=== PATIENT | male | born 1960 | race Caucasian/White ===

== ENCOUNTER 2016-09-02 20:26 | Inpatient (IN) | payer MEDICAID ==
[~2016-09-02] VITALS: Ht 177.8 cm; Wt 80.7 kg
--- OUTSIDE RECORDS SUMMARY | 2016-09-02 20:30 | XMS REPORT | CCD ---
Author Author BILL PIERRE Organization Unknown Address [address] [facility] [address] [place], [place] [id number] Care Team Providers Care Boat Canvas Maker Installer Name Role Phone MONTANA, DO Attphys MONTANA, DO Prisurg Vital Signs Unknown or Not Available. Allergies Allergy Code Allergy Type Reaction Status No Known Allergies 0 No known allergies Active Procedures Procedure Code Procedure Type Date CX CHEST [address] 03/06/2015 CULTURE BLOOD 06186500 SNOMED CT 03/06/2015 CULTURE BLOOD 84483157 SNOMED CT 03/06/2015 C REACTIVE PROTEIN 78411914 SNOMED CT 03/06/[address] 6[address] 03/06/2015 COMPREHENSIVE METABOLIC PANEL 012099000 SNOMED CT 2014 CBC W/ AUTO DIFF (RFLX MAN DIFF IF IND) 3863595 SNOMED CT 03/06/2015 BAN AERO ECLIPSE TREATMENT 10706303 SNOMED CT 03/06/2015 ^CBC W/AUTO DIFF 5270010 SNOMED CT 03/06/2015 History of Immunizations Unknown or Not Available. Problems Problem Code Start Date Resolved Date Status Pneumonia 084716822 03/07/2015 Active Elevated liver function 45358451 03/07/2015 Active ALCOHOL WITHDRAWAL 087555188 03/07/2015 Resolved Results COMPREHENSIVE METABOLIC PANEL - Collect Date/Time: 03/06/2015 05:45 Test Name Code Test Result Test Units Test Ref Range GLUCOSE 2345-7 97 MG/DL L=70 H=100 SODIUM 2951-2 140 MEQ/L L=135 H=148 POTASSIUM 2823-3 4.2 MEQ/L L=3.5 H=5.3 CHLORIDE 2075-0 107 MEQ/L L=96 H=110 CO2 2028-9 22 MEQ/L L=22 H=29 BUN 3094-0 13 MG/DL L=8 H=22 CREATININE 2160-0 0.8 MG/DL L=0.6 H=1.6 SGOT/AST 1920-8 78 IU/L L=10 H=40 SGPT/ALT 1742-6 84 IU/L L=8 H=54 ALK PHOS 6768-6 58 IU/L L=35 H=115 TOTAL PROTEIN 2885-2 7.0 G/DL L=5.5 H=8.5 ALBUMIN 1751-7 3.3 G/DL L=3.1 H=5.4 TOTAL BILI 1975-2 0.6 MG/DL L=0.0 H=1.5 CALCIUM 95888-0 9.0 MG/DL L=8.2 H=10.6 AGE 54 yrs GFR NonAA 101 GFR AA 122 eGFR >60 N/A eGFR AA* >60 N/A CBC W/ AUTO DIFF (RFLX MAN DIFF IF IND) - Collect Date/Time: 03/06/2015 05:45 Test Name Code Test Result Test Units Test Ref Range WBC 87515-8 8.9 TH/CMM L=4.5 H=10.8 RBC 789-8 4.00 ML/CMM L=4.70 H=6.10 HGB 718-7 12.5 G/DL L=14.0 H=18.0 HCT 4544-3 38.3 % L=42.0 H=52.0 MCV 96 FL L=81 H=99 MCH 31.3 PG L=27.0 H=33.0 MCHC 32.6 G/DL L=31.0 H=36.0 RDW SD 46 FL L=36 H=50 RDW CV 13.0 % L=0.0 H=14.8 MPV 11.0 FL L=9.3 H=12.5 PLT 777-3 148 TH/CMM L=130 H=440 NRBC# 0.00 TH/CMM L=0.00 H=0.00 NRBC% 0.0 /100WBC L=0.0 H=2.0 %NEUT 73.7 % %LYMP 11.9 % %MONO 9.8 % %EOS 4.1 % %BASO 0.5 % #NEUT 6.53 TH/CMM L=2.10 H=8.20 #LYMP 1.05 TH/CMM L=0.90 H=5.20 #MONO 0.87 TH/CMM L=0.16 H=1.00 #EOS 0.36 TH/CMM L=0.00 H=0.80 #BASO 0.04 TH/CMM L=0.00 H=0.20 MANUAL DIFF NOT IND N/A C REACTIVE PROTEIN - Collect Date/Time: 03/06/2015 05:45 Test Name Code Test Result Test Units Test Ref Range C REACTIVE PROTEIN 1988-5 0.8 MG/DL L=0.0 H= 1.0 LACTIC ACID - Collect Date/Time: 03/06/2015 05:45 Test Name Code Test Result Test Units Test Ref Range LACTIC ACID 2524-7 1.8 mmol/L L=0.5 H=1.6 Active Medications Medication Code Dose Units Frequency Route Modification Start Date/Time Spiriva Respimat 2.5MCG/1Act Inhalation [place] 9707679 2 PUFF DAILY INHALATION 03/10/2015 09:51 Levaquin 500MG Oral Tablet 603166 1 TABLET DAILY BY MOUTH 03/10/2015 09:47 Albuterol Sulfate 0.083% Inhalation Solution 329034 1 EACH FOUR TIMES A DAY INHALATION 03/10/2015 09:46 Ativan 1MG Oral Tablet 993604 1 MILLIGRAMS NEEDED EVERY 6 HR ORAL 03/10/2015 09:46 Ativan 1MG Oral Tablet 597943 1 MILLIGRAMS DAILY ORAL 03/10/2015 09:46 Depakote 250MG Oral Tablet, Delayed Release 8937612 250 MILLIGRAMS THREE TIMES A DAY ORAL 03/10/2015 09: 46 Ibuprofen 800MG Oral Tablet 481889 800 MILLIGRAMS NEEDED EVERY 6 HR ORAL 03/10/2015 09:46 ibuprofen 800MG Oral Tablet 427233 800 MILLIGRAMS AT BEDTIME ORAL 03/10/2015 09:46 Ipratropium [place] and Albuterol Sulfate 0.5MG/3ML-3MG/3ML Inhalation Solution 6852251 1 EACH NEEDED EVERY 6 HR INHALATION 03/10/2015 09:46 Keppra 250MG Oral Tablet 289335 250 MILLIGRAMS THREE TIMES A DAY ORAL 03/10/2015 09:46 Tylenol ES 500MG Oral Tablet 782325 500 MILLIGRAMS NEEDED EVERY 4 HR ORAL 03/10/2015 09:46 Protonix 40MG Oral Tablet, Enteric Coated 438280 1 TABLET DAILY BY MOUTH 02/06/2015 11:02 Magnesium Oxide 400MG Oral Tablet 775939 800 MILLIGRAMS TWO TIMES A DAY BY MOUTH 02/06/2015 11:01 Thera-M Enhanced 90MG-0.03MG-0.15MG-4 Oral Tablet 770022 1 TABLET DAILY BY MOUTH 02/06/2015 11:01 Vitamin B1 100MG Oral Tablet 561787 100 MILLIGRAMS DAILY BY MOUTH 02/06/2015 11:01 Amlodipine 5MG Oral Tablet 756528 5 MILLIGRAMS DAILY ORAL 02/06/2015 11:00 Metoprolol 50MG Oral Tablet 597011 1 TABLET EVERY 12 HOURS BY MOUTH 01/23/2013 13:56 Medications Administered During Visit Unknown or Not Available. Encounters Encounter Diagnosis Diagnosis Code Start Date PNEUMONIA, ORGANISM NOS 486 03/06/2015 Social History Smoking Status Code Start Date End Date Never smoker [id number] Patient Decision Aids Unknown or Not Available. Discharge Instructions You were admitted to [facility] on 03/06/2015 with a principal diagnosis of PNEUMONIA, ORGANISM NOS. You were discharged from [facility] on 03/06/2015. Should you have any questions prior to discharge, please contact a member of your healthcare team. If you have left the hospital and have any questions, please contact your primary care physician. Chief Complaint and Reason For Visit Chief Complaint Date of Onset SHORTNESS OF BREATH Function Status Unknown or Not Available. Referral/Transition of Care Unknown or Not Available.
[2016-09-02 20:44] VITALS: BP 133/62
[2016-09-02] MEDS ORDERED: ACETAMINOPHEN 500 MG TAB (TYLENOL) PO PRN (21:30)
[2016-09-02] MEDS ORDERED: RT-ALBUTEROL SULF 2.5 MG/3 ML PRE-MIX VIAL INH PRN (21:30)
[2016-09-02] MEDS ORDERED: LACTULOSE SYRUP 10GM/15ML (ENULOSE) 30ML UDC PO PRN (22:00)
[2016-09-03] MEDS ORDERED: SPIR100T2 PO (02:18)
[2016-09-03] MEDS ORDERED: NADO20TA PO (02:18)
[2016-09-03] MEDS ORDERED: TAMS0.4C2 PO (02:18)
[2016-09-03] MEDS ORDERED: GUAI120016 PO (02:18)
[2016-09-03] MEDS ORDERED: IRON150C13 PO (02:18)
[2016-09-03] MEDS ORDERED: THIA100T68 PO (02:18)
[2016-09-03] MEDS ORDERED: PANT40TA2 PO (02:18)
[2016-09-03] MEDS ORDERED: LEVE500T6 PO (02:18)
[2016-09-03] MEDS ORDERED: POTA-51 PO (02:18)
[2016-09-03] MEDS ORDERED: IPRA4AER IH (02:18)
[2016-09-03] MEDS ORDERED: MAGN400T6 PO (02:18)
[2016-09-03] MEDS ORDERED: FOLI1TAB24 PO (02:18)
[2016-09-03] MEDS ORDERED: BUME1TAB4 PO (02:18)
[2016-09-03] MEDS ORDERED: MULT-593 PO (02:18)
[2016-09-03 05:11] VITALS: BP 121/80
[2016-09-03 05:55] LABS: BASOPHILS % (AUTO) 1 % (0-10); EOSINOPHILS # (AUTO) 0.4 10^3/uL (0.0-0.3); EOSINOPHILS % (AUTO) 6 % (0-10); LYMPHOCYTES # (AUTO) 1.9 X 10^3 (1.0-4.0); LYMPHOCYTES % (AUTO) 26 % (12-44); MEAN CORPUSCULAR HEMOGLOBIN 33 PG (25-34); MEAN CORPUSCULAR HGB CONC 33 G/DL (32-36); MEAN CORPUSCULAR VOLUME 102 FL (80-99); MEAN PLATELET VOLUME 12.6 FL (7.4-10.4); MONOCYTES # (AUTO) 0.7 X 10^3 (0.0-1.0); MONOCYTES % (AUTO) 10 % (0-12); NEUTROPHILS # (AUTO) 4.1 X 10^3 (1.8-7.8); NEUTROPHILS % (AUTO) 58 % (42-75); PLATELET COUNT 73 10^3/uL (130-400); RED BLOOD COUNT 2.82 10^6/uL (4.35-5.85); RED CELL DISTRIBUTION WIDTH 16.9 % (10.0-14.5); WHITE BLOOD COUNT 7.1 10^3/uL (4.3-11.0)
[2016-09-03] MEDS: inSUlin ASPART (NovoLOG) 1 UNIT/0.01 ML (CHARGE PER UNIT) SC SCH ×4 (06:00→20:25)
[2016-09-03 06:18] LABS: ALBUMIN 3.6 G/DL (3.2-4.5); BILIRUBIN,TOTAL 2.2 MG/DL (0.1-1.0); CALCIUM 8.9 MG/DL (8.5-10.1); CREATININE SERUM 1.27 MG/DL (0.60-1.30); MAGNESIUM 1.2 MG/DL (1.8-2.4); TOTAL PROTEIN 6.3 G/DL (6.4-8.2)
[2016-09-03] MEDS: RT-ALBUTEROL SULF 2.5 MG/3 ML PRE-MIX VIAL INH SCH ×3 (07:40→20:55)
[2016-09-03] MEDS: MAGNESIUM OXIDE (MAG-OX)400 MG TAB PO SCH ×2 (08:32→17:54)
[2016-09-03] MEDS: BUMETANIDE 1 MG (BUMEX) TAB PO SCH (08:32)
[2016-09-03] MEDS: LEVETIRACETAM 500 MG (KEPPRA) TAB PO SCH ×2 (08:32→19:42)
[2016-09-03] MEDS: THIAMINE 100 MG (VITAMIN B-1) TAB PO SCH (08:32)
[2016-09-03] MEDS: MULTIVIT W/MINERALS TAB (THERAGRAN M) PO SCH (08:32)
[2016-09-03] MEDS: guaiFENesin (MUCINEX) 600 MG TAB PO SCH ×2 (08:33→19:42)
[2016-09-03] MEDS: KCL 20 MEQ TAB (K-DUR) PO SCH ×2 (08:33→19:42)
[2016-09-03] MEDS: PANTOPRAZOLE 40 MG (PROTONIX) TAB PO SCH (08:33)
[2016-09-03] MEDS: FOLIC ACID 1 MG TAB PO SCH (08:33)
[2016-09-03] MEDS: SPIRONOLACTONE 100 MG (ALDACTONE) TABLET PO SCH (08:34)
[2016-09-03] MEDS: IRON POLYSAC 150 MG CAP (NIFEREX) PO SCH ×2 (08:34→19:42)
[2016-09-03] MEDS: VANCOMYCIN INJECTION 1,250 MG in NS (IVPB) 250 ML IV SCH (08:50)
[2016-09-03] MEDS ORDERED: BUMETANIDE 1 MG/4 ML (BUMEX) VIAL IV SCH (09:00)
[2016-09-03] MEDS ORDERED: IRON POLYSAC 150 MG CAP (NIFEREX) PO SCH (09:00)
--- NOTE | 2016-09-03 11:56 | Physical Therapy Evaluation ---
PT Evaluation-General Medical Diagnosis Admission Date Sep 02, 2016 at 20:26 Medical Diagnosis: acute respiratory failure Onset Date: Aug 16, 2016 Therapy Diagnosis Therapy Diagnosis: impaired mobility, strength, endurance Height/Weight Height (Feet): 5 Height (Inches): 10.00 Weight (Pounds): 179 Weight (Ounces): 0.0 Precautions Precautions/Isolations: Droplet Isolation, Seizure, Fall Prevention Referral Physician: Devon Reason for Referral: Evaluation/Treatment Medical History Pertinent Medical History: Atrial Fib, GERD, HTN Additional Medical History alcohol abuse, pyleonephritis, cirrhosis, hep B&C, chronic pain syndrome, seizures Current History went to ER on 08/16/16, found by family with resp. distress Reviewed History: Yes Social History Home: Single Level Current Living Status: Other Family Entry Into Home: Level Entry patient has a ramp going to the front door and a level entry in the back which he says he will be using, patient lives with his brother who will be with him all the time Prior/Core FIM Prior Level of Function Functional [place] Measure 0=Not Assessed/NA 4=Minimal Assistance 1=Total Assistance 5=Supervision or Setup 2=Maximal Assistance 6=Modified [place] 3=Moderate Assistance 7=Complete [place] Bed Mobility: 7 Transfers (B,C,W/C) (FIM): 6 Gait: 6 patient states he was using a rolling walker some of the time PT Daily Note-Current Subjective Patient in recliner pre tx, states the chair feels better due to back pain. However, he has no pain at this time. Patient is on precautions and cannot come out of his room at this time. Pain Numeric Pain Scale: 0-No Pain Appearance Patient in recliner post tx, with nurse call, phone, tray, all needs met. Mental Status Patient Orientation: Person, Place, Situation Transfers Functional [place] Measure 0=Not Assessed/NA 4=Minimal Assistance 1=Total Assistance 5=Supervision or Setup 2=Maximal Assistance 6=Modified [place] 3=Moderate Assistance 7=Complete IndependenceIRFPAI Quality Coding Scale 6 Independent with activity with or without an assistive device 5 Patient requires set up or clean up by helper. Patient completes activity by themselves 4 Supervision or touching assist (CGA). [place] provide cues , steadying assist 3 The helper provides less than half the effort to complete the activity 2 The helper provides more than half the effort to complete the activity 1 Dependent. The helper does all the effort to complete an activity 7 Patient refused to complete or attempt activity 9 The patient did not perform the activity before the current illness or injury 88 Not attempted due to Medical conditions or safety concerns Transfers (B, C, W/C) (FIM): 4 Scootin Rollin Roll Left to Right (QC): 6 Supine to/from Sit: 6 Sit to/from Stand: 4 Bed to/from Chair: 4 Sit to Lying (QC): 6 Lying-Sitting/Side of Bed(QC): 6 Sit to Stand (QC): 4 Chair/Nvh-tg-Cwvce Xfer(QC): 4 Car Transfer (QC): 88 Patient requires CGA for sit to stand and stand pivot transfers, has appropriate use of hands for safety Gait Training Does the Patient Walk?: Yes Gait (FIM): 1 Distance: 20'x6 Walk 10 feet (QC): 4 Gait Level of Assist: 4 Gait Persons Needed: 1 Gait Assistive Device: FWW Patient needs CGA when walking, he was able to ambulate 10' without difficulty, and ambulated 20' about 6 times. He was toileted twice, needs to urinate frequently. Stair Training Stair Training: Handrails/: uses walker Stairs (FIM): 1 #of Steps: 1 1 Step (curb) (QC): 4 4 Steps (QC): 88 12 Steps (QC): 88 Stairs: Pattern: Step to Level of Assist: 4 (CGA) Balance Balance Sitting Static: Normal Balance Sitting Dynamic: Normal Balance-Standing Static: Fair Balance Standing Dynamic: Fair Picking up an Object (QC): 88 Exercises Seated Therapy Exercises: Ankle pumps, Hip flexion Seated Reps: 20 LAQ alternating for 5 min, sit to stand 3 sets of 5 Neuromuscular Patient has intact light touch sensation in both legs, MMT LLE 4+/5 gross, RLE 4 /5 gross Treatments evaluation, ambulation, bed mobility and transfers, functional strengthening, stair training Assessment Patient has impaired mobility and weakness in both legs PT Short Term Goals Short Term Goals Time Frame: Sep 10, 2016 Transfers (B,C,W/C) (FIM): 5 Gait (FIM): 2 Gait Distance Comment: 50' Gait Level of Assist: 4 Gait Assistive Device: FWW PT Cutter First Goals Cutter First Goals PT Retirement Goals Time Frame: Sep 24, 2016 Transfers (B,C,W/C) (FIM): 6 Sit to Lying (QC): 6 Lying-Sitting on Side/Bed(QC): 6 Sit to Stand (QC): 6 Rollin Roll Left to Right (QC): 6 Chair/Xdl-gb-Wffmq Xfer(QC): 6 Car Transfer (QC): 4 Does the Patient Walk: Yes Gait (FIM): 5 Distance: 150' Walk 10 feet (QC): 4 Walk 10ft-Uneven Surface(QC): 4 Walk 50ft with 2 Turns (QC): 4 Walk 150 ft (QC): 4 Gait Level of Assist: 5 Gait Assistive Device: FWW Stairs (FIM): 2 # of Steps: 4 1 Step (curb) (QC): 4 4 Steps (QC): 4 Stairs Level Of Assist: 4 PT Plan Problem List Problem List: Activity Tolerance, Functional Strength, Safety, Balance, Gait, Transfer, Bed Mobility Treatment/Plan Treatment Plan: Continue Plan of Care Treatment Plan: Bed Mobility, Education, Functional Activity Felisha, Functional Strength, Group Therapy, Gait, Safety, Therapeutic Exercise, Transfers Treatment Duration: Sep 24, 2016 # of days/week 5-6 Visits Per Week: 10-11 Minutes/Day (M-F): 60-90 Minutes/Day (Sat/Ruiz): 15-30 Pt/Family Agrees w/Plan: Yes Safety Risks/Education Patient Education: Gait Training, Transfer Techniques, Steps, Correct Positioning, Safety Issues Teaching Recipient: Patient Teaching Methods: Demonstration, Discussion Response to Teaching: Reinforcement Needed Discharge Recommendations Plan Patient will perform bed mobility and transfers, balance and endurance training , functional strengthening, stair training, gait training, education, to improve functional mobility and independence at home. Therapy D/C Recommendations: Home w/ Family Support Time/GCodes Time In: 1100 Time Out: 1200 Total Billed Treatment Time: 60 Total Billed Treatment 1 visit EVS 15 min EX 15 min GT 30 min SHADY SALGUERO PT Sep 03, 2016 11:56
--- NOTE | 2016-09-03 14:00 | Occupational Ther Daily Note ---
OT Current Status-Daily Note Subjective Pt seen in room, up in recliner, agreeable to OT. No pain mentioned but he said he was tired from this morning. Appearance Alert, cooperative Mental Status/Objective Functional [place] Measure 0=Not Assessed/NA 4=Minimal Assistance 1=Total Assistance 5=Supervision or Setup 2=Maximal Assistance 6=Modified [place] 3=Moderate Assistance 7=Complete [place] ADL-Treatment Pt reported that he needed to toilet. Sit to stand SBA, FWW. Walked CGA, FWW to bathroom. CGA transfer on/off BSC over toilet, using grab bars as well. Pt managed clothing and hygiene for BM with SBA. Walked back to recliner CGA, FWW. Functional [place] Measure 0=Not Assessed/NA 4=Minimal Assistance 1=Total Assistance 5=Supervision or Setup 2=Maximal Assistance 6=Modified [place] 3=Moderate Assistance 7=Complete IndependenceIRFPAI Quality Coding Scale 6 Independent with activity with or without an assistive device 5 Patient requires set up or clean up by helper. Patient completes activity by themselves 4 Supervision or touching assist (CGA). [place] provide cues , steadying assist 3 The helper provides less than half the effort to complete the activity 2 The helper provides more than half the effort to complete the activity 1 Dependent. The helper does all the effort to complete an activity 7 Patient refused to complete or attempt activity 9 The patient did not perform the activity before the current illness or injury 88 Not attempted due to Medical conditions or safety concerns Other Treatment Pt did 10 reps each x 2 sets of three different bilat UE exercises with yellow theraband (gentle resistance). Pt education on the different exercises that facilitate transfers and sit to stand from surfaces without arms. Pt tended to hold his breath and needed skilled cues to breathe. O2 sats remained 98-99%. Pt took several brief recovery periods due to decreased activity tolerance. OT Short Term Goals Short Term Goals Transfers (B,C,W/C) (FIM): 5 1=Demonstrate adherence to instructed precautions during ADL tasks. 2=Patient will verbalize/demonstrate understanding of assistive devices/ modifications for ADL. 3=Patient will improve strength/tolerance for activity to enable patient to perform ADL's. OT Nursing Home Goals Scrap Drop Engineer Goals Comprehension(FIM): 5 Expression (FIM): 5 Social Interaction(FIM): 6 Problem Solving(FIM): 5 Memory(FIM): 5 1=Demonstrate adherence to instructed precautions during ADL tasks. 2=Patient will verbalize/demonstrate understanding of assistive devices/ modifications for ADL. 3=Patient will improve strength/tolerance for activity to enable patient to perform ADL's. OT Education/Plan Discharge Recommendations Plan/Recommendations: Continue POC Treatment Plan/Plan of Care Patient would benefit from OT for education, treatment and training to promote independence in ADL's, mobility, safety and/or upper extremity function for ADL' s. Rehab Potential: Good Time/GCodes Start Time: 13:00 Stop Time: 13:15 Total Time Billed (hr/min): 15 Billed Treatment Time visit, 15 ex NICO LEES OT Sep 03, 2016 14:00
--- NOTE | 2016-09-03 14:21 | Occupational Therapy Eval ---
OT Evaluation-General/PLF Medical Diagnosis Admission Date Sep 02, 2016 at 20:26 Medical Diagnosis: acute respiratory failure Onset Date: Aug 16, 2016 Therapy Diagnosis Therapy Diagnosis: muscle weakness, decreased activity tolerance, decreased self care Height/Weight Height (Feet): 5 Height (Inches): 10.00 Weight (Pounds): 179 Weight (Ounces): 0.0 Precautions Precautions/Isolations: Droplet Isolation, Seizure, Fall Prevention Safety Interventions: Reorient-PRN Referral Physician: Devon Referral Reason: Evaluation/Treatment Medical History Pertinent Medical History: Atrial Fib, Alcoholism, GERD, HTN Additional Medical History Hx metabolic encephalopathy, Hep B, Hep C, chronic cirrhosis, anemia, anxiety, chronic kidney disease, chronic pain. 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 Pt reported he was in the hospital over with the same thing Reviewed History: Yes Social History Home: Single Level Current Living Status: Other Family (brother) Entry Into Home: Ramp, Level Entry Steps Into Home: 0 (level in back of house) ADL-Prior Level of Function ADL PLOF Comments Pt reported that he was able to manage his basic ADLs prior to recent hospitalizations. He lives with his brother who does the shopping, laundry and cooking. They share housecleaning. He reported his brother is his SK[employer] worker for 36+ hours a week. 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 He has not driven since his started having seizures - reported last seizure about 6 months ago. He also said he hadn't had any alcohol for a year. 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 No pain mentioned. Appearance Alert, cooperative Mental Status/Objective Patient Orientation: Person, Place, Time, Situation Attachments: IV Current Glasses/Contacts: No Hearing Aids: No Dentures/Partials: No Hand Dominance: Right Upper Extremity ROM Grossly WFL except slightly decreased shoulder flex/abd on R. Pt reported that he fell in the kitchen at home and landed on his R shoulder Upper Extremity Coordination Grossly WFL bilat Upper Extremity Strength Grossly 4/5 bilat with slightly decreased R shoulder flex/abd due to old shoulder injury ADL-Treatment Functional [place] Measure 0=Not Assessed/NA 4=Minimal Assistance 1=Total Assistance 5=Supervision or Setup 2=Maximal Assistance 6=Modified [place] 3=Moderate Assistance 7=Complete IndependenceIRFPAI Quality Coding Scale 6 Independent with activity with or without an assistive device 5 Patient requires set up or clean up by helper. Patient completes activity by themselves 4 Supervision or touching assist (CGA). [place] provide cues , steadying assist 3 The helper provides less than half the effort to complete the activity 2 The helper provides more than half the effort to complete the activity 1 Dependent. The helper does all the effort to complete an activity 7 Patient refused to complete or attempt activity 9 The patient did not perform the activity before the current illness or injury 88 Not attempted due to Medical conditions or safety concerns Eating (FIM): 5 (setup) Eating (QC): 5 Grooming (FIM): 5 (SBA, FWW at sink to brusth teeth and hair) Oral Hygiene (QC): 4 (SBA) Bathing (FIM): 5 (Washed and dried all parts setup, SBA when standing to wash bottom. Hand held shower, shower bench, grab bars) Shower/Bathe Self (QC): 4 (SBA) Upper Body Dressing (FIM): 5 (setup) Upper Body Dressing (QC): 5 (SBA, setup, FWW. Struggled a little with socks and out of breath. Slipped shoes on) Lower Body Dressing (FIM): 4 (SBA, FWW) Lower Body Dressing (QC): 4 (SBA, FWW) On/Off Footwear (QC): 5 (setup) Toileting (FIM): 5 (Managed clothing and hygiene, SBA, FWW, BSC over toilet. ) Toileting Hygiene (QC): 4 (SBA) Transfers (B, C, W/C) (FIM): 4 (CGA, FWW) Toilet/Commode Transfer (FIM): 4 (CGA, FWW, BSC over toilet) Toilet Transfer (QC): 4 (CGA) Shower Transfer (FIM): 4 (CGA, shower bench, grab bars, FWW) All ADLs took longer than usual. Pt required frequent recovery periods due to fatigue and decreased activity tolerance. Pt left up in recliner, all needs met. Education OT Patient Education: Modified ADL techniques, Progress toward Goal/Update tx plan, Purpose of tx/functional activities, Rehab process, Safety issues, Transfer techniques, Use of adapted equipment Teaching Recipient: Patient Teaching Methods: Demonstration, Discussion Response to Teaching: Return Demonstration OT Short Term Goals Short Term Goals Time Frame: Sep 10, 2016 Transfers (B,C,W/C) (FIM): 5 Toilet/Commode Transfer(FIM): 5 Shower Transfer(FIM): 5 Additional Short Term Goals: 2-Verbalize Understanding, 3-ImproveStrength/Felisha 1=Demonstrate adherence to instructed precautions during ADL tasks. 2=Patient will verbalize/demonstrate understanding of assistive devices/ modifications for ADL. 3=Patient will improve strength/tolerance for activity to enable patient to perform ADL's. OT Group Home Goals Hand Cloth Cutter Goals Time Frame: Sep 24, 2016 Eating (FIM): 7 Eating (QC): 6 Oral Hygiene (QC): 6 Grooming(FIM): 6 Bathing(FIM): 6 Shower/Bathe Self (QC): 6 Upper Body Dressing(FIM): 6 Upper Body Dressing (QC): 6 Lower Body Dressing(FIM): 6 Lower Body Dressing (QC): 6 On/Off Footwear (QC): 6 Toileting(FIM): 6 Toileting Hygiene (QC): 6 Toilet/Commode Transfer(FIM): 6 Toilet/Commode Transfer (QC): 6 Shower Transfer(FIM): 6 Comprehension(FIM): 5 Expression (FIM): 5 Social Interaction(FIM): 6 Problem Solving(FIM): 5 Memory(FIM): 5 Additional Goals: 2-Verbalize Understanding, 3-ImproveStrength/Felisha 1=Demonstrate adherence to instructed precautions during ADL tasks. 2=Patient will verbalize/demonstrate understanding of assistive devices/ modifications for ADL. 3=Patient will improve strength/tolerance for activity to enable patient to perform ADL's. OT Education/Plan Problem List/Assessment Assessment: Decreased Activ Tolerance, Decreased UE Strength, Dependent Transfers, Impaired Funct Balance, Impaired Self-Care Skills Pt would benefit from skilled OT to increase his independence in basic self care to allow him to return to his home safely to live with brother Discharge Recommendations Plan/Recommendations: Continue POC Treatment Plan/Plan of Care Treatment,Training & Education: Yes Patient would benefit from OT for education, treatment and training to promote independence in ADL's, mobility, safety and/or upper extremity function for ADL' s. Plan of Care: ADL Retraining, Functional Mobility, Group Exercise/Act as Ind ( education, exercise, functional activities, activity tolerance, socialization), UE Funct Exercise/Act, UE Neuromus Re-Ed/Coord Treatment Duration: Sep 24, 2016 # of days/week 5-6 Visits Per Week: 10-11 Minutes/Day (M-F): 75-90 Minutes/Day (Sat/Ruiz): PRN Rehab Potential: Good Time/GCodes Start Time: 09:45 Stop Time: 11:00 Total Time Billed (hr/min): 75 Billed Treatment Time visit, 15 minutes evaluation, 60 minutes NICO ANNE OT Sep 03, 2016 14:21
[2016-09-03] MEDS: ACETAMINOPHEN 325 MG TABLET/CAPLET (TYLENOL) PO PRN ×2 (14:31→19:42)
--- NOTE | 2016-09-03 15:01 | Physical Therapy Daily Note ---
PT Daily Note-Current Subjective Patient sitting EOB pre tx, agrees to PT. Nursing states he can come out of his room if he wears a mask. Pain Numeric Pain Scale: 0-No Pain Appearance Patient on toilet post tx, has nurse call. Mental Status Patient Orientation: Normal For Age Transfers Functional Preston Measure 0=Not Assessed/NA 4=Minimal Assistance 1=Total Assistance 5=Supervision or Setup 2=Maximal Assistance 6=Modified Preston 3=Moderate Assistance 7=Complete IndependenceIRFPAI Quality Coding Scale 6 Independent with activity with or without an assistive device 5 Patient requires set up or clean up by helper. Patient completes activity by themselves 4 Supervision or touching assist (CGA). Sunman provide cues , steadying assist 3 The helper provides less than half the effort to complete the activity 2 The helper provides more than half the effort to complete the activity 1 Dependent. The helper does all the effort to complete an activity 7 Patient refused to complete or attempt activity 9 The patient did not perform the activity before the current illness or injury 88 Not attempted due to Medical conditions or safety concerns Transfers (B, C, W/C) (FIM): 4 Sit to/from Stand: 4 CGA with transfers Gait Training Does the Patient Walk?: Yes Gait (FIM): 2 Distance: 100'x2 Gait Level of Assist: 4 Gait Persons Needed: 1 Gait Assistive Device: FWW Patient ambulates with CGA, gets very SOB and needs rest break after ambulation , O2 stayed in mid 90's Exercises Standing: Hip Abduction, Hamstring curls, Heel/toe raises, Mini squats Standing Reps: 20 Treatments Patient was toileted twice, ambulation, transfers, functional strengthening Assessment Current Status: Fair Progress much better endurance and ambulation, however, he does get very SOB and needs rest breaks between exercises or ambulation PT Short Term Goals Short Term Goals Time Frame: Sep 10, 2016 Transfers (B,C,W/C) (FIM): 5 Gait (FIM): 2 Gait Distance Comment: 50' Gait Level of Assist: 4 Gait Assistive Device: FWW PT Manager Sterile Goals [facility] Goals PT [facility] Goals Time Frame: Sep 24, 2016 Transfers (B,C,W/C) (FIM): 6 Sit to Lying (QC): 6 Lying-Sitting on Side/Bed(QC): 6 Sit to Stand (QC): 6 Rollin Roll Left to Right (QC): 6 Chair/Xoo-fo-Ddjwo Xfer(QC): 6 Car Transfer (QC): 4 Does the Patient Walk: Yes Gait (FIM): 5 Distance: 150' Walk 10 feet (QC): 4 Walk 10ft-Uneven Surface(QC): 4 Walk 50ft with 2 Turns (QC): 4 Walk 150 ft (QC): 4 Gait Level of Assist: 5 Gait Assistive Device: FWW Stairs (FIM): 2 # of Steps: 4 1 Step (curb) (QC): 4 4 Steps (QC): 4 Stairs Level Of Assist: 4 PT Plan Problem List Problem List: Activity Tolerance, Functional Strength, Safety, Balance, Gait, Transfer, Bed Mobility Treatment/Plan Treatment Plan: Continue Plan of Care Treatment Plan: Bed Mobility, Education, Functional Activity Felisha, Functional Strength, Group Therapy, Gait, Safety, Therapeutic Exercise, Transfers Treatment Duration: Sep 24, 2016 Visits Per Week: 10-11 Minutes/Day (M-F): 60-90 Minutes/Day (Sat/Ruiz): 15-30 Safety Risks/Education Patient Education: Gait Training, Transfer Techniques, Safety Issues Teaching Recipient: Patient Teaching Methods: Demonstration, Discussion Response to Teaching: Reinforcement Needed Time/GCodes Time In: 1430 Time Out: 1500 Total Billed Treatment Time: 30 Total Billed Treatment 1 visit GT 15 min EX 15 min SHADY SALGUERO PT Sep 03, 2016 15:01
--- NOTE | 2016-09-03 15:09 | ST Cognitive Linguistic Eval ---
Speech Evaluation-General Medical Diagnosis acute respiratory failure Onset Date: Aug 16, 2016 Therapy Diagnosis Therapy Diagnosis: Questionable Cognitive Impairment Precautions Precautions/Isolations: Droplet Isolation, Seizure, Fall Prevention Referral Referring Physician: Dr. Nikolas Osorio Reason for Referral: Evaluation/Treatment Cognitive Screen Medical History Pertinent Medical History: Atrial Fib, Alcoholism, GERD, HTN Reviewed History: Yes Social History Current Living Status: Other Family (brother) Speech PLF-Current Status Prior Level of Function The patient denied difficulty communicating his wants and needs efficiently and effectively prior to admission. Per patient, he has experienced "some" difficulty with short-term memory since his seizures began (several years prior), however, has not experienced any recent decline in cognitive function. Per patient, his brother (whom he lives with) completes laundry, cooking, and errands. Subjective The patient was recently admitted to [facility] Unit following acute respiratory distress. The patient greeted the clinician appropriately and agreed to participate in the dysphagia evaluation on this date. Language Eval: Auditory Comprehends Simple Yes/No Ques: Functional Indent/Objects Multiple Garcia: Functional Ident/Pics in Multiple Garcia: Functional Follows 1-Step Commands: Functional Follows Complex Directions: Mild (Intermittent repetition required.) Follows General Conversations: Functional Language Eval: Verbal Language Completes Spontaneous Greeting: Functional Produces Auto, Serial Info: Functional Imitates Simple Words/Phrases: Functional Word Finding: Functional Requests Basic Needs: Functional States Basic Personal Info: Functional Cognitive Patient Orientation The patient was alert and oriented x 3. Objective Cognitive Domain Attention: WNL Memory: Mild (The patient was able to recall three of three single words following a ten minute delay with a category cue provided by the clinician.) Problem Solving: Mild Objective Impression The patient demonstrated cognitive linguistic skills grossly within normal limits and appropriate for ADL's. Communication/Social Cognition Comprehension: 5 Expression: 5 Social Interaction: 5 Problem Solvin Memory: 5 Speech Patient Assess Expression of Ideas/Wants: Expression (4) Understanding Vebal Content: Understands (4) Brief Interview-Mental Status: Yes Repetition of Three Words: Three (3) Temporal Orientation: Year: Correct (3) Temporal Orientation: Month: Accurate within 5 days(2) Temporal Orientation: Day: Correct (1) Recall : Wear: No, could not recall (0) Recall : Color: Yes, no cue required (2) Recall : Bed: Yes, no cue required (2) Speech Long-Term Goals Long-Term Goals Comprehension: 5 Expression: 5 Social Interaction: 6 Problem Solvin Memory: 5 Speech-Plan Treatment Plan Speech Therapy Treatment Plan: Discontinue ST (Eval, only.) Rehab Potential: Good Safety Risks/Education Teaching Recipient: Patient Teaching Methods: Discussion Response to Teaching: Verbalize Understanding Education Topics Provided: Plan of Care Time Speech Therapy Time In: 08:30 Speech Therapy Time Out: 08:45 Total Billed Time: 15 Billed Treatment Time 1, AUSTIN PEREZ Sep 03, 2016 15:09
[2016-09-03 17:46] VITALS: BP 106/66
[2016-09-03] MEDS: ALFUZOSIN HCL 10 MG TAB (UROXATRAL) PO SCH (17:54)
[2016-09-04] MEDS: ACETAMINOPHEN 325 MG TABLET/CAPLET (TYLENOL) PO PRN ×2 (04:30→10:39)
[2016-09-04 04:47] LABS: MEAN PLATELET VOLUME 12.7 FL (7.4-10.4); RED BLOOD COUNT 2.88 10^6/uL (4.35-5.85); RED CELL DISTRIBUTION WIDTH 16.5 % (10.0-14.5); WHITE BLOOD COUNT 5.4 10^3/uL (4.3-11.0)
[2016-09-04 05:09] LABS: CALCIUM 9.3 MG/DL (8.5-10.1); CREATININE SERUM 1.56 MG/DL (0.60-1.30); POTASSIUM 4.8 MMOL/L (3.6-5.0); hs C REACTIVE PROTEIN 1.34 MG/DL (0.00-0.50)
[2016-09-04] MEDS: inSUlin ASPART (NovoLOG) 1 UNIT/0.01 ML (CHARGE PER UNIT) SC SCH ×4 (05:22→20:44)
[2016-09-04 06:00] VITALS: BP 97/60
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
[2016-09-04] MEDS: RT-ALBUTEROL SULF 2.5 MG/3 ML PRE-MIX VIAL INH SCH ×4 (07:38→19:42)
--- NOTE | 2016-09-04 09:51 | PM & R (SOAP) Progress Note ---
Subjective Subjective/Events-last exam Patient was seen in his rrom this AM Adjusting well to unit Cuurent labs noted as well as therapy notes Patient Min assist for transfers.Discussed case with RN Request for mrsa screen See orders. Objective Exam Last Set of Vital Signs Vital Signs Date Time Temp Pulse Resp B/P Pulse Ox O2 Delivery O2 Flow Rate FiO2 09/04/16 07:38 94 Room Air 09/04/16 06:00 97.6 72 20 97/60 Capillary Refill : I&O Bad tableGeneral: Alert, Oriented X3, Cooperative, No Acute Distress HEENT: Atraumatic, PERRLA, EOMI, Mucous Memb Moist/Hooven Neck: Supple, No JVD Lungs: Clear to Auscultation Heart: Regular Rate Abdomen: Normal Bowel Sounds, Soft, No Tenderness Extremities: No Edema Neuro: Other (generalized weakness) Results Lab Laboratory Tests 09/02/16 21:22: Glucometer 109 09/03/16 05:43: Glucometer 107 09/03/16 05:46: Alanine Aminotransferase (ALT/SGPT) 49, Albumin 3.6, Alkaline Phosphatase 95, Ammonia 53H, Anion Gap 8, Aspartate Amino Transf (AST/SGOT) 48H, BUN/Creatinine Ratio 21, Basophils # (Auto) 0.0, Basophils (%) (Auto) 1, Blood Urea Nitrogen 27H, Calcium Level 8.9, Carbon Dioxide Level 23, Chloride Level 104, Creatinine 1.27, Eosinophils # (Auto) 0.4H, Eosinophils (%) (Auto) 6, Estimat Glomerular Filtration Rate 59, Glucose Level 107H, Hematocrit 29L, Hemoglobin 9.4L, Lymphocytes # (Auto) 1.9, Lymphocytes (%) (Auto) 26, Magnesium Level 1.2L, Mean Corpuscular Hemoglobin 33, Mean Corpuscular Hemoglobin Concent 33, Mean Corpuscular Volume 102H, Mean Platelet Volume 12.6H, Monocytes # (Auto) 0.7, Monocytes (%) (Auto) 10, Neutrophils # (Auto) 4.1, Neutrophils (%) (Auto) 58, Platelet Count 73L, Potassium Level 4.0, Red Blood Count 2.82L, Red Cell Distribution Width 16.9H, Sodium Level 135, Total Bilirubin 2.2H, Total Protein 6.3L, White Blood Count 7.1 09/03/16 08:10: Vancomycin Level Trough 18.4 09/03/16 11:05: Glucometer 67L 09/03/16 15:59: Glucometer 90 09/03/16 20:09: Glucometer 106 09/04/16 04:25: Anion Gap 12, BUN/Creatinine Ratio 22, Blood Urea Nitrogen 35H, C-Reactive Protein High Sensitivity 1.34H, Calcium Level 9.3, Carbon Dioxide Level 20L, Chloride Level 104, Creatinine 1.56H, Erythrocyte Sedimentation Rate 20, Estimat Glomerular Filtration Rate 46, Glucose Level 89, Hematocrit 29L, Hemoglobin 9.6L, Mean Corpuscular Hemoglobin 33, Mean Corpuscular Hemoglobin Concent 33, Mean Corpuscular Volume 102H, Mean Platelet Volume 12.7H, Platelet Count 58L, Potassium Level 4.8, Red Blood Count 2.88L, Red Cell Distribution Width 16.5H, Sodium Level 136, White Blood Count 5.4 Assessment/Plan Assessment General debil secondary to recurrent MSSA pneumonia on antibiotics. HX of Etoh abuse and alcoholic liver D Macrocytic anemia Afib controlled seizure disorder on keppra HTN controlled Plan Continue PT/OTand current meds Dr Dickens consulted for this OOT Patient Team Conference next week Check MRSA screen-See orders CHAVA POOLE MD Sep 04, 2016 09:51
[2016-09-04] MEDS: guaiFENesin (MUCINEX) 600 MG TAB PO SCH ×2 (09:56→20:02)
[2016-09-04] MEDS: FOLIC ACID 1 MG TAB PO SCH (09:57)
[2016-09-04] MEDS: BUMETANIDE 1 MG (BUMEX) TAB PO SCH (09:57)
[2016-09-04] MEDS: LEVETIRACETAM 500 MG (KEPPRA) TAB PO SCH ×2 (09:57→20:03)
[2016-09-04] MEDS: KCL 20 MEQ TAB (K-DUR) PO SCH ×2 (09:57→20:03)
[2016-09-04] MEDS: MULTIVIT W/MINERALS TAB (THERAGRAN M) PO SCH (09:57)
[2016-09-04] MEDS: SPIRONOLACTONE 100 MG (ALDACTONE) TABLET PO SCH (09:57)
[2016-09-04] MEDS: PROPRANOLOL 20 MG (INDERAL) TABLET PO SCH (09:57)
[2016-09-04] MEDS: THIAMINE 100 MG (VITAMIN B-1) TAB PO SCH (09:57)
[2016-09-04] MEDS: MAGNESIUM OXIDE (MAG-OX)400 MG TAB PO SCH ×2 (09:57→18:19)
[2016-09-04] MEDS: PANTOPRAZOLE 40 MG (PROTONIX) TAB PO SCH (09:57)
[2016-09-04] MEDS: VANCOMYCIN INJECTION 1,250 MG in NS (IVPB) 250 ML IV SCH (09:58)
[2016-09-04] MEDS: IRON POLYSAC 150 MG CAP (NIFEREX) PO SCH ×2 (09:58→20:02)
--- NOTE | 2016-09-04 12:20 | Occupational Ther Daily Note ---
OT Current Status-Daily Note Subjective Pt sitting in recliner. No pain mentioned. Agreeable to OT. Appearance Alert, Cooperative Mental Status/Objective Functional [place] Measure 0=Not Assessed/NA 4=Minimal Assistance 1=Total Assistance 5=Supervision or Setup 2=Maximal Assistance 6=Modified [place] 3=Moderate Assistance 7=Complete [place]iken ADL-Treatment OT asked pt if he would like to change clothes, wash face, hands or brush teeth. Pt declined change of clothes but agreed to brush teeth and wash hands. Pt ambulated to bathroom for toileting, FWW, SBA. Toileted BSC over toilet, using grab bars, SBA. Pt brushed teeth, washed face/hands standing in front of sink, FWW, SBA. Pt ambulated to gym, SBA, FWW. Pt used arm bike for bilat UE strengthening 10 min, 10 alfaro with 2 brief recovery periods. Ex bar for shoulder,elbow strengthening 10 reps each. Pt worked on nuts & bolt, stacking 18 cones to increase strength for functional daily tasks, no additional resistance on arms. Pt ambulated back to room FWW, SBA. Pt sitting in recliner, call light in hand. All needs met. Functional [place] Measure 0=Not Assessed/NA 4=Minimal Assistance 1=Total Assistance 5=Supervision or Setup 2=Maximal Assistance 6=Modified [place] 3=Moderate Assistance 7=Complete IndependenceIRFPAI Quality Coding Scale 6 Independent with activity with or without an assistive device 5 Patient requires set up or clean up by helper. Patient completes activity by themselves 4 Supervision or touching assist (CGA). [place] provide cues , steadying assist 3 The helper provides less than half the effort to complete the activity 2 The helper provides more than half the effort to complete the activity 1 Dependent. The helper does all the effort to complete an activity 7 Patient refused to complete or attempt activity 9 The patient did not perform the activity before the current illness or injury 88 Not attempted due to Medical conditions or safety concerns Grooming (FIM): 5 Toileting (FIM): 5 Toilet/Commode Transfer (FIM): 5 Education OT Patient Education: Exercise program, Progress toward Goal/Update tx plan Teaching Recipient: Patient Teaching Methods: Demonstration Response to Teaching: Verbalize Understanding, Return Demonstration OT Short Term Goals Short Term Goals Time Frame: Sep 10, 2016 Transfers (B,C,W/C) (FIM): 5 Toilet/Commode Transfer(FIM): 5 Shower Transfer(FIM): 5 Additional Short Term Goals: 2-Verbalize Understanding, 3-ImproveStrength/Felisha 1=Demonstrate adherence to instructed precautions during ADL tasks. 2=Patient will verbalize/demonstrate understanding of assistive devices/ modifications for ADL. 3=Patient will improve strength/tolerance for activity to enable patient to perform ADL's. OT Mcc Goals Etiquette Teacher Goals Time Frame: Sep 24, 2016 Eating (FIM): 7 Eating (QC): 6 Oral Hygiene (QC): 6 Grooming(FIM): 6 Bathing(FIM): 6 Shower/Bathe Self (QC): 6 Upper Body Dressing(FIM): 6 Upper Body Dressing (QC): 6 Lower Body Dressing(FIM): 6 Lower Body Dressing (QC): 6 On/Off Footwear (QC): 6 Toileting(FIM): 6 Toileting Hygiene (QC): 6 Toilet/Commode Transfer(FIM): 6 Toilet/Commode Transfer (QC): 6 Shower Transfer(FIM): 6 Comprehension(FIM): 5 Expression (FIM): 5 Social Interaction(FIM): 6 Problem Solving(FIM): 5 Memory(FIM): 5 Additional Goals: 2-Verbalize Understanding, 3-ImproveStrength/Felisha 1=Demonstrate adherence to instructed precautions during ADL tasks. 2=Patient will verbalize/demonstrate understanding of assistive devices/ modifications for ADL. 3=Patient will improve strength/tolerance for activity to enable patient to perform ADL's. OT Education/Plan Problem List/Assessment Pt would benefit from skilled OT to increase his independence in basic self care to allow him to return to his home safely to live with brother Discharge Recommendations Plan/Recommendations: Continue POC Treatment Plan/Plan of Care Patient would benefit from OT for education, treatment and training to promote independence in ADL's, mobility, safety and/or upper extremity function for ADL' s. Plan of Care: ADL Retraining, Functional Mobility, Group Exercise/Act as Ind ( education, exercise, functional activities, activity tolerance, socialization), UE Funct Exercise/Act, UE Neuromus Re-Ed/Coord Treatment Duration: Sep 24, 2016 Visits Per Week: 10-11 Minutes/Day (M-F): 75-90 Minutes/Day (Sat/Ruiz): PRN Rehab Potential: Good Time/GCodes Start Time: 10:35 Stop Time: 11:35 Total Time Billed (hr/min): 60 Billed Treatment Time Visit, ADL 20 min, EX 40 min NICO LEES OT Sep 04, 2016 12:20 NICO LEES OT Sep 04, 2016 12:20
--- NOTE | 2016-09-04 12:29 | Physical Therapy Daily Note ---
PT Daily Note-Current Subjective Pt supine in bed upon arrival. Pt reports feeling a little dizzy when getting up but agrees to PT. Pain Numeric Pain Scale: 0-No Pain Location: No Pain Reported Mental Status Patient Orientation: Person, Place, Time, Situation Transfers Functional [place] Measure 0=Not Assessed/NA 4=Minimal Assistance 1=Total Assistance 5=Supervision or Setup 2=Maximal Assistance 6=Modified [place] 3=Moderate Assistance 7=Complete IndependenceIRFPAI Quality Coding Scale 6 Independent with activity with or without an assistive device 5 Patient requires set up or clean up by helper. Patient completes activity by themselves 4 Supervision or touching assist ([facility]). [place] provide cues , steadying assist 3 The helper provides less than half the effort to complete the activity 2 The helper provides more than half the effort to complete the activity 1 Dependent. The helper does all the effort to complete an activity 7 Patient refused to complete or attempt activity 9 The patient did not perform the activity before the current illness or injury 88 Not attempted due to Medical conditions or safety concerns Scootin Supine to/from Sit: 5 Sit to/from Stand: 4 Weight Bearing Weight Bearing Restriction: Full Weight Bearing Location Restriction: LE Bilateral Gait Training Does the Patient Walk?: Yes Distance (FIM): 3=150 ft Distance: 150' Gait Level of Assist: 4 Gait Persons Needed: 1 Gait Assistive Device: FWW Pt fatigues easy but recovers quickly as well. Pt's mg is slow but steady with no LOB. Exercises Seated Therapy Exercises: Ankle pumps, Long arc quads, Hip flexion, Kicking activity Seated Reps: 20 NuStep Minutes: 15 NuStep Workload: 6 Treatments Pt transfers from supine to EOB at [facility] and EOB to standing at [facility] using FWW. Pt ambulated using FWW at [facility]. Pt needs to use restroom before ambulating to Therapy Gym. Pt transferred to [facility] for 15m at Workload 3. Pt then takes short rest then completes seated EX in chair. Pt then takes short rest before ambulating back to room to rest in recliner at end of tx. Pt is left with all needs met. Assessment Current Status: Good Progress Pt continues to improve on transfers and mobility. Pt still fatigues with activity but recovers quickly. PT Short Term Goals Short Term Goals Time Frame: Sep 10, 2016 Transfers (B,C,W/C) (FIM): 5 Gait (FIM): 2 Gait Distance Comment: 50' Gait Level of Assist: 4 Gait Assistive Device: FWW PT Fdc Goals Floor Polisher Goals PT Floor Polisher Goals Time Frame: Sep 24, 2016 Transfers (B,C,W/C) (FIM): 6 Sit to Lying (QC): 6 Lying-Sitting on Side/Bed(QC): 6 Sit to Stand (QC): 6 Rollin Roll Left to Right (QC): 6 Chair/Ius-tq-Wuylm Xfer(QC): 6 Car Transfer (QC): 4 Does the Patient Walk: Yes Gait (FIM): 5 Distance: 150' Walk 10 feet (QC): 4 Walk 10ft-Uneven Surface(QC): 4 Walk 50ft with 2 Turns (QC): 4 Walk 150 ft (QC): 4 Gait Level of Assist: 5 Gait Assistive Device: FWW Stairs (FIM): 2 # of Steps: 4 1 Step (curb) (QC): 4 4 Steps (QC): 4 Stairs Level Of Assist: 4 PT Plan Problem List Problem List: Activity Tolerance, Functional Strength, Safety, Balance, Gait, Transfer Treatment/Plan Treatment Plan: Continue Plan of Care Treatment Plan: Bed Mobility, Education, Functional Activity Felisha, Functional Strength, Group Therapy, Gait, Safety, Therapeutic Exercise, Transfers Treatment Duration: Sep 24, 2016 Visits Per Week: 10-11 Minutes/Day (M-F): 60-90 Minutes/Day (Sat/Ruiz): 15-30 Safety Risks/Education Patient Education: Gait Training, Transfer Techniques, Correct Positioning, Safety Issues Teaching Recipient: Patient Teaching Methods: Discussion Response to Teaching: Verbalize Understanding Time/GCodes Time In: 900 Time Out: 1000 Total Billed Treatment Time: 60 Total Billed Treatment visit, GT (15m), FA (15m) & EX X2 (30m) MARIANO LEWIS PTA Sep 04, 2016 12:28
--- NOTE | 2016-09-04 13:16 | Individualized Plan of Care ---
Individualized Plan of Care Rehab Nursing IPOC Order Admission Date Sep 02, 2016 at 20:26 Current Orders Orders-CHAVA POOLE MD Isolation Central Supply Req (09/02/16 21:16) Cho 60g/M 0snack (16-2000 Valentín) (09/03/16 Breakfast) Cbc With Automated Diff (09/03/16 06:00) Comprehensive Metabolic Panel (09/03/16 06:00) Magnesium (09/03/16 06:00) Admission (Physician Order) (09/02/16:16) Code/Resuscitation (09/02/16:16) Initiate Admission Nursing Pro .admission (09/02/16:16) Rt Request For Service (09/02/16:) Albuterol Pre-Mix Nebs (Rt) (Proventil P (09/03/16 07:00) Svn Sm Volume Nebulizer Rt-Rfs (09/02/16 21:22) Folic Acid Tablet (Folic Acid Tablet) (09/03/16 09:00) Magnesium Oxide Tablet (Mag Ox Tablet) (09/03/16 08:00) Vancomycin Injection (Vancomycin Injecti (09/03/16 09:00) Potassium Chloride (Tablet) (K Dur Table (09/03/16 09:00) Pantoprazole Tablet (Protonix Tablet) (09/03/16 09:00) Levetiracetam Tablet (Keppra Tablet) (09/03/16 09:00) Guaifenesin Tablet (Mucinex Tablet) (09/03/16 09:00) Spironolactone Tablet (Aldactone Tablet) (09/03/16 09:00) Therapeutic Multivitamin Tab (Vitamins, (09/03/16 08:00) Thiamine Tablet (Vitamin B-1 Tablet) (09/03/16 08:00) Accucheck Achs ACHS (09/02/16 21:22) Vancomycin,Trough (09/03/16 08:00) Albuterol Pre-Mix Nebs (Rt) (Proventil P (09/02/16 21:30) Svn Sm Volume Nebulizer Rt-Rfs (09/02/16 21:22) Insulin Aspart (Novolog) (Novolog (Charg (09/03/16 06:00) Bumetanide Tablet (Bumex Tablet) (09/03/16 09:00) Iron Polysaccaride Capsule (Niferex Caps (09/03/16 09:00) Lactulose Oral Solution (Enulose Oral So (09/02/16 22:00) Iron Polysaccaride Capsule (Niferex Caps (09/03/16 09:00) Ammonia (09/03/16 06:00) Acetaminophen Tablet/Caplet (Tylenol T (09/03/16 02:45) Request Ot Evaluate & Treat (09/03/16 07:59) Speech Therapy Orders (09/03/16 07:59) Physical Therapy Oder (09/03/16 07:59) Alfuzosin Tablet (Uroxatral Tablet) (09/03/16 18:00) Patient Visit (09/03/16 ) Speech Sound Lang Comp (09/03/16 ) Propranolol Tablet (Inderal Tablet) (09/04/16 09:00) Cbc No Diff (09/04/16 06:00) Basic Metabolic Panel (09/04/16 06:00) Hs C Reactive Protein (09/04/16 06:00) Erythrocyte Sedimentation Rate (09/04/16 06:00) Nursing Communication (Pt.Care (09/03/16 14:32) Patient Visit (09/03/16 ) Initial Evaluation, Short (09/03/16 ) Exercise Therap, Ea 15 Min (09/03/16 ) Gait Training, Ea 15 Min (09/03/16 ) Sequential Compression Device 08,20 (09/03/16 16:40) Consult Physician (09/03/16 16:44) Mrsa Screen Physician Request (09/04/16 08:35) PT IPOC Problem List: Activity Tolerance, Functional Strength, Safety, Balance, Gait, Transfer Treatment Plan: Continue Plan of Care Bed Mobility, Education, Functional Activity Felisha, Functional Strength, Group Therapy, Gait, Safety, Therapeutic Exercise, Transfers Treatment Duration: Sep 24, 2016 Visits Per Week: 10-11 Minutes/Day (M-F): 60-90 Minutes/Day (Sat/Ruiz): 15-30 OT IPOC Problems: Decreased Activ Tolerance, Decreased UE Strength, Dependent Transfers , Impaired Funct Balance, Impaired Self-Care Skills OT Problems Pt would benefit from skilled OT to increase his independence in basic self care to allow him to return to his home safely to live with brother Plan of Care: ADL Retraining, Functional Mobility, Group Exercise/Act as Ind ( education, exercise, functional activities, activity tolerance, socialization), UE Funct Exercise/Act, UE Neuromus Re-Ed/Coord Treatment Duration: Sep 24, 2016 Visits Per Week: 10-11 Minutes/Day (M-F): 75-90 Minutes/Day (Sat/Ruiz): PRN ST IPOC Speech Therapy Treatment Plan: Discontinue ST (Eval, only.) Physician IPOC Medical Issues being managed closely and that require the 24 hour availability of a physician: treatment of pneumonia,seizure disorder.HTN A FIB Medical Issues: DVT Prophylaxis, Falls Precautions, Fluid/Electrolyte/ Nutrition Balance, Infection Protection, Other (List) (as per above) Brief Synthesis of Preadmission Screen, Post-Admission Evaluation, and Therapy Evaluations: 56 yo male with recurrent pneumonia requiring hospitalization at OSH for treatment Continues on IV antibiotics Lives in [facility] but has relative nearby to [place] Had been Independent prior to this Medical Prognosis: good Anticipated Length of Stay: 2 weeks Rehab Goals Modified Independent for adls and mobility skills Anticipated discharge destinat: Home with family and [facility] CHAVA POOLE MD Sep 04, 2016 13:16
--- NOTE | 2016-09-04 15:26 | Therapy Group Daily Note ---
Therapy Daily Group Note Patient Education Topic Home Safety Exercises LE Seated Exercise, UE Exercise Other/Notes Pt ambulated with CGA using FWW to OT/PT group in [facility] area. Group consisted of introductions (name, place living, New Year's resolution), socialization, memory activity, ARU description, UE/LE seated exercises and home safety education. Pt participated in group and contributed to discussions appropriately Pt was able to complete UE/LE exercises. Pt demonstrated good memory during activity. After therapy, pt ambulated with CGA using FWW back to room. Pt sat in recliner with call light/phone in reach. All needs met in room. Start Time: 13:00 Stop Time: 14:15 Total Billed Treatment Time: 75 Total Billed Treatment 1-GRP SAMANTHA BERNAL Sep 04, 2016 15:26
[2016-09-04] MEDS: ALFUZOSIN HCL 10 MG TAB (UROXATRAL) PO SCH (18:19)
[2016-09-04 18:58] VITALS: BP 96/53
[2016-09-05 05:07] VITALS: BP 99/62
[2016-09-05] MEDS: inSUlin ASPART (NovoLOG) 1 UNIT/0.01 ML (CHARGE PER UNIT) SC SCH ×4 (05:07→20:14)
[2016-09-05] MEDS: FOLIC ACID 1 MG TAB PO SCH (07:20)
[2016-09-05] MEDS: PROPRANOLOL 20 MG (INDERAL) TABLET PO SCH ×2 (07:20→11:33)
[2016-09-05] MEDS: ACETAMINOPHEN 325 MG TABLET/CAPLET (TYLENOL) PO PRN ×2 (07:20→15:21)
[2016-09-05] MEDS: THIAMINE 100 MG (VITAMIN B-1) TAB PO SCH (07:20)
[2016-09-05] MEDS: IRON POLYSAC 150 MG CAP (NIFEREX) PO SCH ×2 (07:20→20:12)
[2016-09-05] MEDS: BUMETANIDE 1 MG (BUMEX) TAB PO SCH ×2 (07:20→11:33)
[2016-09-05] MEDS: PANTOPRAZOLE 40 MG (PROTONIX) TAB PO SCH (07:20)
[2016-09-05] MEDS: KCL 20 MEQ TAB (K-DUR) PO SCH ×2 (07:20→20:12)
[2016-09-05] MEDS: LEVETIRACETAM 500 MG (KEPPRA) TAB PO SCH ×2 (07:20→20:12)
[2016-09-05] MEDS: MULTIVIT W/MINERALS TAB (THERAGRAN M) PO SCH (07:20)
[2016-09-05] MEDS: SPIRONOLACTONE 100 MG (ALDACTONE) TABLET PO SCH ×2 (07:20→11:33)
[2016-09-05] MEDS: MAGNESIUM OXIDE (MAG-OX)400 MG TAB PO SCH ×2 (07:20→17:35)
[2016-09-05] MEDS: guaiFENesin (MUCINEX) 600 MG TAB PO SCH ×2 (07:21→20:12)
[2016-09-05] MEDS: RT-ALBUTEROL SULF 2.5 MG/3 ML PRE-MIX VIAL INH SCH ×4 (07:43→19:29)
--- NOTE | 2016-09-05 09:04 | Physical Therapy Daily Note ---
PT Daily Note-Current Subjective Patient is in bed and agrees to therapy. No c/o at this time. Pain Numeric Pain Scale: 5-Moderate Pain Location: Lower Location Body Site: Back Pain Description: Ache Mental Status Patient Orientation: Normal For Age Transfers Functional [place] Measure 0=Not Assessed/NA 4=Minimal Assistance 1=Total Assistance 5=Supervision or Setup 2=Maximal Assistance 6=Modified [place] 3=Moderate Assistance 7=Complete IndependenceIRFPAI Quality Coding Scale 6 Independent with activity with or without an assistive device 5 Patient requires set up or clean up by helper. Patient completes activity by themselves 4 Supervision or touching assist (CGA). [place] provide cues , steadying assist 3 The helper provides less than half the effort to complete the activity 2 The helper provides more than half the effort to complete the activity 1 Dependent. The helper does all the effort to complete an activity 7 Patient refused to complete or attempt activity 9 The patient did not perform the activity before the current illness or injury 88 Not attempted due to Medical conditions or safety concerns Transfers (B, C, W/C) (FIM): 5 Scootin Rollin Roll Left to Right (QC): 5 Supine to/from Sit: 5 Sit to/from Stand: 5 Sit to Lying (QC): 5 Sit to Stand (QC): 5 Chair/Mkk-bw-Lwcci Xfer(QC): 5 Bed to/from Chair: 5 Gait Training Does the Patient Walk?: Yes Gait (FIM): 5 Distance (FIM): 3=150 ft Distance: 250' x 4 Gait Level of Assist: 5 Gait Persons Needed: 1 Gait Assistive Device: FWW slow, safe, functional; requires seated recovery periods due to fatigue Assessment Patient is improving with cardiopulmonary function with gait and exercise. PT to increase activity as tolerated by patient. PT Short Term Goals Short Term Goals Time Frame: Sep 10, 2016 Transfers (B,C,W/C) (FIM): 5 Gait (FIM): 2 Gait Distance Comment: 50' Gait Level of Assist: 4 Gait Assistive Device: FWW PT Retirement Goals Retirement Goals PT Retirement Goals Time Frame: Sep 24, 2016 Transfers (B,C,W/C) (FIM): 6 Sit to Lying (QC): 6 Lying-Sitting on Side/Bed(QC): 6 Sit to Stand (QC): 6 Rollin Roll Left to Right (QC): 6 Chair/Xij-pf-Ryceu Xfer(QC): 6 Car Transfer (QC): 4 Does the Patient Walk: Yes Gait (FIM): 5 Distance: 150' Walk 10 feet (QC): 4 Walk 10ft-Uneven Surface(QC): 4 Walk 50ft with 2 Turns (QC): 4 Walk 150 ft (QC): 4 Gait Level of Assist: 5 Gait Assistive Device: FWW Stairs (FIM): 2 # of Steps: 4 1 Step (curb) (QC): 4 4 Steps (QC): 4 Stairs Level Of Assist: 4 PT Plan Treatment/Plan Treatment Plan: Continue Plan of Care Treatment Plan: Bed Mobility, Education, Functional Activity Felisha, Functional Strength, Group Therapy, Gait, Safety, Therapeutic Exercise, Transfers Treatment Duration: Sep 24, 2016 Visits Per Week: 10-11 Minutes/Day (M-F): 60-90 Minutes/Day (Sat/Ruiz): 15-30 Time/GCodes Time In: 700 Time Out: 730 Total Billed Treatment Time: 30 Total Billed Treatment 1 visit GT x 2 30 min JOANN TUTTLE PT Sep 05, 2016 09:04
[2016-09-05 09:40] VITALS: BP 99/67
[2016-09-05 09:42] VITALS: BP 70/42
[2016-09-05] MEDS: VANCOMYCIN INJECTION 1,250 MG in NS (IVPB) 250 ML IV SCH (11:45)
--- NOTE | 2016-09-05 11:55 | Occupational Ther Daily Note ---
OT Current Status-Daily Note Subjective "Ok but I need to use the bathroom first." Pain Numeric Pain Scale: 0-No Pain Appearance Patient seated in chair upon OT arrival. Agreeable to treatment this am. Mental Status/Objective Patient Orientation: Person, Place, Situation Functional [place] Measure 0=Not Assessed/NA 4=Minimal Assistance 1=Total Assistance 5=Supervision or Setup 2=Maximal Assistance 6=Modified [place] 3=Moderate Assistance 7=Complete [place] ADL-Treatment Functional [place] Measure 0=Not Assessed/NA 4=Minimal Assistance 1=Total Assistance 5=Supervision or Setup 2=Maximal Assistance 6=Modified [place] 3=Moderate Assistance 7=Complete IndependenceIRFPAI Quality Coding Scale 6 Independent with activity with or without an assistive device 5 Patient requires set up or clean up by helper. Patient completes activity by themselves 4 Supervision or touching assist (CGA). [place] provide cues , steadying assist 3 The helper provides less than half the effort to complete the activity 2 The helper provides more than half the effort to complete the activity 1 Dependent. The helper does all the effort to complete an activity 7 Patient refused to complete or attempt activity 9 The patient did not perform the activity before the current illness or injury 88 Not attempted due to Medical conditions or safety concerns Other Treatment When ambulating with the patient to the bathroom with his walker, he suddenly stopped and became sluggish. When encouraged to move forward to the toilet, he could not do so and began leaning heavily into OT. At that point, he took hold of the grab bar at the toilet and with assistance, slid to the floor. He followed commands to slowly move feet forward as he was placed on his bottom on the floor. Nursing call light pulled. PT assisted with getting patient back on his feet and back to his recliner, using his walker. Nursing checked blood pressure and found it drops when he stands, thus the possible reason for the episode in the bathroom. He did not loose consciousness during the event and reported he heard everything I told him to do. Once back in his chair he said he felt better and agreed to exercise with theraband and minimal resisitive sponge for gross grasp work. OT Short Term Goals Short Term Goals Time Frame: Sep 10, 2016 Transfers (B,C,W/C) (FIM): 5 Toilet/Commode Transfer(FIM): 5 Shower Transfer(FIM): 5 Additional Short Term Goals: 2-Verbalize Understanding, 3-ImproveStrength/Felisha 1=Demonstrate adherence to instructed precautions during ADL tasks. 2=Patient will verbalize/demonstrate understanding of assistive devices/ modifications for ADL. 3=Patient will improve strength/tolerance for activity to enable patient to perform ADL's. OT Assisted Goals Assisted Goals Time Frame: Sep 24, 2016 Eating (FIM): 7 Eating (QC): 6 Oral Hygiene (QC): 6 Grooming(FIM): 6 Bathing(FIM): 6 Shower/Bathe Self (QC): 6 Upper Body Dressing(FIM): 6 Upper Body Dressing (QC): 6 Lower Body Dressing(FIM): 6 Lower Body Dressing (QC): 6 On/Off Footwear (QC): 6 Toileting(FIM): 6 Toileting Hygiene (QC): 6 Toilet/Commode Transfer(FIM): 6 Toilet/Commode Transfer (QC): 6 Shower Transfer(FIM): 6 Comprehension(FIM): 5 Expression (FIM): 5 Social Interaction(FIM): 6 Problem Solving(FIM): 5 Memory(FIM): 5 Additional Goals: 2-Verbalize Understanding, 3-ImproveStrength/Felisha 1=Demonstrate adherence to instructed precautions during ADL tasks. 2=Patient will verbalize/demonstrate understanding of assistive devices/ modifications for ADL. 3=Patient will improve strength/tolerance for activity to enable patient to perform ADL's. OT Education/Plan Problem List/Assessment Pt would benefit from skilled OT to increase his independence in basic self care to allow him to return to his home safely to live with brother Discharge Recommendations Plan/Recommendations: Continue POC Comment Doctor notified of the event and patient encouraged to stay in bed today or just up in the chair. Up in room with assistance only. Call light in reach. Treatment Plan/Plan of Care Patient would benefit from OT for education, treatment and training to promote independence in ADL's, mobility, safety and/or upper extremity function for ADL' s. Plan of Care: ADL Retraining, Functional Mobility, Group Exercise/Act as Ind ( education, exercise, functional activities, activity tolerance, socialization), UE Funct Exercise/Act, UE Neuromus Re-Ed/Coord Treatment Duration: Sep 24, 2016 Visits Per Week: 10-11 Minutes/Day (M-F): 75-90 Minutes/Day (Sat/Ruiz): PRN Rehab Potential: Good Time/GCodes Start Time: 08:27 Stop Time: 09:00 Total Time Billed (hr/min): 33 Billed Treatment Time Visit, ex x 2. G Codes Necessary: OLINDA Harrison OT Sep 05, 2016 11:55
[2016-09-05] MEDS: ALFUZOSIN HCL 10 MG TAB (UROXATRAL) PO SCH (17:35)
[2016-09-05 18:00] VITALS: BP 113/77
[2016-09-06] MEDS: inSUlin ASPART (NovoLOG) 1 UNIT/0.01 ML (CHARGE PER UNIT) SC SCH (06:00)
[2016-09-06 06:03] VITALS: BP 100/67
[2016-09-06] MEDS: RT-ALBUTEROL SULF 2.5 MG/3 ML PRE-MIX VIAL INH SCH ×4 (07:34→20:47)
[2016-09-06] MEDS: PANTOPRAZOLE 40 MG (PROTONIX) TAB PO SCH (08:45)
[2016-09-06] MEDS: MULTIVIT W/MINERALS TAB (THERAGRAN M) PO SCH (08:45)
[2016-09-06] MEDS: IRON POLYSAC 150 MG CAP (NIFEREX) PO SCH ×2 (08:45→19:53)
[2016-09-06] MEDS: guaiFENesin (MUCINEX) 600 MG TAB PO SCH ×2 (08:45→19:53)
[2016-09-06] MEDS: SPIRONOLACTONE 100 MG (ALDACTONE) TABLET PO SCH (08:46)
[2016-09-06] MEDS: MAGNESIUM OXIDE (MAG-OX)400 MG TAB PO SCH ×2 (08:46→18:07)
[2016-09-06] MEDS: FOLIC ACID 1 MG TAB PO SCH (08:47)
[2016-09-06] MEDS: PROPRANOLOL 20 MG (INDERAL) TABLET PO SCH (08:47)
[2016-09-06] MEDS: THIAMINE 100 MG (VITAMIN B-1) TAB PO SCH (08:47)
[2016-09-06] MEDS: LEVETIRACETAM 500 MG (KEPPRA) TAB PO SCH ×2 (08:47→19:53)
[2016-09-06] MEDS: BUMETANIDE 1 MG (BUMEX) TAB PO SCH (08:47)
[2016-09-06] MEDS: KCL 20 MEQ TAB (K-DUR) PO SCH ×2 (08:47→19:53)
[2016-09-06 16:53] VITALS: BP 109/76
[2016-09-06] MEDS: ALFUZOSIN HCL 10 MG TAB (UROXATRAL) PO SCH (18:07)
[2016-09-07] MEDS: ACETAMINOPHEN 325 MG TABLET/CAPLET (TYLENOL) PO PRN ×2 (04:23→21:42)
[2016-09-07 05:31] VITALS: BP 99/65
[2016-09-07] MEDS: RT-ALBUTEROL SULF 2.5 MG/3 ML PRE-MIX VIAL INH SCH ×4 (06:58→20:08)
[2016-09-07] MEDS: FOLIC ACID 1 MG TAB PO SCH (08:07)
[2016-09-07] MEDS: KCL 20 MEQ TAB (K-DUR) PO SCH ×2 (08:08→21:19)
[2016-09-07] MEDS: BUMETANIDE 1 MG (BUMEX) TAB PO SCH (08:08)
[2016-09-07] MEDS: guaiFENesin (MUCINEX) 600 MG TAB PO SCH ×2 (08:08→21:19)
[2016-09-07] MEDS: LEVETIRACETAM 500 MG (KEPPRA) TAB PO SCH ×2 (08:08→21:19)
[2016-09-07] MEDS: MAGNESIUM OXIDE (MAG-OX)400 MG TAB PO SCH ×2 (08:08→17:09)
[2016-09-07] MEDS: PROPRANOLOL 20 MG (INDERAL) TABLET PO SCH (08:08)
[2016-09-07] MEDS: PANTOPRAZOLE 40 MG (PROTONIX) TAB PO SCH (08:08)
[2016-09-07] MEDS: THIAMINE 100 MG (VITAMIN B-1) TAB PO SCH (08:08)
[2016-09-07] MEDS: MULTIVIT W/MINERALS TAB (THERAGRAN M) PO SCH (08:09)
[2016-09-07] MEDS: SPIRONOLACTONE 100 MG (ALDACTONE) TABLET PO SCH (08:09)
[2016-09-07] MEDS: IRON POLYSAC 150 MG CAP (NIFEREX) PO SCH ×2 (08:11→21:19)
--- NOTE | 2016-09-07 09:58 | Physical Therapy Daily Note ---
PT Daily Note-Current Subjective "Call me Jr" Pt. states he is feeling better and hopes to get the mask off soon. Pain Numeric Pain Scale: 0-No Pain Mental Status Patient Orientation: Normal For Age Attachments: Other-See Comments mask and gown for out of room secondary to isolation Transfers Functional [place] Measure 0=Not Assessed/NA 4=Minimal Assistance 1=Total Assistance 5=Supervision or Setup 2=Maximal Assistance 6=Modified [place] 3=Moderate Assistance 7=Complete IndependenceIRFPAI Quality Coding Scale 6 Independent with activity with or without an assistive device 5 Patient requires set up or clean up by helper. Patient completes activity by themselves 4 Supervision or touching assist (CGA). [place] provide cues , steadying assist 3 The helper provides less than half the effort to complete the activity 2 The helper provides more than half the effort to complete the activity 1 Dependent. The helper does all the effort to complete an activity 7 Patient refused to complete or attempt activity 9 The patient did not perform the activity before the current illness or injury 88 Not attempted due to Medical conditions or safety concerns Transfers (B, C, W/C) (FIM): 5 Scootin Rollin Supine to/from Sit: 6 Sit to/from Stand: 5 Bed to/from Chair: 5 Gait Training Does the Patient Walk?: Yes Gait (FIM): 3 Distance (FIM): 3=150 ft (x2) Gait Level of Assist: 5 Gait Persons Needed: 1 Gait Assistive Device: FWW slow, relies on FWW Exercises Supine Ex: Bridging, Ankle pumps, Quad Set, Rolling, Glut sets, Heel Slides, Short Arc Quads, Scooting, Straight leg raise, Hip abd/add Supine Reps: 15 NuStep Minutes: 8 NuStep Workload: 4 Treatments pt toileted for BM, managed briefs up down as well as cleaning self, washed hands indep at sink etc. Assessment Current Status: Good Progress PT Short Term Goals Short Term Goals Time Frame: Sep 10, 2016 Transfers (B,C,W/C) (FIM): 5 Gait (FIM): 2 Gait Distance Comment: 50' Gait Level of Assist: 4 Gait Assistive Device: FWW PT Laundry Operator Goals Fdc Goals PT Fdc Goals Time Frame: Sep 24, 2016 Transfers (B,C,W/C) (FIM): 6 Sit to Lying (QC): 6 Lying-Sitting on Side/Bed(QC): 6 Sit to Stand (QC): 6 Rollin Roll Left to Right (QC): 6 Chair/Wes-fj-Ocggc Xfer(QC): 6 Car Transfer (QC): 4 Does the Patient Walk: Yes Gait (FIM): 5 Distance: 150' Walk 10 feet (QC): 4 Walk 10ft-Uneven Surface(QC): 4 Walk 50ft with 2 Turns (QC): 4 Walk 150 ft (QC): 4 Gait Level of Assist: 5 Gait Assistive Device: FWW Stairs (FIM): 2 # of Steps: 4 1 Step (curb) (QC): 4 4 Steps (QC): 4 Stairs Level Of Assist: 4 PT Plan Treatment/Plan Treatment Plan: Continue Plan of Care Treatment Plan: Bed Mobility, Education, Functional Activity Felisha, Functional Strength, Group Therapy, Gait, Safety, Therapeutic Exercise, Transfers Treatment Duration: Sep 24, 2016 Visits Per Week: 10-11 Minutes/Day (M-F): 60-90 Minutes/Day (Sat/Ruiz): 15-30 Safety Risks/Education Patient Education: Gait Training, Transfer Techniques, Correct Positioning, Safety Issues Teaching Recipient: Patient Teaching Methods: Demonstration, Discussion Response to Teaching: Verbalize Understanding, Return Demonstration, Reinforcement Needed Time/GCodes Time In: 900 Time Out: 1000 Total Billed Treatment Time: 60 Total Billed Treatment 1,EX30m,FA30m G Codes Necessary: DC Scott HARVESTER OPERATOR Sep 07, 2016 09:58
--- NOTE | 2016-09-07 13:26 | Occupational Ther Daily Note ---
OT Current Status-Daily Note Subjective Pt lying in bed. Pt reported he had a fall over the weekend due to BP being too low. No pain mentioned. Agreeable to OT. Appearance Alert Cooperative Mental Status/Objective Functional [place] Measure 0=Not Assessed/NA 4=Minimal Assistance 1=Total Assistance 5=Supervision or Setup 2=Maximal Assistance 6=Modified [place] 3=Moderate Assistance 7=Complete [place] ADL-Treatment Pt sat up EOB without help. Ambulated to bathroom for shower, CGA, FWW. Transferred to shower bench with SBA, grab bars. Pt doffed gown/brief while seated on shower bench. Pt able to turn on/off shower. Pt washed and dried hair , UB/LB parts seated on shower bench, hand held shower, grab bars, setup. .Pt used grab bars to don brief, gown SBA. Ambulated to sink, brushed teeth and hair, CGA, FWW. .Pt retrieved clothes from closet, CGA, FWW. Pt sat at EOB to don shirt, pants, socks, setup, FWW for standing. Pt transferred from EOB to recliner FWW, CGA. Used yellow (light) resistance theraband for shoulder strength 3 exercises, 12 reps, 2 sets. Pt returned to bed, call light in hand. All needs met. Functional [place] Measure 0=Not Assessed/NA 4=Minimal Assistance 1=Total Assistance 5=Supervision or Setup 2=Maximal Assistance 6=Modified [place] 3=Moderate Assistance 7=Complete IndependenceIRFPAI Quality Coding Scale 6 Independent with activity with or without an assistive device 5 Patient requires set up or clean up by helper. Patient completes activity by themselves 4 Supervision or touching assist (CGA). [place] provide cues , steadying assist 3 The helper provides less than half the effort to complete the activity 2 The helper provides more than half the effort to complete the activity 1 Dependent. The helper does all the effort to complete an activity 7 Patient refused to complete or attempt activity 9 The patient did not perform the activity before the current illness or injury 88 Not attempted due to Medical conditions or safety concerns Grooming (FIM): 4 Bathing (FIM): 5 Upper Body (FIM): 5 (setup) Lower Body Dressing (FIM): 5 (setup) Transfers (B, C, W/C) (FIM): 4 Shower Transfer(FIM): 4 Education OT Patient Education: Modified ADL techniques, Purpose of tx/functional activities, Transfer techniques Teaching Recipient: Patient Teaching Methods: Demonstration, Discussion Response to Teaching: Verbalize Understanding, Return Demonstration OT Short Term Goals Short Term Goals Time Frame: Sep 10, 2016 Transfers (B,C,W/C) (FIM): 5 Toilet/Commode Transfer(FIM): 5 Shower Transfer(FIM): 5 Additional Short Term Goals: 2-Verbalize Understanding, 3-ImproveStrength/Felisha 1=Demonstrate adherence to instructed precautions during ADL tasks. 2=Patient will verbalize/demonstrate understanding of assistive devices/ modifications for ADL. 3=Patient will improve strength/tolerance for activity to enable patient to perform ADL's. OT Intermediate Goals Deli Bakery Clerk Goals Time Frame: Sep 24, 2016 Eating (FIM): 7 Eating (QC): 6 Oral Hygiene (QC): 6 Grooming(FIM): 6 Bathing(FIM): 6 Shower/Bathe Self (QC): 6 Upper Body Dressing(FIM): 6 Upper Body Dressing (QC): 6 Lower Body Dressing(FIM): 6 Lower Body Dressing (QC): 6 On/Off Footwear (QC): 6 Toileting(FIM): 6 Toileting Hygiene (QC): 6 Toilet/Commode Transfer(FIM): 6 Toilet/Commode Transfer (QC): 6 Shower Transfer(FIM): 6 Comprehension(FIM): 5 Expression (FIM): 5 Social Interaction(FIM): 6 Problem Solving(FIM): 5 Memory(FIM): 5 Additional Goals: 2-Verbalize Understanding, 3-ImproveStrength/Felisha 1=Demonstrate adherence to instructed precautions during ADL tasks. 2=Patient will verbalize/demonstrate understanding of assistive devices/ modifications for ADL. 3=Patient will improve strength/tolerance for activity to enable patient to perform ADL's. OT Education/Plan Problem List/Assessment Pt would benefit from skilled OT to increase his independence in basic self care to allow him to return to his home safely to live with brother Discharge Recommendations Plan/Recommendations: Continue POC Treatment Plan/Plan of Care Patient would benefit from OT for education, treatment and training to promote independence in ADL's, mobility, safety and/or upper extremity function for ADL' s. Plan of Care: ADL Retraining, Functional Mobility, Group Exercise/Act as Ind ( education, exercise, functional activities, activity tolerance, socialization), UE Funct Exercise/Act, UE Neuromus Re-Ed/Coord Treatment Duration: Sep 24, 2016 Visits Per Week: 10-11 Minutes/Day (M-F): 75-90 Minutes/Day (Sat/Ruiz): PRN Rehab Potential: Good Time/GCodes Start Time: 10:55 Stop Time: 11:55 Total Time Billed (hr/min): 60 Billed Treatment Time visit, ADL 50 min, EX 10 min NICO LEES OT Sep 07, 2016 13:26
--- NOTE | 2016-09-07 14:32 | Therapy Group Daily Note ---
Therapy Daily Group Note Patient Education Topic Home Safety Exercises LE Seated Exercise, UE Exercise Other/Notes Pt was an active participant in OT/PT group. He socialized by introducing himself and sharing family New Year's traditions. He contributed to group education/discussion on home safety and de-cluttering. He also led the group in one exercise and did seated UE and LE exercises taught by others in the group. He walked SBA-CGA, FWW to and from group and was taken to the toilet before getting into bed, 4 rails up, all needs met. Start Time: 13:00 Stop Time: 14:10 Total Billed Treatment Time: 70 Total Billed Treatment visit, 70 minutes group NICO LEES OT Sep 07, 2016 14:32
[2016-09-07] MEDS: ALFUZOSIN HCL 10 MG TAB (UROXATRAL) PO SCH (17:09)
[2016-09-07 18:19] VITALS: BP 104/70
[2016-09-08 04:41] VITALS: BP 103/70
[2016-09-08] MEDS: RT-ALBUTEROL SULF 2.5 MG/3 ML PRE-MIX VIAL INH SCH ×4 (07:41→19:33)
[2016-09-08] MEDS: MULTIVIT W/MINERALS TAB (THERAGRAN M) PO SCH (08:00)
[2016-09-08] MEDS: PROPRANOLOL 20 MG (INDERAL) TABLET PO SCH (08:00)
[2016-09-08] MEDS: KCL 20 MEQ TAB (K-DUR) PO SCH ×2 (08:00→19:43)
[2016-09-08] MEDS: FOLIC ACID 1 MG TAB PO SCH (08:00)
[2016-09-08] MEDS: BUMETANIDE 1 MG (BUMEX) TAB PO SCH (08:00)
[2016-09-08] MEDS: guaiFENesin (MUCINEX) 600 MG TAB PO SCH ×2 (08:00→20:03)
[2016-09-08] MEDS: IRON POLYSAC 150 MG CAP (NIFEREX) PO SCH ×2 (08:00→20:04)
[2016-09-08] MEDS: PANTOPRAZOLE 40 MG (PROTONIX) TAB PO SCH (08:00)
[2016-09-08] MEDS: LEVETIRACETAM 500 MG (KEPPRA) TAB PO SCH ×2 (08:00→20:04)
[2016-09-08] MEDS: SPIRONOLACTONE 100 MG (ALDACTONE) TABLET PO SCH (08:00)
[2016-09-08] MEDS: MAGNESIUM OXIDE (MAG-OX)400 MG TAB PO SCH ×2 (08:00→18:32)
[2016-09-08] MEDS: THIAMINE 100 MG (VITAMIN B-1) TAB PO SCH (08:00)
[2016-09-08] MEDS: ACETAMINOPHEN 325 MG TABLET/CAPLET (TYLENOL) PO PRN ×2 (08:09→18:32)
--- NOTE | 2016-09-08 08:11 | Consultation ---
History of Present Illness History of Present Illness Patient Consulted On(phil/time) 09/08/16 08:07 Date of Admission History of Present Illness patient has weakness. Patient was at [facility] for pneumonia. Patient also has history of hepatitis B and C, ethanol abuse, chronic hepatitis , liver cirrhosis,'s C KD, hypertension, seizure and GERD. Previous surgery denies. Family history denies asthma TB diabetes heart disease lung disease cancer Allergies and Home Medications Allergies Coded Allergies: No Known Drug Allergies (Unverified , 09/02/16) Home Medications Albuterol/Ipratropium 4 Gm Aero 1 PUFF IH Q6H PRN PRN SHORTNESS OF BREATH ( Reported) Bumetanide 1 Mg Tablet 1 MG PO DAILY (Reported) Folic Acid 1 Mg Tablet 1 MG PO DAILY (Reported) Guaifenesin 1,200 Mg Tab.er.12h 1,200 MG PO BID (Reported) Iron Polysaccharide Complex 150 Mg Capsule 150 MG PO BID (Reported) Levetiracetam 500 Mg Tablet 500 MG PO BID (Reported) Magnesium Oxide 400 Mg Tablet 400 MG PO BID (Reported) Multivitamin with Minerals 1 Each Tablet 1 EACH PO DAILY (Reported) Nadolol 20 Mg Tablet 20 MG PO DAILY (Reported) Pantoprazole Sodium 40 Mg Tablet.dr 40 MG PO DAILY (Reported) Potassium Chloride 20 Meq Tablet.er 20 MEQ PO BID WITH MEALS (Reported) Spironolactone 100 Mg Tablet 100 MG PO DAILY (Reported) Tamsulosin HCl 0.4 Mg Cap.er.24h 0.4 MG PO HS (Reported) Thiamine Mononitrate 100 Mg Tablet 100 MG PO DAILY (Reported) Past Wldwpyr-[place]-Sffret Hx Patient Social History Alcohol Use: Past History Recreational Drug Use: No Smoking Status: Never a Smoker Recent Foreign Travel: No Contact w/Someone Who Travel: No Recent Infectious Disease Expo: No Recent Hopitalizations: Yes Physical Abuse Screen: No Sexual Abuse: No Immunizations Up To Date Tetanus Booster (TDap): Unknown PED Vaccines UTD: Yes Date of Pneumonia Vaccine: May 07, 2016 Date of Influenza Vaccine: May 07, 2016 Seasonal Allergies Seasonal Allergies: No Surgeries HX Surgeries: No Respiratory Hx Respiratory Disorders: Yes (INHALER AT HOME, MRSA PNEUMONIA, PULM EDEMA) Respiratory Disorders: Pneumonia, COPD Cardiovascular Hx Cardiac Disorders: Yes Neurological Hx Neurological Disorders: Yes (METABOLIC ENCEPHALOPATHY, ONDINA) Reproductive System Hx Reproductive Disorders: No HIV/AIDS: No Genitourinary Hx Genitourinary Disorders: Yes Genitourinary Disorders: Kidney Infection, Renal Failure Gastrointestinal Hx Gastrointestinal Disorders: No (HEP B/HEPC, CHRONIC LIVER CIRRHOSIC, ANEMIA) Gastrointestinal Disorders: Liver Disease/Jaundice, Gastrointestinal Bleed, Chronic Constipation, Chronic Diarrhea Musculoskeletal Hx Musculoskeletal Disorders: Yes Musculoskeletal Disorders: Arthritis Endocrine Hx Endocrine Disorders: Yes Endocrine Disorders: Diabetes, Non-Insulin dep HEENT HX ENT Disorders: No Loss of Vision: Denies Hearing Impairment: Denies Cancer Hx Cancer: No Psychosocial Hx Psychiatric Problems: Yes Behavioral Health Disorders: Depression Integumentary HX Skin/Integumentary Disorder: No (DENIES ) Blood Transfusions Hx Blood Disorders: No Adverse Reaction to a Blood Tr: No Family Medical History Family Medial History: Patient reports no known family medical history. Review of Systems-General Constitutional: malaise weakness EENTM: no symptoms reported Respiratory: other (pneumonia) Cardiovascular: no symptoms reported Gastrointestinal: no symptoms reported Genitourinary: no symptoms reported Physical Exam-General Problems Physical Exam Vital Signs Vital Sign - Last 12Hours 09/02/16 20:44 Temp 98.4 Pulse 76 Resp 20 B/P 133/62 Pulse Ox 95 O2 Delivery Room Air Capillary Refill : General Appearance: WD/WN no apparent distress Eyes: Bilateral Eye Normal Inspection HEENT: normal ENT inspection Neck: non-tender Respiratory: chest non-tender lungs clear no respiratory distress no accessory muscle use Cardiovascular: regular rate, rhythm Gastrointestinal: non tender soft Assessment/Plan Assessment/Plan Admission Diagnosis/Plan pneumonia. Weakness. Seizure. Liver cirrhosis. CAD. GERD. Seizure. Chronic hepatitis Clinical Quality Measures DVT/VTE Risk/Contraindication: Risk Factor Score Per Nursin RFS Level Per Nursing on Admit: 4+=Very High CHERI GARCIA DO Sep 08, 2016 08:11
--- NOTE | 2016-09-08 09:58 | Physical Therapy Daily Note ---
PT Daily Note-Current Subjective Patient in bed pre tx, agrees to PT. Patient states he needs to have a BM and he also needs to get dressed. Pain Numeric Pain Scale: 0-No Pain Appearance Patient sitting EOB post tx, has nurse call, phone, tray, all needs met. Mental Status Patient Orientation: Normal For Age Transfers Functional [place] Measure 0=Not Assessed/NA 4=Minimal Assistance 1=Total Assistance 5=Supervision or Setup 2=Maximal Assistance 6=Modified [place] 3=Moderate Assistance 7=Complete IndependenceIRFPAI Quality Coding Scale 6 Independent with activity with or without an assistive device 5 Patient requires set up or clean up by helper. Patient completes activity by themselves 4 Supervision or touching assist (CGA). [place] provide cues , steadying assist 3 The helper provides less than half the effort to complete the activity 2 The helper provides more than half the effort to complete the activity 1 Dependent. The helper does all the effort to complete an activity 7 Patient refused to complete or attempt activity 9 The patient did not perform the activity before the current illness or injury 88 Not attempted due to Medical conditions or safety concerns Transfers (B, C, W/C) (FIM): 6 Scootin Rollin Supine to/from Sit: 6 Sit to/from Stand: 6 Gait Training Does the Patient Walk?: Yes Gait (FIM): 5 Distance: 400'x2 Gait Level of Assist: 5 Gait Persons Needed: 1 Gait Assistive Device: FWW no LOB or unsteadiness, better endurance Exercises Standing: Hip Abduction, Hamstring curls, Heel/toe raises, Marching, Mini squats Standing Reps: 20 NuStep Minutes: 10 NuStep Workload: 5 Treatments functional strengthening, transfers, ambulation, patient was toileted for BM and dressed Assessment Current Status: Fair Progress improving strength and endurance, however he still gets SOB easily and needs rest breaks PT Short Term Goals Short Term Goals Time Frame: Sep 10, 2016 Transfers (B,C,W/C) (FIM): 5 Gait (FIM): 2 Gait Distance Comment: 50' Gait Level of Assist: 4 Gait Assistive Device: FWW PT Mcfp Goals Mcfp Goals PT Fiber Technician Goals Time Frame: Sep 24, 2016 Transfers (B,C,W/C) (FIM): 6 Sit to Lying (QC): 6 Lying-Sitting on Side/Bed(QC): 6 Sit to Stand (QC): 6 Rollin Roll Left to Right (QC): 6 Chair/Fhl-ri-Cvfai Xfer(QC): 6 Car Transfer (QC): 4 Does the Patient Walk: Yes Gait (FIM): 5 Distance: 150' Walk 10 feet (QC): 4 Walk 10ft-Uneven Surface(QC): 4 Walk 50ft with 2 Turns (QC): 4 Walk 150 ft (QC): 4 Gait Level of Assist: 5 Gait Assistive Device: FWW Stairs (FIM): 2 # of Steps: 4 1 Step (curb) (QC): 4 4 Steps (QC): 4 Stairs Level Of Assist: 4 PT Plan Problem List Problem List: Activity Tolerance, Functional Strength, Safety, Balance, Gait, Transfer Treatment/Plan Treatment Plan: Continue Plan of Care Treatment Plan: Bed Mobility, Education, Functional Activity Felisha, Functional Strength, Group Therapy, Gait, Safety, Therapeutic Exercise, Transfers Treatment Duration: Sep 24, 2016 Visits Per Week: 10-11 Minutes/Day (M-F): 60-90 Minutes/Day (Sat/Ruiz): 15-30 Safety Risks/Education Patient Education: Gait Training, Transfer Techniques, Safety Issues Teaching Recipient: Patient Teaching Methods: Demonstration, Discussion Response to Teaching: Reinforcement Needed Time/GCodes Time In: 900 Time Out: 1000 Total Billed Treatment Time: 60 Total Billed Treatment 1 visit FA 15 min EX 30 min GT 15 min SHADY SALGUERO PT Sep 08, 2016 09:58
--- NOTE | 2016-09-08 10:29 | Diagnostic Imaging Report ---
INDICATION: Weakness. Frontal chest obtained at 10:04 a.m. Heart is mildly enlarged. There is a PICC line in place in the right arm with tip overlying the low SVC. There is patchy infiltrate in the right midlung and base suspicious for pneumonia. Left lung shows calcified granulomata in the midlung and upper lobe. There is no pneumothorax or pleural fluid. IMPRESSION: Patchy infiltrate in right midlung and base, compatible with pneumonia. Cardiomegaly. Followup is recommended. There is no previous study for comparison. Dictated by: Dictated on workstation # [id number]
[2016-09-08 11:40] LABS: BASOPHILS % (AUTO) 0 % (0-10); EOSINOPHILS # (AUTO) 0.4 10^3/uL (0.0-0.3); EOSINOPHILS % (AUTO) 7 % (0-10); LYMPHOCYTES # (AUTO) 1.2 X 10^3 (1.0-4.0); LYMPHOCYTES % (AUTO) 21 % (12-44); MEAN CORPUSCULAR HEMOGLOBIN 33 PG (25-34); MEAN CORPUSCULAR HGB CONC 33 G/DL (32-36); MEAN CORPUSCULAR VOLUME 100 FL (80-99); MONOCYTES # (AUTO) 0.5 X 10^3 (0.0-1.0); MONOCYTES % (AUTO) 9 % (0-12); NEUTROPHILS # (AUTO) 3.5 X 10^3 (1.8-7.8); NEUTROPHILS % (AUTO) 62 % (42-75); PLATELET COUNT 45 10^3/uL (130-400); RED BLOOD COUNT 3.14 10^6/uL (4.35-5.85); RED CELL DISTRIBUTION WIDTH 15.3 % (10.0-14.5); WHITE BLOOD COUNT 5.7 10^3/uL (4.3-11.0)
[2016-09-08 11:58] LABS: BILIRUBIN,TOTAL 1.6 MG/DL (0.1-1.0); CALCIUM 9.3 MG/DL (8.5-10.1); CREATININE SERUM 1.9 MG/DL (0.60-1.30); MAGNESIUM 1.6 MG/DL (1.8-2.4); POTASSIUM 5.1 MMOL/L (3.6-5.0); TOTAL PROTEIN 7.3 G/DL (6.4-8.2)
--- NOTE | 2016-09-08 12:51 | Occupational Ther Daily Note ---
OT Current Status-Daily Note Subjective Pt sitting EOB. No pain mentioned. Agreeable to OT. Appearance Alert, Cooperative Mental Status/Objective Functional [place] Measure 0=Not Assessed/NA 4=Minimal Assistance 1=Total Assistance 5=Supervision or Setup 2=Maximal Assistance 6=Modified [place] 3=Moderate Assistance 7=Complete [place] ADL-Treatment Pt declined change of clothes and shower but wanted to brush teeth and to be toileted. Pt ambulated from EOB to bathroom FWW, SBA. Pt toileted self using grab bars, BSC over toilet, SBA. Pt stood in front of sink to brush teeth,hair, FWW,SBA. Toilet transfer SBA, FWW, BSC over toilet. Toileted SBA, managing clothing and hygiene. Pt walked back to room and sat in recliner and doffed/ donned socks, FWW, setup. Pt ambulated to gym FWW, SBA. Pt used yellow (light) resistance theraband for shoulder strength 3 exercises, 15 reps (increased by 3) , 2 sets. arc activity 3 sets on each arm with 1# wrist weights to increase strength. Nuts and bolts activity and pegboard used for strengthening, also with 1# weight. Pt ambulated back to room FWW,SBA. Pt returned back to bed, call light in hand. All needs met. Functional [place] Measure 0=Not Assessed/NA 4=Minimal Assistance 1=Total Assistance 5=Supervision or Setup 2=Maximal Assistance 6=Modified [place] 3=Moderate Assistance 7=Complete IndependenceIRFPAI Quality Coding Scale 6 Independent with activity with or without an assistive device 5 Patient requires set up or clean up by helper. Patient completes activity by themselves 4 Supervision or touching assist (CGA). [place] provide cues , steadying assist 3 The helper provides less than half the effort to complete the activity 2 The helper provides more than half the effort to complete the activity 1 Dependent. The helper does all the effort to complete an activity 7 Patient refused to complete or attempt activity 9 The patient did not perform the activity before the current illness or injury 88 Not attempted due to Medical conditions or safety concerns Grooming (FIM): 5 Toileting (FIM): 5 Toilet/Commode Transfer (FIM): 5 Education OT Patient Education: Exercise program, Progress toward Goal/Update tx plan Teaching Recipient: Patient Teaching Methods: Demonstration, Discussion Response to Teaching: Verbalize Understanding, Return Demonstration OT Short Term Goals Short Term Goals Time Frame: Sep 10, 2016 Transfers (B,C,W/C) (FIM): 5 Toilet/Commode Transfer(FIM): 5 Shower Transfer(FIM): 5 Additional Short Term Goals: 2-Verbalize Understanding, 3-ImproveStrength/Felisha 1=Demonstrate adherence to instructed precautions during ADL tasks. 2=Patient will verbalize/demonstrate understanding of assistive devices/ modifications for ADL. 3=Patient will improve strength/tolerance for activity to enable patient to perform ADL's. OT Prison Goals Burglar Alarm Operator Goals Time Frame: Sep 24, 2016 Eating (FIM): 7 Eating (QC): 6 Oral Hygiene (QC): 6 Grooming(FIM): 6 Bathing(FIM): 6 Shower/Bathe Self (QC): 6 Upper Body Dressing(FIM): 6 Upper Body Dressing (QC): 6 Lower Body Dressing(FIM): 6 Lower Body Dressing (QC): 6 On/Off Footwear (QC): 6 Toileting(FIM): 6 Toileting Hygiene (QC): 6 Toilet/Commode Transfer(FIM): 6 Toilet/Commode Transfer (QC): 6 Shower Transfer(FIM): 6 Comprehension(FIM): 5 Expression (FIM): 5 Social Interaction(FIM): 6 Problem Solving(FIM): 5 Memory(FIM): 5 Additional Goals: 2-Verbalize Understanding, 3-ImproveStrength/Felisha 1=Demonstrate adherence to instructed precautions during ADL tasks. 2=Patient will verbalize/demonstrate understanding of assistive devices/ modifications for ADL. 3=Patient will improve strength/tolerance for activity to enable patient to perform ADL's. OT Education/Plan Problem List/Assessment Pt would benefit from skilled OT to increase his independence in basic self care to allow him to return to his home safely to live with brother Discharge Recommendations Plan/Recommendations: Continue POC Treatment Plan/Plan of Care Patient would benefit from OT for education, treatment and training to promote independence in ADL's, mobility, safety and/or upper extremity function for ADL' s. Plan of Care: ADL Retraining, Functional Mobility, Group Exercise/Act as Ind ( education, exercise, functional activities, activity tolerance, socialization), UE Funct Exercise/Act, UE Neuromus Re-Ed/Coord Treatment Duration: Sep 24, 2016 Visits Per Week: 10-11 Minutes/Day (M-F): 75-90 Minutes/Day (Sat/Ruiz): PRN Rehab Potential: Good Time/GCodes Start Time: 10:00 Stop Time: 11:00 Total Time Billed (hr/min): 60 Billed Treatment Time visit, ADL 20 min, EX 40 min NICO LEES OT Sep 08, 2016 12:51
--- NOTE | 2016-09-08 14:27 | Occupational Ther Daily Note ---
OT Current Status-Daily Note Subjective Pt lying in bed. No pain mentioned. Agreeable to OT. Appearance Alert, Cooperative Mental Status/Objective Functional [place] Measure 0=Not Assessed/NA 4=Minimal Assistance 1=Total Assistance 5=Supervision or Setup 2=Maximal Assistance 6=Modified [place] 3=Moderate Assistance 7=Complete [place] ADL-Treatment Pt reported that he needed to toilet. Sit to stand, FWW, SBA. Walked to bathroom FWW,SBA. Transfer on/off BSC over toilet, using grab bars for assistance, SBA. Pt managed clothing and hygiene with SBA. Walked to gym, FWW, SBA. Arm bike used for strength 12 min (increased by 2 min) 10 alfaro. Pt took two recovery breaks. Pt walked back to room, FWW,SBA. Pt returned back to bed. Call light in reach, all needs met. Functional [place] Measure 0=Not Assessed/NA 4=Minimal Assistance 1=Total Assistance 5=Supervision or Setup 2=Maximal Assistance 6=Modified [place] 3=Moderate Assistance 7=Complete IndependenceIRFPAI Quality Coding Scale 6 Independent with activity with or without an assistive device 5 Patient requires set up or clean up by helper. Patient completes activity by themselves 4 Supervision or touching assist (CGA). [place] provide cues , steadying assist 3 The helper provides less than half the effort to complete the activity 2 The helper provides more than half the effort to complete the activity 1 Dependent. The helper does all the effort to complete an activity 7 Patient refused to complete or attempt activity 9 The patient did not perform the activity before the current illness or injury 88 Not attempted due to Medical conditions or safety concerns Toileting (FIM): 5 Toilet/Commode Transfer (FIM): 5 Education OT Patient Education: Exercise program, Progress toward Goal/Update tx plan Teaching Recipient: Patient Teaching Methods: Demonstration Response to Teaching: Verbalize Understanding, Return Demonstration OT Short Term Goals Short Term Goals Time Frame: Sep 10, 2016 Transfers (B,C,W/C) (FIM): 5 Toilet/Commode Transfer(FIM): 5 Shower Transfer(FIM): 5 Additional Short Term Goals: 2-Verbalize Understanding, 3-ImproveStrength/Felisha 1=Demonstrate adherence to instructed precautions during ADL tasks. 2=Patient will verbalize/demonstrate understanding of assistive devices/ modifications for ADL. 3=Patient will improve strength/tolerance for activity to enable patient to perform ADL's. OT Residential Goals Residential Goals Time Frame: Sep 24, 2016 Eating (FIM): 7 Eating (QC): 6 Oral Hygiene (QC): 6 Grooming(FIM): 6 Bathing(FIM): 6 Shower/Bathe Self (QC): 6 Upper Body Dressing(FIM): 6 Upper Body Dressing (QC): 6 Lower Body Dressing(FIM): 6 Lower Body Dressing (QC): 6 On/Off Footwear (QC): 6 Toileting(FIM): 6 Toileting Hygiene (QC): 6 Toilet/Commode Transfer(FIM): 6 Toilet/Commode Transfer (QC): 6 Shower Transfer(FIM): 6 Comprehension(FIM): 5 Expression (FIM): 5 Social Interaction(FIM): 6 Problem Solving(FIM): 5 Memory(FIM): 5 Additional Goals: 2-Verbalize Understanding, 3-ImproveStrength/Felisha 1=Demonstrate adherence to instructed precautions during ADL tasks. 2=Patient will verbalize/demonstrate understanding of assistive devices/ modifications for ADL. 3=Patient will improve strength/tolerance for activity to enable patient to perform ADL's. OT Education/Plan Problem List/Assessment Pt would benefit from skilled OT to increase his independence in basic self care to allow him to return to his home safely to live with brother Discharge Recommendations Plan/Recommendations: Continue POC Treatment Plan/Plan of Care Patient would benefit from OT for education, treatment and training to promote independence in ADL's, mobility, safety and/or upper extremity function for ADL' s. Plan of Care: ADL Retraining, Functional Mobility, Group Exercise/Act as Ind ( education, exercise, functional activities, activity tolerance, socialization), UE Funct Exercise/Act, UE Neuromus Re-Ed/Coord Treatment Duration: Sep 24, 2016 Visits Per Week: 10-11 Minutes/Day (M-F): 75-90 Minutes/Day (Sat/Ruiz): PRN Rehab Potential: Good Time/GCodes Start Time: 13:00 Stop Time: 13:30 Total Time Billed (hr/min): 30 Billed Treatment Time visit, ADL 10 min, EX 20 min NICO LEES OT Sep 08, 2016 14:27
--- NOTE | 2016-09-08 15:02 | Physical Therapy Daily Note ---
PT Daily Note-Current Subjective Patient in bed pre tx, agrees to PT, pleasant and cooperative. Pain Numeric Pain Scale: 0-No Pain Appearance Patient sitting EOB post tx, patient can be independent in his room now, nursing notified. Mental Status Patient Orientation: Normal For Age Transfers Functional [place] Measure 0=Not Assessed/NA 4=Minimal Assistance 1=Total Assistance 5=Supervision or Setup 2=Maximal Assistance 6=Modified [place] 3=Moderate Assistance 7=Complete IndependenceIRFPAI Quality Coding Scale 6 Independent with activity with or without an assistive device 5 Patient requires set up or clean up by helper. Patient completes activity by themselves 4 Supervision or touching assist (CGA). [place] provide cues , steadying assist 3 The helper provides less than half the effort to complete the activity 2 The helper provides more than half the effort to complete the activity 1 Dependent. The helper does all the effort to complete an activity 7 Patient refused to complete or attempt activity 9 The patient did not perform the activity before the current illness or injury 88 Not attempted due to Medical conditions or safety concerns Transfers (B, C, W/C) (FIM): 6 Sit to/from Stand: 6 Gait Training Gait (FIM): 6 Distance: 200'x2 Gait Assistive Device: FWW Patient states he is tired and does not want to ambulate as far. Exercises Supine Ex: Ankle pumps, Quad Set, Glut sets, Heel Slides, Short Arc Quads, Straight leg raise, Hip abd/add Supine Reps: 20 Treatments ambulation, transfers, functional strengthening Assessment Current Status: Fair Progress improved transfers and balance PT Short Term Goals Short Term Goals Time Frame: Sep 10, 2016 Transfers (B,C,W/C) (FIM): 5 Gait (FIM): 2 Gait Distance Comment: 50' Gait Level of Assist: 4 Gait Assistive Device: FWW PT Chief School Finance Officer Goals Chief School Finance Officer Goals PT Chief School Finance Officer Goals Time Frame: Sep 24, 2016 Transfers (B,C,W/C) (FIM): 6 Sit to Lying (QC): 6 Lying-Sitting on Side/Bed(QC): 6 Sit to Stand (QC): 6 Rollin Roll Left to Right (QC): 6 Chair/Ntx-qe-Gxzur Xfer(QC): 6 Car Transfer (QC): 4 Does the Patient Walk: Yes Gait (FIM): 5 Distance: 150' Walk 10 feet (QC): 4 Walk 10ft-Uneven Surface(QC): 4 Walk 50ft with 2 Turns (QC): 4 Walk 150 ft (QC): 4 Gait Level of Assist: 5 Gait Assistive Device: FWW Stairs (FIM): 2 # of Steps: 4 1 Step (curb) (QC): 4 4 Steps (QC): 4 Stairs Level Of Assist: 4 PT Plan Problem List Problem List: Activity Tolerance, Functional Strength, Safety, Balance, Gait, Transfer Treatment/Plan Treatment Plan: Continue Plan of Care Treatment Plan: Bed Mobility, Education, Functional Activity Felisha, Functional Strength, Group Therapy, Gait, Safety, Therapeutic Exercise, Transfers Treatment Duration: Sep 24, 2016 Visits Per Week: 10-11 Minutes/Day (M-F): 60-90 Minutes/Day (Sat/Ruiz): 15-30 Safety Risks/Education Patient Education: Gait Training, Transfer Techniques, Safety Issues Teaching Recipient: Patient Teaching Methods: Demonstration, Discussion Response to Teaching: Reinforcement Needed Time/GCodes Time In: 1430 Time Out: 1500 Total Billed Treatment Time: 30 Total Billed Treatment 1 visit GT 10 min EX 20 min SHADY SALGUERO PT Sep 08, 2016 15:02
--- NOTE | 2016-09-08 17:38 | PM & R (SOAP) Progress Note ---
Subjective Subjective/Events-last exam Patient was seen in his room this evening Appreciate Dr Villanueva consult and current labs Appreciate CXR report.Patient Modified Independent for transfers and gait with walker Objective Exam Last Set of Vital Signs Vital Signs Date Time Temp Pulse Resp B/P Pulse Ox O2 Delivery O2 Flow Rate FiO2 09/08/16 11:44 Room Air 09/08/16 04:41 98.9 77 18 103/70 95 Capillary Refill : I&O Bad tableGeneral: Alert, Oriented X3, Cooperative, No Acute Distress HEENT: Atraumatic, PERRLA, EOMI, Mucous Memb Moist/[place] Neck: Supple, No JVD Lungs: Clear to Auscultation Heart: Regular Rate Abdomen: Normal Bowel Sounds, Soft, No Tenderness Extremities: No Edema Neuro: Other (generalized weakness) Results Lab Laboratory Tests 09/05/16 20:14: Glucometer 129H 09/08/16 11:30: Alanine Aminotransferase (ALT/SGPT) 47, Albumin 4.0, Alkaline Phosphatase 111, Anion Gap 11, Aspartate Amino Transf (AST/SGOT) 51H, BUN/Creatinine Ratio 23, Basophils # (Auto) 0.0, Basophils (%) (Auto) 0, Blood Urea Nitrogen 43H, Calcium Level 9.3, Carbon Dioxide Level 16L, Chloride Level 105, Creatinine 1.90H, Eosinophils # (Auto) 0.4H, Eosinophils (%) (Auto) 7, Estimat Glomerular Filtration Rate 37, Glucose Level 115H, Hematocrit 31L, Hemoglobin 10.3L, Lymphocytes # (Auto) 1.2, Lymphocytes (%) (Auto) 21, Magnesium Level 1.6L, Mean Corpuscular Hemoglobin 33, Mean Corpuscular Hemoglobin Concent 33, Mean Corpuscular Volume 100H, Mean Platelet Volume , Monocytes # (Auto) 0.5, Monocytes (%) (Auto) 9, Neutrophils # (Auto) 3.5, Neutrophils (%) (Auto) 62, Platelet Count 45L, Potassium Level 5.1H, Red Blood Count 3.14L, Red Cell Distribution Width 15.3H, Sodium Level 132L, Total Bilirubin 1.6H, Total Protein 7.3, White Blood Count 5.7 Microbiology 09/07/16 MRSA Screen - Final, Complete MRSA not isolated Assessment/Plan Assessment General debil secondary to recurrent MSSA pneumonia on antibiotics. HX of Etoh abuse and alcoholic liver D Macrocytic anemia Afib controlled seizure disorder on keppra HTN controlled Plan Continue PT/OTand current meds Dr Dickens consulted for this OOT Patient-Appeciate his consult Team Conference tomorrow Check MRSA screen-See orders CHAVA POOLE MD Sep 08, 2016 17:38
[2016-09-08 18:00] VITALS: BP 110/64
[2016-09-08] MEDS: ALFUZOSIN HCL 10 MG TAB (UROXATRAL) PO SCH (18:32)
[2016-09-09 05:19] VITALS: BP 106/65
[2016-09-09] MEDS: RT-ALBUTEROL SULF 2.5 MG/3 ML PRE-MIX VIAL INH SCH ×4 (08:01→18:50)
--- NOTE | 2016-09-09 08:25 | Progress Note (SOAP) ---
Subjective Subjective/Events-last exam patient feeling better today. For sputum culture negative. Chest x-ray still shows some pneumonia. Patient feeling better and voices no complaints Objective Exam Vital Signs Date Time Temp Pulse Resp B/P Pulse Ox O2 Delivery O2 Flow Rate FiO2 09/09/16 08:01 96 Room Air 09/09/16 05:19 98.5 79 16 106/65 96 Room Air 09/08/16 20:20 Room Air 09/08/16 19:34 96 Room Air 09/08/16 18:00 98.0 76 18 110/64 95 Room Air 09/08/16 11:44 Room Air 09/08/16 09:00 Room Air I & O 09/09/16 07:00 Intake Total 1820 ml Output Total 1300 ml Balance 520 ml Capillary Refill : General Appearance: No Apparent Distress WD/WN HEENT: Normal ENT Inspection Neck: Normal Inspection Respiratory: Chest Non Tender Lungs Clear Normal Breath Sounds No Accessory Muscle Use No Respiratory Distress Cardiovascular: Regular Rate, Rhythm No Murmur Gastrointestinal: non tender soft Results Lab Laboratory Tests 09/08/16 11:30 Laboratory Tests 09/08/16 11:30: Alanine Aminotransferase (ALT/SGPT) 47, Albumin 4.0, Alkaline Phosphatase 111, Anion Gap 11, Aspartate Amino Transf (AST/SGOT) 51H, BUN/Creatinine Ratio 23, Basophils # (Auto) 0.0, Basophils (%) (Auto) 0, Blood Urea Nitrogen 43H, Calcium Level 9.3, Carbon Dioxide Level 16L, Chloride Level 105, Creatinine 1.90H, Eosinophils # (Auto) 0.4H, Eosinophils (%) (Auto) 7, Estimat Glomerular Filtration Rate 37, Glucose Level 115H, Hematocrit 31L, Hemoglobin 10.3L, Lymphocytes # (Auto) 1.2, Lymphocytes (%) (Auto) 21, Magnesium Level 1.6L, Mean Corpuscular Hemoglobin 33, Mean Corpuscular Hemoglobin Concent 33, Mean Corpuscular Volume 100H, Mean Platelet Volume , Monocytes # (Auto) 0.5, Monocytes (%) (Auto) 9, Neutrophils # (Auto) 3.5, Neutrophils (%) (Auto) 62, Platelet Count 45L, Potassium Level 5.1H, Red Blood Count 3.14L, Red Cell Distribution Width 15.3H, Sodium Level 132L, Total Bilirubin 1.6H, Total Protein 7.3, White Blood Count 5.7 Microbiology 09/07/16 MRSA Screen - Final, Complete MRSA not isolated Assessment/Plan Assessment/Plan Assess & Plan/Chief Complaint pneumonia. Weakness. Seizure. Liver cirrhosis. CAD. GERD. Seizure. Chronic hepatitis. . 09/09/16. Pneumonia. Weakness. Seizures. Liver cirrhosis Diagnosis/Problems: Clinical Quality Measures DVT/VTE Risk/Contraindication: Risk Factor Score Per Nursin RFS Level Per Nursing on Admit: 4+=Very High CHERI GARCIA DO Sep 09, 2016 08:25
[2016-09-09] MEDS ORDERED: MAGNESIUM 1 GM/100 ML IVPB 100 ML IV NR (08:26)
[2016-09-09] MEDS: PROPRANOLOL 20 MG (INDERAL) TABLET PO SCH (08:32)
[2016-09-09] MEDS: guaiFENesin (MUCINEX) 600 MG TAB PO SCH ×2 (08:32→20:24)
[2016-09-09] MEDS: IRON POLYSAC 150 MG CAP (NIFEREX) PO SCH ×2 (08:33→20:24)
[2016-09-09] MEDS: LEVETIRACETAM 500 MG (KEPPRA) TAB PO SCH ×2 (08:33→20:24)
[2016-09-09] MEDS: THIAMINE 100 MG (VITAMIN B-1) TAB PO SCH (08:33)
[2016-09-09] MEDS: SPIRONOLACTONE 100 MG (ALDACTONE) TABLET PO SCH (08:33)
[2016-09-09] MEDS: FOLIC ACID 1 MG TAB PO SCH (08:33)
[2016-09-09] MEDS: BUMETANIDE 1 MG (BUMEX) TAB PO SCH (08:33)
[2016-09-09] MEDS: PANTOPRAZOLE 40 MG (PROTONIX) TAB PO SCH (08:33)
[2016-09-09] MEDS: ACETAMINOPHEN 325 MG TABLET/CAPLET (TYLENOL) PO PRN ×2 (08:33→20:29)
[2016-09-09] MEDS: MAGNESIUM OXIDE (MAG-OX)400 MG TAB PO SCH ×2 (08:33→18:14)
[2016-09-09] MEDS: MULTIVIT W/MINERALS TAB (THERAGRAN M) PO SCH (08:33)
--- NOTE | 2016-09-09 10:02 | Pulmonary Consultation ---
History of Present Illness History of Present Illness Date of Consultation 09/09/16 09:57 Date of Admission History of Present Illness 56yo who was transferred here from [place] after being tx for respiratory failure and pneumonia. Pt is doing much better. He is no longer on Abx. I am consulted after CXR shows infiltrate RML. Pt is not having a productive cough and there is no fever. I am consulted for pulmonary management. Allergies and Home Medications Allergies Coded Allergies: No Known Drug Allergies (Unverified , 09/02/16) Home Medications Albuterol/Ipratropium 4 Gm Aero 1 PUFF IH Q6H PRN PRN SHORTNESS OF BREATH ( Reported) Bumetanide 1 Mg Tablet 1 MG PO DAILY (Reported) Folic Acid 1 Mg Tablet 1 MG PO DAILY (Reported) Guaifenesin 1,200 Mg Tab.er.12h 1,200 MG PO BID (Reported) Iron Polysaccharide Complex 150 Mg Capsule 150 MG PO BID (Reported) Levetiracetam 500 Mg Tablet 500 MG PO BID (Reported) Magnesium Oxide 400 Mg Tablet 400 MG PO BID (Reported) Multivitamin with Minerals 1 Each Tablet 1 EACH PO DAILY (Reported) Nadolol 20 Mg Tablet 20 MG PO DAILY (Reported) Pantoprazole Sodium 40 Mg Tablet.dr 40 MG PO DAILY (Reported) Potassium Chloride 20 Meq Tablet.er 20 MEQ PO BID WITH MEALS (Reported) Spironolactone 100 Mg Tablet 100 MG PO DAILY (Reported) Tamsulosin HCl 0.4 Mg Cap.er.24h 0.4 MG PO HS (Reported) Thiamine Mononitrate 100 Mg Tablet 100 MG PO DAILY (Reported) Past Epuirnt-Kcbuuc-Cxlnmh Hx Patient Social History Alcohol Use: Past History Recreational Drug Use: No Smoking Status: Never a Smoker Recent Foreign Travel: No Contact w/Someone Who Travel: No Recent Infectious Disease Expo: No Recent Hopitalizations: Yes Physical Abuse Screen: No Sexual Abuse: No Immunizations Up To Date Tetanus Booster (TDap): Unknown PED Vaccines UTD: Yes Date of Pneumonia Vaccine: May 07, 2016 Date of Influenza Vaccine: May 07, 2016 Seasonal Allergies Seasonal Allergies: No Surgeries HX Surgeries: No Respiratory Hx Respiratory Disorders: Yes (INHALER AT HOME, MRSA PNEUMONIA, PULM EDEMA) Respiratory Disorders: Pneumonia, COPD Cardiovascular Hx Cardiac Disorders: Yes Neurological Hx Neurological Disorders: Yes (METABOLIC ENCEPHALOPATHY, ONDINA) Reproductive System Hx Reproductive Disorders: No HIV/AIDS: No Genitourinary Hx Genitourinary Disorders: Yes Genitourinary Disorders: Kidney Infection, Renal Failure Gastrointestinal Hx Gastrointestinal Disorders: No (HEP B/HEPC, CHRONIC LIVER CIRRHOSIC, ANEMIA) Gastrointestinal Disorders: Liver Disease/Jaundice, Gastrointestinal Bleed, Chronic Constipation, Chronic Diarrhea Musculoskeletal Hx Musculoskeletal Disorders: Yes Musculoskeletal Disorders: Arthritis Endocrine Hx Endocrine Disorders: Yes Endocrine Disorders: Diabetes, Non-Insulin dep HEENT HX ENT Disorders: No Loss of Vision: Denies Hearing Impairment: Denies Cancer Hx Cancer: No Psychosocial Hx Psychiatric Problems: Yes Behavioral Health Disorders: Depression Integumentary HX Skin/Integumentary Disorder: No (DENIES ) Blood Transfusions Hx Blood Disorders: No Adverse Reaction to a Blood Tr: No Family Medical History Family Medial History: Patient reports no known family medical history. Exam Exam Vital Signs Date Time Temp Pulse Resp B/P Pulse Ox O2 Delivery O2 Flow Rate FiO2 09/09/16 09:40 Room Air 09/09/16 08:01 96 Room Air 09/09/16 05:19 98.5 79 16 106/65 96 Room Air 09/08/16 20:20 Room Air 09/08/16 19:34 96 Room Air 09/08/16 18:00 98.0 76 18 110/64 95 Room Air 09/08/16 11:44 Room Air I & O 09/09/16 06:59 Intake Total 1820 ml Output Total 1300 ml Balance 520 ml General Appearance: No Apparent Distress WD/WN HEENT: Normal ENT Inspection Neck: Normal Inspection Respiratory: Chest Non Tender Lungs Clear Normal Breath Sounds No Accessory Muscle Use No Respiratory Distress Cardiovascular: Regular Rate, Rhythm No Murmur Gastrointestinal: non tender soft Extremity: Normal Capillary Refill Normal Inspection Normal Range of Motion Neurologic/Psychiatric: Alert Oriented x3 Skin: Normal Color Warm/Dry Results Lab Laboratory Tests 09/08/16 11:30 Assessment/Plan Assessment/Plan -Resolving PNA with MSSA -MRSA swab of nare is negative -Check BNP -No Abx needed at this time D/C isolation there is no MRSA Clinical Quality Measures DVT/VTE Risk/Contraindication: Risk Factor Score Per Nursin RFS Level Per Nursing on Admit: 4+=Very High TERRY COLON DO Sep 09, 2016 10:02
--- NOTE | 2016-09-09 10:06 | Occupational Ther Daily Note ---
OT Current Status-Daily Note Subjective Pt lying in bed. Agreed to shower. No pain mentioned. Agreeable to OT. Appearance Alert, Cooperative Mental Status/Objective Functional [place] Measure 0=Not Assessed/NA 4=Minimal Assistance 1=Total Assistance 5=Supervision or Setup 2=Maximal Assistance 6=Modified [place] 3=Moderate Assistance 7=Complete [place] ADL-Treatment Pt sat up EOB without help. Ambulated to bathroom for shower, SBA, FWW. Transferred to shower bench with grab bars, SBA, FWW. Pt doffed gown/brief and slipper socks while seated on shower bench, setup. Pt able to turn on/off shower and retrieve towels. Pt washed and dried hair, UB/LB parts seated on shower bench, hand held shower, grab bars, setup to cover IV. Pt used grab bars to don brief, gown setup, SBA. Ambulated front of sink, brushed teeth and hair, SBA, FWW. Pt ambulated back to room,SBA, FWW. Pt sat at EOB to don shirt, pants, socks, setup, SBA, FWW for standing. Pt used yellow (light) resistance theraband for shoulder strength 4 exercises, 15 reps. Right arm had full AROM without resistance but did not move through range with therraband due to muscle weakness. Pt left up in bed, call light in hand. All needs met. Functional [place] Measure 0=Not Assessed/NA 4=Minimal Assistance 1=Total Assistance 5=Supervision or Setup 2=Maximal Assistance 6=Modified [place] 3=Moderate Assistance 7=Complete IndependenceIRFPAI Quality Coding Scale 6 Independent with activity with or without an assistive device 5 Patient requires set up or clean up by helper. Patient completes activity by themselves 4 Supervision or touching assist (CGA). [place] provide cues , steadying assist 3 The helper provides less than half the effort to complete the activity 2 The helper provides more than half the effort to complete the activity 1 Dependent. The helper does all the effort to complete an activity 7 Patient refused to complete or attempt activity 9 The patient did not perform the activity before the current illness or injury 88 Not attempted due to Medical conditions or safety concerns Grooming (FIM): 5 Bathing (FIM): 5 Bathing Location: L Arm, R Arm, L Upper Leg, R Upper Leg, L Lower Leg ( including foot), R Lower Leg (including foot), Chest, Abdomen, Buttocks, Perineal Area Upper Body (FIM): 5 Lower Body Dressing (FIM): 5 Transfers (B, C, W/C) (FIM): 5 Shower Transfer(FIM): 5 Education OT Patient Education: Progress toward Goal/Update tx plan, Transfer techniques Teaching Recipient: Patient Teaching Methods: Discussion Response to Teaching: Verbalize Understanding, Return Demonstration OT Short Term Goals Short Term Goals Time Frame: Sep 10, 2016 Transfers (B,C,W/C) (FIM): 5 Toilet/Commode Transfer(FIM): 5 Shower Transfer(FIM): 5 Additional Short Term Goals: 2-Verbalize Understanding, 3-ImproveStrength/Felisha 1=Demonstrate adherence to instructed precautions during ADL tasks. 2=Patient will verbalize/demonstrate understanding of assistive devices/ modifications for ADL. 3=Patient will improve strength/tolerance for activity to enable patient to perform ADL's. OT Lumber Tying Machine Operator Goals Lumber Tying Machine Operator Goals Time Frame: Sep 24, 2016 Eating (FIM): 7 Eating (QC): 6 Oral Hygiene (QC): 6 Grooming(FIM): 6 Bathing(FIM): 6 Shower/Bathe Self (QC): 6 Upper Body Dressing(FIM): 6 Upper Body Dressing (QC): 6 Lower Body Dressing(FIM): 6 Lower Body Dressing (QC): 6 On/Off Footwear (QC): 6 Toileting(FIM): 6 Toileting Hygiene (QC): 6 Toilet/Commode Transfer(FIM): 6 Toilet/Commode Transfer (QC): 6 Shower Transfer(FIM): 6 Comprehension(FIM): 5 Expression (FIM): 5 Social Interaction(FIM): 6 Problem Solving(FIM): 5 Memory(FIM): 5 Additional Goals: 2-Verbalize Understanding, 3-ImproveStrength/Felisha 1=Demonstrate adherence to instructed precautions during ADL tasks. 2=Patient will verbalize/demonstrate understanding of assistive devices/ modifications for ADL. 3=Patient will improve strength/tolerance for activity to enable patient to perform ADL's. OT Education/Plan Problem List/Assessment Pt would benefit from skilled OT to increase his independence in basic self care to allow him to return to his home safely to live with brother Discharge Recommendations Plan/Recommendations: Continue POC Treatment Plan/Plan of Care Patient would benefit from OT for education, treatment and training to promote independence in ADL's, mobility, safety and/or upper extremity function for ADL' s. Plan of Care: ADL Retraining, Functional Mobility, Group Exercise/Act as Ind ( education, exercise, functional activities, activity tolerance, socialization), UE Funct Exercise/Act, UE Neuromus Re-Ed/Coord Treatment Duration: Sep 24, 2016 Visits Per Week: 10-11 Minutes/Day (M-F): 75-90 Minutes/Day (Sat/Ruiz): PRN Rehab Potential: Good Time/GCodes Start Time: 09:00 Stop Time: 10:00 Total Time Billed (hr/min): 60 Billed Treatment Time visit, ADL 55 min, exercise 5 minutes NICO LEES OT Sep 09, 2016 10:06
--- NOTE | 2016-09-09 12:24 | Physical Therapy Daily Note ---
PT Daily Note-Current Subjective Pt sitting EOB upon arrival. RT is present for tx. Pt agrees to PT. Pain Numeric Pain Scale: 0-No Pain Location: No Pain Reported Mental Status Patient Orientation: Person, Place, Time, Situation Transfers Functional [place] Measure 0=Not Assessed/NA 4=Minimal Assistance 1=Total Assistance 5=Supervision or Setup 2=Maximal Assistance 6=Modified [place] 3=Moderate Assistance 7=Complete IndependenceIRFPAI Quality Coding Scale 6 Independent with activity with or without an assistive device 5 Patient requires set up or clean up by helper. Patient completes activity by themselves 4 Supervision or touching assist (CGA). [place] provide cues , steadying assist 3 The helper provides less than half the effort to complete the activity 2 The helper provides more than half the effort to complete the activity 1 Dependent. The helper does all the effort to complete an activity 7 Patient refused to complete or attempt activity 9 The patient did not perform the activity before the current illness or injury 88 Not attempted due to Medical conditions or safety concerns Scootin Sit to/from Stand: 5 Sit to Stand (QC): 5 Weight Bearing Weight Bearing Restriction: Full Weight Bearing Location Restriction: LE Bilateral Gait Training Does the Patient Walk?: Yes Distance (FIM): 4=488-23 ft Distance: 140' Gait Level of Assist: 4 Gait Persons Needed: 1 Gait Assistive Device: Cane Large Base Quad Progressed pt to Quad cane due to walking well with FWW. Pt fatigues and needs rest breaks. Pt wants to keep FWW for night time until more comfortable with Quad cane. Exercises Supine Ex: Ankle pumps, Heel Slides, Short Arc Quads, Straight leg raise, Hip abd/add Supine Reps: 15 Standing: Hip Abduction, Heel/toe raises, Mini squats Standing Reps: 15 Treatments After pt finished with RT, pt transferred from EOB to standing using FWW at SBA. Pt then ambulated to [facility] using FWW at SBA. Pt transferred to supine on mat for supine EX then rolls to prone for hip extensor stretching. Pt felt uncomfortable on stomach so rolled back to supine then EOB at SBA. Pt transferred to standing using FWW at SBA. Pt then completed standing EX at // bars before short rest in chair. Pt ambulated in hallway using FWW at SBA for approx. 75' before resting in chair in [facility]. PT felt that pt could progress to Quad cane so practiced a little in hallway with Quad cane at CGA before returning to room to rest at EOB with all needs met at end of tx. Assessment Current Status: Good Progress Pt fatigues easy but transfers and mobility are more independent. Pt has progressed to Quad cane during day and FWW at night until feeling comfortable with it. PT Short Term Goals Short Term Goals Time Frame: Sep 10, 2016 Transfers (B,C,W/C) (FIM): 5 Gait (FIM): 2 Gait Distance Comment: 50' Gait Level of Assist: 4 Gait Assistive Device: FWW PT Outreach Coordinator Goals Outreach Coordinator Goals PT Outreach Coordinator Goals Time Frame: Sep 24, 2016 Transfers (B,C,W/C) (FIM): 6 Sit to Lying (QC): 6 Lying-Sitting on Side/Bed(QC): 6 Sit to Stand (QC): 6 Rollin Roll Left to Right (QC): 6 Chair/Utc-oe-Qdqfy Xfer(QC): 6 Car Transfer (QC): 4 Does the Patient Walk: Yes Gait (FIM): 5 Distance: 150' Walk 10 feet (QC): 4 Walk 10ft-Uneven Surface(QC): 4 Walk 50ft with 2 Turns (QC): 4 Walk 150 ft (QC): 4 Gait Level of Assist: 5 Gait Assistive Device: FWW Stairs (FIM): 2 # of Steps: 4 1 Step (curb) (QC): 4 4 Steps (QC): 4 Stairs Level Of Assist: 4 PT Plan Problem List Problem List: Activity Tolerance, Functional Strength, Gait Treatment/Plan Treatment Plan: Continue Plan of Care Treatment Plan: Bed Mobility, Education, Functional Activity Felisha, Functional Strength, Group Therapy, Gait, Safety, Therapeutic Exercise, Transfers Treatment Duration: Sep 24, 2016 Visits Per Week: 10-11 Minutes/Day (M-F): 60-90 Minutes/Day (Sat/Ruiz): 15-30 Safety Risks/Education Patient Education: Gait Training, Transfer Techniques, Correct Positioning, Safety Issues Teaching Recipient: Patient Teaching Methods: Discussion Response to Teaching: Verbalize Understanding Time/GCodes Time In: 1100 Time Out: 1200 Total Billed Treatment Time: 60 Total Billed Treatment visit, FA (15m), EX X2 (30m) & GT (15m) MARIANO LEWIS PTA Sep 09, 2016 12:24
--- NOTE | 2016-09-09 15:33 | Therapy Group Daily Note ---
Therapy Daily Group Note Patient Education Topic Other List Below (Rehab process, benefits of exercise/activity) Exercises LE Seated Exercise, UE Exercise Other/Notes Pt attended OT/PT group this pm. Pt performed gait to/from room with FWW. Pt introduced self to group and participated in discussion. Education was provided regarding the rehab process and the benefits of exercise and movement. Pt demonstrated a group exercise from written/illustrated instructions and participated n UE/LE exercises led by other group members. Pt participated in memory activity involving matching images and recalling information from introductions. Pt returned to room after session with needs met. Start Time: 13:00 Stop Time: 14:15 Total Billed Treatment Time: 75 Total Billed Treatment 1 visit, GRP BENJAMIN MONTE OT Sep 09, 2016 15:33
--- NOTE | 2016-09-09 17:06 | PM & R (SOAP) Progress Note ---
Subjective Subjective/Events-last exam Patient was seen in his room this AM Patient ESTEBANA jose a naylor Discussed case with DR Anderson and Chrissie Appreciate their notes and orders K borderline high last evening K supplement held Patient on Magnesium replacement for hypomagnesemia Objective Exam Last Set of Vital Signs Vital Signs Date Time Temp Pulse Resp B/P Pulse Ox O2 Delivery O2 Flow Rate FiO2 09/09/16 15:22 96 Room Air 09/09/16 05:19 98.5 79 16 106/65 Capillary Refill : I&O Bad tableGeneral: Alert, Oriented X3, Cooperative, No Acute Distress HEENT: Atraumatic, PERRLA, EOMI, Mucous Memb Moist/[place] Neck: Supple, No JVD Lungs: Clear to Auscultation Heart: Regular Rate Abdomen: Normal Bowel Sounds, Soft, No Tenderness Extremities: No Edema Neuro: Other (generalized weakness) Results Lab Laboratory Tests 09/08/16 11:30: Alanine Aminotransferase (ALT/SGPT) 47, Albumin 4.0, Alkaline Phosphatase 111, Anion Gap 11, Aspartate Amino Transf (AST/SGOT) 51H, BUN/Creatinine Ratio 23, Basophils # (Auto) 0.0, Basophils (%) (Auto) 0, Blood Urea Nitrogen 43H, Calcium Level 9.3, Carbon Dioxide Level 16L, Chloride Level 105, Creatinine 1.90H, Eosinophils # (Auto) 0.4H, Eosinophils (%) (Auto) 7, Estimat Glomerular Filtration Rate 37, Glucose Level 115H, Hematocrit 31L, Hemoglobin 10.3L, Lymphocytes # (Auto) 1.2, Lymphocytes (%) (Auto) 21, Magnesium Level 1.6L, Mean Corpuscular Hemoglobin 33, Mean Corpuscular Hemoglobin Concent 33, Mean Corpuscular Volume 100H, Mean Platelet Volume , Monocytes # (Auto) 0.5, Monocytes (%) (Auto) 9, Neutrophils # (Auto) 3.5, Neutrophils (%) (Auto) 62, Platelet Count 45L, Potassium Level 5.1H, Red Blood Count 3.14L, Red Cell Distribution Width 15.3H, Sodium Level 132L, Total Bilirubin 1.6H, Total Protein 7.3, White Blood Count 5.7 09/09/16 13:13: B-Type Natriuretic Peptide 114.1H Microbiology 09/07/16 MRSA Screen - Final, Complete MRSA not isolated Assessment/Plan Assessment General debil secondary to recurrent MSSA pneumonia -completed course of antibiotics. HX of Etoh abuse and alcoholic liver D Macrocytic anemia Afib controlled seizure disorder on keppra HTN controlled Borderline Hyperkalemia meds adjusted Hypomagnesemia on replacement. Plan Continue PT/OTand current meds Dr Dickens consulted for this OOT Patient-Appeciate his consult Team Conference held earlier today-See report for full functional update and POC and ELOS Check MRSA screen-done nasal screen negative Monitor electrolytes Appreciate Dr Ramos consult and CHAVA Saba MD Sep 09, 2016 17:05
[2016-09-09] MEDS: ALFUZOSIN HCL 10 MG TAB (UROXATRAL) PO SCH (18:14)
[2016-09-09 18:55] VITALS: BP 108/74
[2016-09-10] MEDS: ACETAMINOPHEN 325 MG TABLET/CAPLET (TYLENOL) PO PRN ×2 (04:35→17:38)
[2016-09-10 04:41] VITALS: BP 106/69
[2016-09-10 06:56] LABS: BASOPHILS % (AUTO) 1 % (0-10); EOSINOPHILS # (AUTO) 0.3 10^3/uL (0.0-0.3); EOSINOPHILS % (AUTO) 9 % (0-10); LYMPHOCYTES # (AUTO) 1.2 X 10^3 (1.0-4.0); LYMPHOCYTES % (AUTO) 32 % (12-44); MEAN CORPUSCULAR HEMOGLOBIN 33 PG (25-34); MEAN CORPUSCULAR HGB CONC 33 G/DL (32-36); MEAN CORPUSCULAR VOLUME 100 FL (80-99); MEAN PLATELET VOLUME 12.8 FL (7.4-10.4); MONOCYTES # (AUTO) 0.3 X 10^3 (0.0-1.0); MONOCYTES % (AUTO) 8 % (0-12); NEUTROPHILS # (AUTO) 1.9 X 10^3 (1.8-7.8); NEUTROPHILS % (AUTO) 51 % (42-75); PLATELET COUNT 43 10^3/uL (130-400); RED BLOOD COUNT 2.84 10^6/uL (4.35-5.85); RED CELL DISTRIBUTION WIDTH 14.8 % (10.0-14.5); WHITE BLOOD COUNT 3.8 10^3/uL (4.3-11.0)
[2016-09-10] MEDS: RT-ALBUTEROL SULF 2.5 MG/3 ML PRE-MIX VIAL INH SCH ×4 (07:07→22:19)
[2016-09-10 07:21] LABS: ALBUMIN 3.5 G/DL (3.2-4.5); BILIRUBIN,TOTAL 1.2 MG/DL (0.1-1.0); CALCIUM 9.1 MG/DL (8.5-10.1); CREATININE SERUM 1.43 MG/DL (0.60-1.30); MAGNESIUM 1.7 MG/DL (1.8-2.4); POTASSIUM 4.1 MMOL/L (3.6-5.0); TOTAL PROTEIN 6.3 G/DL (6.4-8.2)
--- NOTE | 2016-09-10 08:30 | Progress Note (SOAP) ---
Subjective Subjective/Events-last exam patient feeling better. Chest x-ray shows resolving pneumonia. Pulmonology states doesn't need anymore antibiotics. Waiting for culture and sensitivity report Objective Exam Vital Signs Date Time Temp Pulse Resp B/P Pulse Ox O2 Delivery O2 Flow Rate FiO2 09/10/16 07:11 95 Room Air 09/10/16 04:41 97.6 79 18 106/69 96 Room Air 09/09/16 20:30 Room Air 09/09/16 18:55 98.0 78 20 108/74 96 Room Air 09/09/16 18:50 96 Room Air 09/09/16 15:22 96 Room Air 09/09/16 11:11 95 Room Air 09/09/16 09:40 Room Air I & O 09/10/16 07:00 Intake Total 2220 ml Output Total 300 ml Balance 1920 ml Capillary Refill : General Appearance: No Apparent Distress WD/WN HEENT: Normal ENT Inspection Neck: Full Range of Motion Normal Inspection Non Tender Respiratory: Chest Non Tender Lungs Clear Normal Breath Sounds No Accessory Muscle Use No Respiratory Distress Cardiovascular: Regular Rate, Rhythm No Murmur Gastrointestinal: non tender soft Results Lab Laboratory Tests 09/10/16 06:35 Laboratory Tests 09/09/16 13:13: B-Type Natriuretic Peptide 114.1H 09/10/16 06:35: Alanine Aminotransferase (ALT/SGPT) 37, Albumin 3.5, Alkaline Phosphatase 90, Anion Gap 8, Aspartate Amino Transf (AST/SGOT) 40H, BUN/Creatinine Ratio 27, Basophils # (Auto) 0.0, Basophils (%) (Auto) 1, Blood Urea Nitrogen 39H, Calcium Level 9.1, Carbon Dioxide Level 19L, Chloride Level 108H, Creatinine 1.43H, Eosinophils # (Auto) 0.3, Eosinophils (%) (Auto) 9, Estimat Glomerular Filtration Rate 51, Glucose Level 95, Hematocrit 28L, Hemoglobin 9.3L, Lymphocytes # (Auto) 1.2, Lymphocytes (%) (Auto) 32, Magnesium Level 1.7L, Mean Corpuscular Hemoglobin 33, Mean Corpuscular Hemoglobin Concent 33, Mean Corpuscular Volume 100H, Mean Platelet Volume 12.8H, Monocytes # (Auto) 0.3, Monocytes (%) (Auto) 8, Neutrophils # (Auto) 1.9, Neutrophils (%) (Auto) 51, Platelet Count 43L, Potassium Level 4.1, Red Blood Count 2.84L, Red Cell Distribution Width 14.8H, Sodium Level 135, Total Bilirubin 1.2H, Total Protein 6.3L, White Blood Count 3.8L Microbiology 09/08/16 Gram Stain - Final, Resulted 09/08/16 Sputum Culture - Preliminary, Resulted Usual/normal [place] isolated. Assessment/Plan Assessment/Plan Assess & Plan/Chief Complaint pneumonia. Weakness. Seizure. Liver cirrhosis. CAD. GERD. Seizure. Chronic hepatitis. . 09/09/16. Pneumonia. Weakness. Seizures. Liver cirrhosis. . 09/10/16. Pneumonia. Weakness. Patient feeling better. Chest x-ray shows resolving pneumonia. Pulmonology says no more antibiotic just monitor. Waiting first culture reports Diagnosis/Problems: Clinical Quality Measures DVT/VTE Risk/Contraindication: Risk Factor Score Per Nursin RFS Level Per Nursing on Admit: 4+=Very High CHERI GARCIA DO Sep 10, 2016 08:30
[2016-09-10] MEDS ORDERED: MAGNESIUM 1 GM/100 ML IVPB 100 ML IV NR (08:36)
[2016-09-10] MEDS: guaiFENesin (MUCINEX) 600 MG TAB PO SCH ×2 (09:12→20:51)
[2016-09-10] MEDS: LEVETIRACETAM 500 MG (KEPPRA) TAB PO SCH ×2 (09:12→20:51)
[2016-09-10] MEDS: MULTIVIT W/MINERALS TAB (THERAGRAN M) PO SCH (09:12)
[2016-09-10] MEDS: THIAMINE 100 MG (VITAMIN B-1) TAB PO SCH (09:12)
[2016-09-10] MEDS: IRON POLYSAC 150 MG CAP (NIFEREX) PO SCH ×2 (09:12→20:51)
[2016-09-10] MEDS: BUMETANIDE 1 MG (BUMEX) TAB PO SCH (09:12)
[2016-09-10] MEDS: PANTOPRAZOLE 40 MG (PROTONIX) TAB PO SCH (09:12)
[2016-09-10] MEDS: PROPRANOLOL 20 MG (INDERAL) TABLET PO SCH (09:13)
[2016-09-10] MEDS: SPIRONOLACTONE 100 MG (ALDACTONE) TABLET PO SCH (09:13)
[2016-09-10] MEDS: FOLIC ACID 1 MG TAB PO SCH (09:13)
[2016-09-10] MEDS: MAGNESIUM OXIDE (MAG-OX)400 MG TAB PO SCH ×2 (09:13→17:38)
--- NOTE | 2016-09-10 11:15 | Occupational Ther Daily Note ---
OT Current Status-Daily Note Subjective Pt lying in bed. No pain mentioned. Agreeable to OT. Appearance Alert, Cooperative Mental Status/Objective Functional [place] Measure 0=Not Assessed/NA 4=Minimal Assistance 1=Total Assistance 5=Supervision or Setup 2=Maximal Assistance 6=Modified [place] 3=Moderate Assistance 7=Complete [place] ADL-Treatment Pt declined change of clothes. Pt sat up EOB without help.Pt managed to turn R sock around on foot. Ambulated to gym SBA, FWW. Pt stacked 20 cones (on pt stacked 18) Arm bike for BUE strengthening 12 min 15 alfaro, pt required 2 recovery breaks,(previous time was 10 min 5 alfaro on 08/25/16). 1# wrist weights on both arms to use the cylinder/pegs activity for strengthening. Resistance clothes pins used for hand strengthening. Pt ambulated back to room, SBA, FWW. Pt toiled self, SBA, using grab bars,FWW. Pt walked to bed and sat at EOB, SBA,FWW. Pt left in care of PT. All needs met. Functional [place] Measure 0=Not Assessed/NA 4=Minimal Assistance 1=Total Assistance 5=Supervision or Setup 2=Maximal Assistance 6=Modified [place] 3=Moderate Assistance 7=Complete IndependenceIRFPAI Quality Coding Scale 6 Independent with activity with or without an assistive device 5 Patient requires set up or clean up by helper. Patient completes activity by themselves 4 Supervision or touching assist (CGA). [place] provide cues , steadying assist 3 The helper provides less than half the effort to complete the activity 2 The helper provides more than half the effort to complete the activity 1 Dependent. The helper does all the effort to complete an activity 7 Patient refused to complete or attempt activity 9 The patient did not perform the activity before the current illness or injury 88 Not attempted due to Medical conditions or safety concerns Toileting (FIM): 5 Transfers (B, C, W/C) (FIM): 5 Toilet/Commode Transfer (FIM): 5 Education OT Patient Education: Exercise program, Progress toward Goal/Update tx plan Teaching Recipient: Patient Teaching Methods: Discussion Response to Teaching: Verbalize Understanding, Return Demonstration OT Short Term Goals Short Term Goals Time Frame: Sep 10, 2016 Transfers (B,C,W/C) (FIM): 5 Toilet/Commode Transfer(FIM): 5 Shower Transfer(FIM): 5 Additional Short Term Goals: 2-Verbalize Understanding, 3-ImproveStrength/[place] 1=Demonstrate adherence to instructed precautions during ADL tasks. 2=Patient will verbalize/demonstrate understanding of assistive devices/ modifications for ADL. 3=Patient will improve strength/tolerance for activity to enable patient to perform ADL's. OT [facility] Goals [facility] Goals Time Frame: Sep 24, 2016 Eating (FIM): 7 Eating (QC): 6 Oral Hygiene (QC): 6 Grooming(FIM): 6 Bathing(FIM): 6 Shower/Bathe Self (QC): 6 Upper Body Dressing(FIM): 6 Upper Body Dressing (QC): 6 Lower Body Dressing(FIM): 6 Lower Body Dressing (QC): 6 On/Off Footwear (QC): 6 Toileting(FIM): 6 Toileting Hygiene (QC): 6 Toilet/Commode Transfer(FIM): 6 Toilet/Commode Transfer (QC): 6 Shower Transfer(FIM): 6 Comprehension(FIM): 5 Expression (FIM): 5 Social Interaction(FIM): 6 Problem Solving(FIM): 5 Memory(FIM): 5 Additional Goals: 2-Verbalize Understanding, 3-ImproveStrength/[place] 1=Demonstrate adherence to instructed precautions during ADL tasks. 2=Patient will verbalize/demonstrate understanding of assistive devices/ modifications for ADL. 3=Patient will improve strength/tolerance for activity to enable patient to perform ADL's. OT Education/Plan Problem List/Assessment Pt would benefit from skilled OT to increase his independence in basic self care to allow him to return to his home safely to live with brother Discharge Recommendations Plan/Recommendations: Continue POC Treatment Plan/Plan of Care Patient would benefit from OT for education, treatment and training to promote independence in ADL's, mobility, safety and/or upper extremity function for ADL' s. Plan of Care: ADL Retraining, Functional Mobility, Group Exercise/Act as Ind ( education, exercise, functional activities, activity tolerance, socialization), UE Funct Exercise/Act, UE Neuromus Re-Ed/Coord Treatment Duration: Sep 24, 2016 Visits Per Week: 10-11 Minutes/Day (M-F): 75-90 Minutes/Day (Sat/Ruiz): PRN Rehab Potential: Good Time/GCodes Start Time: 10:00 Stop Time: 11:00 Total Time Billed (hr/min): 60 Billed Treatment Time visit, EX 60 min SAMANTHA BERNAL Sep 10, 2016 11:15
--- NOTE | 2016-09-10 12:01 | Physical Therapy Daily Note ---
PT Daily Note-Current Subjective Patient in bed pre tx, agrees to PT, patient pleasant and cooperative. Pain Numeric Pain Scale: 5-Moderate Pain Comment: low back Appearance Patient sitting EOB post tx, ready to order lunch, has nurse call, phone, tray, all needs met. Patient no longer in isolation. Mental Status Patient Orientation: Normal For Age Transfers Functional [place] Measure 0=Not Assessed/NA 4=Minimal Assistance 1=Total Assistance 5=Supervision or Setup 2=Maximal Assistance 6=Modified [place] 3=Moderate Assistance 7=Complete IndependenceIRFPAI Quality Coding Scale 6 Independent with activity with or without an assistive device 5 Patient requires set up or clean up by helper. Patient completes activity by themselves 4 Supervision or touching assist (CGA). [place] provide cues , steadying assist 3 The helper provides less than half the effort to complete the activity 2 The helper provides more than half the effort to complete the activity 1 Dependent. The helper does all the effort to complete an activity 7 Patient refused to complete or attempt activity 9 The patient did not perform the activity before the current illness or injury 88 Not attempted due to Medical conditions or safety concerns Transfers (B, C, W/C) (FIM): 5 Scootin Rollin Supine to/from Sit: 6 Sit to/from Stand: 5 cues for keeping walker close to him when performing transfers Gait Training Does the Patient Walk?: Yes Gait (FIM): 5 Distance: 500', 150' Gait Level of Assist: 5 Gait Persons Needed: 1 Gait Assistive Device: FWW no LOB or difficulty, much better endurance, patient states he can breathe better since he does not have to have a mask on now Stair Training Stair Training: Handrails/: 2 handrails Stairs (FIM): 5 #of Steps: 12 Stairs: Pattern: Step to Level of Assist: 5 safe appropriate stepping Exercises Standing: Hip Abduction, Hamstring curls, Heel/toe raises, Mini squats Standing Reps: 20 NuStep Minutes: 15 NuStep Workload: 4 Treatments functional strengthening, stair training, bed mobility and transfers, ambulation Assessment Current Status: Good Progress much better endurance PT Short Term Goals Short Term Goals Time Frame: Sep 10, 2016 Transfers (B,C,W/C) (FIM): 5 Gait (FIM): 2 Gait Distance Comment: 50' Gait Level of Assist: 4 Gait Assistive Device: FWW PT Long-Term Goals Long-Term Goals PT [place] Goals Time Frame: Sep 24, 2016 Transfers (B,C,W/C) (FIM): 6 Sit to Lying (QC): 6 Lying-Sitting on Side/Bed(QC): 6 Sit to Stand (QC): 6 Rollin Roll Left to Right (QC): 6 Chair/Hqh-vo-Vloyy Xfer(QC): 6 Car Transfer (QC): 4 Does the Patient Walk: Yes Gait (FIM): 5 Distance: 150' Walk 10 feet (QC): 4 Walk 10ft-Uneven Surface(QC): 4 Walk 50ft with 2 Turns (QC): 4 Walk 150 ft (QC): 4 Gait Level of Assist: 5 Gait Assistive Device: FWW Stairs (FIM): 2 # of Steps: 4 1 Step (curb) (QC): 4 4 Steps (QC): 4 Stairs Level Of Assist: 4 PT Plan Problem List Problem List: Activity Tolerance, Functional Strength, Safety, Balance, Gait, Transfer, Bed Mobility Treatment/Plan Treatment Plan: Continue Plan of Care Treatment Plan: Bed Mobility, Education, Functional Activity Felisha, Functional Strength, Group Therapy, Gait, Safety, Therapeutic Exercise, Transfers Treatment Duration: Sep 24, 2016 Visits Per Week: 10-11 Minutes/Day (M-F): 60-90 Minutes/Day (Sat/Ruiz): 15-30 Safety Risks/Education Patient Education: Gait Training, Transfer Techniques, Steps, Safety Issues Teaching Recipient: Patient Teaching Methods: Demonstration, Discussion Response to Teaching: Reinforcement Needed Time/GCodes Time In: 1100 Time Out: 1200 Total Billed Treatment Time: 60 Total Billed Treatment 1 visit GT 15 min EX 30 min FA 15 min SHADY SALGUERO PT Sep 10, 2016 12:01
--- NOTE | 2016-09-10 13:59 | PM & R (SOAP) Progress Note ---
Subjective Subjective/Events-last exam Patient was seen in his room this AM Progressing well with therapies Patient SBA for transfers and ambulation with a walker Endurance improving with less SOB Objective Exam Last Set of Vital Signs Vital Signs Date Time Temp Pulse Resp B/P Pulse Ox O2 Delivery O2 Flow Rate FiO2 09/10/16 09:00 Room Air 09/10/16 07:11 95 09/10/16 04:41 97.6 79 18 106/69 Capillary Refill : I&O Bad tableGeneral: Alert, Oriented X3, Cooperative, No Acute Distress HEENT: Atraumatic, PERRLA, EOMI, Mucous Memb Moist/[place] Neck: Supple, No JVD Lungs: Clear to Auscultation Heart: Regular Rate Abdomen: Normal Bowel Sounds, Soft, No Tenderness Extremities: No Edema Neuro: Other (generalized weakness) Results Lab Laboratory Tests 09/08/16 11:30: Alanine Aminotransferase (ALT/SGPT) 47, Albumin 4.0, Alkaline Phosphatase 111, Anion Gap 11, Aspartate Amino Transf (AST/SGOT) 51H, BUN/Creatinine Ratio 23, Basophils # (Auto) 0.0, Basophils (%) (Auto) 0, Blood Urea Nitrogen 43H, Calcium Level 9.3, Carbon Dioxide Level 16L, Chloride Level 105, Creatinine 1.90H, Eosinophils # (Auto) 0.4H, Eosinophils (%) (Auto) 7, Estimat Glomerular Filtration Rate 37, Glucose Level 115H, Hematocrit 31L, Hemoglobin 10.3L, Lymphocytes # (Auto) 1.2, Lymphocytes (%) (Auto) 21, Magnesium Level 1.6L, Mean Corpuscular Hemoglobin 33, Mean Corpuscular Hemoglobin Concent 33, Mean Corpuscular Volume 100H, Mean Platelet Volume , Monocytes # (Auto) 0.5, Monocytes (%) (Auto) 9, Neutrophils # (Auto) 3.5, Neutrophils (%) (Auto) 62, Platelet Count 45L, Potassium Level 5.1H, Red Blood Count 3.14L, Red Cell Distribution Width 15.3H, Sodium Level 132L, Total Bilirubin 1.6H, Total Protein 7.3, White Blood Count 5.7 09/09/16 13:13: B-Type Natriuretic Peptide 114.1H 09/10/16 06:35: Alanine Aminotransferase (ALT/SGPT) 37, Albumin 3.5, Alkaline Phosphatase 90, Anion Gap 8, Aspartate Amino Transf (AST/SGOT) 40H, BUN/Creatinine Ratio 27, Basophils # (Auto) 0.0, Basophils (%) (Auto) 1, Blood Urea Nitrogen 39H, Calcium Level 9.1, Carbon Dioxide Level 19L, Chloride Level 108H, Creatinine 1.43H, Eosinophils # (Auto) 0.3, Eosinophils (%) (Auto) 9, Estimat Glomerular Filtration Rate 51, Glucose Level 95, Hematocrit 28L, Hemoglobin 9.3L, Lymphocytes # (Auto) 1.2, Lymphocytes (%) (Auto) 32, Magnesium Level 1.7L, Mean Corpuscular Hemoglobin 33, Mean Corpuscular Hemoglobin Concent 33, Mean Corpuscular Volume 100H, Mean Platelet Volume 12.8H, Monocytes # (Auto) 0.3, Monocytes (%) (Auto) 8, Neutrophils # (Auto) 1.9, Neutrophils (%) (Auto) 51, Platelet Count 43L, Potassium Level 4.1, Red Blood Count 2.84L, Red Cell Distribution Width 14.8H, Sodium Level 135, Total Bilirubin 1.2H, Total Protein 6.3L, White Blood Count 3.8L Microbiology 09/08/16 Gram Stain - Final, Resulted 09/08/16 Sputum Culture - Preliminary, Resulted Usual/normal [place] isolated. Assessment/Plan Assessment General debil secondary to recurrent MSSA pneumonia -completed course of antibiotics. HX of Etoh abuse and alcoholic liver D Macrocytic anemia Afib controlled seizure disorder on keppra HTN controlled Borderline Hyperkalemia meds adjusted Hypomagnesemia on replacement. Plan Continue PT/OTand current meds Dr Dickens consulted for this OOT Patient-Appeciate his consult Team Conference held yesterday-See report for full functional update and POC and ELOS Check MRSA screen-done nasal screen negative Monitor electrolytes Appreciate Dr Ramos consult and recs Hyperkalemia improved Serum Magnesium improving as well as bilirubin CHAVA POOLE MD Sep 10, 2016 13:59
--- NOTE | 2016-09-10 14:03 | Occupational Ther Daily Note ---
OT Current Status-Daily Note Subjective pt lying in bed. No pain mentioned. Agreeable to OT. Appearance Alert, Cooperative Mental Status/Objective Functional [place] Measure 0=Not Assessed/NA 4=Minimal Assistance 1=Total Assistance 5=Supervision or Setup 2=Maximal Assistance 6=Modified [place] 3=Moderate Assistance 7=Complete [place] ADL-Treatment Pt sat up EOB without help. R UE stretching and ROM in supine to increase functional ROM. Pt then participated using R UE ex to increase strength and endurance for daily functional tasks. Pt tolerated well. Pt walked to bathroom SBA using FWW then used grab bars and FWW for toilet transfer and toileting task. Walked back to room and sat on EOB. Call light in hand. All needs met. Functional [place] Measure 0=Not Assessed/NA 4=Minimal Assistance 1=Total Assistance 5=Supervision or Setup 2=Maximal Assistance 6=Modified [place] 3=Moderate Assistance 7=Complete IndependenceIRFPAI Quality Coding Scale 6 Independent with activity with or without an assistive device 5 Patient requires set up or clean up by helper. Patient completes activity by themselves 4 Supervision or touching assist (CGA). [place] provide cues , steadying assist 3 The helper provides less than half the effort to complete the activity 2 The helper provides more than half the effort to complete the activity 1 Dependent. The helper does all the effort to complete an activity 7 Patient refused to complete or attempt activity 9 The patient did not perform the activity before the current illness or injury 88 Not attempted due to Medical conditions or safety concerns Toileting (FIM): 5 Transfers (B, C, W/C) (FIM): 5 Toilet/Commode Transfer (FIM): 5 Education OT Patient Education: Home exercise program, Progress toward Goal/Update tx plan Teaching Recipient: Patient Teaching Methods: Demonstration, Discussion Response to Teaching: Verbalize Understanding, Return Demonstration OT Short Term Goals Short Term Goals Time Frame: Sep 10, 2016 Transfers (B,C,W/C) (FIM): 5 Toilet/Commode Transfer(FIM): 5 Shower Transfer(FIM): 5 Additional Short Term Goals: 2-Verbalize Understanding, 3-ImproveStrength/[place] 1=Demonstrate adherence to instructed precautions during ADL tasks. 2=Patient will verbalize/demonstrate understanding of assistive devices/ modifications for ADL. 3=Patient will improve strength/tolerance for activity to enable patient to perform ADL's. OT [facility] Goals [facility] Goals Time Frame: Sep 24, 2016 Eating (FIM): 7 Eating (QC): 6 Oral Hygiene (QC): 6 Grooming(FIM): 6 Bathing(FIM): 6 Shower/Bathe Self (QC): 6 Upper Body Dressing(FIM): 6 Upper Body Dressing (QC): 6 Lower Body Dressing(FIM): 6 Lower Body Dressing (QC): 6 On/Off Footwear (QC): 6 Toileting(FIM): 6 Toileting Hygiene (QC): 6 Toilet/Commode Transfer(FIM): 6 Toilet/Commode Transfer (QC): 6 Shower Transfer(FIM): 6 Comprehension(FIM): 5 Expression (FIM): 5 Social Interaction(FIM): 6 Problem Solving(FIM): 5 Memory(FIM): 5 Additional Goals: 2-Verbalize Understanding, 3-ImproveStrength/Felisha 1=Demonstrate adherence to instructed precautions during ADL tasks. 2=Patient will verbalize/demonstrate understanding of assistive devices/ modifications for ADL. 3=Patient will improve strength/tolerance for activity to enable patient to perform ADL's. OT Education/Plan Problem List/Assessment Pt would benefit from skilled OT to increase his independence in basic self care to allow him to return to his home safely to live with brother Discharge Recommendations Plan/Recommendations: Continue POC Treatment Plan/Plan of Care Patient would benefit from OT for education, treatment and training to promote independence in ADL's, mobility, safety and/or upper extremity function for ADL' s. Plan of Care: ADL Retraining, Functional Mobility, Group Exercise/Act as Ind ( education, exercise, functional activities, activity tolerance, socialization), UE Funct Exercise/Act, UE Neuromus Re-Ed/Coord Treatment Duration: Sep 24, 2016 Visits Per Week: 10-11 Minutes/Day (M-F): 75-90 Minutes/Day (Sat/Ruiz): PRN Rehab Potential: Good Time/GCodes Start Time: 13:30 Stop Time: 14:00 Total Time Billed (hr/min): 30 Billed Treatment Time visit, EX 30 min SAMANTHA BERNAL Sep 10, 2016 14:03 SAMANTHA BERNAL Sep 10, 2016 14:03
--- NOTE | 2016-09-10 15:57 | Physical Therapy Daily Note ---
PT Daily Note-Current Subjective Agreeable. Reports he is tired this afternoon. Mental Status Patient Orientation: Person, Place, Time, Situation Transfers Functional [place] Measure 0=Not Assessed/NA 4=Minimal Assistance 1=Total Assistance 5=Supervision or Setup 2=Maximal Assistance 6=Modified [place] 3=Moderate Assistance 7=Complete IndependenceIRFPAI Quality Coding Scale 6 Independent with activity with or without an assistive device 5 Patient requires set up or clean up by helper. Patient completes activity by themselves 4 Supervision or touching assist (CGA). [place] provide cues , steadying assist 3 The helper provides less than half the effort to complete the activity 2 The helper provides more than half the effort to complete the activity 1 Dependent. The helper does all the effort to complete an activity 7 Patient refused to complete or attempt activity 9 The patient did not perform the activity before the current illness or injury 88 Not attempted due to Medical conditions or safety concerns Transfers (B, C, W/C) (FIM): 5 SBA with all functional transfers for safety purposes. Gait Training Gait (FIM): 5 Distance (FIM): 3=150 ft Distance: 150 ft x 3 Gait Level of Assist: 5 Gait Assistive Device: FWW safe and steady gait with use of FWW. Exercises Seated Therapy Exercises: Ankle pumps, Long arc quads, Hip flexion, Hip abd/add Seated Reps: 15 Standing: Hamstring curls, Heel/toe raises, Marching, Mini squats Standing Reps: 15 Assessment Current Status: Good Progress Safe with funcitonal mobility. Progressing. PT Short Term Goals Short Term Goals Time Frame: Sep 10, 2016 Transfers (B,C,W/C) (FIM): 5 (met 09/10/16) Gait (FIM): 2 (met 09/10/16) Gait Distance Comment: 50' Gait Level of Assist: 4 Gait Assistive Device: FWW PT Longterm Goals Lap Regulator Goals PT Longterm Goals Time Frame: Sep 24, 2016 Transfers (B,C,W/C) (FIM): 6 Sit to Lying (QC): 6 Lying-Sitting on Side/Bed(QC): 6 Sit to Stand (QC): 6 Rollin Roll Left to Right (QC): 6 Chair/Tgp-vv-Dejex Xfer(QC): 6 Car Transfer (QC): 4 Does the Patient Walk: Yes Gait (FIM): 5 Distance: 150' Walk 10 feet (QC): 4 Walk 10ft-Uneven Surface(QC): 4 Walk 50ft with 2 Turns (QC): 4 Walk 150 ft (QC): 4 Gait Level of Assist: 5 Gait Assistive Device: FWW Stairs (FIM): 2 # of Steps: 4 1 Step (curb) (QC): 4 4 Steps (QC): 4 Stairs Level Of Assist: 4 PT Plan Problem List Problem List: Activity Tolerance, Functional Strength, Safety, Balance, Gait, Transfer Treatment/Plan Treatment Plan: Continue Plan of Care Treatment Plan: Bed Mobility, Education, Functional Activity Felisha, Functional Strength, Group Therapy, Gait, Safety, Therapeutic Exercise, Transfers Treatment Duration: Sep 24, 2016 Visits Per Week: 10-11 Minutes/Day (M-F): 60-90 Minutes/Day (Sat/Ruiz): 15-30 Safety Risks/Education Patient Education: Transfer Techniques, Safety Issues Teaching Recipient: Patient Teaching Methods: Discussion Response to Teaching: Verbalize Understanding Time/GCodes Time In: 1430 Time Out: 1500 Total Billed Treatment Time: 30 Total Billed Treatment visit GT 15 EX 15 SAMANTHA SANCHEZ PT Sep 10, 2016 15:57
[2016-09-10] MEDS: ALFUZOSIN HCL 10 MG TAB (UROXATRAL) PO SCH (17:38)
[2016-09-10 18:33] VITALS: BP 141/82
[2016-09-11 05:58] VITALS: BP 104/69
[2016-09-11] MEDS: RT-ALBUTEROL SULF 2.5 MG/3 ML PRE-MIX VIAL INH SCH ×4 (06:41→18:28)
--- NOTE | 2016-09-11 08:10 | Progress Note (SOAP) ---
Subjective Subjective/Events-last exam magnesium 1.6 Will replace. Weakness. Patient feels she's getting around better. Patient getting around with walker more stable Objective Exam Vital Signs Date Time Temp Pulse Resp B/P Pulse Ox O2 Delivery O2 Flow Rate FiO2 09/11/16 06:41 95 Room Air 09/11/16 05:58 97.9 75 18 104/69 98 Room Air 09/10/16 22:19 94 Room Air 09/10/16 20:30 Room Air 09/10/16 18:33 97.2 107 16 141/82 93 09/10/16 15:32 Room Air 09/10/16 09:00 Room Air I & O 09/11/16 07:00 Intake Total 2100 ml Output Total 800 ml Balance 1300 ml Capillary Refill : General Appearance: No Apparent Distress WD/WN HEENT: Normal ENT Inspection Neck: Normal Inspection Respiratory: Chest Non Tender Lungs Clear Normal Breath Sounds No Accessory Muscle Use No Respiratory Distress Cardiovascular: Regular Rate, Rhythm No Murmur Results Lab Laboratory Tests 09/11/16 06:35: Magnesium Level 1.6L Microbiology 09/08/16 Gram Stain - Final, Complete 09/08/16 Sputum Culture - Final, Complete Usual/normal [place] isolated. Assessment/Plan Assessment/Plan Assess & Plan/Chief Complaint pneumonia. Weakness. Seizure. Liver cirrhosis. CAD. GERD. Seizure. Chronic hepatitis. . 09/09/16. Pneumonia. Weakness. Seizures. Liver cirrhosis. . 09/10/16. Pneumonia. Weakness. Patient feeling better. Chest x-ray shows resolving pneumonia. Pulmonology says no more antibiotic just monitor. Waiting first culture reports. . 09/11/16. 2 sputum cultures negative. Magnesium 1.62 replace. Patient doing better with his weakness. Pneumonia. Patient improving Diagnosis/Problems: Clinical Quality Measures DVT/VTE Risk/Contraindication: Risk Factor Score Per Nursin RFS Level Per Nursing on Admit: 4+=Very High CHERI GARCIA DO Sep 11, 2016 08:10
[2016-09-11] MEDS: ACETAMINOPHEN 325 MG TABLET/CAPLET (TYLENOL) PO PRN ×2 (08:34→19:49)
--- NOTE | 2016-09-11 08:58 | Physical Therapy Daily Note ---
PT Daily Note-Current Subjective Patient in bed pre tx, needs to get dressed, states he has more back pain and would like to get pain med, nurse notified. Pain Numeric Pain Scale: 7 Appearance Patient sitting EOB post tx for breakfast, has nurse call, phone, tray, all needs met. Mental Status Patient Orientation: Normal For Age Transfers Functional [place] Measure 0=Not Assessed/NA 4=Minimal Assistance 1=Total Assistance 5=Supervision or Setup 2=Maximal Assistance 6=Modified [place] 3=Moderate Assistance 7=Complete IndependenceIRFPAI Quality Coding Scale 6 Independent with activity with or without an assistive device 5 Patient requires set up or clean up by helper. Patient completes activity by themselves 4 Supervision or touching assist (CGA). [place] provide cues , steadying assist 3 The helper provides less than half the effort to complete the activity 2 The helper provides more than half the effort to complete the activity 1 Dependent. The helper does all the effort to complete an activity 7 Patient refused to complete or attempt activity 9 The patient did not perform the activity before the current illness or injury 88 Not attempted due to Medical conditions or safety concerns Transfers (B, C, W/C) (FIM): 6 Scootin Rollin Supine to/from Sit: 6 Sit to/from Stand: 6 safe transfers, appropriate use of hands Gait Training Gait (FIM): 6 Distance: 500'x2 Gait Assistive Device: FWW advance to a single point cane Exercises sit to stand 3 sets of 5, LAQ alternating with 2# ankle weights for 5 min NuStep Minutes: 15 NuStep Workload: 5 Treatments bed mobility and transfers, ambulation, functional strengthening, patient was dressed and groomed Assessment Current Status: Fair Progress steadily improving balance, strength, endurance, will tell nursing he can be independent in his room. PT Short Term Goals Short Term Goals Time Frame: Sep 10, 2016 Transfers (B,C,W/C) (FIM): 5 (met 09/10/16) Gait (FIM): 2 (met 09/10/16) Gait Distance Comment: 50' Gait Level of Assist: 4 Gait Assistive Device: FWW PT Bone Drier Operator Goals Bone Drier Operator Goals PT Bone Drier Operator Goals Time Frame: Sep 24, 2016 Transfers (B,C,W/C) (FIM): 6 Sit to Lying (QC): 6 Lying-Sitting on Side/Bed(QC): 6 Sit to Stand (QC): 6 Rollin Roll Left to Right (QC): 6 Chair/Mpb-bl-Vrwpy Xfer(QC): 6 Car Transfer (QC): 4 Does the Patient Walk: Yes Gait (FIM): 5 Distance: 150' Walk 10 feet (QC): 4 Walk 10ft-Uneven Surface(QC): 4 Walk 50ft with 2 Turns (QC): 4 Walk 150 ft (QC): 4 Gait Level of Assist: 5 Gait Assistive Device: FWW Stairs (FIM): 2 # of Steps: 4 1 Step (curb) (QC): 4 4 Steps (QC): 4 Stairs Level Of Assist: 4 PT Plan Problem List Problem List: Activity Tolerance, Functional Strength, Safety, Balance, Gait, Transfer Treatment/Plan Treatment Plan: Continue Plan of Care Treatment Plan: Bed Mobility, Education, Functional Activity Felisha, Functional Strength, Group Therapy, Gait, Safety, Therapeutic Exercise, Transfers Treatment Duration: Sep 24, 2016 Visits Per Week: 10-11 Minutes/Day (M-F): 60-90 Minutes/Day (Sat/Ruiz): 15-30 Safety Risks/Education Patient Education: Gait Training, Transfer Techniques, Safety Issues Teaching Recipient: Patient Teaching Methods: Demonstration, Discussion Response to Teaching: Reinforcement Needed Time/GCodes Time In: 800 Time Out: 900 Total Billed Treatment Time: 60 Total Billed Treatment 1 visit EX 30 min GT 30 min SHADY SALGUERO PT Sep 11, 2016 08:58
[2016-09-11] MEDS: MAGNESIUM 1 GM/100 ML IVPB 100 ML IV SCH ×2 (09:03→11:48)
[2016-09-11] MEDS: PROPRANOLOL 20 MG (INDERAL) TABLET PO SCH (09:07)
[2016-09-11] MEDS: THIAMINE 100 MG (VITAMIN B-1) TAB PO SCH (09:07)
[2016-09-11] MEDS: LEVETIRACETAM 500 MG (KEPPRA) TAB PO SCH ×2 (09:07→19:48)
[2016-09-11] MEDS: guaiFENesin (MUCINEX) 600 MG TAB PO SCH ×2 (09:07→19:48)
[2016-09-11] MEDS: PANTOPRAZOLE 40 MG (PROTONIX) TAB PO SCH (09:08)
[2016-09-11] MEDS: MULTIVIT W/MINERALS TAB (THERAGRAN M) PO SCH (09:08)
[2016-09-11] MEDS: BUMETANIDE 1 MG (BUMEX) TAB PO SCH (09:08)
[2016-09-11] MEDS: FOLIC ACID 1 MG TAB PO SCH (09:08)
[2016-09-11] MEDS: MAGNESIUM OXIDE (MAG-OX)400 MG TAB PO SCH ×2 (09:08→17:40)
[2016-09-11] MEDS: SPIRONOLACTONE 100 MG (ALDACTONE) TABLET PO SCH (09:08)
[2016-09-11] MEDS: IRON POLYSAC 150 MG CAP (NIFEREX) PO SCH ×2 (09:09→19:48)
--- NOTE | 2016-09-11 09:38 | PM & R (SOAP) Progress Note ---
Subjective Subjective/Events-last exam Patient was seen in his room this AM Propgressing well with therapies Patient Modified Independent for mobility Objective Exam Last Set of Vital Signs Vital Signs Date Time Temp Pulse Resp B/P Pulse Ox O2 Delivery O2 Flow Rate FiO2 09/11/16 06:41 95 Room Air 09/11/16 05:58 97.9 75 18 104/69 Capillary Refill : I&O Bad tableGeneral: Alert, Oriented X3, Cooperative, No Acute Distress HEENT: Atraumatic, PERRLA, EOMI, Mucous Memb Moist/[place] Neck: Supple, No JVD Lungs: Clear to Auscultation Heart: Regular Rate Abdomen: Normal Bowel Sounds, Soft, No Tenderness Extremities: No Edema Neuro: Other (generalized weakness) Results Lab Laboratory Tests 09/08/16 11:30: Alanine Aminotransferase (ALT/SGPT) 47, Albumin 4.0, Alkaline Phosphatase 111, Anion Gap 11, Aspartate Amino Transf (AST/SGOT) 51H, BUN/Creatinine Ratio 23, Basophils # (Auto) 0.0, Basophils (%) (Auto) 0, Blood Urea Nitrogen 43H, Calcium Level 9.3, Carbon Dioxide Level 16L, Chloride Level 105, Creatinine 1.90H, Eosinophils # (Auto) 0.4H, Eosinophils (%) (Auto) 7, Estimat Glomerular Filtration Rate 37, Glucose Level 115H, Hematocrit 31L, Hemoglobin 10.3L, Lymphocytes # (Auto) 1.2, Lymphocytes (%) (Auto) 21, Magnesium Level 1.6L, Mean Corpuscular Hemoglobin 33, Mean Corpuscular Hemoglobin Concent 33, Mean Corpuscular Volume 100H, Mean Platelet Volume , Monocytes # (Auto) 0.5, Monocytes (%) (Auto) 9, Neutrophils # (Auto) 3.5, Neutrophils (%) (Auto) 62, Platelet Count 45L, Potassium Level 5.1H, Red Blood Count 3.14L, Red Cell Distribution Width 15.3H, Sodium Level 132L, Total Bilirubin 1.6H, Total Protein 7.3, White Blood Count 5.7 09/09/16 13:13: B-Type Natriuretic Peptide 114.1H 09/10/16 06:35: Alanine Aminotransferase (ALT/SGPT) 37, Albumin 3.5, Alkaline Phosphatase 90, Anion Gap 8, Aspartate Amino Transf (AST/SGOT) 40H, BUN/Creatinine Ratio 27, Basophils # (Auto) 0.0, Basophils (%) (Auto) 1, Blood Urea Nitrogen 39H, Calcium Level 9.1, Carbon Dioxide Level 19L, Chloride Level 108H, Creatinine 1.43H, Eosinophils # (Auto) 0.3, Eosinophils (%) (Auto) 9, Estimat Glomerular Filtration Rate 51, Glucose Level 95, Hematocrit 28L, Hemoglobin 9.3L, Lymphocytes # (Auto) 1.2, Lymphocytes (%) (Auto) 32, Magnesium Level 1.7L, Mean Corpuscular Hemoglobin 33, Mean Corpuscular Hemoglobin Concent 33, Mean Corpuscular Volume 100H, Mean Platelet Volume 12.8H, Monocytes # (Auto) 0.3, Monocytes (%) (Auto) 8, Neutrophils # (Auto) 1.9, Neutrophils (%) (Auto) 51, Platelet Count 43L, Potassium Level 4.1, Red Blood Count 2.84L, Red Cell Distribution Width 14.8H, Sodium Level 135, Total Bilirubin 1.2H, Total Protein 6.3L, White Blood Count 3.8L 09/11/16 06:35: Magnesium Level 1.6L Microbiology 09/08/16 Gram Stain - Final, Complete 09/08/16 Sputum Culture - Final, Complete Usual/normal [place] isolated. Assessment/Plan Assessment General debil secondary to recurrent MSSA pneumonia -completed course of antibiotics. HX of Etoh abuse and alcoholic liver D Macrocytic anemia Afib controlled seizure disorder on keppra HTN controlled Borderline Hyperkalemia meds adjusted Hypomagnesemia on replacement. Plan Continue PT/OTand current meds Dr Dickens consulted for this OOT Patient-Appeciate his consult Team Conference held yesterday-See report for full functional update and POC and ELOS Check MRSA screen-done nasal screen negative Monitor electrolytes Appreciate Dr Ramos consult and recs Hyperkalemia improved Serum Magnesium improving as well as bilirubin Discharge remians set for 09/16/16 CHAVA POOLE MD Sep 11, 2016 09:38
[2016-09-11] MEDS ORDERED: MAGNESIUM 1 GM/100 ML IVPB 100 ML IV ONE (11:40)
--- NOTE | 2016-09-11 12:48 | Occupational Ther Daily Note ---
OT Current Status-Daily Note Subjective Pt lying in bed. No pain mentioned. Agreeable to OT. Appearance Alert, Cooperative Mental Status/Objective Functional [place] Measure 0=Not Assessed/NA 4=Minimal Assistance 1=Total Assistance 5=Supervision or Setup 2=Maximal Assistance 6=Modified [place] 3=Moderate Assistance 7=Complete [place] ADL-Treatment Pt sat up EOB without help. Ambulated to bathroom for shower, SBA, FWW. Transferred to shower bench using grab bars, SBA, FWW. Pt doffed shirt,pants, brief, and slipper socks while seated on shower bench. Pt able to turn on/off shower. Pt independently washed/dried hair, UB/LB parts seated on shower bench, hand held shower, grab bars, SBA. Seated on shower bench pt donned shirt,brief, pants and slipper socks with setup, SBA. Pt ambulated in front of sink to brush teeth and hair, FWW,SBA. Pt be toileted self using FWW, grab bars, BSC over toilet, SBA. Pt managed clothes and hygiene,SBA. Walked to EOB, SBA, FWW. Pt left sitting on EOB in care of nursing. All needs met. Functional [place] Measure 0=Not Assessed/NA 4=Minimal Assistance 1=Total Assistance 5=Supervision or Setup 2=Maximal Assistance 6=Modified [place] 3=Moderate Assistance 7=Complete IndependenceIRFPAI Quality Coding Scale 6 Independent with activity with or without an assistive device 5 Patient requires set up or clean up by helper. Patient completes activity by themselves 4 Supervision or touching assist (CGA). [place] provide cues , steadying assist 3 The helper provides less than half the effort to complete the activity 2 The helper provides more than half the effort to complete the activity 1 Dependent. The helper does all the effort to complete an activity 7 Patient refused to complete or attempt activity 9 The patient did not perform the activity before the current illness or injury 88 Not attempted due to Medical conditions or safety concerns Grooming (FIM): 6 Bathing (FIM): 5 Bathing Location: L Arm, R Arm, L Upper Leg, R Upper Leg, L Lower Leg ( including foot), R Lower Leg (including foot), Chest, Abdomen, Buttocks, Perineal Area Upper Body (FIM): 5 Lower Body Dressing (FIM): 5 Toileting (FIM): 5 Transfers (B, C, W/C) (FIM): 5 Toilet/Commode Transfer (FIM): 5 Shower Transfer(FIM): 5 Education OT Patient Education: Progress toward Goal/Update tx plan Teaching Recipient: Patient Teaching Methods: Discussion Response to Teaching: Verbalize Understanding, Return Demonstration OT Short Term Goals Short Term Goals Time Frame: Sep 10, 2016 Transfers (B,C,W/C) (FIM): 5 (met 09/10/16) Toilet/Commode Transfer(FIM): 5 Shower Transfer(FIM): 5 Additional Short Term Goals: 2-Verbalize Understanding, 3-ImproveStrength/Felisha 1=Demonstrate adherence to instructed precautions during ADL tasks. 2=Patient will verbalize/demonstrate understanding of assistive devices/ modifications for ADL. 3=Patient will improve strength/tolerance for activity to enable patient to perform ADL's. OT Mcc Goals Mcc Goals Time Frame: Sep 24, 2016 Eating (FIM): 7 Eating (QC): 6 Oral Hygiene (QC): 6 Grooming(FIM): 6 Bathing(FIM): 6 Shower/Bathe Self (QC): 6 Upper Body Dressing(FIM): 6 Upper Body Dressing (QC): 6 Lower Body Dressing(FIM): 6 Lower Body Dressing (QC): 6 On/Off Footwear (QC): 6 Toileting(FIM): 6 Toileting Hygiene (QC): 6 Toilet/Commode Transfer(FIM): 6 Toilet/Commode Transfer (QC): 6 Shower Transfer(FIM): 6 Comprehension(FIM): 5 Expression (FIM): 5 Social Interaction(FIM): 6 Problem Solving(FIM): 5 Memory(FIM): 5 Additional Goals: 2-Verbalize Understanding, 3-ImproveStrength/Felisha 1=Demonstrate adherence to instructed precautions during ADL tasks. 2=Patient will verbalize/demonstrate understanding of assistive devices/ modifications for ADL. 3=Patient will improve strength/tolerance for activity to enable patient to perform ADL's. OT Education/Plan Problem List/Assessment Pt would benefit from skilled OT to increase his independence in basic self care to allow him to return to his home safely to live with brother Discharge Recommendations Plan/Recommendations: Continue POC Treatment Plan/Plan of Care Patient would benefit from OT for education, treatment and training to promote independence in ADL's, mobility, safety and/or upper extremity function for ADL' s. Plan of Care: ADL Retraining, Functional Mobility, Group Exercise/Act as Ind ( education, exercise, functional activities, activity tolerance, socialization), UE Funct Exercise/Act, UE Neuromus Re-Ed/Coord Treatment Duration: Sep 24, 2016 Visits Per Week: 10-11 Minutes/Day (M-F): 75-90 Minutes/Day (Sat/Ruiz): PRN Rehab Potential: Good Time/GCodes Start Time: 11:00 Stop Time: 12:00 Total Time Billed (hr/min): 60 Billed Treatment Time visit, ADL 60 min SAMANTHA BERNAL Sep 11, 2016 12:48
--- NOTE | 2016-09-11 14:50 | Therapy Group Daily Note ---
Therapy Daily Group Note Patient Education Topic Other List Below (Using music to facilitate relaxation; importance of relaxation for healing) Exercises Other (Breathing) Other/Notes Pt ambulated to therapy BERNARDINO Eli, FWW. Pt participated in socialization by introducing self, place of living, what tools used for relaxation. Guest speaker from [facility] introduced instrument (shakuhachi-Yi flute) for example of relaxation technique. Pt was asked to give examples of the type of music likes to listen and relax too. Pt contributed to conversations and appropriately answered questions. Pt ambulated back to room, BERNARDINO, GEEW. Pt sitting EOB in room, call light/phone in reach. All needs met. Start Time: 13:00 Stop Time: 14:15 Total Billed Treatment Time: 75 Total Billed Treatment 1-GRP SAMANTHA BERNAL Sep 11, 2016 14:50
[2016-09-11] MEDS: ALFUZOSIN HCL 10 MG TAB (UROXATRAL) PO SCH (17:40)
[2016-09-11 17:52] VITALS: BP 113/75
[2016-09-12 06:00] VITALS: BP 110/70
[2016-09-12] MEDS: RT-ALBUTEROL SULF 2.5 MG/3 ML PRE-MIX VIAL INH SCH ×4 (07:13→19:59)
[2016-09-12] MEDS: ACETAMINOPHEN 325 MG TABLET/CAPLET (TYLENOL) PO PRN ×2 (07:35→21:45)
[2016-09-12] MEDS: guaiFENesin (MUCINEX) 600 MG TAB PO SCH ×2 (08:11→20:20)
[2016-09-12] MEDS: SPIRONOLACTONE 100 MG (ALDACTONE) TABLET PO SCH (08:12)
[2016-09-12] MEDS: PROPRANOLOL 20 MG (INDERAL) TABLET PO SCH (08:12)
[2016-09-12] MEDS: IRON POLYSAC 150 MG CAP (NIFEREX) PO SCH ×2 (08:12→20:20)
[2016-09-12] MEDS: THIAMINE 100 MG (VITAMIN B-1) TAB PO SCH (08:12)
[2016-09-12] MEDS: BUMETANIDE 1 MG (BUMEX) TAB PO SCH (08:12)
[2016-09-12] MEDS: MAGNESIUM OXIDE (MAG-OX)400 MG TAB PO SCH ×2 (08:12→17:11)
[2016-09-12] MEDS: PANTOPRAZOLE 40 MG (PROTONIX) TAB PO SCH (08:12)
[2016-09-12] MEDS: LEVETIRACETAM 500 MG (KEPPRA) TAB PO SCH ×2 (08:12→20:20)
[2016-09-12] MEDS: FOLIC ACID 1 MG TAB PO SCH (08:12)
[2016-09-12] MEDS: MULTIVIT W/MINERALS TAB (THERAGRAN M) PO SCH (08:12)
--- NOTE | 2016-09-12 10:49 | Physical Therapy Daily Note ---
PT Daily Note-Current Subjective Patient in bed pre tx, agrees to PT, pleasant and cooperative. Pain Numeric Pain Scale: 0-No Pain Appearance Patient in room post tx, is independent in his room. Mental Status Patient Orientation: Normal For Age Transfers Functional [place] Measure 0=Not Assessed/NA 4=Minimal Assistance 1=Total Assistance 5=Supervision or Setup 2=Maximal Assistance 6=Modified [place] 3=Moderate Assistance 7=Complete IndependenceIRFPAI Quality Coding Scale 6 Independent with activity with or without an assistive device 5 Patient requires set up or clean up by helper. Patient completes activity by themselves 4 Supervision or touching assist (CGA). [place] provide cues , steadying assist 3 The helper provides less than half the effort to complete the activity 2 The helper provides more than half the effort to complete the activity 1 Dependent. The helper does all the effort to complete an activity 7 Patient refused to complete or attempt activity 9 The patient did not perform the activity before the current illness or injury 88 Not attempted due to Medical conditions or safety concerns Transfers (B, C, W/C) (FIM): 6 Scootin Rollin Supine to/from Sit: 6 Sit to/from Stand: 6 Gait Training Does the Patient Walk?: Yes Gait (FIM): 6 Distance: 500'x2 Gait Assistive Device: FWW no LOB or unsteadiness Exercises NuStep Minutes: 10 NuStep Workload: 5 Treatments bed mobility and transfers, ambulation, functional strengthening Assessment Current Status: Fair Progress steadily improving mobility PT Short Term Goals Short Term Goals Time Frame: Sep 10, 2016 Transfers (B,C,W/C) (FIM): 5 (met 09/10/16) Gait (FIM): 2 (met 09/10/16) Gait Distance Comment: 50' Gait Level of Assist: 4 Gait Assistive Device: FWW PT Half-Way Goals Laser Operator Goals PT Laser Operator Goals Time Frame: Sep 24, 2016 Transfers (B,C,W/C) (FIM): 6 Sit to Lying (QC): 6 Lying-Sitting on Side/Bed(QC): 6 Sit to Stand (QC): 6 Rollin Roll Left to Right (QC): 6 Chair/Hux-ax-[place]u Xfer(QC): 6 Car Transfer (QC): 4 Does the Patient Walk: Yes Gait (FIM): 5 Distance: 150' Walk 10 feet (QC): 4 Walk 10ft-Uneven Surface(QC): 4 Walk 50ft with 2 Turns (QC): 4 Walk 150 ft (QC): 4 Gait Level of Assist: 5 Gait Assistive Device: FWW Stairs (FIM): 2 # of Steps: 4 1 Step (curb) (QC): 4 4 Steps (QC): 4 Stairs Level Of Assist: 4 PT Plan Problem List Problem List: Activity Tolerance, Functional Strength, Safety, Balance, Gait, Transfer Treatment/Plan Treatment Plan: Continue Plan of Care Treatment Plan: Bed Mobility, Education, Functional Activity Felisha, Functional Strength, Group Therapy, Gait, Safety, Therapeutic Exercise, Transfers Treatment Duration: Sep 24, 2016 Visits Per Week: 10-11 Minutes/Day (M-F): 60-90 Minutes/Day (Sat/Ruiz): 15-30 Safety Risks/Education Patient Education: Gait Training, Transfer Techniques, Safety Issues Teaching Recipient: Patient Teaching Methods: Demonstration, Discussion Response to Teaching: Reinforcement Needed Time/GCodes Time In: 1025 Time Out: 1045 Total Billed Treatment Time: 20 Total Billed Treatment 1 visit GT 20 min SHADY SALGUERO PT Sep 12, 2016 10:49
[2016-09-12] MEDS: ALFUZOSIN HCL 10 MG TAB (UROXATRAL) PO SCH (17:11)
[2016-09-12 18:37] VITALS: BP 118/78
[2016-09-13 05:17] VITALS: BP 114/77
[2016-09-13] MEDS: RT-ALBUTEROL SULF 2.5 MG/3 ML PRE-MIX VIAL INH SCH ×4 (07:33→18:59)
[2016-09-13] MEDS: THIAMINE 100 MG (VITAMIN B-1) TAB PO SCH (08:00)
[2016-09-13] MEDS: IRON POLYSAC 150 MG CAP (NIFEREX) PO SCH ×2 (08:00→20:09)
[2016-09-13] MEDS: FOLIC ACID 1 MG TAB PO SCH (08:00)
[2016-09-13] MEDS: LEVETIRACETAM 500 MG (KEPPRA) TAB PO SCH ×2 (08:00→20:09)
[2016-09-13] MEDS: MAGNESIUM OXIDE (MAG-OX)400 MG TAB PO SCH ×2 (08:01→17:10)
[2016-09-13] MEDS: MULTIVIT W/MINERALS TAB (THERAGRAN M) PO SCH (08:01)
[2016-09-13] MEDS: BUMETANIDE 1 MG (BUMEX) TAB PO SCH (08:01)
[2016-09-13] MEDS: PANTOPRAZOLE 40 MG (PROTONIX) TAB PO SCH (08:01)
[2016-09-13] MEDS: SPIRONOLACTONE 100 MG (ALDACTONE) TABLET PO SCH (08:01)
[2016-09-13] MEDS: PROPRANOLOL 20 MG (INDERAL) TABLET PO SCH (08:01)
[2016-09-13] MEDS: guaiFENesin (MUCINEX) 600 MG TAB PO SCH ×2 (08:01→20:09)
[2016-09-13] MEDS: ACETAMINOPHEN 325 MG TABLET/CAPLET (TYLENOL) PO PRN ×2 (08:05→21:36)
[2016-09-13] MEDS: ALFUZOSIN HCL 10 MG TAB (UROXATRAL) PO SCH (17:10)
[2016-09-13 18:12] VITALS: BP 117/80
[2016-09-14 05:06] VITALS: BP 118/81
[2016-09-14] MEDS: RT-ALBUTEROL SULF 2.5 MG/3 ML PRE-MIX VIAL INH SCH ×4 (06:49→21:29)
[2016-09-14] MEDS: guaiFENesin (MUCINEX) 600 MG TAB PO SCH ×2 (07:43→20:30)
[2016-09-14] MEDS: ACETAMINOPHEN 325 MG TABLET/CAPLET (TYLENOL) PO PRN ×2 (07:43→20:31)
[2016-09-14] MEDS: IRON POLYSAC 150 MG CAP (NIFEREX) PO SCH ×2 (07:43→20:30)
[2016-09-14] MEDS: MULTIVIT W/MINERALS TAB (THERAGRAN M) PO SCH (07:43)
[2016-09-14] MEDS: PANTOPRAZOLE 40 MG (PROTONIX) TAB PO SCH (07:43)
[2016-09-14] MEDS: SPIRONOLACTONE 100 MG (ALDACTONE) TABLET PO SCH (07:45)
[2016-09-14] MEDS: LEVETIRACETAM 500 MG (KEPPRA) TAB PO SCH ×2 (07:45→20:30)
[2016-09-14] MEDS: MAGNESIUM OXIDE (MAG-OX)400 MG TAB PO SCH ×2 (07:46→17:35)
[2016-09-14] MEDS: BUMETANIDE 1 MG (BUMEX) TAB PO SCH (07:46)
[2016-09-14] MEDS: FOLIC ACID 1 MG TAB PO SCH (07:46)
[2016-09-14] MEDS: THIAMINE 100 MG (VITAMIN B-1) TAB PO SCH (07:46)
[2016-09-14] MEDS: PROPRANOLOL 20 MG (INDERAL) TABLET PO SCH (07:46)
--- NOTE | 2016-09-14 08:15 | Progress Note (SOAP) ---
Subjective Subjective/Events-last exam patient feels he is doing better. Patient complaining of low back pain. Pneumonia. Weakness. Seizure disorder. Liver cirrhosis. Chronic hepatitis. CAD. Irregular heartbeat Objective Exam Vital Signs Date Time Temp Pulse Resp B/P Pulse Ox O2 Delivery O2 Flow Rate FiO2 09/14/16 06:49 95 Room Air 09/14/16 05:06 98.1 85 20 118/81 97 Room Air 09/13/16 20:36 Room Air 09/13/16 18:59 96 Room Air 09/13/16 18:12 98.3 83 18 117/80 99 Room Air 09/13/16 15:07 96 Room Air 09/13/16 11:10 96 Room Air I & O 09/14/16 07:00 Intake Total 1420 ml Balance 1420 ml Capillary Refill : General Appearance: No Apparent Distress WD/WN HEENT: Normal ENT Inspection Neck: Normal Inspection Respiratory: Chest Non Tender No Accessory Muscle Use No Respiratory Distress Cardiovascular: Irregularly Irregular Gastrointestinal: non tender soft Results Lab Microbiology 09/08/16 Gram Stain - Final, Complete 09/08/16 Sputum Culture - Final, Complete Usual/normal [place] isolated. Assessment/Plan Assessment/Plan Assess & Plan/Chief Complaint pneumonia. Weakness. Seizure. Liver cirrhosis. CAD. GERD. Seizure. Chronic hepatitis. . 09/09/16. Pneumonia. Weakness. Seizures. Liver cirrhosis. . 09/10/16. Pneumonia. Weakness. Patient feeling better. Chest x-ray shows resolving pneumonia. Pulmonology says no more antibiotic just monitor. Waiting first culture reports. . 09/11/16. 2 sputum cultures negative. Magnesium 1.62 replace. Patient doing better with his weakness. Pneumonia. Patient improving. . 09/14/16. Patient feels he is improving. Patient complaining of low back pain. Pneumonia. Weakness. Seizure disorder. CAD. Diagnosis/Problems: Clinical Quality Measures DVT/VTE Risk/Contraindication: Risk Factor Score Per Nursin RFS Level Per Nursing on Admit: 4+=Very High CHERI GARCIA DO Sep 14, 2016 08:15
--- NOTE | 2016-09-14 10:18 | Diagnostic Imaging Report ---
CLINICAL INDICATION: Patient with resolving pneumonia. EXAM: Chest x-ray. PA and lateral views. COMPARISON: Chest x-ray dated 09/08/2016. FINDINGS: The right PICC line is again seen, stable in position, with the tip in the distal superior vena cava region. There is slightly improved aeration of the right lung with continued patchy infiltrate in the periphery of the right lung region which is most pronounced in the right lung base. Again seen is a calcified granuloma in the left upper lobe. The remaining lungs are clear. The pulmonary vasculature and cardiac silhouette are within normal limits. There are degenerative spurs seen throughout the spine. IMPRESSION: Slight improvement of the right lung infiltrate/pneumonia. A followup chest x-ray in 2 - 4 weeks is suggested to evaluate for interval resolution of this finding. Dictated by: Dictated on workstation # [id number]
--- NOTE | 2016-09-14 11:00 | Occupational Ther Daily Note ---
OT Current Status-Daily Note Subjective Pt lying in bed. No pain mentioned. Agreeable to OT. Appearance Alert, cooperative Mental Status/Objective Functional [place] Measure 0=Not Assessed/NA 4=Minimal Assistance 1=Total Assistance 5=Supervision or Setup 2=Maximal Assistance 6=Modified [place] 3=Moderate Assistance 7=Complete [place] ADL-Treatment Pt sat up EOB without help. Ambulated to bathroom for shower, mod I, FWW. Transferred to shower bench using grab bars, mod I, FWW. Pt doffed hospital gown,brief, and slipper socks while seated on shower bench without help. Pt able to turn on/off shower and retrieved towel from bar. Pt independently washed /dried hair, all body parts seated on shower bench, hand held shower, grab bars. Seated on shower bench pt donned shirt, brief, pants and slipper socks, mod I (pt got out clean clothes). Pt ambulated in front of sink to brush teeth and hair, mod I, FWW for balance. Pt ambulated to gym, mod I, FWW. Pt worked on UE strengthening using the arm bike for 10 min, 15 alfaro. (previous time was 12 min, 10 alfaro 09/10/16. Increased resistance so decreased time). Pt toileted self mod I using FWW, grab bars, BSC over toilet. Pt managed clothes and hygiene. Walked to EOB, mod I, FWW. Pt left sitting on EOB. Call light in reach. All needs met. Functional [place] Measure 0=Not Assessed/NA 4=Minimal Assistance 1=Total Assistance 5=Supervision or Setup 2=Maximal Assistance 6=Modified [place] 3=Moderate Assistance 7=Complete IndependenceIRFPAI Quality Coding Scale 6 Independent with activity with or without an assistive device 5 Patient requires set up or clean up by helper. Patient completes activity by themselves 4 Supervision or touching assist (CGA). [place] provide cues , steadying assist 3 The helper provides less than half the effort to complete the activity 2 The helper provides more than half the effort to complete the activity 1 Dependent. The helper does all the effort to complete an activity 7 Patient refused to complete or attempt activity 9 The patient did not perform the activity before the current illness or injury 88 Not attempted due to Medical conditions or safety concerns Grooming (FIM): 6 Bathing (FIM): 6 Bathing Location: L Arm, R Arm, L Upper Leg, R Upper Leg, L Lower Leg ( including foot), R Lower Leg (including foot), Chest, Abdomen, Buttocks, Perineal Area Upper Body (FIM): 6 Lower Body Dressing (FIM): 6 Toileting (FIM): 6 Transfers (B, C, W/C) (FIM): 6 Toilet/Commode Transfer (FIM): 6 Shower Transfer(FIM): 6 Pt considering moving to assisted living Education OT Patient Education: Progress toward Goal/Update tx plan, Other (Definitions of iindependence) Teaching Recipient: Patient Teaching Methods: Discussion Response to Teaching: Verbalize Understanding, Return Demonstration OT Short Term Goals Short Term Goals Time Frame: Sep 10, 2016 Transfers (B,C,W/C) (FIM): 5 (met 09/10/16) Toilet/Commode Transfer(FIM): 5 Shower Transfer(FIM): 5 Additional Short Term Goals: 2-Verbalize Understanding, 3-ImproveStrength/Felisha 1=Demonstrate adherence to instructed precautions during ADL tasks. 2=Patient will verbalize/demonstrate understanding of assistive devices/ modifications for ADL. 3=Patient will improve strength/tolerance for activity to enable patient to perform ADL's. OT Voip Network Engineer Goals Senior Care Goals Time Frame: Sep 24, 2016 Eating (FIM): 7 Eating (QC): 6 Oral Hygiene (QC): 6 Grooming(FIM): 6 Bathing(FIM): 6 Shower/Bathe Self (QC): 6 Upper Body Dressing(FIM): 6 Upper Body Dressing (QC): 6 Lower Body Dressing(FIM): 6 Lower Body Dressing (QC): 6 On/Off Footwear (QC): 6 Toileting(FIM): 6 Toileting Hygiene (QC): 6 Toilet/Commode Transfer(FIM): 6 Toilet/Commode Transfer (QC): 6 Shower Transfer(FIM): 6 Comprehension(FIM): 5 Expression (FIM): 5 Social Interaction(FIM): 6 Problem Solving(FIM): 5 Memory(FIM): 5 Additional Goals: 2-Verbalize Understanding, 3-ImproveStrength/Felisha 1=Demonstrate adherence to instructed precautions during ADL tasks. 2=Patient will verbalize/demonstrate understanding of assistive devices/ modifications for ADL. 3=Patient will improve strength/tolerance for activity to enable patient to perform ADL's. OT Education/Plan Problem List/Assessment Pt would benefit from skilled OT to increase his independence in basic self care to allow him to return to his home safely to live with brother Discharge Recommendations Plan/Recommendations: Continue POC Treatment Plan/Plan of Care Patient would benefit from OT for education, treatment and training to promote independence in ADL's, mobility, safety and/or upper extremity function for ADL' s. Plan of Care: ADL Retraining, Functional Mobility, Group Exercise/Act as Ind ( education, exercise, functional activities, activity tolerance, socialization), UE Funct Exercise/Act, UE Neuromus Re-Ed/Coord Treatment Duration: Sep 24, 2016 Visits Per Week: 10-11 Minutes/Day (M-F): 75-90 Minutes/Day (Sat/Ruiz): PRN Rehab Potential: Good Time/GCodes Start Time: 08:30 Stop Time: 09:30 Total Time Billed (hr/min): 60 Billed Treatment Time visit, ADL 45 min, EX 15 min NICO LEES OT Sep 14, 2016 11:00
--- NOTE | 2016-09-14 11:58 | Physical Therapy Daily Note ---
PT Daily Note-Current Subjective Patient in bed pre tx, agrees to PT, pleasant and cooperative, states he has a little back pain but not too bad 11/13. Appearance Patient sitting EOB post tx with nurse call, phone, tray, all needs met. Mental Status Patient Orientation: Normal For Age Transfers Functional [place] Measure 0=Not Assessed/NA 4=Minimal Assistance 1=Total Assistance 5=Supervision or Setup 2=Maximal Assistance 6=Modified [place] 3=Moderate Assistance 7=Complete IndependenceIRFPAI Quality Coding Scale 6 Independent with activity with or without an assistive device 5 Patient requires set up or clean up by helper. Patient completes activity by themselves 4 Supervision or touching assist (CGA). [place] provide cues , steadying assist 3 The helper provides less than half the effort to complete the activity 2 The helper provides more than half the effort to complete the activity 1 Dependent. The helper does all the effort to complete an activity 7 Patient refused to complete or attempt activity 9 The patient did not perform the activity before the current illness or injury 88 Not attempted due to Medical conditions or safety concerns Transfers (B, C, W/C) (FIM): 6 Scootin Rollin Supine to/from Sit: 6 Sit to/from Stand: 6 Gait Training Gait (FIM): 6 Distance: 500', 100'x3 Gait Assistive Device: FWW No LOB or unsteadiness. Patient had to walk back to his room to use the restroom. Attempted to use a single point cane but patient was not comfortable with it and would rather use the walker for now. Exercises Standing: Hip Abduction, Hamstring curls, Heel/toe raises, Mini squats Standing Reps: 20 sit to stand 3 sets of 5 at progressively lower level, step ups on 6" step x 10 each side, LAQ alternating for 5 min with 2# ankle weights bilaterally NuStep Minutes: 15 NuStep Workload: 5 Treatments functional strengthening, transfers and ambulation Assessment Current Status: Fair Progress improving strength and endurance but still needs frequent rest breaks to catch his breath PT Short Term Goals Short Term Goals Time Frame: Sep 10, 2016 Transfers (B,C,W/C) (FIM): 5 (met 09/10/16) Gait (FIM): 2 (met 09/10/16) Gait Distance Comment: 50' Gait Level of Assist: 4 Gait Assistive Device: FWW PT Half-Way Goals Half-Way Goals PT Rehabilitation Counsellor Goals Time Frame: Sep 24, 2016 Transfers (B,C,W/C) (FIM): 6 Sit to Lying (QC): 6 Lying-Sitting on Side/Bed(QC): 6 Sit to Stand (QC): 6 Rollin Roll Left to Right (QC): 6 Chair/[id number] Xfer(QC): 6 Car Transfer (QC): 4 Does the Patient Walk: Yes Gait (FIM): 5 Distance: 150' Walk 10 feet (QC): 4 Walk 10ft-Uneven Surface(QC): 4 Walk 50ft with 2 Turns (QC): 4 Walk 150 ft (QC): 4 Gait Level of Assist: 5 Gait Assistive Device: FWW Stairs (FIM): 2 # of Steps: 4 1 Step (curb) (QC): 4 4 Steps (QC): 4 Stairs Level Of Assist: 4 PT Plan Problem List Problem List: Activity Tolerance, Functional Strength, Safety, Balance, Gait, Transfer Treatment/Plan Treatment Plan: Continue Plan of Care Treatment Plan: Bed Mobility, Education, Functional Activity Felisha, Functional Strength, Group Therapy, Gait, Safety, Therapeutic Exercise, Transfers Treatment Duration: Sep 24, 2016 Visits Per Week: 10-11 Minutes/Day (M-F): 60-90 Minutes/Day (Sat/Ruiz): 15-30 Safety Risks/Education Patient Education: Gait Training, Transfer Techniques, Safety Issues Teaching Recipient: Patient Teaching Methods: Demonstration, Discussion Response to Teaching: Reinforcement Needed Time/GCodes Time In: 1100 Time Out: 1200 Total Billed Treatment Time: 60 Total Billed Treatment 1 visit GT 15 min EX 45 min SHADY SALGUERO PT Sep 14, 2016 11:57
--- NOTE | 2016-09-14 13:28 | PM & R (SOAP) Progress Note ---
Subjective Subjective/Events-last exam Patient was seen in his room this afternoon.Patient modified Independent for transfer and ambulation.CXR shows resolution of pneumonia Objective Exam Last Set of Vital Signs Vital Signs Date Time Temp Pulse Resp B/P Pulse Ox O2 Delivery O2 Flow Rate FiO2 09/14/16 10:39 95 Room Air 09/14/16 05:06 98.1 85 20 118/81 Capillary Refill : I&O Bad tableGeneral: Alert, Oriented X3, Cooperative, No Acute Distress HEENT: Atraumatic, PERRLA, EOMI, Mucous Memb Moist/[place] Neck: Supple, No JVD Lungs: Clear to Auscultation Heart: Regular Rate Abdomen: Normal Bowel Sounds, Soft, No Tenderness Extremities: No Edema Neuro: Other (generalized weakness) Results Lab Laboratory Tests 09/12/16 05:30: Magnesium Level 1.8 Microbiology 09/08/16 Gram Stain - Final, Complete 09/08/16 Sputum Culture - Final, Complete Usual/normal [place] isolated. Assessment/Plan Assessment General debil secondary to recurrent MSSA pneumonia -completed course of antibiotics. HX of Etoh abuse and alcoholic liver D Macrocytic anemia Afib controlled seizure disorder on keppra HTN controlled Borderline Hyperkalemia meds adjusted Hypomagnesemia on replacement. Plan Continue PT/OTand current meds Dr Dickens consulted for this OOT Patient-Appeciate his consult Check MRSA screen-done nasal screen negative Monitor electrolytes Appreciate Dr Ramos consult and recs Hyperkalemia improved Serum Magnesium improved as well as bilirubin Discharge remians set for 09/16/16 Patient indicated that he will be going to an DETENTION upon discharge will confirm with CHAVA CURRIE MD Sep 14, 2016 13:28
--- NOTE | 2016-09-14 14:07 | Occupational Ther Daily Note ---
OT Current Status-Daily Note Subjective pt sitting on EOB. no pain mentioned. Agreeable to OT. Appearance Cooperative, alert Mental Status/Objective Functional [place] Measure 0=Not Assessed/NA 4=Minimal Assistance 1=Total Assistance 5=Supervision or Setup 2=Maximal Assistance 6=Modified [place] 3=Moderate Assistance 7=Complete [place] ADL-Treatment Pt stood up from EOB with FWW, Mod I. Pt walked to gym, FWW, Mod I. Pt used 2# hand held weight to increase strength and endurance to complete daily functional tasks, 2 sets 10 reps, working on shoulders and elbows. Hand gripper strengthen hand stranding supervisor, 5 reps. 1# wrist weights on each wrist to do nuts and bolts activity for tolerance and strengthening. Pt walked back to room, FWW, Mod I. Pt self toileted, FWW, Mod I, tall toilet, grab bars. Pt then walked back to room and sat on EOB. Call light in hand. All needs met. Functional [place] Measure 0=Not Assessed/NA 4=Minimal Assistance 1=Total Assistance 5=Supervision or Setup 2=Maximal Assistance 6=Modified [place] 3=Moderate Assistance 7=Complete IndependenceIRFPAI Quality Coding Scale 6 Independent with activity with or without an assistive device 5 Patient requires set up or clean up by helper. Patient completes activity by themselves 4 Supervision or touching assist (CGA). [place] provide cues , steadying assist 3 The helper provides less than half the effort to complete the activity 2 The helper provides more than half the effort to complete the activity 1 Dependent. The helper does all the effort to complete an activity 7 Patient refused to complete or attempt activity 9 The patient did not perform the activity before the current illness or injury 88 Not attempted due to Medical conditions or safety concerns Toileting (FIM): 6 Transfers (B, C, W/C) (FIM): 6 Toilet/Commode Transfer (FIM): 6 Education OT Patient Education: Progress toward Goal/Update tx plan Teaching Recipient: Patient Teaching Methods: Demonstration Response to Teaching: Verbalize Understanding, Return Demonstration OT Short Term Goals Short Term Goals Time Frame: Sep 10, 2016 Transfers (B,C,W/C) (FIM): 5 (met 09/10/16) Toilet/Commode Transfer(FIM): 5 Shower Transfer(FIM): 5 Additional Short Term Goals: 2-Verbalize Understanding, 3-ImproveStrength/Felisha 1=Demonstrate adherence to instructed precautions during ADL tasks. 2=Patient will verbalize/demonstrate understanding of assistive devices/ modifications for ADL. 3=Patient will improve strength/tolerance for activity to enable patient to perform ADL's. OT Halfway Goals Air Traffic Control Operator Goals Time Frame: Sep 24, 2016 Eating (FIM): 7 Eating (QC): 6 Oral Hygiene (QC): 6 Grooming(FIM): 6 Bathing(FIM): 6 Shower/Bathe Self (QC): 6 Upper Body Dressing(FIM): 6 Upper Body Dressing (QC): 6 Lower Body Dressing(FIM): 6 Lower Body Dressing (QC): 6 On/Off Footwear (QC): 6 Toileting(FIM): 6 Toileting Hygiene (QC): 6 Toilet/Commode Transfer(FIM): 6 Toilet/Commode Transfer (QC): 6 Shower Transfer(FIM): 6 Comprehension(FIM): 5 Expression (FIM): 5 Social Interaction(FIM): 6 Problem Solving(FIM): 5 Memory(FIM): 5 Additional Goals: 2-Verbalize Understanding, 3-ImproveStrength/Felisha 1=Demonstrate adherence to instructed precautions during ADL tasks. 2=Patient will verbalize/demonstrate understanding of assistive devices/ modifications for ADL. 3=Patient will improve strength/tolerance for activity to enable patient to perform ADL's. OT Education/Plan Problem List/Assessment Pt would benefit from skilled OT to increase his independence in basic self care to allow him to return to his home safely to live with brother Discharge Recommendations Plan/Recommendations: Continue POC Treatment Plan/Plan of Care Patient would benefit from OT for education, treatment and training to promote independence in ADL's, mobility, safety and/or upper extremity function for ADL' s. Plan of Care: ADL Retraining, Functional Mobility, Group Exercise/Act as Ind ( education, exercise, functional activities, activity tolerance, socialization), UE Funct Exercise/Act, UE Neuromus Re-Ed/Coord Treatment Duration: Sep 24, 2016 Visits Per Week: 10-11 Minutes/Day (M-F): 75-90 Minutes/Day (Sat/Ruiz): PRN Rehab Potential: Good Time/GCodes Start Time: 13:30 Stop Time: 14:00 Total Time Billed (hr/min): 30 Billed Treatment Time visit, EX 25 min, 5 min ADL NICO LEES OT Sep 14, 2016 14:07
--- NOTE | 2016-09-14 15:30 | Physical Therapy Daily Note ---
PT Daily Note-Current Subjective Patient sitting EOB pre tx ready for PT. Will need to get his shoes and jacket on because we plan on going outside. Pain Numeric Pain Scale: 0-No Pain Appearance Patient sitting EOB post tx with nurse call, phone, tray, all needs met. Mental Status Patient Orientation: Normal For Age Transfers Functional [place] Measure 0=Not Assessed/NA 4=Minimal Assistance 1=Total Assistance 5=Supervision or Setup 2=Maximal Assistance 6=Modified [place] 3=Moderate Assistance 7=Complete IndependenceIRFPAI Quality Coding Scale 6 Independent with activity with or without an assistive device 5 Patient requires set up or clean up by helper. Patient completes activity by themselves 4 Supervision or touching assist (CGA). [place] provide cues , steadying assist 3 The helper provides less than half the effort to complete the activity 2 The helper provides more than half the effort to complete the activity 1 Dependent. The helper does all the effort to complete an activity 7 Patient refused to complete or attempt activity 9 The patient did not perform the activity before the current illness or injury 88 Not attempted due to Medical conditions or safety concerns Transfers (B, C, W/C) (FIM): 6 Sit to/from Stand: 6 Gait Training Gait (FIM): 6 Distance: 2000'x2 Gait Assistive Device: FWW Patient ambulated from his room to elevator and then to out the front entrance. He ambulated down the driveway over uneven and cracked surfaces and using his walker appropriately and did not have a LOB or unsteadiness. Patient took a short rest after going back inside and then went back to the rehab floor. Treatments gait training, over community surfaces and uneven surfaces Assessment Current Status: Fair Progress patient ambulated safely over community surfaces PT Short Term Goals Short Term Goals Time Frame: Sep 10, 2016 Transfers (B,C,W/C) (FIM): 5 (met 09/10/16) Gait (FIM): 2 (met 09/10/16) Gait Distance Comment: 50' Gait Level of Assist: 4 Gait Assistive Device: FWW PT Rn Dermatology Goals Rn Dermatology Goals PT Senior Living Goals Time Frame: Sep 24, 2016 Transfers (B,C,W/C) (FIM): 6 Sit to Lying (QC): 6 Lying-Sitting on Side/Bed(QC): 6 Sit to Stand (QC): 6 Rollin Roll Left to Right (QC): 6 Chair/[id number]-Paqcf Xfer(QC): 6 Car Transfer (QC): 4 Does the Patient Walk: Yes Gait (FIM): 5 Distance: 150' Walk 10 feet (QC): 4 Walk 10ft-Uneven Surface(QC): 4 Walk 50ft with 2 Turns (QC): 4 Walk 150 ft (QC): 4 Gait Level of Assist: 5 Gait Assistive Device: FWW Stairs (FIM): 2 # of Steps: 4 1 Step (curb) (QC): 4 4 Steps (QC): 4 Stairs Level Of Assist: 4 PT Plan Problem List Problem List: Activity Tolerance, Functional Strength, Safety, Balance, Gait, Transfer Treatment/Plan Treatment Plan: Continue Plan of Care Treatment Plan: Bed Mobility, Education, Functional Activity Felisha, Functional Strength, Group Therapy, Gait, Safety, Therapeutic Exercise, Transfers Treatment Duration: Sep 24, 2016 Visits Per Week: 10-11 Minutes/Day (M-F): 60-90 Minutes/Day (Sat/Ruiz): 15-30 Safety Risks/Education Patient Education: Gait Training, Transfer Techniques, Safety Issues Teaching Recipient: Patient Teaching Methods: Demonstration, Discussion Response to Teaching: Reinforcement Needed Time/GCodes Time In: 1435 Time Out: 1505 Total Billed Treatment Time: 30 Total Billed Treatment 1 visit GT 30 min SHADY SALGUERO PT Sep 14, 2016 15:30
[2016-09-14] MEDS: ALFUZOSIN HCL 10 MG TAB (UROXATRAL) PO SCH (17:35)
[2016-09-14 18:57] VITALS: BP 108/73
[2016-09-15 06:00] VITALS: BP 104/70
[2016-09-15 06:59] LABS: MEAN PLATELET VOLUME 11.5 FL (7.4-10.4); RED BLOOD COUNT 2.81 10^6/uL (4.35-5.85); WHITE BLOOD COUNT 3.3 10^3/uL (4.3-11.0)
[2016-09-15 07:19] LABS: ALBUMIN 3.2 G/DL (3.2-4.5); BILIRUBIN,TOTAL 1.1 MG/DL (0.1-1.0); CALCIUM 8.7 MG/DL (8.5-10.1); CREATININE SERUM 1.3 MG/DL (0.60-1.30); POTASSIUM 3.6 MMOL/L (3.6-5.0); TOTAL PROTEIN 6.1 G/DL (6.4-8.2)
[2016-09-15] MEDS: SPIRONOLACTONE 100 MG (ALDACTONE) TABLET PO SCH (07:54)
[2016-09-15] MEDS: MAGNESIUM 1 GM/100 ML IVPB 100 ML IV SCH ×4 (07:54→10:52)
[2016-09-15] MEDS: PANTOPRAZOLE 40 MG (PROTONIX) TAB PO SCH (07:55)
[2016-09-15] MEDS: BUMETANIDE 1 MG (BUMEX) TAB PO SCH (07:55)
[2016-09-15] MEDS: IRON POLYSAC 150 MG CAP (NIFEREX) PO SCH ×2 (07:55→20:47)
[2016-09-15] MEDS: THIAMINE 100 MG (VITAMIN B-1) TAB PO SCH (07:56)
[2016-09-15] MEDS: MULTIVIT W/MINERALS TAB (THERAGRAN M) PO SCH (07:56)
[2016-09-15] MEDS: MAGNESIUM OXIDE (MAG-OX)400 MG TAB PO SCH ×2 (07:56→17:20)
[2016-09-15] MEDS: guaiFENesin (MUCINEX) 600 MG TAB PO SCH ×2 (07:56→20:47)
[2016-09-15] MEDS: PROPRANOLOL 20 MG (INDERAL) TABLET PO SCH (07:56)
[2016-09-15] MEDS: FOLIC ACID 1 MG TAB PO SCH (07:57)
[2016-09-15] MEDS: LEVETIRACETAM 500 MG (KEPPRA) TAB PO SCH ×2 (07:57→20:47)
--- NOTE | 2016-09-15 08:02 | Progress Note (SOAP) ---
Subjective Subjective/Events-last exam patient feeling good. Patient having no complaints. Magnesium 1 replace with magnesium sulfate 4 g. Pneumonia. Weakness. Seizure disorder. Liver disorder. Chronic hepatitis. CAD. Leukopenia. Thrombocytopenia Objective Exam Vital Signs Date Time Temp Pulse Resp B/P Pulse Ox O2 Delivery O2 Flow Rate FiO2 09/15/16 06:00 97.4 72 16 104/70 97 Room Air 09/14/16 20:30 Room Air 09/14/16 18:57 98.6 82 18 108/73 99 Room Air 09/14/16 14:21 96 Room Air 09/14/16 10:39 95 Room Air 09/14/16 09:00 Room Air I & O 09/15/16 07:00 Intake Total 1820 ml Output Total 500 ml Balance 1320 ml Capillary Refill : General Appearance: No Apparent Distress WD/WN Results Lab Laboratory Tests 09/15/16 06:45 Laboratory Tests 09/15/16 06:45: Alanine Aminotransferase (ALT/SGPT) 23, Albumin 3.2, Alkaline Phosphatase 77, Anion Gap 6, Aspartate Amino Transf (AST/SGOT) 29, BUN/Creatinine Ratio 23, Blood Urea Nitrogen 30H, Calcium Level 8.7, Carbon Dioxide Level 21, Chloride Level 111H, Creatinine 1.30, Estimat Glomerular Filtration Rate 57, Glucose Level 145H, Hematocrit 28L, Hemoglobin 9.0L, Magnesium Level 1.0*L, Mean Corpuscular Hemoglobin 32, Mean Corpuscular Hemoglobin Concent 32, Mean Corpuscular Volume 100H, Mean Platelet Volume 11.5H, Platelet Count 55L, Potassium Level 3.6, Red Blood Count 2.81L, Red Cell Distribution Width 14.0, Sodium Level 138, Total Bilirubin 1.1H, Total Protein 6.1L, White Blood Count 3.3L Microbiology 09/08/16 Gram Stain - Final, Complete 09/08/16 Sputum Culture - Final, Complete Usual/normal [place] isolated. Assessment/Plan Assessment/Plan Assess & Plan/Chief Complaint pneumonia. Weakness. Seizure. Liver cirrhosis. CAD. GERD. Seizure. Chronic hepatitis. . 09/09/16. Pneumonia. Weakness. Seizures. Liver cirrhosis. . 09/10/16. Pneumonia. Weakness. Patient feeling better. Chest x-ray shows resolving pneumonia. Pulmonology says no more antibiotic just monitor. Waiting first culture reports. . 09/11/16. 2 sputum cultures negative. Magnesium 1.62 replace. Patient doing better with his weakness. Pneumonia. Patient improving. . 09/14/16. Patient feels he is improving. Patient complaining of low back pain. Pneumonia. Weakness. Seizure disorder. CAD.. . Patient feels he is getting better. Pneumonia. Weakness. Seizure disorder. Liver disorder. Leukopenia. Thrombocytopenia. Chronic hepatitis. CAD Diagnosis/Problems: Clinical Quality Measures DVT/VTE Risk/Contraindication: Risk Factor Score Per Nursin RFS Level Per Nursing on Admit: 4+=Very High CHERI GARCIA DO Sep 15, 2016 08:02
--- NOTE | 2016-09-15 09:13 | Occupational Ther Daily Note ---
OT Current Status-Daily Note Subjective Pt seen in room, up in bed, agreeable to OT. No pain reported. Appearance Alert, cooperative Mental Status/Objective Patient Orientation: Person, Place, Time, Situation Functional [place] Measure 0=Not Assessed/NA 4=Minimal Assistance 1=Total Assistance 5=Supervision or Setup 2=Maximal Assistance 6=Modified [place] 3=Moderate Assistance 7=Complete [place] ADL-Treatment Pt walked in room mod I with FWW except help needed to bring along IV pole with meds. Functional [place] Measure 0=Not Assessed/NA 4=Minimal Assistance 1=Total Assistance 5=Supervision or Setup 2=Maximal Assistance 6=Modified [place] 3=Moderate Assistance 7=Complete IndependenceIRFPAI Quality Coding Scale 6 Independent with activity with or without an assistive device 5 Patient requires set up or clean up by helper. Patient completes activity by themselves 4 Supervision or touching assist (CGA). [place] provide cues , steadying assist 3 The helper provides less than half the effort to complete the activity 2 The helper provides more than half the effort to complete the activity 1 Dependent. The helper does all the effort to complete an activity 7 Patient refused to complete or attempt activity 9 The patient did not perform the activity before the current illness or injury 88 Not attempted due to Medical conditions or safety concerns Eating (FIM): 7 (No help opening packages, getting food to mouth) Eating (QC): 6 Grooming (FIM): 6 (Mod I standing at sink with FWW for balance. Brushed teeth and combed hair. Has a upton so does not shave) Oral Hygiene (QC): 6 Toileting Hygiene (QC): 6 Bathing (FIM): 5 (Washed and dried all parts mod I but needed setup to cover IV site (getting meds). Turned water on and off and retrieved towels. Shower bench, grab bars, hand held shower) Upper Body (FIM): 6 (Able to retrieve clean clothes and put dirty ones away. Used FWW at closet for balance) Upper Body Dressing (QC): 6 Lower Body Dressing (FIM): 6 (Able to retrieve clean clothes and put dirty ones away. FWW at closet for balance. Slipper socks off and on without help) Lower Body Dressing (QC): 6 On/Off Footwear (QC): 6 Toileting (FIM): 6 (Mod I, BSC over toilet, grab bars, FWW. Manages clothing and hygiene) Toilet/Commode Transfer (FIM): 6 (BSC over tall toilet, grab bars) Toilet Transfer (QC): 6 Shower Transfer(FIM): 6 (Shopwer bench, grab bars, FWW) Other Treatment Pt did 15 reps bilat UE exercise with yellow theraband and was able to recall three different exercises that he can do independently in his apartment when he is discharged. Pt anticipates discharge tomorrow to [facility] OT Short Term Goals Short Term Goals Time Frame: Sep 10, 2016 Transfers (B,C,W/C) (FIM): 5 (met 09/10/16) Toilet/Commode Transfer(FIM): 5 Shower Transfer(FIM): 5 Additional Short Term Goals: 2-Verbalize Understanding, 3-ImproveStrength/Felisha 1=Demonstrate adherence to instructed precautions during ADL tasks. 2=Patient will verbalize/demonstrate understanding of assistive devices/ modifications for ADL. 3=Patient will improve strength/tolerance for activity to enable patient to perform ADL's. OT Manager Supply Chain Planning Goals Fpc Goals Time Frame: Sep 24, 2016 Eating (FIM): 7 Eating (QC): 6 Oral Hygiene (QC): 6 Grooming(FIM): 6 Bathing(FIM): 6 Shower/Bathe Self (QC): 6 Upper Body Dressing(FIM): 6 Upper Body Dressing (QC): 6 Lower Body Dressing(FIM): 6 Lower Body Dressing (QC): 6 On/Off Footwear (QC): 6 Toileting(FIM): 6 Toileting Hygiene (QC): 6 Toilet/Commode Transfer(FIM): 6 Toilet/Commode Transfer (QC): 6 Shower Transfer(FIM): 6 Comprehension(FIM): 5 Expression (FIM): 5 Social Interaction(FIM): 6 Problem Solving(FIM): 5 Memory(FIM): 5 Additional Goals: 2-Verbalize Understanding, 3-ImproveStrength/Felisha 1=Demonstrate adherence to instructed precautions during ADL tasks. 2=Patient will verbalize/demonstrate understanding of assistive devices/ modifications for ADL. 3=Patient will improve strength/tolerance for activity to enable patient to perform ADL's. OT Education/Plan Problem List/Assessment Pt would benefit from skilled OT to increase his independence in basic self care to allow him to return to his home safely to live with brother Discharge Recommendations Plan/Recommendations: Continue POC Treatment Plan/Plan of Care Patient would benefit from OT for education, treatment and training to promote independence in ADL's, mobility, safety and/or upper extremity function for ADL' s. Plan of Care: ADL Retraining, Functional Mobility, Group Exercise/Act as Ind ( education, exercise, functional activities, activity tolerance, socialization), UE Funct Exercise/Act, UE Neuromus Re-Ed/Coord Treatment Duration: Sep 24, 2016 Visits Per Week: 10-11 Minutes/Day (M-F): 75-90 Minutes/Day (Sat/Ruiz): PRN Rehab Potential: Good Time/GCodes Start Time: 08:25 Stop Time: 09:10 Total Time Billed (hr/min): 55 Billed Treatment Time visit, 45 minutes ADL Also 920 to 930 10 minutes exercise NICO LEES OT Sep 15, 2016 09:13
[2016-09-15] MEDS: RT-ALBUTEROL SULF 2.5 MG/3 ML PRE-MIX VIAL INH SCH ×4 (09:28→19:38)
[2016-09-15] MEDS: ACETAMINOPHEN 325 MG TABLET/CAPLET (TYLENOL) PO PRN ×2 (09:53→20:47)
--- NOTE | 2016-09-15 10:11 | PM & R (SOAP) Progress Note ---
Subjective Subjective/Events-last exam Patient was seen in his room this AM Asks about med for treatment of Hep C.Informed him to f/u with PCP as an outpatient for medication treatment for that.Patient Modified Independent for transfers,Discussed case with RN Serum Magneisum very low Deferred to Dr Dickens Magnesium replacement ordered Appreciate his note and orders. Objective Exam Last Set of Vital Signs Vital Signs Date Time Temp Pulse Resp B/P Pulse Ox O2 Delivery O2 Flow Rate FiO2 09/15/16 08:04 Room Air 09/15/16 06:00 97.4 72 16 104/70 97 Capillary Refill : I&O Intake and Output 09/15/16 00:00 Intake Total 1670 ml Output Total 200 ml Balance 1470 ml Intake Oral 1670 ml Output Urine Total 200 ml # Voids 7 # Bowel Movements 2 General: Alert, Oriented X3, Cooperative, No Acute Distress HEENT: Atraumatic, PERRLA, EOMI, Mucous Memb Moist/[place] Neck: Supple, No JVD Lungs: Clear to Auscultation Heart: Regular Rate Abdomen: Normal Bowel Sounds, Soft, No Tenderness Extremities: No Edema Neuro: Other (generalized weakness) Results Lab Laboratory Tests 09/15/16 06:45: Alanine Aminotransferase (ALT/SGPT) 23, Albumin 3.2, Alkaline Phosphatase 77, Anion Gap 6, Aspartate Amino Transf (AST/SGOT) 29, BUN/Creatinine Ratio 23, Blood Urea Nitrogen 30H, Calcium Level 8.7, Carbon Dioxide Level 21, Chloride Level 111H, Creatinine 1.30, Estimat Glomerular Filtration Rate 57, Glucose Level 145H, Hematocrit 28L, Hemoglobin 9.0L, Magnesium Level 1.0*L, Mean Corpuscular Hemoglobin 32, Mean Corpuscular Hemoglobin Concent 32, Mean Corpuscular Volume 100H, Mean Platelet Volume 11.5H, Platelet Count 55L, Potassium Level 3.6, Red Blood Count 2.81L, Red Cell Distribution Width 14.0, Sodium Level 138, Total Bilirubin 1.1H, Total Protein 6.1L, White Blood Count 3.3L Microbiology 09/08/16 Gram Stain - Final, Complete 09/08/16 Sputum Culture - Final, Complete Usual/normal [place] isolated. Assessment/Plan Assessment General debil secondary to recurrent MSSA pneumonia -completed course of antibiotics. HX of Etoh abuse and alcoholic liver D Macrocytic anemia Afib controlled seizure disorder on keppra HTN controlled Borderline Hyperkalemia meds adjusted-improved Hypomagnesemia on replacement. Plan Continue PT/OTand current meds Dr Dickens consulted for this OOT Patient-Appeciate his consult and ongoing f/ u Check MRSA screen-done nasal screen negative Monitor electrolytes Appreciate Dr Ramos consult and recs Hyperkalemia improved Replacement for magnesium ordered. Discharge remians set for 09/16/16 Patient indicated that he will be going to an [facility] upon discharge will confirm with CHAVA CURRIE MD Sep 15, 2016 10:11
--- NOTE | 2016-09-15 10:16 | Physical Therapy Daily Note ---
PT Daily Note-Current Subjective Patient sitting EOB pre tx, agrees to PT, pleasant and cooperative. Patient states he is discharging from this facility tomorrow. Pain Numeric Pain Scale: 6 Comment: low back, nursing notified Appearance Patient sitting EOB post tx with nurse call, phone, tray, all needs met. Mental Status Patient Orientation: Normal For Age Attachments: IV patient needs assist with his IV pole during ambulation and transfers Transfers Functional [place] Measure 0=Not Assessed/NA 4=Minimal Assistance 1=Total Assistance 5=Supervision or Setup 2=Maximal Assistance 6=Modified [place] 3=Moderate Assistance 7=Complete IndependenceIRFPAI Quality Coding Scale 6 Independent with activity with or without an assistive device 5 Patient requires set up or clean up by helper. Patient completes activity by themselves 4 Supervision or touching assist (CGA). [place] provide cues , steadying assist 3 The helper provides less than half the effort to complete the activity 2 The helper provides more than half the effort to complete the activity 1 Dependent. The helper does all the effort to complete an activity 7 Patient refused to complete or attempt activity 9 The patient did not perform the activity before the current illness or injury 88 Not attempted due to Medical conditions or safety concerns Transfers (B, C, W/C) (FIM): 6 Scootin Rollin Roll Left to Right (QC): 6 Supine to/from Sit: 6 Sit to/from Stand: 6 Sit to Lying (QC): 6 Sit to Stand (QC): 6 Car Transfer (QC): 6 (simulated car transfer) appropriate use of hands, safe transfers except he did need cues to keep from getting wound up in his IV line, but he won't have that for long Gait Training Does the Patient Walk?: Yes Gait (FIM): 6 Distance: 800', 150'x2, 100' Walk 10 feet (QC): 6 Walk 50 ft with 2 Turns(QC): 6 Walk 150 ft (QC): 6 Walking 10ft on uneven surface: 6 Gait Level of Assist: 6 Gait Assistive Device: FWW Patient was able to ambulate with mod I using a rolling walker 800', 10' over an uneven surface like carpet and sidewalks/[place], 50' with at least 2 turns of 90 degrees. However, he is not confident ambulating with a cane so he is sticking with a rolling walker for now. Stair Training Stair Training: Handrails/: 2 handrails Stairs (FIM): 6 #of Steps: 12 1 Step (curb) (QC): 6 4 Steps (QC): 6 12 Steps (QC): 6 Stairs: Pattern: Step to Balance Picking up an Object (QC): 5 Special Test Comments Patient picked up and object slowly and with a little difficulty. Advised patient to have somebody else fruit picker machine operator things for him at home for now. Exercises NuStep Minutes: 15 NuStep Workload: 5 Treatments transfers, ambulation, stair training, bed mobility, functional strengthening, car transfer training Assessment Current Status: Fair Progress Patient has made good progress he is mod I with mobility using a rolling walker PT Short Term Goals Short Term Goals Time Frame: Sep 10, 2016 Transfers (B,C,W/C) (FIM): 5 (met 09/10/16) Gait (FIM): 2 (met 09/10/16) Gait Distance Comment: 50' Gait Level of Assist: 4 Gait Assistive Device: FWW PT Prison Goals Pst Specialist Goals PT Pst Specialist Goals Time Frame: Sep 24, 2016 Transfers (B,C,W/C) (FIM): 6 (met) Sit to Lying (QC): 6 (met) Lying-Sitting on Side/Bed(QC): 6 (met) Sit to Stand (QC): 6 (met) Rollin (met) Roll Left to Right (QC): 6 (met) Chair/Yxz-uq-Wovtq Xfer(QC): 6 (met) Car Transfer (QC): 4 (met, simulated car transfer) Does the Patient Walk: Yes Gait (FIM): 5 (met) Distance: 150' Walk 10 feet (QC): 4 (met) Walk 10ft-Uneven Surface(QC): 4 (met) Walk 50ft with 2 Turns (QC): 4 (met) Walk 150 ft (QC): 4 (met) Gait Level of Assist: 5 Gait Assistive Device: FWW Stairs (FIM): 2 (met) # of Steps: 4 1 Step (curb) (QC): 4 (met) 4 Steps (QC): 4 (met) Stairs Level Of Assist: 4 PT Plan Problem List Problem List: Activity Tolerance, Functional Strength, Safety, Balance, Gait, Transfer Treatment/Plan Treatment Plan: Continue Plan of Care Treatment Plan: Bed Mobility, Education, Functional Activity Felisha, Functional Strength, Group Therapy, Gait, Safety, Therapeutic Exercise, Transfers Treatment Duration: Sep 24, 2016 Visits Per Week: 10-11 Minutes/Day (M-F): 60-90 Minutes/Day (Sat/Ruiz): 15-30 Safety Risks/Education Patient Education: Gait Training, Transfer Techniques, Steps, Safety Issues Teaching Recipient: Patient Teaching Methods: Demonstration, Discussion Response to Teaching: Reinforcement Needed Time/GCodes Time In: 930 Time Out: 1015 Total Billed Treatment Time: 45 Total Billed Treatment 1 visit GT 30 min EX 15 min SHADY SALGUERO PT Sep 15, 2016 10:16
--- NOTE | 2016-09-15 14:13 | Occupational Ther Daily Note ---
OT Current Status-Daily Note Subjective Pt seen in room, up in bed, agreeable to OT. No pain mentioned. Looking forward to discharge tomorrow morning. Appearance Alert, cooperative Mental Status/Objective Functional [place] Measure 0=Not Assessed/NA 4=Minimal Assistance 1=Total Assistance 5=Supervision or Setup 2=Maximal Assistance 6=Modified [place] 3=Moderate Assistance 7=Complete [place] ADL-Treatment Functional [place] Measure 0=Not Assessed/NA 4=Minimal Assistance 1=Total Assistance 5=Supervision or Setup 2=Maximal Assistance 6=Modified [place] 3=Moderate Assistance 7=Complete IndependenceIRFPAI Quality Coding Scale 6 Independent with activity with or without an assistive device 5 Patient requires set up or clean up by helper. Patient completes activity by themselves 4 Supervision or touching assist (CGA). [place] provide cues , steadying assist 3 The helper provides less than half the effort to complete the activity 2 The helper provides more than half the effort to complete the activity 1 Dependent. The helper does all the effort to complete an activity 7 Patient refused to complete or attempt activity 9 The patient did not perform the activity before the current illness or injury 88 Not attempted due to Medical conditions or safety concerns Toileting Hygiene (QC): 6 Toileting (FIM): 6 (BSC over toilet, FWW, grab bar. manage clothing and hygiene ) Toilet/Commode Transfer (FIM): 6 (BSC over toilet, grab bar, FWW) Toilet Transfer (QC): 6 Other Treatment After toileting, pt walked to gym, FWW, without assistance. pt did 15 minutes bilat UE exercise on arm bike set at 15W resistance, with 1-2 brief recovery periods. To help strengthen arms for transfers from surfaces without arms. Also did 10 reps bilat UE ex with 1# exercise bar, working on increasing ROM R shoulder (it is now WFL passive flex, about 120 degrees active flexion). Pt shown one exercise that he can do on his own to maintain range, which he return demonstrated. Pt returned to room, to bathroom, all needs met. Education OT Patient Education: Exercise program, Home exercise program, Modified ADL techniques, Progress toward Goal/Update tx plan Teaching Recipient: Patient Teaching Methods: Discussion Response to Teaching: Verbalize Understanding OT Short Term Goals Short Term Goals Time Frame: Sep 10, 2016 Transfers (B,C,W/C) (FIM): 5 (met 09/10/16) Toilet/Commode Transfer(FIM): 5 Shower Transfer(FIM): 5 Additional Short Term Goals: 2-Verbalize Understanding, 3-ImproveStrength/Felisha 1=Demonstrate adherence to instructed precautions during ADL tasks. 2=Patient will verbalize/demonstrate understanding of assistive devices/ modifications for ADL. 3=Patient will improve strength/tolerance for activity to enable patient to perform ADL's. OT Alf Goals Alf Goals Time Frame: Sep 24, 2016 Eating (FIM): 7 (met 09-15-16) Eating (QC): 6 (met 09-15-16) Oral Hygiene (QC): 6 (met 09-15-16) Grooming(FIM): 6 (met 09-15-16) Bathing(FIM): 6 (met 09-15-16) Shower/Bathe Self (QC): 6 (met 09-15-16) Upper Body Dressing(FIM): 6 (met 09-15-16) Upper Body Dressing (QC): 6 (met 09-15-16) Lower Body Dressing(FIM): 6 (met 09-15-16) Lower Body Dressing (QC): 6 (met 09-15-16) On/Off Footwear (QC): 6 (met 09-15-16) Toileting(FIM): 6 (met 09-15-16) Toileting Hygiene (QC): 6 (met 09-15-16) Toilet/Commode Transfer(FIM): 6 (met 09-15-16) Toilet/Commode Transfer (QC): 6 (met 09-15-16) Shower Transfer(FIM): 6 (met 09-15-16) Comprehension(FIM): 5 Expression (FIM): 5 Social Interaction(FIM): 6 Problem Solving(FIM): 5 Memory(FIM): 5 Additional Goals: 2-Verbalize Understanding, 3-ImproveStrength/Felisha 1=Demonstrate adherence to instructed precautions during ADL tasks. 2=Patient will verbalize/demonstrate understanding of assistive devices/ modifications for ADL. 3=Patient will improve strength/tolerance for activity to enable patient to perform ADL's. OT Education/Plan Problem List/Assessment Pt would benefit from skilled OT to increase his independence in basic self care to allow him to return to his home safely to live with brother Discharge Recommendations Plan/Recommendations: Continue POC Treatment Plan/Plan of Care Patient would benefit from OT for education, treatment and training to promote independence in ADL's, mobility, safety and/or upper extremity function for ADL' s. Plan of Care: ADL Retraining, Functional Mobility, Group Exercise/Act as Ind ( education, exercise, functional activities, activity tolerance, socialization), UE Funct Exercise/Act, UE Neuromus Re-Ed/Coord Treatment Duration: Sep 24, 2016 Visits Per Week: 10-11 Minutes/Day (M-F): 75-90 Minutes/Day (Sat/Ruiz): PRN Rehab Potential: Good Time/GCodes Start Time: 13:25 Stop Time: 14:00 Total Time Billed (hr/min): 35 Billed Treatment Time visit, 5 minutes ADL, 30 minutes exercise NICO LEES OT Sep 15, 2016 14:13
--- NOTE | 2016-09-15 15:59 | Physical Therapy Daily Note ---
PT Daily Note-Current Subjective Patient sitting EOB pre tx, agrees to PT, pleasant and cooperative. Pain Numeric Pain Scale: 6 Comment: low back Appearance Patient sitting EOB post tx, has nurse call, phone, tray, all needs met. Mental Status Patient Orientation: Normal For Age Transfers Functional [place] Measure 0=Not Assessed/NA 4=Minimal Assistance 1=Total Assistance 5=Supervision or Setup 2=Maximal Assistance 6=Modified [place] 3=Moderate Assistance 7=Complete IndependenceIRFPAI Quality Coding Scale 6 Independent with activity with or without an assistive device 5 Patient requires set up or clean up by helper. Patient completes activity by themselves 4 Supervision or touching assist (CGA). [place] provide cues , steadying assist 3 The helper provides less than half the effort to complete the activity 2 The helper provides more than half the effort to complete the activity 1 Dependent. The helper does all the effort to complete an activity 7 Patient refused to complete or attempt activity 9 The patient did not perform the activity before the current illness or injury 88 Not attempted due to Medical conditions or safety concerns Transfers (B, C, W/C) (FIM): 6 Sit to/from Stand: 6 Gait Training Gait (FIM): 6 Distance: 1600', 800' Gait Assistive Device: FWW Exercises Standing: Hip Abduction, Hamstring curls, Heel/toe raises, Marching, Mini squats Standing Reps: 20 step-ups 6" x 15 each side Treatments transfers, ambulation, functional strengthening Assessment Current Status: Fair Progress good progress, patient is mod I with all mobility using a rolling walker now PT Short Term Goals Short Term Goals Time Frame: Sep 10, 2016 Transfers (B,C,W/C) (FIM): 5 (met 09/10/16) Gait (FIM): 2 (met 09/10/16) Gait Distance Comment: 50' Gait Level of Assist: 4 Gait Assistive Device: FWW PT Zinc Furnace Charger Goals Retirement Goals PT Retirement Goals Time Frame: Sep 24, 2016 Transfers (B,C,W/C) (FIM): 6 (met) Sit to Lying (QC): 6 (met) Lying-Sitting on Side/Bed(QC): 6 (met) Sit to Stand (QC): 6 (met) Rollin (met) Roll Left to Right (QC): 6 (met) Chair/Axz-bo-Cphdg Xfer(QC): 6 (met) Car Transfer (QC): 4 (met, simulated car transfer) Does the Patient Walk: Yes Gait (FIM): 5 (met) Distance: 150' Walk 10 feet (QC): 4 (met) Walk 10ft-Uneven Surface(QC): 4 (met) Walk 50ft with 2 Turns (QC): 4 (met) Walk 150 ft (QC): 4 (met) Gait Level of Assist: 5 Gait Assistive Device: FWW Stairs (FIM): 2 (met) # of Steps: 4 1 Step (curb) (QC): 4 (met) 4 Steps (QC): 4 (met) Stairs Level Of Assist: 4 PT Plan Problem List Problem List: Activity Tolerance, Functional Strength, Safety, Balance, Gait, Transfer Treatment/Plan Treatment Plan: Continue Plan of Care Treatment Plan: Bed Mobility, Education, Functional Activity Felisha, Functional Strength, Group Therapy, Gait, Safety, Therapeutic Exercise, Transfers Treatment Duration: Sep 24, 2016 Visits Per Week: 10-11 Minutes/Day (M-F): 60-90 Minutes/Day (Sat/Ruiz): 15-30 Safety Risks/Education Patient Education: Gait Training, Transfer Techniques, Safety Issues Teaching Recipient: Patient Teaching Methods: Demonstration, Discussion Response to Teaching: Reinforcement Needed Time/GCodes Time In: 1515 Time Out: 1600 Total Billed Treatment Time: 45 Total Billed Treatment 1 visit GT 30 min EX 15 min SHADY SALGUERO PT Sep 15, 2016 15:59
[2016-09-15] MEDS: ALFUZOSIN HCL 10 MG TAB (UROXATRAL) PO SCH (17:20)
[2016-09-15 18:12] VITALS: BP 114/71
[2016-09-16 04:12] LABS: MEAN PLATELET VOLUME 11.6 FL (7.4-10.4); RED BLOOD COUNT 2.76 10^6/uL (4.35-5.85); RED CELL DISTRIBUTION WIDTH 14.1 % (10.0-14.5); WHITE BLOOD COUNT 4.1 10^3/uL (4.3-11.0)
[2016-09-16 04:33] LABS: ALBUMIN 3.3 G/DL (3.2-4.5); CALCIUM 8.9 MG/DL (8.5-10.1); CREATININE SERUM 1.26 MG/DL (0.60-1.30); MAGNESIUM 1.6 MG/DL (1.8-2.4); POTASSIUM 3.9 MMOL/L (3.6-5.0); TOTAL PROTEIN 6.1 G/DL (6.4-8.2)
[2016-09-16 06:00] VITALS: BP 115/73
[2016-09-16] MEDS ORDERED: MAGNESIUM OXIDE (MAG-OX)400 MG TAB PO NR (06:45)
[2016-09-16] MEDS: MAGNESIUM 1 GM/100 ML IVPB 100 ML IV SCH ×2 (07:05→07:57)
[2016-09-16] MEDS: RT-ALBUTEROL SULF 2.5 MG/3 ML PRE-MIX VIAL INH SCH (07:20)
[2016-09-16] MEDS: SPIRONOLACTONE 100 MG (ALDACTONE) TABLET PO SCH (07:54)
[2016-09-16] MEDS: BUMETANIDE 1 MG (BUMEX) TAB PO SCH (07:54)
[2016-09-16] MEDS: guaiFENesin (MUCINEX) 600 MG TAB PO SCH (07:54)
[2016-09-16] MEDS: MAGNESIUM OXIDE (MAG-OX)400 MG TAB PO SCH (07:55)
[2016-09-16] MEDS: PANTOPRAZOLE 40 MG (PROTONIX) TAB PO SCH (07:55)
[2016-09-16] MEDS: IRON POLYSAC 150 MG CAP (NIFEREX) PO SCH (07:55)
[2016-09-16] MEDS: LEVETIRACETAM 500 MG (KEPPRA) TAB PO SCH (07:55)
[2016-09-16] MEDS: THIAMINE 100 MG (VITAMIN B-1) TAB PO SCH (07:55)
[2016-09-16] MEDS: FOLIC ACID 1 MG TAB PO SCH (07:55)
[2016-09-16] MEDS: MULTIVIT W/MINERALS TAB (THERAGRAN M) PO SCH (07:55)
[2016-09-16] MEDS: PROPRANOLOL 20 MG (INDERAL) TABLET PO SCH (07:55)
--- NOTE | 2016-09-16 08:17 | Progress Note (SOAP) ---
Subjective Subjective/Events-last exam weakness. Weakness is better. Cirrhosis. Thrombocytopenia. Pneumonia better Objective Exam Vital Signs Date Time Temp Pulse Resp B/P Pulse Ox O2 Delivery O2 Flow Rate FiO2 09/16/16 07:20 98 Room Air 09/16/16 06:00 98.1 94 18 115/73 96 Room Air 09/15/16 21:00 Room Air 09/15/16 19:38 94 Room Air 09/15/16 18:12 97.0 75 16 114/71 94 09/15/16 16:17 97 Room Air 09/15/16 11:37 96 Room Air I & O 09/16/16 07:00 Intake Total 3100 ml Output Total 200 ml Balance 2900 ml Capillary Refill : General Appearance: No Apparent Distress WD/WN HEENT: Normal ENT Inspection Neck: Normal Inspection Respiratory: Chest Non Tender Lungs Clear Normal Breath Sounds No Accessory Muscle Use No Respiratory Distress Cardiovascular: Regular Rate, Rhythm Gastrointestinal: non tender Results Lab Laboratory Tests 09/15/16 18:00: Magnesium Level 1.8 09/16/16 04:04: Magnesium Level 1.6L, Alanine Aminotransferase (ALT/SGPT) 25, Albumin 3.3, Alkaline Phosphatase 74, Anion Gap 10, Aspartate Amino Transf (AST/SGOT) 29, BUN /Creatinine Ratio 22, Blood Urea Nitrogen 28H, Calcium Level 8.9, Carbon Dioxide Level 19L, Chloride Level 110H, Creatinine 1.26, Estimat Glomerular Filtration Rate 59, Glucose Level 85, Hematocrit 28L, Hemoglobin 9.0L, Mean Corpuscular Hemoglobin 33, Mean Corpuscular Hemoglobin Concent 33, Mean Corpuscular Volume 100H, Mean Platelet Volume 11.6H, Platelet Count 62L, Potassium Level 3.9, Red Blood Count 2.76L, Red Cell Distribution Width 14.1, Sodium Level 139, Total Bilirubin 1.0, Total Protein 6.1L, White Blood Count 4.1L Microbiology 09/08/16 Gram Stain - Final, Complete 09/08/16 Sputum Culture - Final, Complete Usual/normal [place] isolated. Assessment/Plan Assessment/Plan Assess & Plan/Chief Complaint pneumonia. Weakness. Seizure. Liver cirrhosis. CAD. GERD. Seizure. Chronic hepatitis. . 09/09/16. Pneumonia. Weakness. Seizures. Liver cirrhosis. . 09/10/16. Pneumonia. Weakness. Patient feeling better. Chest x-ray shows resolving pneumonia. Pulmonology says no more antibiotic just monitor. Waiting first culture reports. . 09/11/16. 2 sputum cultures negative. Magnesium 1.62 replace. Patient doing better with his weakness. Pneumonia. Patient improving. . 09/14/16. Patient feels he is improving. Patient complaining of low back pain. Pneumonia. Weakness. Seizure disorder. CAD.. . Patient feels he is getting better. Pneumonia. Weakness. Seizure disorder. Liver disorder. Leukopenia. Thrombocytopenia. Chronic hepatitis. CAD. . 09/16/16 patient to be discharged today. To see in office tomorrow. Hypomagnesemia. Pneumonia. Cirrhosis. Seizure. Patient received magnesium sulfate today Diagnosis/Problems: Clinical Quality Measures DVT/VTE Risk/Contraindication: Risk Factor Score Per Nursin RFS Level Per Nursing on Admit: 4+=Very High CHERI GARCIA DO Sep 16, 2016 08:17
--- NOTE | 2016-09-16 11:05 | PM & R (SOAP) Progress Note ---
Subjective Subjective/Events-last exam Patient was seen in his room this AM Has progressed well.Serum Magnesium improving and HGB stable Appreciate DR Villanueva note and orders. Objective Exam Last Set of Vital Signs Vital Signs Date Time Temp Pulse Resp B/P Pulse Ox O2 Delivery O2 Flow Rate FiO2 09/16/16 08:42 Room Air 09/16/16 07:20 98 09/16/16 06:00 98.1 94 18 115/73 Capillary Refill : I&O Intake and Output 09/16/16 00:00 Intake Total 2240 ml Output Total 300 ml Balance 1940 ml Intake Oral 1840 ml IV Total 400 ml Output Urine Total 300 ml # Voids 6 # Bowel Movements 1 General: Alert, Oriented X3, Cooperative, No Acute Distress HEENT: Atraumatic, PERRLA, EOMI, Mucous Memb Moist/[place] Neck: Supple, No JVD Lungs: Clear to Auscultation Heart: Regular Rate Abdomen: Normal Bowel Sounds, Soft, No Tenderness Extremities: No Edema Neuro: Other (generalized weakness) Results Lab Laboratory Tests 09/15/16 06:45: Alanine Aminotransferase (ALT/SGPT) 23, Albumin 3.2, Alkaline Phosphatase 77, Anion Gap 6, Aspartate Amino Transf (AST/SGOT) 29, BUN/Creatinine Ratio 23, Blood Urea Nitrogen 30H, Calcium Level 8.7, Carbon Dioxide Level 21, Chloride Level 111H, Creatinine 1.30, Estimat Glomerular Filtration Rate 57, Glucose Level 145H, Hematocrit 28L, Hemoglobin 9.0L, Magnesium Level 1.0*L, Mean Corpuscular Hemoglobin 32, Mean Corpuscular Hemoglobin Concent 32, Mean Corpuscular Volume 100H, Mean Platelet Volume 11.5H, Platelet Count 55L, Potassium Level 3.6, Red Blood Count 2.81L, Red Cell Distribution Width 14.0, Sodium Level 138, Total Bilirubin 1.1H, Total Protein 6.1L, White Blood Count 3.3L 09/15/16 18:00: Magnesium Level 1.8 09/16/16 04:04: Alanine Aminotransferase (ALT/SGPT) 25, Albumin 3.3, Alkaline Phosphatase 74, Anion Gap 10, Aspartate Amino Transf (AST/SGOT) 29, BUN/Creatinine Ratio 22, Blood Urea Nitrogen 28H, Calcium Level 8.9, Carbon Dioxide Level 19L, Chloride Level 110H, Creatinine 1.26, Estimat Glomerular Filtration Rate 59, Glucose Level 85, Hematocrit 28L, Hemoglobin 9.0L, Magnesium Level 1.6L, Mean Corpuscular Hemoglobin 33, Mean Corpuscular Hemoglobin Concent 33, Mean Corpuscular Volume 100H, Mean Platelet Volume 11.6H, Platelet Count 62L, Potassium Level 3.9, Red Blood Count 2.76L, Red Cell Distribution Width 14.1, Sodium Level 139, Total Bilirubin 1.0, Total Protein 6.1L, White Blood Count 4.1L Microbiology 09/08/16 Gram Stain - Final, Complete 09/08/16 Sputum Culture - Final, Complete Usual/normal ventura isolated. Assessment/Plan Assessment General debil secondary to recurrent MSSA pneumonia -completed course of antibiotics. HX of Etoh abuse and alcoholic liver D Macrocytic anemia Afib controlled seizure disorder on keppra HTN controlled Borderline Hyperkalemia meds adjusted-improved Hypomagnesemia on replacement. Plan Discharge patient to [facility] today with f/u with DR Dickens for f/u labs and CXR See orders. CHAVA POOLE MD Sep 16, 2016 11:05
--- NOTE | 2016-09-16 11:23 | Therapy Team Discharge Summary ---
Therapy Discharge Summary Discharge Recommendations Date of Discharge Sep 16, 2016 at 09:00 Therapy D/C Recommendations: Home w/ Family Support Physical Therapy Patient came to rehab for acute respiratory failure. Upon admission, patient performed bed mobility with mod I and transfers with CGA, ambulated 20' with a rolling walker with CGA, and could go up and down 1 step using a rolling walker with CGA. Patient has been performing bed mobility and transfer training, balance and endurance training, functional strengthening, stair training, gait training, and education, to improve functional mobility and independence at home. 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 Now, patient performs bed mobility and transfers with mod I, ambulates 800' with a rolling walker with mod I (including going 10' over an uneven surface like carpet and 50' with at least 2 turns of 90 degrees), and can go up and down 12 steps using 2 handrails with mod I. Patient has been discharged from this facility this morning and will be discharged from PT at this time. PT Mcc Goals Mcc Goals PT Mcc Goals Time Frame: Sep 24, 2016 Transfers (B,C,W/C) (FIM): 6 (met) Roll Left to Right (QC): 6 (met) Sit to Lying (QC): 6 (met) Lying-Sitting on Side/Bed(QC): 6 (met) Sit to Stand (QC): 6 (met) Chair/Dmj-nb-Jvyyk Xfer(QC): 6 (met) Car Transfer (QC): 4 (met, simulated car transfer) Does the Patient Walk: Yes Gait (FIM): 5 (met) Distance: 150' Walk 10 feet (QC): 4 (met) Walk 10ft-Uneven Surface(QC): 4 (met) Walk 50ft with 2 Turns (QC): 4 (met) Walk 150 ft (QC): 4 (met) Gait Level of Assist: 5 Gait Assistive Device: FWW Stairs (FIM): 2 (met) # of Steps: 4 1 Step (curb) (QC): 4 (met) 4 Steps (QC): 4 (met) Stairs Level Of Assist: 4 OT Helper/Driver Goals Helper/Driver Goals Time Frame: Sep 24, 2016 Eating (FIM): 7 (met 09-15-17) Eating (QC): 6 (met 09-15-17) Oral Hygiene (QC): 6 (met 09-15-16) Grooming(FIM): 6 (met 09-15-16) Bathing(FIM): 6 (met 09-15-16) Shower/Bathe Self (QC): 6 (met 09-15-16) Upper Body Dressing(FIM): 6 (met 09-15-16) Upper Body Dressing (QC): 6 (met 09-15-16) Lower Body Dressing(FIM): 6 (met 09-15-16) Lower Body Dressing (QC): 6 (met 09-15-16) On/Off Footwear (QC): 6 (met 09-15-16) Toileting(FIM): 6 (met 09-15-16) Toileting Hygiene (QC): 6 (met 09-15-16) Toilet/Commode Transfer(FIM): 6 (met 09-15-16) Toilet/Commode Transfer (QC): 6 (met 09-15-16) Shower Transfer(FIM): 6 (met 09-15-16) Comprehension(FIM): 5 Expression (FIM): 5 Social Interaction(FIM): 6 Problem Solving(FIM): 5 Memory(FIM): 5 Additional Goals: 2-Verbalize Understanding, 3-ImproveStrength/Felisha 1=Demonstrate adherence to instructed precautions during ADL tasks. 2=Patient will verbalize/demonstrate understanding of assistive devices/ modifications for ADL. 3=Patient will improve strength/tolerance for activity to enable patient to perform ADL's. Speech Helper/Driver Goals Mcc Goals Comprehension: 5 Expression: 5 Social Interaction: 6 Problem Solvin Memory: 5 SHADY SALGUERO PT Sep 16, 2016 11:23
--- NOTE | 2016-09-16 12:56 | Therapy Team Discharge Summary ---
Therapy Discharge Summary Discharge Recommendations Date of Discharge Sep 16, 2016 at 09:00 Therapy D/C Recommendations: Home w/ Family Support, Occupational Therapy Home Care Occupational Therapy Pt was seen for skilled OT to increase his independence in basic self care to all ow him to return home safely after hospitalization for acute respiratory failure and resultant weakness and decreased activity tolerance. On admission he needed min assist for lower body dressing, toilet and shower transfers, SBA to setup for all other basic ADLs. By discharge he was independent with eating, modified independent with toileting, grooming, and dressing and setup for bathing (covering an IV site). Equipment used included shower bench, grab bars, BSC over toilet, FWW, hand held shower. See tx plan for goals met. Recommend home health OT. [facility] to [facility]. PT Weigher Operator Goals Weigher Operator Goals PT Weigher Operator Goals Time Frame: Sep 24, 2016 Transfers (B,C,W/C) (FIM): 6 (met) Roll Left to Right (QC): 6 (met) Sit to Lying (QC): 6 (met) Lying-Sitting on Side/Bed(QC): 6 (met) Sit to Stand (QC): 6 (met) Chair/Rdv-kr-Irazd Xfer(QC): 6 (met) Car Transfer (QC): 4 (met, simulated car transfer) Does the Patient Walk: Yes Gait (FIM): 5 (met) Distance: 150' Walk 10 feet (QC): 4 (met) Walk 10ft-Uneven Surface(QC): 4 (met) Walk 50ft with 2 Turns (QC): 4 (met) Walk 150 ft (QC): 4 (met) Gait Level of Assist: 5 Gait Assistive Device: FWW Stairs (FIM): 2 (met) # of Steps: 4 1 Step (curb) (QC): 4 (met) 4 Steps (QC): 4 (met) Stairs Level Of Assist: 4 OT Skilled Nursing Goals Skilled Nursing Goals Time Frame: Sep 24, 2016 Eating (FIM): 7 (met --17) Eating (QC): 6 (met --17) Oral Hygiene (QC): 6 (met --17) Grooming(FIM): 6 (met 09-15-) Bathing(FIM): 6 (met 1-10-17) Shower/Bathe Self (QC): 6 (met 09-15-16) Upper Body Dressing(FIM): 6 (met 09-15-16) Upper Body Dressing (QC): 6 (met 09-15-16) Lower Body Dressing(FIM): 6 (met 09-15-16) Lower Body Dressing (QC): 6 (met 09-15-16) On/Off Footwear (QC): 6 (met 09-15-16) Toileting(FIM): 6 (met 09-15-16) Toileting Hygiene (QC): 6 (met 09-15-16) Toilet/Commode Transfer(FIM): 6 (met 09-15-16) Toilet/Commode Transfer (QC): 6 (met 09-15-16) Shower Transfer(FIM): 6 (met 09-15-16) Comprehension(FIM): 5 Expression (FIM): 5 Social Interaction(FIM): 6 Problem Solving(FIM): 5 Memory(FIM): 5 Additional Goals: 2-Verbalize Understanding, 3-ImproveStrength/Felisha 1=Demonstrate adherence to instructed precautions during ADL tasks. 2=Patient will verbalize/demonstrate understanding of assistive devices/ modifications for ADL. 3=Patient will improve strength/tolerance for activity to enable patient to perform ADL's. Speech Skilled Nursing Goals Weigher Operator Goals Comprehension: 5 Expression: 5 Social Interaction: 6 Problem Solvin Memory: 5 NICO LEES OT Sep 16, 2016 12:55
--- NOTE | 2016-09-30 09:26 | DISCHARGE SUMMARY ---
DATE OF ADMISSION: 09/02/2016 DATE OF DISCHARGE: 09/16/2016 HISTORY OF PRESENT ILLNESS: The patient is a 56-year-old male with past medical history significant for ethanol abuse, chronic hepatitis associated with liver cirrhosis, chronic kidney disease, hypertension, chronic atrial fibrillation, anemia, GERD and seizure disorder, which he attributes to stroke he had years ago. 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 He had been living independently in [place], [place] when he developed acute respiratory distress. He was seen at [facility] and transferred to [facility] in [place] where he had BiPAP, ICU care and was treated with IV antibiotics for aspiration versus health care associated pneumonia. Chest x-ray showed extensive bilateral infiltration. Creatinine was 2.5, lactic acid 3.2, leukopenia with bandemia was noted. The patient was medically stabilized. The patient was intubated briefly. Bronchoscopy showed no evidence of pulmonary edema or pulmonary hemorrhage. CT of the brain on 08/21 showed no acute intracranial hemorrhage but advance brain atrophy. The patient was seen by critical care and hospitalist service and infectious disease and cardiology while in outside hospital. The patient was then referred to Inpatient Rehabilitation Unit at [facility] for ongoing care due to decline in functional independence. He has a son that lives in [place], [place]. He was found to have MSSA pneumonia and was in the hospital over the with the same thing. PAST MEDICAL HISTORY: Essentially as per above. He denies any orthopedic surgery. MEDICAL COURSE: The patient was followed by Dr. Carver while on rehab unit, daily. He was on his vancomycin and completed a course of that. He was seen by Dr. Anderson, pulmonology who felt that pneumonia was resolving. It was okay to discontinue antibiotics. He was afebrile upon discharge. His pulse is 94, respirations 18, blood pressure 115/73, O2 sat 98% on room air. He was found to have significant hypomagnesemia and required intravenous magnesium replacement. His serum magnesium was 1.0 on 09/15 with the last one 1.6 on 09/[address] Dickens has agreed to the PCP in the local community as the patient is going to be staying at an assisted living facility in this area so as to be near his son and have closer supervision from staff. Chemistry on 09/16 also revealed chloride elevated at 10, CO2 19, BUN elevated at 28 but down from 30 on 09/15. Creatinine 1.26. CBC on 09/16 showed hemoglobin and hematocrit 06/03, WBC 4.1, MCV 100, platelet count 62,000 which had improved from 43,000 on 09/10. Chest x-ray 09/14 showed improvement with slight improvement of the right lung infiltrate/pneumonia. Follow up chest x-ray in 2 to 4 weeks is suggested to evaluate for interval resolution of this finding. REHABILITATION COURSE: He progressed well with his therapies. He had increased strength and endurance. He was assessed by speech therapy upon admission that the patient performed bed mobility with modified independent, transfers with contact guard, could ambulate 20 feet with a wheeled walker with contact guard. Upon discharge he is modified independent for bed mobility and transfers, and could ambulate 800 feet with a wheeled walker with modified independence. OT notes on admission, he needed min assist for lower body dressing, toilet and shower transfers. He was standby assist to set-up for all other basic ADLs. By discharge he was independent with eating, modified independent with toileting, grooming and dressing. Set up for bathing. He will be discharged to [facility] assisted living facility in this area. DISCHARGE INSTRUCTIONS: He will have follow-up labs and follow-up with Dr. Dickens. He will have home health care PT and OT. He is discharged to an assisted living facility. Continue current diet. DISCHARGE MEDICATIONS: 1. Combivent puffs q.6 hours p.r.n. shortness of breath. 2. Bumex 1 mg p.o. daily. 3. Folic acid 1 mg p.o. daily. 4. Guaifenesin 1200 mg p.o. b.i.d. 5. Poly iron 150 mg p.o. b.i.d. 6. Keppra 500 mg p.o. b.i.d. 7. Mag-Ox 400 mg p.o. b.i.d. 8. Multivitamins with minerals 1 tablet p.o. daily. 9. Nadolol 20 mg p.o. daily. 10. Protonix 40 mg p.o. daily. 11. KCL 20 mEq p.o. b.i.d. 12. Spironolactone 100 mg p.o. daily. 13. Flomax 0.4 mg p.o. at bedtime. 14. Vitamin B1 100 mg p.o. daily. DISCHARGE DIAGNOSES: 1. Rehabilitation general debilitation secondary to MSSA pneumonia recurrent, complete a course of IV antibiotics, improving. 2. Hypomagnesemia on replacement. 3. History of ethanol abuse of alcohol liver disease with chronically elevated liver function tests, improved at this point with AST, ALT. Alkaline phosphatase within normal limits. Total bilirubin only mildly elevated at 1.1. 4. Seizure disorder, controlled with Keppra. 5. Atrial fibrillation, controlled with medication. 6. Hypertension, controlled with medication. 7. Macrocytic anemia quite possibly related to history of ethanol abuse and alcoholic liver disease, stable. 8. Thrombocytopenia, stable improving. 9. Hypoalbuminemia with serum albumin 3.3 on 09/16, slightly improved from 3.2 on 09/15. CONDITION AT DISCHARGE: Improved and stable. PROGNOSIS: Rehab prognosis appears good for continued improvement now that he will be residing at assisted living facility and can have closer supervision from and nursing and medical staff. Job ID: [id number] Dictated Date: 09/29/2016 10:08:55 Geospatial Program Management Officer Date: 09/29/2016 15:24:05/jud
== END 2016-09-16 09:00 | DRG 178 ==
PROVIDERS: ADMIT Physical Medicine & Rehabilitation; ATTEND Physical Medicine & Rehabilitation
DX: J15.211 Pneumonia due to Methicillin susceptible Staphylococcus aureus (principal); E83.42 Hypomagnesemia; K70.30 Alcoholic cirrhosis of liver without ascites; G40.909 Epilepsy, unspecified, not intractable, without status epilepticus; I48.2 Chronic atrial fibrillation; I12.9 Hypertensive chronic kidney disease with stage 1 through stage 4 chronic kidney disease, or unspecified chronic kidney disease; N18.9 Chronic kidney disease, unspecified; E87.1 Hypo-osmolality and hyponatremia; E87.5 Hyperkalemia; D53.9 Nutritional anemia, unspecified; E11.9 Type 2 diabetes mellitus without complications
CPT/HCPCS: 36415; 71010; 71020; 80048; 80053; 80202; 82140; 82962; 83735; 83880; 85025; 85027; 85652; 86141; 87070; 87081; 87205; 94640; 94664; 94760

== ENCOUNTER 2016-10-19 11:32 | Inpatient (IN) | payer MEDICAID ==
[~2016-10-19] VITALS: Ht 172.7 cm; Wt 83.7 kg
[~2016-10-19 11:32] MED LIST: BUME1TAB4 PO; FOLI1TAB24 PO; GUAI120016 PO; IPRA4AER IH; IRON150C13 PO; LEVE500T6 PO; MAGN400T6 PO; MULT-593 PO; NADO20TA PO; PANT40TA2 PO; POTA-51 PO; SPIR100T2 PO; TAMS0.4C2 PO; THIA100T68 PO
[2016-10-19 12:37] LABS: BILIRUBIN,URINE NEGATIVE (NEGATIVE); KETONES,URINE NEGATIVE (NEGATIVE); LEUKOCYTE ESTERASE ,URINE NEGATIVE (NEGATIVE); NITRITE,URINE NEGATIVE (NEGATIVE); PH,URINE 6.5 (5-9); PROTEIN,URINE NEGATIVE (NEGATIVE); UROBILINOGEN,URINE NORMAL (NORMAL)
[2016-10-19 12:47] LABS: BASOPHILS % (AUTO) 0 % (0-10); EOSINOPHILS # (AUTO) 0.7 10^3/uL (0.0-0.3); EOSINOPHILS % (AUTO) 6 % (0-10); LYMPHOCYTES # (AUTO) 1.3 X 10^3 (1.0-4.0); LYMPHOCYTES % (AUTO) 10 % (12-44); MEAN CORPUSCULAR HEMOGLOBIN 31 PG (25-34); MEAN CORPUSCULAR HGB CONC 34 G/DL (32-36); MEAN CORPUSCULAR VOLUME 91 FL (80-99); MEAN PLATELET VOLUME 11.3 FL (7.4-10.4); MONOCYTES # (AUTO) 0.9 X 10^3 (0.0-1.0); MONOCYTES % (AUTO) 7 % (0-12); NEUTROPHILS % (AUTO) 77 % (42-75); PLATELET COUNT 110 10^3/uL (130-400); RED BLOOD COUNT 3.98 10^6/uL (4.35-5.85); RED CELL DISTRIBUTION WIDTH 12.2 % (10.0-14.5); WHITE BLOOD COUNT 12.9 10^3/uL (4.3-11.0)
[2016-10-19 12:47] LABS: WBC,URINE RARE /HPF
[2016-10-19 12:48] LABS: YEAST,URINE MODERATE /HPF
[2016-10-19 13:07] LABS: ALBUMIN 3.7 G/DL (3.2-4.5); BILIRUBIN,TOTAL 1.3 MG/DL (0.1-1.0); CALCIUM 9.9 MG/DL (8.5-10.1); CREATININE SERUM 2.49 MG/DL (0.60-1.30); POTASSIUM 4.6 MMOL/L (3.6-5.0); TOTAL PROTEIN 7.5 G/DL (6.4-8.2)
--- NOTE | 2016-10-19 13:20 | Diagnostic Imaging Report ---
INDICATION: Shortness of breath and speech difficulty. PA and lateral chest obtained at 1:07 p.m. and compared with 09/14/2016. FINDINGS: Heart and mediastinal silhouette appear unremarkable. The previous PICC line been removed. The previous infiltrate in the right midlung and base appears improved but not entirely resolved. The left lung is grossly clear. There is no pneumothorax or pleural fluid. There is a stable calcified granuloma in the left upper lobe. IMPRESSION: Improvement in right midlung and basilar infiltrate compared to the prior study, without complete resolution. Left lung appears clear. There is no new abnormality. Dictated by: Dictated on workstation # [id number]
--- NOTE | 2016-10-19 13:38 | Diagnostic Imaging Report ---
EXAM: CT HEAD WO-R/O STROKE INDICATION: Stroke. COMPARISON: None. FINDINGS: Advanced generalized cerebral and cerebellar parenchymal volume loss is greater than expected for age. Low-attenuation changes in the supratentorial white matter, presumed leukoaraiosis. Intracranial vascular calcifications. No focal region suspicious for acute infarction. No intracranial hemorrhage, mass effect, hydrocephalus, or extra-axial fluid collections. Osseous structures are intact. The visualized paranasal sinuses are clear. The orbits are unremarkable. IMPRESSION: 1. No acute intracranial CT findings. 2. Advanced parenchymal volume loss is greater than expected for age. Dictated by: Dictated on workstation # [id number]
[2016-10-19] MEDS ORDERED: NS IV 1000 ML 1,000 ML IV ONE ×2 (13:40→13:46)
[2016-10-19] MEDS ORDERED: CEFEPIME INJECTION 2,000 MG in NS (IVPB) 50 ML IV ONE (13:45)
--- NOTE | 2016-10-19 13:59 | ED General ---
General Chief Complaint: General Problems/Pain Stated Complaint: WEAKNESS, SOA Nursing Triage Note: PT SENT TO ED BY AUGUSTUS PEDRAZA WITH C/O HALLUCINATIONS X 1 WEEK AND SLURRED SPEECH AND CONFUSION ONSET TODAY. STAFF REPORTS PT WAS RECENTLY STARTED ON TRAMADOL AND ATENELOL. Nursing Sepsis Screen: No Definite Risk Source of Information: Patient Exam Limitations: No Limitations History of Present Illness Time Seen by Provider: 12:30 Initial Comments This 56-year-old with hepatic failure presents to the emergency room from the assisted living facility with reports of hallucinations and slurred speech 1 week. Symptoms worsened today with apparent confusion. Staff reports that he was recently started on tramadol and atenolol. On assessment patient is aware that he is having these difficulties. Patient also reports having cough over the past 2 days. In August patient had pneumonia resulting in respiratory failure and intubation. He was cared for at [facility] and then transferred to this facility for rehabilitation. Allergies and Home Medications Allergies Coded Allergies: No Known Drug Allergies (Unverified , 09/02/16) Home Medications Albuterol/Ipratropium 4 Gm Aero 1 PUFF IH Q6H PRN PRN SHORTNESS OF BREATH ( Reported) Atenolol 50 Mg Tablet 50 MG PO DAILY (Reported) Bumetanide 1 Mg Tablet 1 MG PO DAILY (Reported) Cyclobenzaprine HCl 10 Mg Tablet 10 MG PO BID (Reported) Folic Acid 1 Mg Tablet 1 MG PO DAILY (Reported) Guaifenesin 1,200 Mg Tab.er.12h 1,200 MG PO Q12H PRN PRN COUGH (Reported) Iron Polysaccharide Complex 150 Mg Capsule 150 MG PO BID (Reported) Levetiracetam 500 Mg Tablet 500 MG PO BID (Reported) Magnesium Oxide 400 Mg Tablet 400 MG PO BID (Reported) Multivitamin with Minerals 1 Each Tablet 1 TAB PO DAILY (Reported) Pantoprazole Sodium 40 Mg Tablet.dr 40 MG PO DAILY (Reported) Potassium Chloride 20 Meq Tablet.er 20 MEQ PO BID (Reported) Spironolactone 100 Mg Tablet 100 MG PO DAILY (Reported) Tamsulosin HCl 0.4 Mg Cap.er.24h 0.4 MG PO HS (Reported) Thiamine Mononitrate 100 Mg Tablet 100 MG PO DAILY (Reported) Tramadol HCl 50 Mg Tablet 50 MG PO BID (Reported) Constitutional: see HPI EENTM: no symptoms reported Respiratory: see HPI Cardiovascular: no symptoms reported Gastrointestinal: see HPI Genitourinary: no symptoms reported Musculoskeletal: no symptoms reported Psychiatric/Neurological: See HPI Hematologic/Lymphatic: No Symptoms Reported Past Ratpoid-Fvardk-Eovxqd Hx Patient Social History Alcohol Use: Past History Recreational Drug Use: No Smoking Status: Unknown if Ever Smoked Recent Foreign Travel: No Contact w/Someone Who Travel: No Recent Infectious Disease Expo: No Recent Hopitalizations: No Immunizations Up To Date Tetanus Booster (TDap): Unknown PED Vaccines UTD: Yes Date of Pneumonia Vaccine: May 07, 2016 Date of Influenza Vaccine: May 07, 2016 Seasonal Allergies Seasonal Allergies: No Surgeries HX Surgeries: No Respiratory Hx Respiratory Disorders: Yes (INHALER AT HOME, MRSA PNEUMONIA, PULM EDEMA) Respiratory Disorders: Pneumonia, COPD Cardiovascular Hx Cardiac Disorders: Yes (CHF) Cardiac Disorders: Hypertension Neurological Hx Neurological Disorders: Yes (METABOLIC ENCEPHALOPATHY, ONDINA) Reproductive System Hx Reproductive Disorders: No HIV/AIDS: No Genitourinary Hx Genitourinary Disorders: Yes Genitourinary Disorders: Kidney Infection, Prostate Problems, Renal Failure Gastrointestinal Hx Gastrointestinal Disorders: No (HEP B/HEPC, CHRONIC LIVER CIRRHOSIS, ANEMIA) Gastrointestinal Disorders: Liver Disease/Jaundice, Gastrointestinal Bleed, Chronic Constipation, Chronic Diarrhea Musculoskeletal Hx Musculoskeletal Disorders: Yes Musculoskeletal Disorders: Arthritis Endocrine Hx Endocrine Disorders: Yes Endocrine Disorders: Diabetes, Non-Insulin dep HEENT HX ENT Disorders: No Loss of Vision: Denies Hearing Impairment: Denies Cancer Hx Cancer: No Psychosocial Hx Psychiatric Problems: Yes Behavioral Health Disorders: Depression Integumentary HX Skin/Integumentary Disorder: No (DENIES ) Blood Transfusions Hx Blood Disorders: No Adverse Reaction to a Blood Tr: No Family Medical History Family Medial History: Patient reports no known family medical history. Physical Exam Vital Signs Vital Sign - Last 12Hours 10/19/16 10/19/16 12:11 20:21 Temp 98.2 Pulse 95 Resp 16 B/P 112/84 Pulse Ox 94 O2 Delivery Room Air FiO2 98 Capillary Refill : Less Than 3 Seconds General Appearance: No Apparent Distress WD/WN HEENT: PERRL/EOMI Normal ENT Inspection Neck: Normal Inspection Respiratory: No Accessory Muscle Use No Respiratory Distress Crackles Cardiovascular: Regular Rate, Rhythm No Edema No Murmur Gastrointestinal: Normal Bowel Sounds Non Tender Soft Extremity: Normal Inspection No Pedal Edema Neurologic/Psychiatric: Alert No Motor/Sensory Deficits Normal Mood/Affect Other (Speech slurred and cognition dulled. No focal motor deficits) Skin: Normal Color Warm/Dry Progress/Results/Core Measures Results/Orders Lab Results Laboratory Tests Test 10/19/16 12:10 10/19/16 12:40 10/19/16 13:49 Range/Units Urine Bacteria NEGATIVE /HPF Urine Bilirubin NEGATIVE NEGATIVE Urine Casts NONE /LPF Urine Clarity CLEAR Urine Color YELLOW Urine Crystals NONE /LPF Urine Culture Indicated NO Urine Glucose (UA) NEGATIVE NEGATIVE Urine Ketones NEGATIVE NEGATIVE Urine Leukocyte Esterase NEGATIVE NEGATIVE Urine Mucus NEGATIVE /LPF Urine Nitrite NEGATIVE NEGATIVE Urine Protein NEGATIVE NEGATIVE Urine RBC NONE /HPF Urine RBC (Auto) NEGATIVE NEGATIVE Urine Specific [place] 1.015 L 1.016-1.022 Urine Squamous Epithelial Cells NONE /HPF Urine Urobilinogen NORMAL NORMAL MG/DL Urine WBC RARE /HPF Urine Yeast MODERATE H /HPF Urine pH 6.5 5-9 Alanine Aminotransferase (ALT/SGPT) 33 0-55 U/L Albumin 3.7 3.2-4.5 G/DL Alkaline Phosphatase 91 40-136 U/L Ammonia 71 H 11-32 UMOL/L Anion Gap 11 5-14 MMOL/L Aspartate Amino Transf (AST/SGOT) 44 H 5-34 U/L BUN/Creatinine Ratio 19 Basophils # (Auto) 0.0 0.0-0.1 10^3/uL Basophils (%) (Auto) 0 0-10 % Blood Urea Nitrogen 48 H 7-18 MG/DL Calcium Level 9.9 8.5-10.1 MG/DL Carbon Dioxide Level 23 21-32 MMOL/L Chloride Level 99 98-107 MMOL/L Creatinine 2.49 H 0.60-1.30 MG/DL Eosinophils # (Auto) 0.7 H 0.0-0.3 10^3/uL Eosinophils (%) (Auto) 6 0-10 % Estimat Glomerular Filtration Rate 27 Glucose Level 117 H 70-105 MG/DL Hematocrit 36 L 40-54 % Hemoglobin 12.4 L 13.3-17.7 G/DL Lymphocytes # (Auto) 1.3 1.0-4.0 X 10^3 Lymphocytes (%) (Auto) 10 L 12-44 % Mean Corpuscular Hemoglobin 31 25-34 PG Mean Corpuscular Hemoglobin Concent 34 32-36 G/DL Mean Corpuscular Volume 91 80-99 FL Mean Platelet Volume 11.3 H 7.4-10.4 FL Monocytes # (Auto) 0.9 0.0-1.0 X 10^3 Monocytes (%) (Auto) 7 0-12 % Neutrophils # (Auto) 10.0 H 1.8-7.8 X 10^3 Neutrophils (%) (Auto) 77 H 42-75 % Platelet Count 110 L 130-400 10^3/uL Potassium Level 4.6 3.6-5.0 MMOL/L Red Blood Count 3.98 L 4.35-5.85 10^6/uL Red Cell Distribution Width 12.2 10.0-14.5 % Sodium Level 133 L 135-145 MMOL/L Total Bilirubin 1.3 H 0.1-1.0 MG/DL Total Protein 7.5 6.4-8.2 G/DL White Blood Count 12.9 H 4.3-11.0 10^3/uL Lactic Acid Level 2.0 0.5-2.0 MMOL/L My Orders Orders-JEROMY JOHNSON MD Ammonia (10/19/16 12:30) Cbc With Automated Diff (10/19/16 12:30) Comprehensive Metabolic Panel (10/19/16 12:30) Ua Culture If Indicated (10/19/16 12:30) Saline Lock/Iv-Start (10/19/16 12:30) Chest Pa/Lat (2 View) (10/19/16 12:39) Ct Head Wo-R/O Stroke (10/19/16 13:01) Monitor-Rhythm Ecg Trace Only (10/19/16 13:01) Ns Iv 1000 Ml (Sodium Chloride 0.9%) (10/19/16 13:40) Lactic Acid Analyzer (10/19/16 13:44) Blood Culture (10/19/16 13:44) Cefepime Injection (Maxipime Injection) (10/19/16 13:45) Saline Lock/Iv-Start (10/19/16 13:46) Ns Iv 1000 Ml (Sodium Chloride 0.9%) (10/19/16 13:46) Medications Given in ED Current Medications Medications Dose Ordered Sig/Geovany Route Start Time Stop Time Status Last Admin Dose Admin Cefepime HCl 2000 mg/Sodium Chloride 50 ml @ 100 mls/hr ONCE ONCE IV 10/19/16 13:45 10/19/16 14:14 DC 10/19/16 14:46 100 MLS/HR Sodium Chloride 1,000 ml @ 0 mls/hr Q0M ONCE IV 10/19/16 13:40 10/19/16 13:41 DC 10/19/16 14:47 0 MLS/HR Sodium Chloride 1,000 ml @ 0 mls/hr Q0M ONCE IV 10/19/16 13:46 10/19/16 13:47 DC 10/19/16 15:39 100 MLS/HR Vital Signs/I&O Vital Sign - Last 12Hours 10/19/16 10/19/16 10/19/16 10/19/16 15:00 15:35 16:00 17:00 Temp 98.2 98.2 97.0 Pulse 89 95 89 Resp 16 18 18 B/P 117/85 138/81 Pulse Ox 95 97 96 96 O2 Delivery Room Air Room Air 10/19/16 10/19/16 10/19/16 17:00 20:00 20:21 Temp 97.1 Pulse 95 Resp 20 B/P 117/75 Pulse Ox 96 99 O2 Delivery Room Air FiO2 98 Blood Pressure Mean: 93 Progress Note : Progress Note Patient has multiple problems including acute renal failure and hepatic encephalopathy as revealed by lab workup. After review of chest x-ray, I'm also concerned that he is having recurrent or unresolved pneumonia especially in context of the leukocytosis and recent development of cough. Case was reviewed with Dr. Garcia who agrees with admission and treatment for pneumonia. Cefepime was started in the emergency room after blood cultures were collected. IV fluids were also initiated with a 1 L normal saline bolus. Diagnostic Imaging Diagonstic Imaging: CT Plain Films/CT/US/NM/MRI: head Comments CT head viewed by me and report reviewed. See report below: NAME: TESS LANDA [facility] REC#: [id number] PT STATUS: ADM IN : 1960 PHYSICIAN: JEROMY JOHNSON MD ADMIT DATE: 10/19/16/ Signed Date of Exam: 10/19/16 CT HEAD WO-R/O STROKE EXAM: CT HEAD WO-R/O STROKE INDICATION: Stroke. COMPARISON: None. FINDINGS: Advanced generalized cerebral and cerebellar parenchymal volume loss is greater than expected for age. Low-attenuation changes in the supratentorial white matter, presumed leukoaraiosis. Intracranial vascular calcifications. No focal region suspicious for acute infarction. No intracranial hemorrhage, mass effect, hydrocephalus, or extra-axial fluid collections. Osseous structures are intact. The visualized paranasal sinuses are clear. The orbits are unremarkable. IMPRESSION: 1. No acute intracranial CT findings. 2. Advanced parenchymal volume loss is greater than expected for age. Dictated by: Dictated on workstation # [id number] Dict: 10/19/16 1331 Trans: 10/19/16 1722 MILIND [id number] Interpreted by: SARAH GUPTA MD Electronically signed by:SARAH GUPTA MD 10/19/16 1721 Diagonstic Imaging: Xray Plain Films/CT/US/NM/MRI: chest Comments Chest x-ray viewed by me and report reviewed. See report below: NAME: TESS LANDA [facility] REC#: [id number] PT STATUS: REG ER : 1960 PHYSICIAN: JEROMY JOHNSON MD ADMIT DATE: 10/19/16/ER Draft Date of Exam:10/19/16 CHEST PA/LAT (2 VIEW) INDICATION: Shortness of breath and speech difficulty. PA and lateral chest obtained at 1:07 p.m. and compared with 09/14/2016. FINDINGS: Heart and mediastinal silhouette appear unremarkable. The previous PICC line been removed. The previous infiltrate in the right midlung and base appears improved but not entirely resolved. The left lung is grossly clear. There is no pneumothorax or pleural fluid. There is a stable calcified granuloma in the left upper lobe. IMPRESSION: Improvement in right midlung and basilar infiltrate compared to the prior study, without complete resolution. Left lung appears clear. There is no new abnormality. Dictated on workstation # [id number] Dict: 10/19/16 1316 Trans: 10/19/16 1319 KB [id number] Interpreted by: TESS ROMERO MD Electronically signed by: Departure Communication Time/Spoke to Admitting Phy: 13:45 Communication Case reviewed with Dr. Garcia who agrees with admission. He would like to treat hepatic encephalopathy with hydration and lactulose. IV fluids were ordered for treatment of acute renal failure. He was started on cefepime for pneumonia and the pneumonia protocol was used. Impression Impression: Primary Impression: Acute renal failure Qualified Code: N17.9 - Acute kidney failure, unspecified Additional Impressions: Hepatic encephalopathy Pneumonia Qualified Code: J18.9 - Pneumonia, unspecified organism Disposition: ADMITTED INPATIENT Condition: Improved Decision to Admit Reason: Admit from ER (General) Decision to Admit/Date: Oct 19, 2016 Time/Decision to Admit Time: 13:30 Departure-Patient Inst. Referrals: CHERI GARCIA DO (PCP/Family) Primary Care Physician JEROMY JOHNSON MD Oct 19, 2016 13:58
[2016-10-19] MEDS ORDERED: VANCOMYCIN 1250 MG/NS 250 ML IVPB IV NR ×2 (15:30)
[2016-10-19 15:35] VITALS: BP 117/85
[2016-10-19] MEDS: LACTULOSE SYRUP 10GM/15ML (ENULOSE) 30ML UDC PO SCH ×3 (15:39→20:20)
[2016-10-19] MEDS ORDERED: ONDANSETRON 4 MG/2 ML (SDV) Z0FRAN IV PRN (15:45)
[2016-10-19] MEDS: NS IV 1000 ML 1,000 ML IV SCH (15:45)
[2016-10-19 16:00] VITALS: BP 138/81
[2016-10-19] MEDS ORDERED: TRAM50TA2 PO (16:06)
[2016-10-19] MEDS ORDERED: ATEN50TA PO (16:06)
[2016-10-19] MEDS ORDERED: CYCL10TA9 PO (16:06)
[2016-10-19] MEDS ORDERED: LEVOFLOXACIN 750 MG/150 ML IV 150 ML IV SCH (17:00)
[2016-10-19] MEDS ORDERED: RT-ALBUTEROL SULF 2.5 MG/3 ML PRE-MIX VIAL INH PRN (17:15)
--- NOTE | 2016-10-19 19:00 | History & Physicial ---
History of Present Illness History of Present Illness Reason for visit/HPI patient lives in an assisted living place. Patient has been hallucinating for one week. Patient had slurred speech. Patient seems to have some confusion with a history. Patient sent out to the emergency room. Patient states he had pneumonia recently. Blood test shows renal insufficiency acute. Chest x-ray showing pneumonia improving. Patient showing hepatic encephalopathy with an elevated ammonia of 71 Date of Admission Oct 19, 2016 at 14:45 I consulted on this patient on 10/19/16 18:55 Attending Physician Sam Garcia DO Admitting Physician Sam Garcia DO Consult Allergies and Home Medications Allergies Coded Allergies: No Known Drug Allergies (Unverified , 09/02/16) Home Medications Albuterol/Ipratropium 4 Gm Aero 1 PUFF IH Q6H PRN PRN SHORTNESS OF BREATH ( Reported) Atenolol 50 Mg Tablet 50 MG PO DAILY (Reported) Bumetanide 1 Mg Tablet 1 MG PO DAILY (Reported) Cyclobenzaprine HCl 10 Mg Tablet 10 MG PO BID (Reported) Folic Acid 1 Mg Tablet 1 MG PO DAILY (Reported) Guaifenesin 1,200 Mg Tab.er.12h 1,200 MG PO Q12H PRN PRN COUGH (Reported) Iron Polysaccharide Complex 150 Mg Capsule 150 MG PO BID (Reported) Levetiracetam 500 Mg Tablet 500 MG PO BID (Reported) Magnesium Oxide 400 Mg Tablet 400 MG PO BID (Reported) Multivitamin with Minerals 1 Each Tablet 1 TAB PO DAILY (Reported) Pantoprazole Sodium 40 Mg Tablet.dr 40 MG PO DAILY (Reported) Potassium Chloride 20 Meq Tablet.er 20 MEQ PO BID (Reported) Spironolactone 100 Mg Tablet 100 MG PO DAILY (Reported) Tamsulosin HCl 0.4 Mg Cap.er.24h 0.4 MG PO HS (Reported) Thiamine Mononitrate 100 Mg Tablet 100 MG PO DAILY (Reported) Tramadol HCl 50 Mg Tablet 50 MG PO BID (Reported) Past Pxisorg-Mecxtg-Onvvca Hx Patient Social History Alcohol Use: Past History Recreational Drug Use: No Smoking Status: Never a Smoker Physical Abuse Screen: No Sexual Abuse: No Recent Foreign Travel: No Contact w/other who traveled: No Recent Hopitalizations: No Recent Infectious Disease Expo: No Immunizations Up To Date Tetanus Booster (TDap): Unknown Date of Pneumonia Vaccine: May 07, 2016 Date of Influenza Vaccine: Apr 06, 2016 Seasonal Allergies Seasonal Allergies: No Surgeries HX Surgeries: No Respiratory Hx Respiratory Disorders: Yes (INHALER AT HOME, MRSA PNEUMONIA, PULM EDEMA) Respiratory Disorders: Pneumonia Cardiovascular Hx Cardiovascular Disorders: Yes (CHF) Cardiac Disorders: Hypertension Neurological Hx Neurological Disorders: Yes (METABOLIC ENCEPHALOPATHY, ONDINA) Reproductive System Hx Reproductive Disorders: No HIV/AIDS: No Genitourinary Hx Genitourinary Disorders: Yes Genitourinary Disorders: Kidney Infection, Prostate Problems, Renal Failure Gastrointestinal Hx Gastrointestinal Disorders: No (HEP B/HEPC, CHRONIC LIVER CIRRHOSIS, ANEMIA) Gastrointestinal Disorders: Liver Disease/Jaundice, Gastrointestinal Bleed, Chronic Constipation, Chronic Diarrhea Musculoskeletal Hx Musculoskeletal Disorders: Yes Musculoskeletal Disorders: Arthritis Endocrine Hx Endocrine Disorders: Yes Endocrine Disorders: Diabetes, Non-Insulin dep HEENT HX ENT Disorders: No Loss of Vision: Denies Hearing Impairment: Denies Cancer Hx Cancer: No Psychosocial Hx Psychiatric Problems: Yes Behavioral Health Disorders: Depression Integumentary HX Skin/Integumentary Disorder: No (DENIES ) Blood Transfusions Hx Blood Disorders: No Adverse Reaction to a Blood Tr: No Family Medical History Family Hx: Patient reports no known family medical history. Constitutional: malaise weakness other (patient has unsteady gait and having trouble walking using walker) EENTM: no symptoms reported Respiratory: no symptoms reported Cardiovascular: no symptoms reported Gastrointestinal: no symptoms reported Genitourinary: no symptoms reported Physical Exam Vital Signs Vital Sign - Last 12Hours 10/19/16 12:11 Temp 98.2 Pulse 95 Resp 16 B/P 112/84 Pulse Ox 94 O2 Delivery Room Air Capillary Refill : Less Than 3 Seconds General Appearance: No Apparent Distress Other (unsteady gait trouble with a walker) HEENT: Normal ENT Inspection Neck: Normal Inspection Respiratory: Chest Non Tender Normal Breath Sounds No Accessory Muscle Use No Respiratory Distress Decreased Breath Sounds Cardiovascular: Regular Rate, Rhythm No Murmur Gastrointestinal: Non Tender Soft Assessment/Plan Assessment and Plan acute renal failure. Resolving pneumonia. Hepatic encephalopathy. Confusion. Clinical Quality Measures DVT/VTE Risk/Contraindication: Risk Factor Score Per Nursin RFS Level Per Nursing on Admit: 4+=Very High SAM GARCIA DO Oct 19, 2016 18:59
[2016-10-19 20:00] VITALS: BP 117/75
[2016-10-19] MEDS: RT-ALBUTEROL SULF 2.5 MG/3 ML PRE-MIX VIAL INH SCH (20:20)
[2016-10-19] MEDS: ENOXAPARIN 40 MG/0.4 ML (LOVENOX) SYR SC SCH (20:21)
[2016-10-20] VITALS: BP 102/67
[2016-10-20] MEDS: NS IV 1000 ML 1,000 ML IV SCH ×3 (01:44→22:52)
[2016-10-20 04:22] VITALS: BP 110/72
[2016-10-20 06:13] LABS: BASOPHILS # (AUTO) 0.1 10^3/uL (0.0-0.1); BASOPHILS % (AUTO) 1 % (0-10); EOSINOPHILS # (AUTO) 0.9 10^3/uL (0.0-0.3); EOSINOPHILS % (AUTO) 11 % (0-10); LYMPHOCYTES # (AUTO) 1.8 X 10^3 (1.0-4.0); LYMPHOCYTES % (AUTO) 21 % (12-44); MEAN CORPUSCULAR HEMOGLOBIN 31 PG (25-34); MEAN CORPUSCULAR HGB CONC 34 G/DL (32-36); MEAN CORPUSCULAR VOLUME 92 FL (80-99); MEAN PLATELET VOLUME 11.9 FL (7.4-10.4); MONOCYTES # (AUTO) 0.8 X 10^3 (0.0-1.0); MONOCYTES % (AUTO) 9 % (0-12); NEUTROPHILS # (AUTO) 5.3 X 10^3 (1.8-7.8); NEUTROPHILS % (AUTO) 60 % (42-75); PLATELET COUNT 93 10^3/uL (130-400); RED BLOOD COUNT 3.64 10^6/uL (4.35-5.85); RED CELL DISTRIBUTION WIDTH 12.3 % (10.0-14.5); WHITE BLOOD COUNT 8.9 10^3/uL (4.3-11.0)
[2016-10-20 06:36] LABS: ALBUMIN 3.2 G/DL (3.2-4.5); BILIRUBIN,TOTAL 1.8 MG/DL (0.1-1.0); CALCIUM 9.7 MG/DL (8.5-10.1); CREATININE SERUM 2.03 MG/DL (0.60-1.30); POTASSIUM 4.2 MMOL/L (3.6-5.0); TOTAL PROTEIN 6.7 G/DL (6.4-8.2)
[2016-10-20] MEDS: RT-ALBUTEROL SULF 2.5 MG/3 ML PRE-MIX VIAL INH SCH ×3 (06:36→20:15)
[2016-10-20 08:00] VITALS: BP 112/67
--- NOTE | 2016-10-20 08:20 | Progress Note (SOAP) ---
Subjective Subjective/Events-last exam patient more alert today. Patient know where he is at. Hepatic encephalopathy. Improving pneumonia. Acute renal failure improving Objective Exam Vital Signs Date Time Temp Pulse Resp B/P Pulse Ox O2 Delivery O2 Flow Rate FiO2 10/20/16 06:38 98 10/20/16 04:22 98.2 93 20 110/72 98 Room Air 10/20/16 00:00 98.8 93 16 102/67 96 Room Air 10/19/16 20:21 98 10/19/16 20:00 97.1 95 20 117/75 99 Room Air 10/19/16 17:00 96 10/19/16 17:00 96 10/19/16 16:00 97.0 89 18 138/81 96 Room Air 10/19/16 15:35 98.2 95 18 117/85 97 Room Air 10/19/16 15:00 98.2 89 16 95 10/19/16 12:11 98.2 95 16 112/84 94 Room Air I & O 10/20/16 06:59 Intake Total 3052.5 ml Output Total 525 ml Balance 2527.5 ml Capillary Refill : Less Than 3 Seconds General Appearance: No Apparent Distress WD/WN HEENT: Normal ENT Inspection Neck: Full Range of Motion Normal Inspection Non Tender Respiratory: Chest Non Tender Lungs Clear Normal Breath Sounds No Accessory Muscle Use No Respiratory Distress Cardiovascular: Regular Rate, Rhythm No Edema No Murmur Gastrointestinal: non tender soft Results Lab Laboratory Tests 10/19/16 12:10: Urine Bacteria NEGATIVE, Urine Bilirubin NEGATIVE, Urine Casts NONE, Urine Clarity CLEAR, Urine Color YELLOW, Urine Crystals NONE, Urine Culture Indicated NO, Urine Glucose (UA) NEGATIVE, Urine Ketones NEGATIVE, Urine Leukocyte Esterase NEGATIVE, Urine Mucus NEGATIVE, Urine Nitrite NEGATIVE, Urine Protein NEGATIVE, Urine RBC NONE, Urine RBC (Auto) NEGATIVE, Urine Specific [place] 1.015L, Urine Squamous Epithelial Cells NONE, Urine Urobilinogen NORMAL, Urine WBC RARE, Urine Yeast MODERATEH, Urine pH 6.5 10/19/16 12:40: Alanine Aminotransferase (ALT/SGPT) 33, Albumin 3.7, Alkaline Phosphatase 91, Ammonia 71H, Anion Gap 11, Aspartate Amino Transf (AST/SGOT) 44H, BUN/ Creatinine Ratio 19, Basophils # (Auto) 0.0, Basophils (%) (Auto) 0, Blood Urea Nitrogen 48H, Calcium Level 9.9, Carbon Dioxide Level 23, Chloride Level 99, Creatinine 2.49H, Eosinophils # (Auto) 0.7H, Eosinophils (%) (Auto) 6, Estimat Glomerular Filtration Rate 27, Glucose Level 117H, Hematocrit 36L, Hemoglobin 12.4L, Lymphocytes # (Auto) 1.3, Lymphocytes (%) (Auto) 10L, Mean Corpuscular Hemoglobin 31, Mean Corpuscular Hemoglobin Concent 34, Mean Corpuscular Volume 91, Mean Platelet Volume 11.3H, Monocytes # (Auto) 0.9, Monocytes (%) (Auto) 7, Neutrophils # (Auto) 10.0H, Neutrophils (%) (Auto) 77H, Platelet Count 110L, Potassium Level 4.6, Red Blood Count 3.98L, Red Cell Distribution Width 12.2, Sodium Level 133L, Total Bilirubin 1.3H, Total Protein 7.5, White Blood Count 12.9H 10/19/16 13:49: Lactic Acid Level 2.0 10/20/16 05:14: Alanine Aminotransferase (ALT/SGPT) 27, Albumin 3.2, Alkaline Phosphatase 77, Anion Gap 11, Aspartate Amino Transf (AST/SGOT) 37H, BUN/Creatinine Ratio 20, Basophils # (Auto) 0.1, Basophils (%) (Auto) 1, Blood Urea Nitrogen 40H, Calcium Level 9.7, Carbon Dioxide Level 21, Chloride Level 103, Creatinine 2.03H , Eosinophils # (Auto) 0.9H, Eosinophils (%) (Auto) 11H, Estimat Glomerular Filtration Rate 34, Glucose Level 83, Hematocrit 33L, Hemoglobin 11.3L, Lymphocytes # (Auto) 1.8, Lymphocytes (%) (Auto) 21, Mean Corpuscular Hemoglobin 31, Mean Corpuscular Hemoglobin Concent 34, Mean Corpuscular Volume 92, Mean Platelet Volume 11.9H, Monocytes # (Auto) 0.8, Monocytes (%) (Auto) 9, Neutrophils # (Auto) 5.3, Neutrophils (%) (Auto) 60, Platelet Count 93L, Potassium Level 4.2, Red Blood Count 3.64L, Red Cell Distribution Width 12.3, Sodium Level 135, Total Bilirubin 1.8H, Total Protein 6.7, White Blood Count 8.9 Assessment/Plan Assessment/Plan Assess & Plan/Chief Complaint acute respiratory failure. Resolving pneumonia. Hepatic encephalopathy. Patient having less confusion. Kidney function improving Diagnosis/Problems: Clinical Quality Measures DVT/VTE Risk/Contraindication: Risk Factor Score Per Nursin RFS Level Per Nursing on Admit: 4+=Very High CHERI GARCIA DO Oct 20, 2016 08:20
[2016-10-20] MEDS: LACTULOSE SYRUP 10GM/15ML (ENULOSE) 30ML UDC PO SCH ×4 (08:52→21:51)
[2016-10-20] MEDS: ATENOLOL 50 MG (TENORMIN) TAB PO SCH (10:06)
[2016-10-20] MEDS: PANTOPRAZOLE 40 MG (PROTONIX) TAB PO SCH (10:06)
[2016-10-20] MEDS: THIAMINE 100 MG (VITAMIN B-1) TAB PO SCH (10:07)
[2016-10-20] MEDS: FOLIC ACID 1 MG TAB PO SCH (10:07)
[2016-10-20] MEDS: LEVETIRACETAM 500 MG (KEPPRA) TAB PO SCH ×2 (10:07→21:51)
[2016-10-20] MEDS: MAGNESIUM OXIDE (MAG-OX)400 MG TAB PO SCH ×2 (10:07→21:51)
[2016-10-20] MEDS: IRON POLYSAC 150 MG CAP (NIFEREX) PO SCH ×2 (10:07→21:51)
[2016-10-20 12:00] VITALS: BP 142/61
[2016-10-20] MEDS: CEFEPIME 2 GM/NS 50 ML IVPB IV SCH ×2 (13:48)
[2016-10-20] MEDS ORDERED: VANCOMYCIN 1 GM/NS 250 ML IVPB IV SCH ×2 (15:00)
[2016-10-20 16:00] VITALS: BP 113/79
[2016-10-20] MEDS: ENOXAPARIN 40 MG/0.4 ML (LOVENOX) SYR SC SCH (17:42)
[2016-10-20] MEDS: ALFUZOSIN HCL 10 MG TAB (UROXATRAL) PO SCH (17:45)
[2016-10-20 20:00] VITALS: BP 110/76
[2016-10-21] VITALS: BP 112/73
[2016-10-21 04:00] VITALS: BP 114/62
[2016-10-21 05:29] LABS: BASOPHILS % (AUTO) 1 % (0-10); EOSINOPHILS # (AUTO) 0.5 10^3/uL (0.0-0.3); EOSINOPHILS % (AUTO) 11 % (0-10); LYMPHOCYTES # (AUTO) 1.3 X 10^3 (1.0-4.0); LYMPHOCYTES % (AUTO) 27 % (12-44); MEAN CORPUSCULAR HEMOGLOBIN 31 PG (25-34); MEAN CORPUSCULAR HGB CONC 34 G/DL (32-36); MEAN CORPUSCULAR VOLUME 92 FL (80-99); MEAN PLATELET VOLUME 11.6 FL (7.4-10.4); MONOCYTES # (AUTO) 0.4 X 10^3 (0.0-1.0); MONOCYTES % (AUTO) 9 % (0-12); NEUTROPHILS # (AUTO) 2.6 X 10^3 (1.8-7.8); NEUTROPHILS % (AUTO) 53 % (42-75); PLATELET COUNT 72 10^3/uL (130-400); RED BLOOD COUNT 3.27 10^6/uL (4.35-5.85); RED CELL DISTRIBUTION WIDTH 12.3 % (10.0-14.5); WHITE BLOOD COUNT 4.9 10^3/uL (4.3-11.0)
[2016-10-21 05:56] LABS: BILIRUBIN,TOTAL 1.2 MG/DL (0.1-1.0); CALCIUM 9.3 MG/DL (8.5-10.1); CREATININE SERUM 1.5 MG/DL (0.60-1.30); POTASSIUM 4.2 MMOL/L (3.6-5.0); TOTAL PROTEIN 5.8 G/DL (6.4-8.2)
[2016-10-21] MEDS: RT-ALBUTEROL SULF 2.5 MG/3 ML PRE-MIX VIAL INH SCH ×3 (06:35→18:57)
[2016-10-21 08:00] VITALS: BP 105/56
--- NOTE | 2016-10-21 08:08 | Progress Note (SOAP) ---
Subjective Subjective/Events-last exam patient improving. Patient still doesn't know the date. Serum ammonia normal. Patient overall more alert Objective Exam Vital Signs Date Time Temp Pulse Resp B/P Pulse Ox O2 Delivery O2 Flow Rate FiO2 10/21/16 06:38 95 10/21/16 04:00 97.7 98 16 114/62 96 Room Air 10/21/16 00:00 98.6 99 20 112/73 100 Room Air 10/20/16 20:15 98 10/20/16 20:00 96.2 91 20 110/76 97 Room Air 10/20/16 16:00 98.4 90 20 113/79 100 Room Air 10/20/16 12:20 96 10/20/16 12:00 97.8 90 20 142/61 100 Room Air I & O 10/21/16 07:00 Intake Total 4540 ml Output Total 1860 ml Balance 2680 ml Capillary Refill : Less Than 3 Seconds General Appearance: No Apparent Distress WD/WN HEENT: Normal ENT Inspection Neck: Normal Inspection Respiratory: Chest Non Tender Lungs Clear Normal Breath Sounds No Accessory Muscle Use No Respiratory Distress Cardiovascular: Regular Rate, Rhythm No Murmur Gastrointestinal: non tender soft Results Lab Laboratory Tests 10/20/16 19:31: Ammonia 34H 10/21/16 05:20: Ammonia 31, Alanine Aminotransferase (ALT/SGPT) 25, Albumin 3.0L, Alkaline Phosphatase 69, Anion Gap 8, Aspartate Amino Transf (AST/SGOT) 29, BUN/ Creatinine Ratio 18, Basophils # (Auto) 0.0, Basophils (%) (Auto) 1, Blood Urea Nitrogen 27H, Calcium Level 9.3, Carbon Dioxide Level 18L, Chloride Level 109H, Creatinine 1.50H, Eosinophils # (Auto) 0.5H, Eosinophils (%) (Auto) 11H, Estimat Glomerular Filtration Rate 49, Glucose Level 99, Hematocrit 30L, Hemoglobin 10.1L, Lymphocytes # (Auto) 1.3, Lymphocytes (%) (Auto) 27, Mean Corpuscular Hemoglobin 31, Mean Corpuscular Hemoglobin Concent 34, Mean Corpuscular Volume 92, Mean Platelet Volume 11.6H, Monocytes # (Auto) 0.4, Monocytes (%) (Auto) 9, Neutrophils # (Auto) 2.6, Neutrophils (%) (Auto) 53, Platelet Count 72L, Potassium Level 4.2, Red Blood Count 3.27L, Red Cell Distribution Width 12.3, Sodium Level 135, Total Bilirubin 1.2H, Total Protein 5.8L, White Blood Count 4.9 Microbiology 10/19/16 Blood Culture - Preliminary, Resulted No growth Assessment/Plan Assessment/Plan Assess & Plan/Chief Complaint acute respiratory failure. Resolving pneumonia. Hepatic encephalopathy. Patient having less confusion. Kidney function improving. . 10/21/16. Acute respiratory failure better. Hepatic encephalopathy improving serum ammonia normal now. Patient having less confusion but still having confusion. Patient does not know the date area Kidney function improving Diagnosis/Problems: Clinical Quality Measures DVT/VTE Risk/Contraindication: Risk Factor Score Per Nursin RFS Level Per Nursing on Admit: 4+=Very High CHERI GARCIA DO Oct 21, 2016 08:08
--- NOTE | 2016-10-21 08:08 | Diagnostic Imaging Report ---
Portable upright radiograph of the chest. INDICATION: Pneumonia. COMPARISON: 10/19/16. FINDINGS: There is improvement in the lateral mid lung infiltrates seen bilaterally. The heart size is mildly enlarged. There is a no effusion or pneumothorax. The mediastinum and aric appear unremarkable. IMPRESSION: Minimal remaining lateral mid lung infiltrates more on the right side. Dictated by: Dictated on workstation # [id number]
[2016-10-21] MEDS ORDERED: CATHETER FLUSH 10 ML SYR IV PRN (09:45)
[2016-10-21] MEDS: IRON POLYSAC 150 MG CAP (NIFEREX) PO SCH ×2 (09:54→20:43)
[2016-10-21] MEDS: LACTULOSE SYRUP 10GM/15ML (ENULOSE) 30ML UDC PO SCH ×4 (09:54→20:43)
[2016-10-21] MEDS: LEVETIRACETAM 500 MG (KEPPRA) TAB PO SCH ×2 (09:54→20:43)
[2016-10-21] MEDS: FOLIC ACID 1 MG TAB PO SCH (09:54)
[2016-10-21] MEDS: THIAMINE 100 MG (VITAMIN B-1) TAB PO SCH (09:54)
[2016-10-21] MEDS: PANTOPRAZOLE 40 MG (PROTONIX) TAB PO SCH (09:54)
[2016-10-21] MEDS: ATENOLOL 50 MG (TENORMIN) TAB PO SCH (09:54)
[2016-10-21] MEDS: MAGNESIUM OXIDE (MAG-OX)400 MG TAB PO SCH ×2 (09:54→20:43)
--- NOTE | 2016-10-21 11:48 | Physical Therapy Evaluation ---
PT Evaluation-General Medical Diagnosis Admission Date Oct 19, 2016 at 14:45 Medical Diagnosis: hepatic encephalopathy Onset Date: Oct 19, 2016 Therapy Diagnosis Therapy Diagnosis: debility Height/Weight Height (Feet): 5 Height (Inches): 8.00 Weight (Pounds): 184 Weight (Ounces): 8.0 Precautions Precautions/Isolations: Fall Prevention, Standard Precautions Referral Physician: Chrissie Reason for Referral: Evaluation/Treatment Medical History Pertinent Medical History: Atrial Fib, Alcoholism, DM, GERD, HTN, Renal Insufficiency Current History hallucinating x 1 wk at [place] slurred speech Reviewed History: Yes Social History Home: Assisted Living Prior/Core FIM Prior Level of Function Functional [place] Measure 0=Not Assessed/NA 4=Minimal Assistance 1=Total Assistance 5=Supervision or Setup 2=Maximal Assistance 6=Modified [place] 3=Moderate Assistance 7=Complete [place] Bed Mobility: 6 Transfers (B,C,W/C) (FIM): 6 Gait: 6 PT Evaluation-Current Subjective Patient agrees to PT. Pain Numeric Pain Scale: 0-No Pain Location: No Pain Reported Objective Patient Orientation: Person, Time, Mumbles Problem Solving: Fair ROM/Strength ROM Lower Extremities bilateral LE WFL Strenght Lower Extremities bilateral LE WFL Integumentary/Posture Integumentary refer to nursing notes Bowel Incontinence: No Bladder Incontinence: No Posture WNL Neuromuscular (Tone, Coordination, Reflexes) grossly intactd Sensory Vision: Functional Hearing: Functional Sensation Right Lower Extremit: Impaired Sensation Left Lower Extremity: Impaired Transfers Functional G[place] Measure 0=Not Assessed/NA 4=Minimal Assistance 1=Total Assistance 5=Supervision or Setup 2=Maximal Assistance 6=Modified [place] 3=Moderate Assistance 7=Complete G[place] Transfers (B, C, W/C) (FIM): 6 Scootin Rollin Supine to/from Sit: 6 Sit to/from Stand: 6 Gait Mode of Locomotion: Walk Anticipated Mode of Locomotion: Walk Gait (FIM): 6 Distance (FIM): 3=150 ft Distance: 300' Gait Level of Assist: 6 Gait Assistive Device: FWW Comments/Gait Description safe and functional Balance Sitting Static: Normal Sitting Dynamic: Normal Standing Static: Normal Standing Dynamic: Normal Assessment/Needs 56 y.o. male, will be seen x 2 sessions to ensure safe functional mobility to return to [place] at maximum LOF. Rehab Potential: Good PT Short Term Goals Short Term Goals Time Frame: Oct 23, 2016 Transfers (B,C,W/C) (FIM): 6 Gait (FIM): 6 Distance (FIM): 3=150 ft Gait Level of Assist: 6 Gait Assistive Device: FWW PT Plan Treatment/Plan Treatment Plan: Continue Plan of Care Treatment Plan: Education, Functional Activity Felisha, Functional Strength, Gait , Safety, Therapeutic Exercise Treatment Duration: Oct 23, 2016 # of days/week 2 Visits Per Week: 2 Pt/Family Agrees w/Plan: Yes Time/GCodes Time In: 1115 Time Out: 1130 Total Billed Treatment Time: 15 Total Billed Treatment 1 visit EVLowC 15 min G Codes Necessary: No JOANN TUTTLE PT Oct 21, 2016 11:48
[2016-10-21 12:47] VITALS: BP 134/87
[2016-10-21] MEDS: CEFEPIME 2 GM/NS 50 ML IVPB IV SCH ×2 (13:25)
[2016-10-21] MEDS: CATHETER FLUSH 10 ML SYR IV SCH ×2 (13:25→20:43)
[2016-10-21] MEDS ORDERED: TROUGH ORDER-PHARMACY XX NR (14:00)
[2016-10-21 16:36] VITALS: BP 137/86
[2016-10-21] MEDS: ALFUZOSIN HCL 10 MG TAB (UROXATRAL) PO SCH (16:38)
[2016-10-21] MEDS: ENOXAPARIN 40 MG/0.4 ML (LOVENOX) SYR SC SCH (16:38)
[2016-10-21 20:50] VITALS: BP 138/87
[2016-10-22] VITALS: BP 110/76
[2016-10-22 04:00] VITALS: BP 125/72
[2016-10-22] MEDS: CATHETER FLUSH 10 ML SYR IV SCH ×3 (05:47→20:18)
[2016-10-22 05:57] LABS: BASOPHILS % (AUTO) 1 % (0-10); EOSINOPHILS # (AUTO) 0.5 10^3/uL (0.0-0.3); EOSINOPHILS % (AUTO) 11 % (0-10); LYMPHOCYTES # (AUTO) 1.1 X 10^3 (1.0-4.0); LYMPHOCYTES % (AUTO) 26 % (12-44); MEAN CORPUSCULAR HEMOGLOBIN 31 PG (25-34); MEAN CORPUSCULAR HGB CONC 34 G/DL (32-36); MEAN CORPUSCULAR VOLUME 93 FL (80-99); MEAN PLATELET VOLUME 11.7 FL (7.4-10.4); MONOCYTES # (AUTO) 0.3 X 10^3 (0.0-1.0); MONOCYTES % (AUTO) 8 % (0-12); NEUTROPHILS # (AUTO) 2.4 X 10^3 (1.8-7.8); NEUTROPHILS % (AUTO) 55 % (42-75); PLATELET COUNT 72 10^3/uL (130-400); RED BLOOD COUNT 3.24 10^6/uL (4.35-5.85); RED CELL DISTRIBUTION WIDTH 11.9 % (10.0-14.5); WHITE BLOOD COUNT 4.4 10^3/uL (4.3-11.0)
[2016-10-22 06:23] LABS: ALBUMIN 3.1 G/DL (3.2-4.5); BILIRUBIN,TOTAL 1.1 MG/DL (0.1-1.0); CALCIUM 9.5 MG/DL (8.5-10.1); CREATININE SERUM 1.52 MG/DL (0.60-1.30); POTASSIUM 4.5 MMOL/L (3.6-5.0); TOTAL PROTEIN 6.4 G/DL (6.4-8.2)
[2016-10-22 08:00] VITALS: BP 124/72
--- NOTE | 2016-10-22 08:35 | Progress Note (SOAP) ---
Subjective Subjective/Events-last exam patient states she's feeling better today. Patient states is less confused. Patient knows where he is at. Patient does not know the date or the year. Chest x-ray shows improvement. Blood tests look better. Plan to discharge tomorrow. Blood cultures coagulase negative staph sensitive to doxycycline Objective Exam Vital Signs Date Time Temp Pulse Resp B/P Pulse Ox O2 Delivery O2 Flow Rate FiO2 10/22/16 04:00 98.7 115 21 125/72 96 Room Air 10/22/16 00:00 98.2 99 17 110/76 96 Room Air 10/21/16 20:50 98.8 90 18 138/87 95 Room Air 10/21/16 18:57 97 10/21/16 16:36 97.5 104 18 137/86 94 Room Air 10/21/16 12:47 97.2 87 20 134/87 93 Room Air 10/21/16 12:31 97 I & O 10/22/16 07:00 Intake Total 4070 ml Output Total 250 ml Balance 3820 ml Capillary Refill : Less Than 3 Seconds General Appearance: No Apparent Distress WD/WN HEENT: Normal ENT Inspection Neck: Full Range of Motion Normal Inspection Non Tender Respiratory: Chest Non Tender Lungs Clear Normal Breath Sounds No Accessory Muscle Use No Respiratory Distress Cardiovascular: Regular Rate, Rhythm No Murmur Gastrointestinal: non tender soft Results Lab Laboratory Tests 10/22/16 05:30: Alanine Aminotransferase (ALT/SGPT) 28, Albumin 3.1L, Alkaline Phosphatase 81, Anion Gap 10, Aspartate Amino Transf (AST/SGOT) 38H, BUN/Creatinine Ratio 16, Basophils # (Auto) 0.0, Basophils (%) (Auto) 1, Blood Urea Nitrogen 25H, Calcium Level 9.5, Carbon Dioxide Level 17L, Chloride Level 107, Creatinine 1.52H, Eosinophils # (Auto) 0.5H, Eosinophils (%) (Auto) 11H, Estimat Glomerular Filtration Rate 48, Glucose Level 114H, Hematocrit 30L, Hemoglobin 10.1L, Lymphocytes # (Auto) 1.1, Lymphocytes (%) (Auto) 26, Mean Corpuscular Hemoglobin 31, Mean Corpuscular Hemoglobin Concent 34, Mean Corpuscular Volume 93, Mean Platelet Volume 11.7H, Monocytes # (Auto) 0.3, Monocytes (%) (Auto) 8, Neutrophils # (Auto) 2.4, Neutrophils (%) (Auto) 55, Platelet Count 72L, Potassium Level 4.5, Red Blood Count 3.24L, Red Cell Distribution Width 11.9, Sodium Level 134L, Total Bilirubin 1.1H, Total Protein 6.4, White Blood Count 4.4 Microbiology 10/19/16 Blood Culture - Preliminary, Resulted No growth Assessment/Plan Assessment/Plan Assess & Plan/Chief Complaint acute respiratory failure. Resolving pneumonia. Hepatic encephalopathy. Patient having less confusion. Kidney function improving. . 10/21/16. Acute respiratory failure better. Hepatic encephalopathy improving serum ammonia normal now. Patient having less confusion but still having confusion. Patient does not know the date area Kidney function improving. . Acute respiratory failure better. Resolving pneumonia. Hepatic encephalopathy. Patient states she's having less confusion knows where he sat today. Patient does not know the date or the year. Chest x-ray shows pneumonia resolving Diagnosis/Problems: Clinical Quality Measures DVT/VTE Risk/Contraindication: Risk Factor Score Per Nursin RFS Level Per Nursing on Admit: 4+=Very High CHERI GARCIA DO Oct 22, 2016 08:35
[2016-10-22] MEDS: RT-ALBUTEROL SULF 2.5 MG/3 ML PRE-MIX VIAL INH SCH (09:03)
[2016-10-22] MEDS: FOLIC ACID 1 MG TAB PO SCH (09:18)
[2016-10-22] MEDS: MAGNESIUM OXIDE (MAG-OX)400 MG TAB PO SCH ×2 (09:18→20:17)
[2016-10-22] MEDS: DOXYCYCLINE 100 MG (VIBRAMYCIN) TABLET PO SCH ×2 (09:18→17:08)
[2016-10-22] MEDS: PANTOPRAZOLE 40 MG (PROTONIX) TAB PO SCH (09:18)
[2016-10-22] MEDS: THIAMINE 100 MG (VITAMIN B-1) TAB PO SCH (09:18)
[2016-10-22] MEDS: LACTULOSE SYRUP 10GM/15ML (ENULOSE) 30ML UDC PO SCH ×4 (09:18→20:17)
[2016-10-22] MEDS: ATENOLOL 50 MG (TENORMIN) TAB PO SCH (09:18)
[2016-10-22] MEDS: LEVETIRACETAM 500 MG (KEPPRA) TAB PO SCH ×2 (09:18→20:17)
[2016-10-22] MEDS: IRON POLYSAC 150 MG CAP (NIFEREX) PO SCH ×2 (09:24→20:17)
--- NOTE | 2016-10-22 11:51 | Physical Therapy Daily Note ---
PT Daily Note-Current Subjective Patient is very agreeable to participate with PT. Pain Numeric Pain Scale: 0-No Pain Location: No Pain Reported Mental Status Patient Orientation: Normal For Age Transfers Functional [place] Measure 0=Not Assessed/NA 4=Minimal Assistance 1=Total Assistance 5=Supervision or Setup 2=Maximal Assistance 6=Modified [place] 3=Moderate Assistance 7=Complete IndependenceIRFPAI Quality Coding Scale 6 Independent with activity with or without an assistive device 5 Patient requires set up or clean up by helper. Patient completes activity by themselves 4 Supervision or touching assist (CGA). [place] provide cues , steadying assist 3 The helper provides less than half the effort to complete the activity 2 The helper provides more than half the effort to complete the activity 1 Dependent. The helper does all the effort to complete an activity 7 Patient refused to complete or attempt activity 9 The patient did not perform the activity before the current illness or injury 88 Not attempted due to Medical conditions or safety concerns Transfers (B, C, W/C) (FIM): 7 Scootin Rollin Supine to/from Sit: 7 Sit to/from Stand: 7 Gait Training Gait (FIM): 7 Distance (FIM): 3=150 ft Distance: 450' Gait Level of Assist: 7 Gait Assistive Device: FWW safe and functional Assessment Patient is currently at [facility] with all gross motor skills and is able to continue independently PRN. PT to dismiss from services at this time. PT Short Term Goals Short Term Goals Time Frame: Oct 23, 2016 Transfers (B,C,W/C) (FIM): 6 Gait (FIM): 6 Distance (FIM): 3=150 ft Gait Level of Assist: 6 Gait Assistive Device: FWW PT Plan Treatment/Plan Treatment Plan: Discontinue PT, goals met Treatment Plan: Education, Functional Activity Felisha, Functional Strength, Gait , Safety, Therapeutic Exercise Treatment Duration: Oct 23, 2016 Visits Per Week: 2 Time/GCodes Time In: 1100 Time Out: 1110 Total Billed Treatment Time: 10 Total Billed Treatment 1 visit FA 10 min G Codes Necessary: JOANN Knapp PT Oct 22, 2016 11:51
[2016-10-22] MEDS: CEFEPIME 2 GM/NS 50 ML IVPB IV SCH ×2 (14:20)
[2016-10-22 16:41] VITALS: BP 133/86
[2016-10-22] MEDS: ENOXAPARIN 40 MG/0.4 ML (LOVENOX) SYR SC SCH (17:08)
[2016-10-22] MEDS: ALFUZOSIN HCL 10 MG TAB (UROXATRAL) PO SCH (17:08)
[2016-10-23 00:42] VITALS: BP 104/64
[2016-10-23 05:12] LABS: MEAN PLATELET VOLUME 11.6 FL (7.4-10.4); RED BLOOD COUNT 3.12 10^6/uL (4.35-5.85)
[2016-10-23 05:36] LABS: BILIRUBIN,TOTAL 0.7 MG/DL (0.1-1.0); CALCIUM 9.3 MG/DL (8.5-10.1); CREATININE SERUM 1.46 MG/DL (0.60-1.30); POTASSIUM 4.2 MMOL/L (3.6-5.0); TOTAL PROTEIN 6.2 G/DL (6.4-8.2)
[2016-10-23] MEDS: CATHETER FLUSH 10 ML SYR IV SCH (06:40)
[2016-10-23] MEDS: DOXYCYCLINE 100 MG (VIBRAMYCIN) TABLET PO SCH (06:40)
--- NOTE | 2016-10-23 07:41 | Progress Note (SOAP) ---
Subjective Subjective/Events-last exam patient doing better today. Plan to discharge today. Kidney function is good. White blood cell count 4000. Waiting on chest x-ray to be done. Patient more alert Objective Exam Vital Signs Date Time Temp Pulse Resp B/P Pulse Ox O2 Delivery O2 Flow Rate FiO2 10/23/16 00:42 98.5 92 20 104/64 99 Room Air 10/22/16 18:47 98 10/22/16 16:41 96.3 93 18 133/86 99 Room Air 10/22/16 09:03 98 10/22/16 09:03 98 10/22/16 08:00 97.1 93 20 124/72 97 Room Air I & O 10/23/16 07:00 Intake Total 4100 ml Balance 4100 ml Capillary Refill : Less Than 3 Seconds General Appearance: No Apparent Distress WD/WN HEENT: Normal ENT Inspection Neck: Full Range of Motion Normal Inspection Respiratory: Chest Non Tender Lungs Clear Normal Breath Sounds No Accessory Muscle Use No Respiratory Distress Cardiovascular: Regular Rate, Rhythm No Murmur Gastrointestinal: non tender soft Results Lab Laboratory Tests 10/23/16 03:25: Alanine Aminotransferase (ALT/SGPT) 30, Albumin 3.0L, Alkaline Phosphatase 81, Ammonia 39H, Anion Gap 10, Aspartate Amino Transf (AST/SGOT) 38H, BUN/ Creatinine Ratio 14, Blood Urea Nitrogen 21H, Calcium Level 9.3, Carbon Dioxide Level 16L, Chloride Level 110H, Creatinine 1.46H, Estimat Glomerular Filtration Rate 50, Glucose Level 99, Hematocrit 29L, Hemoglobin 9.6L, Mean Corpuscular Hemoglobin 31, Mean Corpuscular Hemoglobin Concent 34, Mean Corpuscular Volume 92, Mean Platelet Volume 11.6H, Platelet Count 71L, Potassium Level 4.2, Red Blood Count 3.12L, Red Cell Distribution Width 12.0, Sodium Level 136, Total Bilirubin 0.7, Total Protein 6.2L, White Blood Count 4.0L Microbiology 10/19/16 Blood Culture - Preliminary, Resulted No growth Assessment/Plan Assessment/Plan Assess & Plan/Chief Complaint acute respiratory failure. Resolving pneumonia. Hepatic encephalopathy. Patient having less confusion. Kidney function improving. . 10/21/16. Acute respiratory failure better. Hepatic encephalopathy improving serum ammonia normal now. Patient having less confusion but still having confusion. Patient does not know the date area Kidney function improving. . Acute respiratory failure better. Resolving pneumonia. Hepatic encephalopathy. Patient states she's having less confusion knows where he sat today. Patient does not know the date or the year. Chest x-ray shows pneumonia resolving. . 10/23/16. Acute respiratory failure resolved. Hepatic encephalopathy better. Serum ammonia normal. Renal insufficiency better GFR 50 area Patient more alert. Waiting on chest x-ray report and to be done. Plan to discharge today Diagnosis/Problems: Clinical Quality Measures DVT/VTE Risk/Contraindication: Risk Factor Score Per Nursin RFS Level Per Nursing on Admit: 4+=Very High CHERI GARCIA DO Oct 23, 2016 07:41
[2016-10-23] MEDS ORDERED: DOXY100T2 PO (07:43)
[2016-10-23] MEDS ORDERED: CEFD300C3 PO ×2 (07:43→10:35)
[2016-10-23 08:00] VITALS: BP 113/64
[2016-10-23] MEDS: IRON POLYSAC 150 MG CAP (NIFEREX) PO SCH (08:10)
[2016-10-23] MEDS: MAGNESIUM OXIDE (MAG-OX)400 MG TAB PO SCH (08:10)
[2016-10-23] MEDS: LACTULOSE SYRUP 10GM/15ML (ENULOSE) 30ML UDC PO SCH (08:10)
[2016-10-23] MEDS: PANTOPRAZOLE 40 MG (PROTONIX) TAB PO SCH (08:10)
[2016-10-23] MEDS: LEVETIRACETAM 500 MG (KEPPRA) TAB PO SCH (08:10)
[2016-10-23] MEDS: THIAMINE 100 MG (VITAMIN B-1) TAB PO SCH (08:10)
[2016-10-23] MEDS: FOLIC ACID 1 MG TAB PO SCH (08:10)
[2016-10-23] MEDS: ATENOLOL 50 MG (TENORMIN) TAB PO SCH (08:10)
--- NOTE | 2016-10-23 09:46 | Diagnostic Imaging Report ---
INDICATION: Pneumonia. PA and lateral chest obtained at 8:51 AM and compared to 10/19/2016. Heart is borderline in size. Mediastinal silhouette is unremarkable. There is improving infiltrate in the right base compared to previous studies of 10/19/2016, and 10/21/2016. Left lung is clear. There is no pneumothorax or pleural fluid. IMPRESSION: Improved infiltrate in right lung base compared to previous studies. No new abnormality. Dictated by: Dictated on workstation # [id number]
--- NOTE | 2016-10-28 07:21 | Discharge Summary ---
Diagnosis/Chief Complaint Date of Admission Oct 19, 2016 at 14:45 Date of Discharge Oct 23, 2016 at 11:45 Discharge Date: Oct 23, 2016 Admission Diagnosis Admission Diagnosis acute renal failure. Resolving pneumonia. Hepatic encephalopathy. Confusion. Discharge Diagnosis acute renal failure. Hepatic encephalopathy. Hallucinations. Confusion. Anemia. Chronic obstructive pulmonary disease. Resolving pneumonia. Cirrhosis of the liver. Hepatitis B history. Hepatitis C history. Hypertensive heart disease. Type II diabetes. Heart failure unspecified. Coagulase negative staph Reason Hospital Visit patient lives in an assisted living place. Patient has been hallucinating for one week. Patient had slurred speech. Patient seems to have some confusion with a history. Patient sent out to the emergency room. Patient states he had pneumonia recently. Blood test shows renal insufficiency acute. Chest x-ray showing pneumonia improving. Patient showing hepatic encephalopathy with an elevated ammonia of 71 Discharge Summary Discharge Physical Examination Allergies: Coded Allergies: No Known Drug Allergies (Unverified , 09/02/16) Vitals & I&Os Vital Signs Date Time Temp Pulse Resp B/P Pulse Ox O2 Delivery O2 Flow Rate FiO2 10/23/16 11:30 10/23/16 08:00 98.6 104 18 97 Room Air Hospital Course patient in hospital did improve. Patient much more alert. Patient discharged no hallucinations or confusion Labs (last 24 hrs) Laboratory Tests 10/19/16 12:10: Urine Bacteria NEGATIVE, Urine Bilirubin NEGATIVE, Urine Casts NONE, Urine Clarity CLEAR, Urine Color YELLOW, Urine Crystals NONE, Urine Culture Indicated NO, Urine Glucose (UA) NEGATIVE, Urine Ketones NEGATIVE, Urine Leukocyte Esterase NEGATIVE, Urine Mucus NEGATIVE, Urine Nitrite NEGATIVE, Urine Protein NEGATIVE, Urine RBC NONE, Urine RBC (Auto) NEGATIVE, Urine Specific [place] 1.015L, Urine Squamous Epithelial Cells NONE, Urine Urobilinogen NORMAL, Urine WBC RARE, Urine Yeast MODERATEH, Urine pH 6.5 10/19/16 12:40: Alanine Aminotransferase (ALT/SGPT) 33, Albumin 3.7, Alkaline Phosphatase 91, Ammonia 71H, Anion Gap 11, Aspartate Amino Transf (AST/SGOT) 44H, BUN/ Creatinine Ratio 19, Basophils # (Auto) 0.0, Basophils (%) (Auto) 0, Blood Urea Nitrogen 48H, Calcium Level 9.9, Carbon Dioxide Level 23, Chloride Level 99, Creatinine 2.49H, Eosinophils # (Auto) 0.7H, Eosinophils (%) (Auto) 6, Estimat Glomerular Filtration Rate 27, Glucose Level 117H, Hematocrit 36L, Hemoglobin 12.4L, Lymphocytes # (Auto) 1.3, Lymphocytes (%) (Auto) 10L, Mean Corpuscular Hemoglobin 31, Mean Corpuscular Hemoglobin Concent 34, Mean Corpuscular Volume 91, Mean Platelet Volume 11.3H, Monocytes # (Auto) 0.9, Monocytes (%) (Auto) 7, Neutrophils # (Auto) 10.0H, Neutrophils (%) (Auto) 77H, Platelet Count 110L, Potassium Level 4.6, Red Blood Count 3.98L, Red Cell Distribution Width 12.2, Sodium Level 133L, Total Bilirubin 1.3H, Total Protein 7.5, White Blood Count 12.9H 10/19/16 13:49: Lactic Acid Level 2.0 10/20/16 05:14: Alanine Aminotransferase (ALT/SGPT) 27, Albumin 3.2, Alkaline Phosphatase 77, Anion Gap 11, Aspartate Amino Transf (AST/SGOT) 37H, BUN/Creatinine Ratio 20, Basophils # (Auto) 0.1, Basophils (%) (Auto) 1, Blood Urea Nitrogen 40H, Calcium Level 9.7, Carbon Dioxide Level 21, Chloride Level 103, Creatinine 2.03H , Eosinophils # (Auto) 0.9H, Eosinophils (%) (Auto) 11H, Estimat Glomerular Filtration Rate 34, Glucose Level 83, Hematocrit 33L, Hemoglobin 11.3L, Lymphocytes # (Auto) 1.8, Lymphocytes (%) (Auto) 21, Mean Corpuscular Hemoglobin 31, Mean Corpuscular Hemoglobin Concent 34, Mean Corpuscular Volume 92, Mean Platelet Volume 11.9H, Monocytes # (Auto) 0.8, Monocytes (%) (Auto) 9, Neutrophils # (Auto) 5.3, Neutrophils (%) (Auto) 60, Platelet Count 93L, Potassium Level 4.2, Red Blood Count 3.64L, Red Cell Distribution Width 12.3, Sodium Level 135, Total Bilirubin 1.8H, Total Protein 6.7, White Blood Count 8.9 10/20/16 19:31: Ammonia 34H 10/21/16 05:20: Ammonia 31, Alanine Aminotransferase (ALT/SGPT) 25, Albumin 3.0L, Alkaline Phosphatase 69, Anion Gap 8, Aspartate Amino Transf (AST/SGOT) 29, BUN/ Creatinine Ratio 18, Basophils # (Auto) 0.0, Basophils (%) (Auto) 1, Blood Urea Nitrogen 27H, Calcium Level 9.3, Carbon Dioxide Level 18L, Chloride Level 109H, Creatinine 1.50H, Eosinophils # (Auto) 0.5H, Eosinophils (%) (Auto) 11H, Estimat Glomerular Filtration Rate 49, Glucose Level 99, Hematocrit 30L, Hemoglobin 10.1L, Lymphocytes # (Auto) 1.3, Lymphocytes (%) (Auto) 27, Mean Corpuscular Hemoglobin 31, Mean Corpuscular Hemoglobin Concent 34, Mean Corpuscular Volume 92, Mean Platelet Volume 11.6H, Monocytes # (Auto) 0.4, Monocytes (%) (Auto) 9, Neutrophils # (Auto) 2.6, Neutrophils (%) (Auto) 53, Platelet Count 72L, Potassium Level 4.2, Red Blood Count 3.27L, Red Cell Distribution Width 12.3, Sodium Level 135, Total Bilirubin 1.2H, Total Protein 5.8L, White Blood Count 4.9 10/22/16 05:30: Alanine Aminotransferase (ALT/SGPT) 28, Albumin 3.1L, Alkaline Phosphatase 81, Anion Gap 10, Aspartate Amino Transf (AST/SGOT) 38H, BUN/Creatinine Ratio 16, Basophils # (Auto) 0.0, Basophils (%) (Auto) 1, Blood Urea Nitrogen 25H, Calcium Level 9.5, Carbon Dioxide Level 17L, Chloride Level 107, Creatinine 1.52H, Eosinophils # (Auto) 0.5H, Eosinophils (%) (Auto) 11H, Estimat Glomerular Filtration Rate 48, Glucose Level 114H, Hematocrit 30L, Hemoglobin 10.1L, Lymphocytes # (Auto) 1.1, Lymphocytes (%) (Auto) 26, Mean Corpuscular Hemoglobin 31, Mean Corpuscular Hemoglobin Concent 34, Mean Corpuscular Volume 93, Mean Platelet Volume 11.7H, Monocytes # (Auto) 0.3, Monocytes (%) (Auto) 8, Neutrophils # (Auto) 2.4, Neutrophils (%) (Auto) 55, Platelet Count 72L, Potassium Level 4.5, Red Blood Count 3.24L, Red Cell Distribution Width 11.9, Sodium Level 134L, Total Bilirubin 1.1H, Total Protein 6.4, White Blood Count 4.4 10/23/16 03:25: Ammonia 39H, Alanine Aminotransferase (ALT/SGPT) 30, Albumin 3.0L, Alkaline Phosphatase 81, Anion Gap 10, Aspartate Amino Transf (AST/SGOT) 38H, BUN/ Creatinine Ratio 14, Blood Urea Nitrogen 21H, Calcium Level 9.3, Carbon Dioxide Level 16L, Chloride Level 110H, Creatinine 1.46H, Estimat Glomerular Filtration Rate 50, Glucose Level 99, Hematocrit 29L, Hemoglobin 9.6L, Mean Corpuscular Hemoglobin 31, Mean Corpuscular Hemoglobin Concent 34, Mean Corpuscular Volume 92, Mean Platelet Volume 11.6H, Platelet Count 71L, Potassium Level 4.2, Red Blood Count 3.12L, Red Cell Distribution Width 12.0, Sodium Level 136, Total Bilirubin 0.7, Total Protein 6.2L, White Blood Count 4.0L Microbiology 10/19/16 Blood Culture - Final, Complete No growth Laboratory Tests 10/19/16 12:40 10/20/16 05:14 10/21/16 05:20 10/22/16 05:30 10/23/16 03:25 Pending Labs Microbiology Date/Time Source Procedure Growth Status 10/19/16 14:46 Peripheral Rt Ac Blood Culture - Final No growth Complete 10/19/16 13:49 Peripheral Lt Hand Blood Culture - Preliminary Staph, Coag Neg ([employer]) Resulted Laboratory Tests 10/19/16 12:10: Urine Bacteria NEGATIVE, Urine Bilirubin NEGATIVE, Urine Casts NONE, Urine Clarity CLEAR, Urine Color YELLOW, Urine Crystals NONE, Urine Culture Indicated NO, Urine Glucose (UA) NEGATIVE, Urine Ketones NEGATIVE, Urine Leukocyte Esterase NEGATIVE, Urine Mucus NEGATIVE, Urine Nitrite NEGATIVE, Urine Protein NEGATIVE, Urine RBC NONE, Urine RBC (Auto) NEGATIVE, Urine Specific [place] 1.015, Urine Squamous Epithelial Cells NONE, Urine Urobilinogen NORMAL, Urine WBC RARE, Urine Yeast MODERATE, Urine pH 6.5 10/19/16 12:40: Alanine Aminotransferase (ALT/SGPT) 33, Albumin 3.7, Alkaline Phosphatase 91, Ammonia 71, Anion Gap 11, Aspartate Amino Transf (AST/SGOT) 44, BUN/Creatinine Ratio 19, Basophils # (Auto) 0.0, Basophils (%) (Auto) 0, Blood Urea Nitrogen 48 , Calcium Level 9.9, Carbon Dioxide Level 23, Chloride Level 99, Creatinine 2.49 , Eosinophils # (Auto) 0.7, Eosinophils (%) (Auto) 6, Estimat Glomerular Filtration Rate 27, Glucose Level 117, Hematocrit 36, Hemoglobin 12.4, Lymphocytes # (Auto) 1.3, Lymphocytes (%) (Auto) 10, Mean Corpuscular Hemoglobin 31, Mean Corpuscular Hemoglobin Concent 34, Mean Corpuscular Volume 91, Mean Platelet Volume 11.3, Monocytes # (Auto) 0.9, Monocytes (%) (Auto) 7, Neutrophils # (Auto) 10.0, Neutrophils (%) (Auto) 77, Platelet Count 110, Potassium Level 4.6, Red Blood Count 3.98, Red Cell Distribution Width 12.2, Sodium Level 133, Total Bilirubin 1.3, Total Protein 7.5, White Blood Count 12.9 10/19/16 13:49: Lactic Acid Level 2.0 10/20/16 05:14: Alanine Aminotransferase (ALT/SGPT) 27, Albumin 3.2, Alkaline Phosphatase 77, Anion Gap 11, Aspartate Amino Transf (AST/SGOT) 37, BUN/Creatinine Ratio 20, Basophils # (Auto) 0.1, Basophils (%) (Auto) 1, Blood Urea Nitrogen 40, Calcium Level 9.7, Carbon Dioxide Level 21, Chloride Level 103, Creatinine 2.03, Eosinophils # (Auto) 0.9, Eosinophils (%) (Auto) 11, Estimat Glomerular Filtration Rate 34, Glucose Level 83, Hematocrit 33, Hemoglobin 11.3, Lymphocytes # (Auto) 1.8, Lymphocytes (%) (Auto) 21, Mean Corpuscular Hemoglobin 31, Mean Corpuscular Hemoglobin Concent 34, Mean Corpuscular Volume 92, Mean Platelet Volume 11.9, Monocytes # (Auto) 0.8, Monocytes (%) (Auto) 9, Neutrophils # (Auto) 5.3, Neutrophils (%) (Auto) 60, Platelet Count 93, Potassium Level 4.2, Red Blood Count 3.64, Red Cell Distribution Width 12.3, Sodium Level 135, Total Bilirubin 1.8, Total Protein 6.7, White Blood Count 8.9 10/20/16 19:31: Ammonia 34 10/21/16 05:20: Ammonia 31, Alanine Aminotransferase (ALT/SGPT) 25, Albumin 3.0, Alkaline Phosphatase 69, Anion Gap 8, Aspartate Amino Transf (AST/SGOT) 29, BUN/ Creatinine Ratio 18, Basophils # (Auto) 0.0, Basophils (%) (Auto) 1, Blood Urea Nitrogen 27, Calcium Level 9.3, Carbon Dioxide Level 18, Chloride Level 109, Creatinine 1.50, Eosinophils # (Auto) 0.5, Eosinophils (%) (Auto) 11, Estimat Glomerular Filtration Rate 49, Glucose Level 99, Hematocrit 30, Hemoglobin 10.1 , Lymphocytes # (Auto) 1.3, Lymphocytes (%) (Auto) 27, Mean Corpuscular Hemoglobin 31, Mean Corpuscular Hemoglobin Concent 34, Mean Corpuscular Volume 92, Mean Platelet Volume 11.6, Monocytes # (Auto) 0.4, Monocytes (%) (Auto) 9, Neutrophils # (Auto) 2.6, Neutrophils (%) (Auto) 53, Platelet Count 72, Potassium Level 4.2, Red Blood Count 3.27, Red Cell Distribution Width 12.3, Sodium Level 135, Total Bilirubin 1.2, Total Protein 5.8, White Blood Count 4.9 10/22/16 05:30: Alanine Aminotransferase (ALT/SGPT) 28, Albumin 3.1, Alkaline Phosphatase 81, Anion Gap 10, Aspartate Amino Transf (AST/SGOT) 38, BUN/Creatinine Ratio 16, Basophils # (Auto) 0.0, Basophils (%) (Auto) 1, Blood Urea Nitrogen 25, Calcium Level 9.5, Carbon Dioxide Level 17, Chloride Level 107, Creatinine 1.52, Eosinophils # (Auto) 0.5, Eosinophils (%) (Auto) 11, Estimat Glomerular Filtration Rate 48, Glucose Level 114, Hematocrit 30, Hemoglobin 10.1, Lymphocytes # (Auto) 1.1, Lymphocytes (%) (Auto) 26, Mean Corpuscular Hemoglobin 31, Mean Corpuscular Hemoglobin Concent 34, Mean Corpuscular Volume 93, Mean Platelet Volume 11.7, Monocytes # (Auto) 0.3, Monocytes (%) (Auto) 8, Neutrophils # (Auto) 2.4, Neutrophils (%) (Auto) 55, Platelet Count 72, Potassium Level 4.5, Red Blood Count 3.24, Red Cell Distribution Width 11.9, Sodium Level 134, Total Bilirubin 1.1, Total Protein 6.4, White Blood Count 4.4 10/23/16 03:25: Ammonia 39, Alanine Aminotransferase (ALT/SGPT) 30, Albumin 3.0, Alkaline Phosphatase 81, Anion Gap 10, Aspartate Amino Transf (AST/SGOT) 38, BUN/ Creatinine Ratio 14, Blood Urea Nitrogen 21, Calcium Level 9.3, Carbon Dioxide Level 16, Chloride Level 110, Creatinine 1.46, Estimat Glomerular Filtration Rate 50, Glucose Level 99, Hematocrit 29, Hemoglobin 9.6, Mean Corpuscular Hemoglobin 31, Mean Corpuscular Hemoglobin Concent 34, Mean Corpuscular Volume 92, Mean Platelet Volume 11.6, Platelet Count 71, Potassium Level 4.2, Red Blood Count 3.12, Red Cell Distribution Width 12.0, Sodium Level 136, Total Bilirubin 0.7, Total Protein 6.2, White Blood Count 4.0 Radiology Reviewed chest x-ray from the emergency room shows pneumonia better from previous. Chest x-ray on 217 shows pneumonia improving. CAT scan of the head nothing acute Discharge Home Medications: Active Scripts Active Cefdinir 300 Mg Capsule 300 Mg PO BID . Doxycycline Hyclate 100 Mg Tablet 100 Mg PO BID Reported Cyclobenzaprine HCl 10 Mg Tablet 10 Mg PO BID Atenolol 50 Mg Tablet 50 Mg PO DAILY Tramadol HCl 50 Mg Tablet 50 Mg PO BID Poly-Iron (Iron Polysaccharide Complex) 150 Mg Capsule 150 Mg PO BID Protonix (Pantoprazole Sodium) 40 Mg Tablet.dr 40 Mg PO DAILY Bumetanide 1 Mg Tablet 1 Mg PO DAILY Tamsulosin HCl 0.4 Mg Cap.er.24h 0.4 Mg PO HS Magnesium Oxide 400 Mg Tablet 400 Mg PO BID Levetiracetam 500 Mg Tablet 500 Mg PO BID Combivent Respimat Inhal [place] (Albuterol/Ipratropium) 4 Gm Aero 1 Puff IH Q6H PRN Vitamin B-1 (Thiamine Mononitrate) 100 Mg Tablet 100 Mg PO DAILY Spironolactone 100 Mg Tablet 100 Mg PO DAILY Potassium Chloride 20 Meq Tablet.er 20 Meq PO BID Multiple Vitamin (Multivitamin with Minerals) 1 Each Tablet 1 Tab PO DAILY Guaifenesin 1,200 Mg Tab.er.12h 1,200 Mg PO Q12H PRN Folic Acid 1 Mg Tablet 1 Mg PO DAILY Instructions to patient/family Please see electonic discharge instructions given to patient. Clinical Quality Measures DVT/VTE Risk/Contraindication: Risk Factor Score Per Nursin RFS Level Per Nursing on Admit: 4+=Very High CHERI GARCIA DO Oct 28, 2016 07:21
== END 2016-10-23 11:45 | DRG 682 ==
LOC: EDUNIT# 11:32 → ER 11:33 → 4TH 14:45
PROVIDERS: ADMIT Family Medicine; ATTEND Family Medicine
DX: N17.9 Acute kidney failure, unspecified (principal); J44.0 Chronic obstructive pulmonary disease with (acute) lower respiratory infection; J18.9 Pneumonia, unspecified organism; K72.90 Hepatic failure, unspecified without coma; R44.3 Hallucinations, unspecified; K74.60 Unspecified cirrhosis of liver; B19.10 Unspecified viral hepatitis B without hepatic coma; B19.20 Unspecified viral hepatitis C without hepatic coma; I11.0 Hypertensive heart disease with heart failure; I50.9 Heart failure, unspecified; D64.9 Anemia, unspecified; E11.9 Type 2 diabetes mellitus without complications; F32.9 Major depressive disorder, single episode, unspecified
CPT/HCPCS: 36415; 70450; 71010; 71020; 80053; 81000; 82140; 83605; 85025; 85027; 87040; 87186; 93041; 94640; 94760; 96365

== ENCOUNTER 2016-11-03 12:37 | Outpatient (RCR) | payer MEDICAID ==
[~2016-11-03 12:37] MED LIST changes: +ATEN50TA PO; +CEFD300C3 PO; +CYCL10TA9 PO; +DOXY100T2 PO; +TRAM50TA2 PO
[2016-11-10] MEDS ORDERED: LACT10SO PO (13:43)
[2016-11-13] MEDS ORDERED: LACT10SO PO (11:53)
[2016-11-20] MEDS ORDERED: RIFA550T PO (10:53)
[2016-11-22] MEDS ORDERED: POTA20PA28 PO (16:33)
[2016-11-22] MEDS ORDERED: CYCL10TA9 PO (16:33)
[2016-11-25] MEDS ORDERED: RISP0.2517 PO (12:15)
== END 2016-12-01 10:47 | disposition home or self-care (01) ==
PROVIDERS: ATTEND Family Medicine
DX: R53.1 Weakness (principal)

== ENCOUNTER 2016-11-03 12:38 | Outpatient (RCR) | payer MEDICAID ==
[2016-11-10] MEDS ORDERED: LACT10SO PO (13:43)
[2016-11-13] MEDS ORDERED: LACT10SO PO (11:53)
[2016-11-20] MEDS ORDERED: RIFA550T PO (10:53)
[2016-11-22] MEDS ORDERED: POTA20PA28 PO (16:33)
[2016-11-22] MEDS ORDERED: CYCL10TA9 PO (16:33)
[2016-11-25] MEDS ORDERED: RISP0.2517 PO (12:15)
== END 2016-11-27 13:18 | disposition home or self-care (01) ==
PROVIDERS: ATTEND Family Medicine
DX: R53.1 Weakness (principal); G40.909 Epilepsy, unspecified, not intractable, without status epilepticus

== ENCOUNTER 2016-11-10 09:54 | Inpatient (IN) | payer MEDICAID ==
[~2016-11-10] VITALS: Ht 172.7 cm; Wt 90.5 kg
--- NOTE | 2016-11-10 10:31 | ED General ---
General Chief Complaint: General Problems/Pain Stated Complaint: CONFUSION Nursing Triage Note: PT AND STAFF STATE THE PT HAS HAD RECENT ALTERED MENTAL STATUS, CONFUSION. Nursing Sepsis Screen: No Definite Risk Source of Information: Patient Exam Limitations: No Limitations History of Present Illness Time Seen by Provider: 10:15 Initial Comments Here from long-term with report of increased confusion over the last 24-36 hours. Patient has history of cirrhosis of the liver as well as history of hepatic encephalopathy. Sent here for further evaluation. Patient does have slurred speech. He denies pain or breathing problems. Apparently recently had pneumonia but is not currently worried about that and has no reports of fever or diarrhea. Timing/Duration: 1-2 Days, Getting Worse Severity: Moderate Associated Systoms: No Chest Pain, No Cough, No Fever/Chills, No Nausea/ Vomiting, Shortness of AirNo Weakness Allergies and Home Medications Allergies Coded Allergies: No Known Drug Allergies (Unverified , 09/02/16) Home Medications Albuterol/Ipratropium 4 Gm Aero 1 PUFF IH Q6H PRN PRN SHORTNESS OF BREATH ( Reported) Atenolol 50 Mg Tablet 50 MG PO DAILY (Reported) Bumetanide 1 Mg Tablet 1 MG PO DAILY (Reported) Cyclobenzaprine HCl 10 Mg Tablet 10 MG PO BID (Reported) Folic Acid 1 Mg Tablet 1 MG PO DAILY (Reported) Guaifenesin 1,200 Mg Tab.er.12h 1,200 MG PO Q12H PRN PRN COUGH (Reported) Iron Polysaccharide Complex 150 Mg Capsule 150 MG PO BID (Reported) Lactulose 10 Gm/15 Ml Solution 1 OZ PO BID (Reported) Levetiracetam 500 Mg Tablet 500 MG PO BID (Reported) Magnesium Oxide 400 Mg Tablet 400 MG PO BID (Reported) Multivitamin with Minerals 1 Each Tablet 1 TAB PO DAILY (Reported) Pantoprazole Sodium 40 Mg Tablet.dr 40 MG PO DAILY (Reported) Potassium Chloride 20 Meq Tablet.er 20 MEQ PO BID (Reported) Spironolactone 100 Mg Tablet 100 MG PO DAILY (Reported) Tamsulosin HCl 0.4 Mg Cap.er.24h 0.4 MG PO HS (Reported) Thiamine Mononitrate 100 Mg Tablet 100 MG PO DAILY (Reported) Tramadol HCl 50 Mg Tablet 50 MG PO BID (Reported) Constitutional: see HPINo chills, No fever, malaise EENTM: no symptoms reported Respiratory: no symptoms reportedNo cough, No short of breath Cardiovascular: No chest pain, No edema Gastrointestinal: no symptoms reportedNo diarrhea, No nausea, No vomiting Genitourinary: no symptoms reported Musculoskeletal: no symptoms reported Skin: no symptoms reported Psychiatric/Neurological: No Symptoms Reported All Other Systems Reviewed Negative Unless Noted: Yes Past Expfcuw-Ygicyo-Rnvldm Hx Patient Social History Alcohol Use: Past History Recreational Drug Use: No Smoking Status: Never a Smoker Recent Foreign Travel: No Contact w/Someone Who Travel: No Recent Infectious Disease Expo: No Recent Hopitalizations: Yes (FLUID ON LUNGS) Immunizations Up To Date Tetanus Booster (TDap): Unknown PED Vaccines UTD: Yes Date of Pneumonia Vaccine: May 07, 2016 Date of Influenza Vaccine: Apr 06, 2016 Seasonal Allergies Seasonal Allergies: No Surgeries HX Surgeries: No Respiratory Hx Respiratory Disorders: Yes (INHALER AT HOME, MRSA PNEUMONIA, PULM EDEMA) Respiratory Disorders: Pneumonia, COPD Cardiovascular Hx Cardiac Disorders: Yes (CHF) Cardiac Disorders: Hypertension Neurological Hx Neurological Disorders: Yes (METABOLIC ENCEPHALOPATHY, ONDINA) Reproductive System Hx Reproductive Disorders: No HIV/AIDS: No Genitourinary Hx Genitourinary Disorders: Yes Genitourinary Disorders: Kidney Infection, Prostate Problems, Renal Failure Gastrointestinal Hx Gastrointestinal Disorders: No (HEP B/HEPC, CHRONIC LIVER CIRRHOSIS, ANEMIA) Gastrointestinal Disorders: Liver Disease/Jaundice, Gastrointestinal Bleed, Chronic Constipation, Chronic Diarrhea Musculoskeletal Hx Musculoskeletal Disorders: Yes Musculoskeletal Disorders: Arthritis Endocrine Hx Endocrine Disorders: Yes Endocrine Disorders: Diabetes, Non-Insulin dep HEENT HX ENT Disorders: No Loss of Vision: Denies Hearing Impairment: Denies Cancer Hx Cancer: No Psychosocial Hx Psychiatric Problems: Yes Behavioral Health Disorders: Depression Integumentary HX Skin/Integumentary Disorder: No (DENIES ) Blood Transfusions Hx Blood Disorders: No Adverse Reaction to a Blood Tr: No Reviewed Nursing Assessment Reviewed/Agree w Nursing PMH: Yes Family Medical History Significant Family History: No Pertinent Family Hx Family Medial History: Patient reports no known family medical history. Physical Exam Vital Signs Vital Sign - Last 12Hours 11/10/16 11/10/16 10:02 12:40 Temp 97.9 Pulse 91 Resp 18 B/P 113/86 Pulse Ox 100 O2 Delivery Room Air Capillary Refill : Less Than 3 Seconds General Appearance: No Apparent Distress WD/WN HEENT: PERRL/EOMI Pharynx NormalNo Scleral Icterus (L), No Scleral Icterus (R) Neck: Non Tender Supple Respiratory: Lungs Clear Normal Breath Sounds Cardiovascular: Regular Rate, Rhythm No Murmur Back: Normal Inspection No CVA Tenderness No Vertebral Tenderness Extremity: Normal Range of Motion Non Tender Neurologic/Psychiatric: Alert Other (slurred speech and somewhat confused at times but follows commands.) Skin: Normal Color Warm/Dry Progress/Results/Core Measures Results/Orders Lab Results Laboratory Tests Test 11/12/16 05:20 Range/Units Alanine Aminotransferase (ALT/SGPT) 24 0-55 U/L Albumin 3.1 L 3.2-4.5 G/DL Alkaline Phosphatase 75 40-136 U/L Ammonia 52 H 11-32 UMOL/L Anion Gap 8 5-14 MMOL/L Aspartate Amino Transf (AST/SGOT) 32 5-34 U/L BUN/Creatinine Ratio 20 Basophils # (Auto) 0.0 0.0-0.1 10^3/uL Basophils (%) (Auto) 1 0-10 % Blood Urea Nitrogen 30 H 7-18 MG/DL Calcium Level 9.3 8.5-10.1 MG/DL Carbon Dioxide Level 18 L 21-32 MMOL/L Chloride Level 110 H 98-107 MMOL/L Creatinine 1.52 H 0.60-1.30 MG/DL Eosinophils # (Auto) 0.6 H 0.0-0.3 10^3/uL Eosinophils (%) (Auto) 12 H 0-10 % Estimat Glomerular Filtration Rate 48 Glucose Level 94 70-105 MG/DL Hematocrit 33 L 40-54 % Hemoglobin 11.0 L 13.3-17.7 G/DL Lymphocytes # (Auto) 1.7 1.0-4.0 X 10^3 Lymphocytes (%) (Auto) 34 12-44 % Mean Corpuscular Hemoglobin 31 25-34 PG Mean Corpuscular Hemoglobin Concent 34 32-36 G/DL Mean Corpuscular Volume 91 80-99 FL Mean Platelet Volume 11.5 H 7.4-10.4 FL Monocytes # (Auto) 0.5 0.0-1.0 X 10^3 Monocytes (%) (Auto) 9 0-12 % Neutrophils # (Auto) 2.2 1.8-7.8 X 10^3 Neutrophils (%) (Auto) 45 42-75 % Platelet Count 97 L 130-400 10^3/uL Potassium Level 5.1 H 3.6-5.0 MMOL/L Red Blood Count 3.60 L 4.35-5.85 10^6/uL Red Cell Distribution Width 12.8 10.0-14.5 % Sodium Level 136 135-145 MMOL/L Total Bilirubin 0.6 0.1-1.0 MG/DL Total Protein 6.3 L 6.4-8.2 G/DL White Blood Count 5.0 4.3-11.0 10^3/uL My Orders Vital Signs/I&O Vital Sign - Last 12Hours 11/12/16 11/13/16 11/13/16 19:35 00:00 04:00 Temp 98.0 97.2 98.1 Pulse 90 95 98 Resp 18 20 20 B/P 129/96 116/68 110/75 Pulse Ox 99 96 97 O2 Delivery Room Air Room Air Room Air Blood Pressure Mean: 95 Progress Note : Progress Note Seen and evaluated. IV, labs, chest x-ray, UA, ammonia, lactic acid and blood culture ordered. Patient has history of hepatic encephalitis and has recently been restarted on his lactulose but was off of it for some time. Also had recent history of pneumonia. Monitor patient. 1155: Noted to be in acute renal failure. Normal saline 500 mL bolus ordered. Lactulose will be continued inpatient. I did discuss the case with Dr. Garcia and he accepts patient for admission, inpatient status. Patient agrees with plan. Diagnostic Imaging Diagonstic Imaging: Xray Plain Films/CT/US/NM/MRI: chest Comments VIA [facility]. [place], [place] NAME: TESS LANDA [facility] REC#: [id number] PT STATUS: REG ER : 1960 PHYSICIAN: SAE PRADO MD ADMIT DATE: 11/10/16/ER Draft Date of Exam:11/10/16 CHEST 1 VIEW, AP/PA ONLY INDICATION: Acute myocardial symptoms. COMPARISON STUDY: Chest from October 23. FINDINGS: Portable upright view of the chest demonstrates minimal residual infiltrate in the right lung base. This is improved from the previous exam. Heart size and vascularity are normal. There are no pleural effusions. IMPRESSION: There is a minimal residual infiltrate in the right lung base. Dictated on workstation # [id number] Dict: 11/10/16 1111 Trans: 11/10/16 1118 [facility] [id number] Interpreted by: DONALDO GOLDEN MD Electronically signed by: Reviewed: Reviewed by Me Departure Communication Time/Spoke to Admitting Phy: 11:55 Impression Impression: Primary Impression: Acute renal failure Qualified Code: N17.9 - Acute kidney failure, unspecified Additional Impression: Hepatic encephalopathy Disposition: ADMITTED INPATIENT Condition: Stable Decision to Admit Reason: Admit from ER (General) Decision to Admit/Date: Nov 10, 2016 Time/Decision to Admit Time: 11:55 Departure-Patient Inst. Referrals: CHERI GARCIA DO (PCP/Family) Primary Care Physician SAE PRADO MD Nov 10, 2016 10:30 Blood Pressure Mean: 95 Progress Note : Progress Note Seen and evaluated. IV, labs, chest x-ray, UA, ammonia, lactic acid and blood culture ordered. Patient has history of hepatic encephalitis and has recently been restarted on his lactulose but was off of it for some time. Also had recent history of pneumonia. Monitor patient. 1155: Noted to be in acute renal failure. Normal saline 500 mL bolus ordered. Lactulose will be continued inpatient. I did discuss the case with Dr. Garcia and he accepts patient for admission, inpatient status. Patient agrees with plan. Diagnostic Imaging Diagonstic Imaging: Xray Plain Films/CT/US/NM/MRI: chest Comments VIA [facility]. [place], [place] NAME: TESS LANDA [facility] REC#: [id number] PT STATUS: REG ER : 1960 PHYSICIAN: SAE PRADO MD ADMIT DATE: 11/10/16/ER Draft Date of Exam:11/10/16 CHEST 1 VIEW, AP/PA ONLY INDICATION: Acute myocardial symptoms. COMPARISON STUDY: Chest from October 23. FINDINGS: Portable upright view of the chest demonstrates minimal residual infiltrate in the right lung base. This is improved from the previous exam. Heart size and vascularity are normal. There are no pleural effusions. IMPRESSION: There is a minimal residual infiltrate in the right lung base. Dictated on workstation # [id number] Dict: 11/10/16 1111 Trans: 11/10/16 1118 [facility] [id number] Interpreted by: DONALDO GOLDEN MD Electronically signed by: Reviewed: Reviewed by Me Departure Communication Time/Spoke to Admitting Phy: 11:55 Impression Impression: Primary Impression: Acute renal failure Qualified Code: N17.9 - Acute kidney failure, unspecified Additional Impression: Hepatic encephalopathy Decision to Admit Reason: Admit from ER (General) Decision to Admit/Date: Nov 10, 2016 Time/Decision to Admit Time: 11:55 Departure-Patient Inst. Referrals: CHERI GARCIA DO (PCP/Family) Primary Care Physician SAE PRADO MD Nov 10, 2016 10:30
[2016-11-10 10:55] LABS: BILIRUBIN,URINE NEGATIVE (NEGATIVE); KETONES,URINE NEGATIVE (NEGATIVE); LEUKOCYTE ESTERASE ,URINE NEGATIVE (NEGATIVE); NITRITE,URINE NEGATIVE (NEGATIVE); PH,URINE 7 (5-9); PROTEIN,URINE NEGATIVE (NEGATIVE); UROBILINOGEN,URINE NORMAL (NORMAL)
[2016-11-10 11:07] LABS: YEAST,URINE LARGE /HPF
--- NOTE | 2016-11-10 11:18 | Diagnostic Imaging Report ---
INDICATION: Acute myocardial symptoms. COMPARISON STUDY: Chest from October 23. FINDINGS: Portable upright view of the chest demonstrates minimal residual infiltrate in the right lung base. This is improved from the previous exam. Heart size and vascularity are normal. There are no pleural effusions. IMPRESSION: There is a minimal residual infiltrate in the right lung base. Dictated by: Dictated on workstation # [id number]
[2016-11-10 11:20] LABS: BASOPHILS # (AUTO) 0.1 10^3/uL (0.0-0.1); BASOPHILS % (AUTO) 1 % (0-10); EOSINOPHILS # (AUTO) 0.9 10^3/uL (0.0-0.3); EOSINOPHILS % (AUTO) 11 % (0-10); LYMPHOCYTES # (AUTO) 1.6 X 10^3 (1.0-4.0); LYMPHOCYTES % (AUTO) 20 % (12-44); MEAN CORPUSCULAR HEMOGLOBIN 31 PG (25-34); MEAN CORPUSCULAR HGB CONC 34 G/DL (32-36); MEAN CORPUSCULAR VOLUME 90 FL (80-99); MEAN PLATELET VOLUME 10.9 FL (7.4-10.4); MONOCYTES # (AUTO) 0.5 X 10^3 (0.0-1.0); MONOCYTES % (AUTO) 7 % (0-12); NEUTROPHILS # (AUTO) 4.7 X 10^3 (1.8-7.8); NEUTROPHILS % (AUTO) 61 % (42-75); PLATELET COUNT 153 10^3/uL (130-400); RED BLOOD COUNT 4.25 10^6/uL (4.35-5.85); RED CELL DISTRIBUTION WIDTH 12.8 % (10.0-14.5); WHITE BLOOD COUNT 7.8 10^3/uL (4.3-11.0)
[2016-11-10 11:35] LABS: ALBUMIN 3.8 G/DL (3.2-4.5); BILIRUBIN,TOTAL 0.7 MG/DL (0.1-1.0); CALCIUM 10.1 MG/DL (8.5-10.1); CREATININE SERUM 2.65 MG/DL (0.60-1.30); MAGNESIUM 1.9 MG/DL (1.8-2.4); POTASSIUM 5.4 MMOL/L (3.6-5.0); TOTAL PROTEIN 7.9 G/DL (6.4-8.2); hs C REACTIVE PROTEIN 1.08 MG/DL (0.00-0.50)
[2016-11-10] MEDS ORDERED: NS IV 500 ML 500 ML IV ONE (11:52)
[2016-11-10 12:51] LABS: INR 1.2 (0.8-1.4); PROTHROMBIN TIME PATIENT 14.4 SEC (12.2-14.7)
[2016-11-10] MEDS ORDERED: LACTULOSE SYRUP 10GM/15ML (ENULOSE) 30ML UDC PO SCH (13:15)
[2016-11-10] MEDS: NS IV 1000 ML 1,000 ML IV SCH ×2 (13:28→23:41)
[2016-11-10] MEDS ORDERED: CATHETER FLUSH 10 ML SYR IV PRN (13:30)
[2016-11-10] MEDS ORDERED: ONDANSETRON 4 MG/2 ML (SDV) Z0FRAN IV PRN (13:30)
[2016-11-10 13:38] VITALS: BP 118/83
[2016-11-10] MEDS ORDERED: LACT10SO PO (13:43)
[2016-11-10 16:37] VITALS: BP 118/80
--- NOTE | 2016-11-10 18:47 | History & Physicial ---
History of Present Illness History of Present Illness Reason for visit/HPI Patient is a resident of intermediate via [facility]. According to the nurse patient has altered mental status and confusion. Patient stent out to the emergency room Patient in acute renal failure. Patient serum ammonia elevated. Chest x-ray showed previous pneumonia nearly completely resolved. Patient had slurred speech. Patient has history of cirrhosis with hepatic encephalopathy. Patient states he has dizziness Date of Admission Nov 10, 2016 at 12:20 I consulted on this patient on 11/10/16 18:43 Attending Physician Sam Dickens DO Admitting Physician Sam Dickens DO Consult Allergies and Home Medications Allergies Coded Allergies: No Known Drug Allergies (Unverified , 09/02/16) Home Medications Albuterol/Ipratropium 4 Gm Aero 1 PUFF IH Q6H PRN PRN SHORTNESS OF BREATH ( Reported) Atenolol 50 Mg Tablet 50 MG PO DAILY (Reported) Bumetanide 1 Mg Tablet 1 MG PO DAILY (Reported) Cyclobenzaprine HCl 10 Mg Tablet 10 MG PO BID (Reported) Folic Acid 1 Mg Tablet 1 MG PO DAILY (Reported) Guaifenesin 1,200 Mg Tab.er.12h 1,200 MG PO Q12H PRN PRN COUGH (Reported) Iron Polysaccharide Complex 150 Mg Capsule 150 MG PO BID (Reported) Lactulose 10 Gm/15 Ml Solution 1 OZ PO BID (Reported) Levetiracetam 500 Mg Tablet 500 MG PO BID (Reported) Magnesium Oxide 400 Mg Tablet 400 MG PO BID (Reported) Multivitamin with Minerals 1 Each Tablet 1 TAB PO DAILY (Reported) Pantoprazole Sodium 40 Mg Tablet.dr 40 MG PO DAILY (Reported) Potassium Chloride 20 Meq Tablet.er 20 MEQ PO BID (Reported) Spironolactone 100 Mg Tablet 100 MG PO DAILY (Reported) Tamsulosin HCl 0.4 Mg Cap.er.24h 0.4 MG PO HS (Reported) Thiamine Mononitrate 100 Mg Tablet 100 MG PO DAILY (Reported) Tramadol HCl 50 Mg Tablet 50 MG PO BID (Reported) Past Jfinqou-Olhccn-Ctkjzg Hx Patient Social History Alcohol Use: Past History Recreational Drug Use: No Smoking Status: Never a Smoker Physical Abuse Screen: No Sexual Abuse: No Recent Foreign Travel: No Contact w/other who traveled: No Recent Hopitalizations: Yes (FLUID ON LUNGS) Recent Infectious Disease Expo: No Immunizations Up To Date Tetanus Booster (TDap): Unknown Date of Pneumonia Vaccine: May 07, 2016 Date of Influenza Vaccine: Apr 06, 2016 Seasonal Allergies Seasonal Allergies: No Surgeries HX Surgeries: No Respiratory Hx Respiratory Disorders: Yes (INHALER AT HOME, MRSA PNEUMONIA, PULM EDEMA) Respiratory Disorders: Pneumonia Cardiovascular Hx Cardiovascular Disorders: Yes (CHF) Cardiac Disorders: Hypertension Neurological Hx Neurological Disorders: Yes (METABOLIC ENCEPHALOPATHY, ONDINA) Reproductive System Hx Reproductive Disorders: No HIV/AIDS: No Genitourinary Hx Genitourinary Disorders: Yes Genitourinary Disorders: Kidney Infection, Prostate Problems, Renal Failure Gastrointestinal Hx Gastrointestinal Disorders: No (HEP B/HEPC, CHRONIC LIVER CIRRHOSIS, ANEMIA) Gastrointestinal Disorders: Liver Disease/Jaundice, Gastrointestinal Bleed, Chronic Constipation, Chronic Diarrhea Musculoskeletal Hx Musculoskeletal Disorders: Yes Musculoskeletal Disorders: Arthritis Endocrine Hx Endocrine Disorders: Yes Endocrine Disorders: Diabetes, Non-Insulin dep HEENT HX ENT Disorders: No Loss of Vision: Denies Hearing Impairment: Denies Cancer Hx Cancer: No Psychosocial Hx Psychiatric Problems: Yes Behavioral Health Disorders: Depression Integumentary HX Skin/Integumentary Disorder: No (DENIES ) Blood Transfusions Hx Blood Disorders: No Adverse Reaction to a Blood Tr: No Reviewed Nursing Assessment Reviewed/Agree w Nursing PMH: Yes Family Medical History Significant Family History: No Pertinent Family Hx Family Hx: Patient reports no known family medical history. Constitutional: malaise weakness EENTM: no symptoms reported Respiratory: no symptoms reported Cardiovascular: no symptoms reported Gastrointestinal: other (Patient dry is dehydrated) Genitourinary: no symptoms reported Physical Exam Vital Signs Vital Sign - Last 12Hours 11/10/16 11/10/16 10:02 12:40 Temp 97.9 Pulse 91 Resp 18 B/P 113/86 Pulse Ox 100 O2 Delivery Room Air Capillary Refill : Less Than 3 SecondsLess Than 3 Seconds General Appearance: No Apparent Distress WD/WN Eyes: Bilateral Eye Normal Inspection HEENT: Normal ENT Inspection Neck: Full Range of Motion Normal Inspection Non Tender Respiratory: Chest Non Tender Lungs Clear Normal Breath Sounds No Accessory Muscle Use No Respiratory Distress Cardiovascular: Regular Rate, Rhythm No Murmur Gastrointestinal: Non Tender Assessment/Plan Assessment and Plan Acute renal failure. Elevated serum ammonia. History of hepatic encephalopathy. History of pneumonia better. Dehydration Clinical Quality Measures DVT/VTE Risk/Contraindication: Risk Factor Score Per Nursin RFS Level Per Nursing on Admit: 4+=Very High GELLENDER,SAM A DO Nov 10, 2016 18:47
[2016-11-10] MEDS: LACTULOSE SYRUP 10GM/15ML (ENULOSE) 30ML UDC PO SCH (20:41)
[2016-11-10] MEDS: ENOXAPARIN 40 MG/0.4 ML (LOVENOX) SYR SC SCH (20:41)
[2016-11-10] MEDS: CYCLOBENZAPRINE 10 MG (FLEXERIL) TAB PO SCH (20:42)
[2016-11-10] MEDS: LEVETIRACETAM 500 MG (KEPPRA) TAB PO SCH (20:42)
[2016-11-10] MEDS: KCL 20 MEQ TAB (K-DUR) PO SCH (20:42)
[2016-11-10 20:49] VITALS: BP 131/79
[2016-11-10] MEDS ORDERED: LACTULOSE 10 GM/15 ML 30 ML POUR BOTTLE FOR ENEMA PO SCH (21:00)
[2016-11-11] VITALS: BP 110/68
[2016-11-11] MEDS ORDERED: IRON POLYSAC 150 MG CAP (NIFEREX) PO ONE (03:23)
[2016-11-11 04:42] VITALS: BP 120/89
[2016-11-11 05:21] LABS: BASOPHILS # (AUTO) 0.1 10^3/uL (0.0-0.1); BASOPHILS % (AUTO) 1 % (0-10); LYMPHOCYTES % (AUTO) 27 % (12-44); MEAN CORPUSCULAR HEMOGLOBIN 31 PG (25-34); MEAN CORPUSCULAR HGB CONC 34 G/DL (32-36); MEAN CORPUSCULAR VOLUME 91 FL (80-99); MONOCYTES # (AUTO) 0.6 X 10^3 (0.0-1.0); NEUTROPHILS # (AUTO) 3.8 X 10^3 (1.8-7.8); NEUTROPHILS % (AUTO) 51 % (42-75); PLATELET COUNT 137 10^3/uL (130-400); RED BLOOD COUNT 3.87 10^6/uL (4.35-5.85); RED CELL DISTRIBUTION WIDTH 12.8 % (10.0-14.5); WHITE BLOOD COUNT 7.5 10^3/uL (4.3-11.0)
[2016-11-11 05:25] LABS: EOSINOPHILS % (AUTO) 12 % (0-10); MONOCYTES % (AUTO) 9 % (0-12)
[2016-11-11 05:34] LABS: ALBUMIN 3.4 G/DL (3.2-4.5); BILIRUBIN,TOTAL 0.7 MG/DL (0.1-1.0); CALCIUM 9.5 MG/DL (8.5-10.1); CREATININE SERUM 2.04 MG/DL (0.60-1.30); POTASSIUM 4.7 MMOL/L (3.6-5.0); TOTAL PROTEIN 6.9 G/DL (6.4-8.2)
[2016-11-11] MEDS: KCL 20 MEQ TAB (K-DUR) PO SCH ×2 (06:41→17:36)
[2016-11-11] MEDS: MULTIVIT W/MINERALS TAB (THERAGRAN M) PO SCH (06:41)
[2016-11-11] MEDS: MAGNESIUM OXIDE (MAG-OX)400 MG TAB PO SCH ×2 (06:41→17:36)
[2016-11-11] MEDS: FOLIC ACID 1 MG TAB PO SCH (06:41)
[2016-11-11] MEDS: PANTOPRAZOLE 40 MG (PROTONIX) TAB PO SCH (06:42)
[2016-11-11] MEDS: THIAMINE 100 MG (VITAMIN B-1) TAB PO SCH (06:42)
[2016-11-11] MEDS: IRON POLYSAC 150 MG CAP (NIFEREX) PO SCH ×2 (06:42→17:36)
--- NOTE | 2016-11-11 07:34 | Progress Note (SOAP) ---
Subjective Subjective/Events-last exam acute renal failure. Elevated serum ammonia. Slurred speech. Patient talking better but is hard to understand. GFR 34 better than yesterday which was 25. UA shows Asmita put on Diflucan. Serum potassium 4.7 now normal. Serum ammonia 56 coming down. Patient knows where he is at Objective Exam Vital Signs Date Time Temp Pulse Resp B/P Pulse Ox O2 Delivery O2 Flow Rate FiO2 11/11/16 04:42 97.7 87 20 120/89 98 Room Air 11/11/16 00:00 97.4 84 18 110/68 96 Room Air 11/10/16 20:49 97.5 85 22 131/79 98 Room Air 11/10/16 20:10 98 Room Air 11/10/16 16:37 97.9 87 20 118/80 98 Room Air 11/10/16 13:38 97.6 95 24 118/83 97 Room Air 11/10/16 13:15 97 Room Air 11/10/16 13:15 98 Room Air 11/10/16 12:40 98.0 88 18 100 11/10/16 10:02 97.9 91 18 113/86 Room Air I & O 11/11/16 07:00 Intake Total 2430 ml Output Total 1275 ml Balance 1155 ml Capillary Refill : Less Than 3 SecondsLess Than 3 Seconds General Appearance: No Apparent Distress WD/WN HEENT: Normal ENT Inspection Neck: Full Range of Motion Normal Inspection Respiratory: Chest Non Tender Lungs Clear Normal Breath Sounds No Accessory Muscle Use No Respiratory Distress Cardiovascular: Regular Rate, Rhythm Gastrointestinal: non tender soft Results Lab Laboratory Tests 11/10/16 10:30: Urine Bacteria NEGATIVE, Urine Bilirubin NEGATIVE, Urine Casts NONE, Urine Clarity CLEAR, Urine Color YELLOW, Urine Crystals NONE, Urine Culture Indicated NO, Urine Glucose (UA) NEGATIVE, Urine Ketones NEGATIVE, Urine Leukocyte Esterase NEGATIVE, Urine Mucus NEGATIVE, Urine Nitrite NEGATIVE, Urine Protein NEGATIVE, Urine RBC NONE, Urine RBC (Auto) NEGATIVE, Urine Specific Stebbins 1.005L, Urine Squamous Epithelial Cells NONE, Urine Urobilinogen NORMAL, Urine WBC NONE, Urine Yeast LARGEH, Urine pH 7 11/10/16 10:45: INR Comment 1.2, Prothrombin Time 14.4 11/10/16 11:05: Alanine Aminotransferase (ALT/SGPT) 30, Albumin 3.8, Alkaline Phosphatase 90, Ammonia 61H, Anion Gap 9, Aspartate Amino Transf (AST/SGOT) 37H, BUN/Creatinine Ratio 16, Basophils # (Auto) 0.1, Basophils (%) (Auto) 1, Blood Urea Nitrogen 42H, C-Reactive Protein High Sensitivity 1.08H, Calcium Level 10.1, Carbon Dioxide Level 25, Chloride Level 100, Creatinine 2.65H, Eosinophils # (Auto) 0.9H, Eosinophils (%) (Auto) 11H, Estimat Glomerular Filtration Rate 25, Glucose Level 92, Hematocrit 38L, Hemoglobin 13.0L, Lipase 16, Lymphocytes # ( Auto) 1.6, Lymphocytes (%) (Auto) 20, Magnesium Level 1.9, Mean Corpuscular Hemoglobin 31, Mean Corpuscular Hemoglobin Concent 34, Mean Corpuscular Volume 90, Mean Platelet Volume 10.9H, Monocytes # (Auto) 0.5, Monocytes (%) (Auto) 7, Neutrophils # (Auto) 4.7, Neutrophils (%) (Auto) 61, Platelet Count 153, Potassium Level 5.4H, Red Blood Count 4.25L, Red Cell Distribution Width 12.8, Sodium Level 134L, Total Bilirubin 0.7, Total Protein 7.9, White Blood Count 7.8 11/10/16 12:36: Lactic Acid Level 1.28 11/11/16 05:05: Alanine Aminotransferase (ALT/SGPT) 26, Albumin 3.4, Alkaline Phosphatase 84, Ammonia 56H, Anion Gap 10, Aspartate Amino Transf (AST/SGOT) 31, BUN/Creatinine Ratio 19, Basophils # (Auto) 0.1, Basophils (%) (Auto) 1, Blood Urea Nitrogen 38H, Calcium Level 9.5, Carbon Dioxide Level 21, Chloride Level 105, Creatinine 2.04H, Eosinophils # (Auto) 1.0H, Eosinophils (%) (Auto) 12H, Estimat Glomerular Filtration Rate 34, Glucose Level 91, Hematocrit 35L, Hemoglobin 11.9L, Lymphocytes # (Auto) 2.0, Lymphocytes (%) (Auto) 27, Mean Corpuscular Hemoglobin 31, Mean Corpuscular Hemoglobin Concent 34, Mean Corpuscular Volume 91, Mean Platelet Volume 11.0H, Monocytes # (Auto) 0.6, Monocytes (%) (Auto) 9, Neutrophils # (Auto) 3.8, Neutrophils (%) (Auto) 51, Platelet Count 137, Potassium Level 4.7, Red Blood Count 3.87L, Red Cell Distribution Width 12.8, Sodium Level 136, Total Bilirubin 0.7, Total Protein 6.9, White Blood Count 7.5 Assessment/Plan Assessment/Plan Assess & Plan/Chief Complaint acute renal failure. Slurred speech is improving but hard to understand. Elevated serum ammonia. Cirrhosis . Asmita of urine. Patient improving Clinical Quality Measures DVT/VTE Risk/Contraindication: Risk Factor Score Per Nursin RFS Level Per Nursing on Admit: 4+=Very High CHERI GARCIA DO Nov 11, 2016 07:34
[2016-11-11 08:00] VITALS: BP 118/72
[2016-11-11] MEDS: LEVETIRACETAM 500 MG (KEPPRA) TAB PO SCH ×2 (09:49→21:04)
[2016-11-11] MEDS: ATENOLOL 50 MG (TENORMIN) TAB PO SCH (09:50)
[2016-11-11] MEDS: CYCLOBENZAPRINE 10 MG (FLEXERIL) TAB PO SCH ×2 (09:50→21:04)
[2016-11-11] MEDS: fluCOnazole (DIFLUCAN) 100 MG TAB PO SCH (09:50)
[2016-11-11] MEDS: SPIRONOLACTONE 100 MG (ALDACTONE) TABLET PO SCH (09:50)
[2016-11-11] MEDS: LACTULOSE SYRUP 10GM/15ML (ENULOSE) 30ML UDC PO SCH ×3 (09:50→21:03)
[2016-11-11] MEDS: NS IV 1000 ML 1,000 ML IV SCH ×2 (09:51→21:07)
[2016-11-11 12:00] VITALS: BP 117/72
[2016-11-11 16:28] VITALS: BP 134/89
[2016-11-11 20:28] VITALS: BP 124/85
[2016-11-11] MEDS: ENOXAPARIN 40 MG/0.4 ML (LOVENOX) SYR SC SCH (21:03)
[2016-11-11] MEDS: ALFUZOSIN HCL 10 MG TAB (UROXATRAL) PO SCH (21:03)
[2016-11-12] VITALS: BP 134/84
[2016-11-12 04:00] VITALS: BP 115/70
[2016-11-12] MEDS: NS IV 1000 ML 1,000 ML IV SCH ×3 (05:30→15:37)
[2016-11-12 06:11] LABS: BASOPHILS % (AUTO) 1 % (0-10); EOSINOPHILS # (AUTO) 0.6 10^3/uL (0.0-0.3); EOSINOPHILS % (AUTO) 12 % (0-10); LYMPHOCYTES # (AUTO) 1.7 X 10^3 (1.0-4.0); LYMPHOCYTES % (AUTO) 34 % (12-44); MEAN CORPUSCULAR HEMOGLOBIN 31 PG (25-34); MEAN CORPUSCULAR HGB CONC 34 G/DL (32-36); MEAN CORPUSCULAR VOLUME 91 FL (80-99); MEAN PLATELET VOLUME 11.5 FL (7.4-10.4); MONOCYTES # (AUTO) 0.5 X 10^3 (0.0-1.0); MONOCYTES % (AUTO) 9 % (0-12); NEUTROPHILS # (AUTO) 2.2 X 10^3 (1.8-7.8); NEUTROPHILS % (AUTO) 45 % (42-75); PLATELET COUNT 97 10^3/uL (130-400); RED CELL DISTRIBUTION WIDTH 12.8 % (10.0-14.5)
[2016-11-12] MEDS: PANTOPRAZOLE 40 MG (PROTONIX) TAB PO SCH (06:15)
[2016-11-12] MEDS: IRON POLYSAC 150 MG CAP (NIFEREX) PO SCH ×2 (06:15→18:54)
[2016-11-12] MEDS: MAGNESIUM OXIDE (MAG-OX)400 MG TAB PO SCH ×2 (06:15→18:39)
[2016-11-12] MEDS: MULTIVIT W/MINERALS TAB (THERAGRAN M) PO SCH (06:15)
[2016-11-12] MEDS: KCL 20 MEQ TAB (K-DUR) PO SCH (06:15)
[2016-11-12] MEDS: THIAMINE 100 MG (VITAMIN B-1) TAB PO SCH (06:15)
[2016-11-12] MEDS: FOLIC ACID 1 MG TAB PO SCH (06:15)
[2016-11-12 06:35] LABS: ALBUMIN 3.1 G/DL (3.2-4.5); BILIRUBIN,TOTAL 0.6 MG/DL (0.1-1.0); CALCIUM 9.3 MG/DL (8.5-10.1); CREATININE SERUM 1.52 MG/DL (0.60-1.30); POTASSIUM 5.1 MMOL/L (3.6-5.0); TOTAL PROTEIN 6.3 G/DL (6.4-8.2)
--- NOTE | 2016-11-12 07:46 | Progress Note (SOAP) ---
Subjective Subjective/Events-last exam patient feeling better and wants to go home. Patient alert this morning. Patient knows who the president is and what year it is . GFR 48 from 25. Serum ammonia better. Objective Exam Vital Signs Date Time Temp Pulse Resp B/P Pulse Ox O2 Delivery O2 Flow Rate FiO2 11/12/16 04:00 96.7 97 16 115/70 99 Room Air 11/12/16 00:00 97.7 89 16 134/84 99 Room Air 11/11/16 20:50 98 Room Air 11/11/16 20:28 97.1 78 20 124/85 98 Room Air 11/11/16 16:28 97.1 82 18 134/89 99 Room Air 11/11/16 12:00 96.6 82 20 117/72 98 Room Air 11/11/16 08:00 96.9 96 20 118/72 98 Room Air I & O 11/12/16 07:00 Intake Total 5025 ml Output Total 3175 ml Balance 1850 ml Capillary Refill : Less Than 3 SecondsLess Than 3 Seconds General Appearance: No Apparent Distress WD/WN HEENT: Normal ENT Inspection Neck: Full Range of Motion Non Tender Respiratory: Chest Non Tender Lungs Clear Normal Breath Sounds No Accessory Muscle Use No Respiratory Distress Cardiovascular: Regular Rate, Rhythm Gastrointestinal: non tender soft Results Lab Laboratory Tests 11/12/16 05:20 Laboratory Tests 11/12/16 05:20: Alanine Aminotransferase (ALT/SGPT) 24, Albumin 3.1L, Alkaline Phosphatase 75, Ammonia 52H, Anion Gap 8, Aspartate Amino Transf (AST/SGOT) 32, BUN/Creatinine Ratio 20, Basophils # (Auto) 0.0, Basophils (%) (Auto) 1, Blood Urea Nitrogen 30H, Calcium Level 9.3, Carbon Dioxide Level 18L, Chloride Level 110H, Creatinine 1.52H, Eosinophils # (Auto) 0.6H, Eosinophils (%) (Auto) 12H, Estimat Glomerular Filtration Rate 48, Glucose Level 94, Hematocrit 33L, Hemoglobin 11.0L, Lymphocytes # (Auto) 1.7, Lymphocytes (%) (Auto) 34, Mean Corpuscular Hemoglobin 31, Mean Corpuscular Hemoglobin Concent 34, Mean Corpuscular Volume 91, Mean Platelet Volume 11.5H, Monocytes # (Auto) 0.5, Monocytes (%) (Auto) 9, Neutrophils # (Auto) 2.2, Neutrophils (%) (Auto) 45, Platelet Count 97L, Potassium Level 5.1H, Red Blood Count 3.60L, Red Cell Distribution Width 12.8, Sodium Level 136, Total Bilirubin 0.6, Total Protein 6.3L, White Blood Count 5.0 Microbiology 11/10/16 Blood Culture - Preliminary, Resulted No growth Assessment/Plan Assessment/Plan Assess & Plan/Chief Complaint acute renal failure. Slurred speech is improving but hard to understand. Elevated serum ammonia. Cirrhosis . Asmita of urine. Patient improving. . Acute renal failure better. Serum ammonia level better. Patient wants to go home Patient alert Clinical Quality Measures DVT/VTE Risk/Contraindication: Risk Factor Score Per Nursin RFS Level Per Nursing on Admit: 4+=Very High CHERI GARCIA DO Nov 12, 2016 07:45
[2016-11-12 08:00] VITALS: BP 102/63
[2016-11-12] MEDS: ATENOLOL 50 MG (TENORMIN) TAB PO SCH (09:06)
[2016-11-12] MEDS: LACTULOSE SYRUP 10GM/15ML (ENULOSE) 30ML UDC PO SCH ×3 (09:06→20:56)
[2016-11-12] MEDS: SPIRONOLACTONE 100 MG (ALDACTONE) TABLET PO SCH (09:06)
[2016-11-12] MEDS: LEVETIRACETAM 500 MG (KEPPRA) TAB PO SCH ×2 (09:06→20:56)
[2016-11-12] MEDS: fluCOnazole (DIFLUCAN) 100 MG TAB PO SCH (09:06)
[2016-11-12] MEDS: CYCLOBENZAPRINE 10 MG (FLEXERIL) TAB PO SCH ×2 (09:06→20:56)
[2016-11-12 12:00] VITALS: BP 125/70
[2016-11-12 16:55] VITALS: BP 94/63
[2016-11-12] MEDS: ENOXAPARIN 40 MG/0.4 ML (LOVENOX) SYR SC SCH (18:40)
[2016-11-12 19:35] VITALS: BP 129/96
[2016-11-12] MEDS: ALFUZOSIN HCL 10 MG TAB (UROXATRAL) PO SCH (20:56)
[2016-11-13] VITALS: BP 116/68
[2016-11-13 04:00] VITALS: BP 110/75
[2016-11-13] MEDS: FOLIC ACID 1 MG TAB PO SCH (06:09)
[2016-11-13] MEDS: MULTIVIT W/MINERALS TAB (THERAGRAN M) PO SCH (06:09)
[2016-11-13] MEDS: THIAMINE 100 MG (VITAMIN B-1) TAB PO SCH (06:09)
[2016-11-13] MEDS: PANTOPRAZOLE 40 MG (PROTONIX) TAB PO SCH (06:09)
[2016-11-13] MEDS: IRON POLYSAC 150 MG CAP (NIFEREX) PO SCH (06:15)
[2016-11-13] MEDS: MAGNESIUM OXIDE (MAG-OX)400 MG TAB PO SCH (06:15)
[2016-11-13] MEDS ORDERED: KCL 20 MEQ TAB (K-DUR) PO SCH (07:00)
--- NOTE | 2016-11-13 07:38 | Progress Note (SOAP) ---
Subjective Subjective/Events-last exam patient doing better today. Patient knows the date and what 2+2 is. Patient alert. Plan to discharge today. Acute renal insufficiency. Cirrhosis. Altered mental status resolved Objective Exam Vital Signs Date Time Temp Pulse Resp B/P Pulse Ox O2 Delivery O2 Flow Rate FiO2 11/13/16 04:00 98.1 98 20 110/75 97 Room Air 11/13/16 00:00 97.2 95 20 116/68 96 Room Air 11/12/16 19:35 98.0 90 18 129/96 99 Room Air 11/12/16 16:55 96.5 89 21 94/63 93 Room Air 11/12/16 12:00 96.9 97 20 125/70 96 Room Air 11/12/16 08:55 98 Room Air 11/12/16 08:00 96.9 91 20 102/63 97 Room Air I & O 11/13/16 07:00 Intake Total 1325 ml Output Total 1650 ml Balance -325 ml Capillary Refill : Less Than 3 SecondsLess Than 3 Seconds General Appearance: No Apparent Distress WD/WN HEENT: Normal ENT Inspection Neck: Full Range of Motion Respiratory: Chest Non Tender Lungs Clear Normal Breath Sounds No Accessory Muscle Use No Respiratory Distress Cardiovascular: Regular Rate, Rhythm No Murmur Gastrointestinal: non tender soft Results Lab Microbiology 11/10/16 Blood Culture - Preliminary, Resulted No growth Assessment/Plan Assessment/Plan Assess & Plan/Chief Complaint acute renal failure. Slurred speech is improving but hard to understand. Elevated serum ammonia. Cirrhosis . Asmita of urine. Patient improving. . Acute renal failure better. Serum ammonia level better. Patient wants to go home Patient alert. . 11/13/16 area Acute renal failure. Patient doing better area Patient alert. To discharge today. Cirrhosis. No slurred speech. Elevated serum ammonia coming down Clinical Quality Measures DVT/VTE Risk/Contraindication: Risk Factor Score Per Nursin RFS Level Per Nursing on Admit: 4+=Very High CHERI GARCIA DO Nov 13, 2016 07:37
[2016-11-13 08:04] LABS: BASOPHILS % (AUTO) 1 % (0-10); EOSINOPHILS # (AUTO) 0.4 10^3/uL (0.0-0.3); EOSINOPHILS % (AUTO) 10 % (0-10); LYMPHOCYTES # (AUTO) 1.3 X 10^3 (1.0-4.0); LYMPHOCYTES % (AUTO) 29 % (12-44); MEAN CORPUSCULAR HEMOGLOBIN 31 PG (25-34); MEAN CORPUSCULAR HGB CONC 33 G/DL (32-36); MEAN CORPUSCULAR VOLUME 92 FL (80-99); MEAN PLATELET VOLUME 11.2 FL (7.4-10.4); MONOCYTES # (AUTO) 0.3 X 10^3 (0.0-1.0); MONOCYTES % (AUTO) 8 % (0-12); NEUTROPHILS # (AUTO) 2.3 X 10^3 (1.8-7.8); NEUTROPHILS % (AUTO) 53 % (42-75); PLATELET COUNT 81 10^3/uL (130-400); RED BLOOD COUNT 3.53 10^6/uL (4.35-5.85); RED CELL DISTRIBUTION WIDTH 12.7 % (10.0-14.5); WHITE BLOOD COUNT 4.3 10^3/uL (4.3-11.0)
[2016-11-13 08:26] LABS: ALBUMIN 3.4 G/DL (3.2-4.5); BILIRUBIN,TOTAL 0.8 MG/DL (0.1-1.0); CALCIUM 9.7 MG/DL (8.5-10.1); CREATININE SERUM 1.48 MG/DL (0.60-1.30); POTASSIUM 5.1 MMOL/L (3.6-5.0); TOTAL PROTEIN 6.7 G/DL (6.4-8.2)
[2016-11-13] MEDS: LACTULOSE SYRUP 10GM/15ML (ENULOSE) 30ML UDC PO SCH (09:35)
[2016-11-13] MEDS: LEVETIRACETAM 500 MG (KEPPRA) TAB PO SCH (09:36)
[2016-11-13] MEDS: CYCLOBENZAPRINE 10 MG (FLEXERIL) TAB PO SCH (09:36)
[2016-11-13] MEDS: ATENOLOL 50 MG (TENORMIN) TAB PO SCH (09:36)
[2016-11-13] MEDS: fluCOnazole (DIFLUCAN) 100 MG TAB PO SCH (09:36)
[2016-11-13] MEDS: SPIRONOLACTONE 100 MG (ALDACTONE) TABLET PO SCH (09:36)
[2016-11-13] MEDS ORDERED: LACT10SO PO (11:53)
[2016-11-13 12:15] VITALS: BP 110/75
--- NOTE | 2016-11-17 06:21 | Discharge Summary ---
Diagnosis/Chief Complaint Date of Admission Nov 10, 2016 at 12:20 Date of Discharge Nov 13, 2016 at 12:20 Discharge Date: Nov 13, 2016 Admission Diagnosis Admission Diagnosis Acute renal failure. Elevated serum ammonia. History of hepatic encephalopathy. History of pneumonia better. Dehydration Discharge Diagnosis altered mental status. Acute kidney failure unspecified. 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 Dehydration. Anemia. Unspecified viral hepatitis C without hepatic coma. Cirrhosis of the liver. COPD. Sludge speech. COPD. Hypertensive heart disease. Type II diabetes. Major depressive disorder Reason Hospital Visit Patient is a resident of [facility]. According to the nurse patient has altered mental status and confusion. Patient stent out to the emergency room Patient in acute renal failure. Patient serum ammonia elevated. Chest x-ray showed previous pneumonia nearly completely resolved. Patient had slurred speech. Patient has history of cirrhosis with hepatic encephalopathy. Patient states he has dizziness Discharge Summary Discharge Physical Examination Allergies: Coded Allergies: No Known Drug Allergies (Unverified , 09/02/16) Vitals & I&Os Vital Signs Date Time Temp Pulse Resp B/P Pulse Ox O2 Delivery O2 Flow Rate FiO2 11/13/16 12:15 98 20 110/75 97 11/13/16 04:00 98.1 Room Air Hospital Course patient in hospital did better. Patient coherent. Altered mental status resolved. Kidney function improved Labs (last 24 hrs) Laboratory Tests 11/10/16 10:30: Urine Bacteria NEGATIVE, Urine Bilirubin NEGATIVE, Urine Casts NONE, Urine Clarity CLEAR, Urine Color YELLOW, Urine Crystals NONE, Urine Culture Indicated NO, Urine Glucose (UA) NEGATIVE, Urine Ketones NEGATIVE, Urine Leukocyte Esterase NEGATIVE, Urine Mucus NEGATIVE, Urine Nitrite NEGATIVE, Urine Protein NEGATIVE, Urine RBC NONE, Urine RBC (Auto) NEGATIVE, Urine Specific [place] 1.005L, Urine Squamous Epithelial Cells NONE, Urine Urobilinogen NORMAL, Urine WBC NONE, Urine Yeast LARGEH, Urine pH 7 11/10/16 10:45: INR Comment 1.2, Prothrombin Time 14.4 11/10/16 11:05: Alanine Aminotransferase (ALT/SGPT) 30, Albumin 3.8, Alkaline Phosphatase 90, Ammonia 61H, Anion Gap 9, Aspartate Amino Transf (AST/SGOT) 37H, BUN/Creatinine Ratio 16, Basophils # (Auto) 0.1, Basophils (%) (Auto) 1, Blood Urea Nitrogen 42H, C-Reactive Protein High Sensitivity 1.08H, Calcium Level 10.1, Carbon Dioxide Level 25, Chloride Level 100, Creatinine 2.65H, Eosinophils # (Auto) 0.9H, Eosinophils (%) (Auto) 11H, Estimat Glomerular Filtration Rate 25, Glucose Level 92, Hematocrit 38L, Hemoglobin 13.0L, Lipase 16, Lymphocytes # ( Auto) 1.6, Lymphocytes (%) (Auto) 20, Magnesium Level 1.9, Mean Corpuscular Hemoglobin 31, Mean Corpuscular Hemoglobin Concent 34, Mean Corpuscular Volume 90, Mean Platelet Volume 10.9H, Monocytes # (Auto) 0.5, Monocytes (%) (Auto) 7, Neutrophils # (Auto) 4.7, Neutrophils (%) (Auto) 61, Platelet Count 153, Potassium Level 5.4H, Red Blood Count 4.25L, Red Cell Distribution Width 12.8, Sodium Level 134L, Total Bilirubin 0.7, Total Protein 7.9, White Blood Count 7.8 11/10/16 12:36: Lactic Acid Level 1.28 11/11/16 05:05: Alanine Aminotransferase (ALT/SGPT) 26, Albumin 3.4, Alkaline Phosphatase 84, Ammonia 56H, Anion Gap 10, Aspartate Amino Transf (AST/SGOT) 31, BUN/Creatinine Ratio 19, Basophils # (Auto) 0.1, Basophils (%) (Auto) 1, Blood Urea Nitrogen 38H, Calcium Level 9.5, Carbon Dioxide Level 21, Chloride Level 105, Creatinine 2.04H, Eosinophils # (Auto) 1.0H, Eosinophils (%) (Auto) 12H, Estimat Glomerular Filtration Rate 34, Glucose Level 91, Hematocrit 35L, Hemoglobin 11.9L, Lymphocytes # (Auto) 2.0, Lymphocytes (%) (Auto) 27, Mean Corpuscular Hemoglobin 31, Mean Corpuscular Hemoglobin Concent 34, Mean Corpuscular Volume 91, Mean Platelet Volume 11.0H, Monocytes # (Auto) 0.6, Monocytes (%) (Auto) 9, Neutrophils # (Auto) 3.8, Neutrophils (%) (Auto) 51, Platelet Count 137, Potassium Level 4.7, Red Blood Count 3.87L, Red Cell Distribution Width 12.8, Sodium Level 136, Total Bilirubin 0.7, Total Protein 6.9, White Blood Count 7.5 3/9/17 05:20: Alanine Aminotransferase (ALT/SGPT) 24, Albumin 3.1L, Alkaline Phosphatase 75, Ammonia 52H, Anion Gap 8, Aspartate Amino Transf (AST/SGOT) 32, BUN/Creatinine Ratio 20, Basophils # (Auto) 0.0, Basophils (%) (Auto) 1, Blood Urea Nitrogen 30H, Calcium Level 9.3, Carbon Dioxide Level 18L, Chloride Level 110H, Creatinine 1.52H, Eosinophils # (Auto) 0.6H, Eosinophils (%) (Auto) 12H, Estimat Glomerular Filtration Rate 48, Glucose Level 94, Hematocrit 33L, Hemoglobin 11.0L, Lymphocytes # (Auto) 1.7, Lymphocytes (%) (Auto) 34, Mean Corpuscular Hemoglobin 31, Mean Corpuscular Hemoglobin Concent 34, Mean Corpuscular Volume 91, Mean Platelet Volume 11.5H, Monocytes # (Auto) 0.5, Monocytes (%) (Auto) 9, Neutrophils # (Auto) 2.2, Neutrophils (%) (Auto) 45, Platelet Count 97L, Potassium Level 5.1H, Red Blood Count 3.60L, Red Cell Distribution Width 12.8, Sodium Level 136, Total Bilirubin 0.6, Total Protein 6.3L, White Blood Count 5.0 11/13/16 07:53: Alanine Aminotransferase (ALT/SGPT) 23, Albumin 3.4, Alkaline Phosphatase 77, Ammonia 37H, Anion Gap 8, Aspartate Amino Transf (AST/SGOT) 31, BUN/Creatinine Ratio 16, Basophils # (Auto) 0.0, Basophils (%) (Auto) 1, Blood Urea Nitrogen 24H, Calcium Level 9.7, Carbon Dioxide Level 19L, Chloride Level 111H, Creatinine 1.48H, Eosinophils # (Auto) 0.4H, Eosinophils (%) (Auto) 10, Estimat Glomerular Filtration Rate 49, Glucose Level 88, Hematocrit 32L, Hemoglobin 10.8L, Lymphocytes # (Auto) 1.3, Lymphocytes (%) (Auto) 29, Mean Corpuscular Hemoglobin 31, Mean Corpuscular Hemoglobin Concent 33, Mean Corpuscular Volume 92, Mean Platelet Volume 11.2H, Monocytes # (Auto) 0.3, Monocytes (%) (Auto) 8, Neutrophils # (Auto) 2.3, Neutrophils (%) (Auto) 53, Platelet Count 81L, Potassium Level 5.1H, Red Blood Count 3.53L, Red Cell Distribution Width 12.7, Sodium Level 138, Total Bilirubin 0.8, Total Protein 6.7, White Blood Count 4.3 Microbiology 11/10/16 Blood Culture - Final, Complete No growth Laboratory Tests 11/10/16 11:05 11/11/16 05:05 11/12/16 05:20 11/13/16 07:53 Pending Labs Microbiology Date/Time Source Procedure Growth Status 11/10/16 11:14 Peripheral Rt Hand Blood Culture - Final No growth Complete 11/10/16 11:05 Peripheral Lt Hand Blood Culture - Final No growth Complete Laboratory Tests 11/10/16 10:30: Urine Bacteria NEGATIVE, Urine Bilirubin NEGATIVE, Urine Casts NONE, Urine Clarity CLEAR, Urine Color YELLOW, Urine Crystals NONE, Urine Culture Indicated NO, Urine Glucose (UA) NEGATIVE, Urine Ketones NEGATIVE, Urine Leukocyte Esterase NEGATIVE, Urine Mucus NEGATIVE, Urine Nitrite NEGATIVE, Urine Protein NEGATIVE, Urine RBC NONE, Urine RBC (Auto) NEGATIVE, Urine Specific [place] 1.005, Urine Squamous Epithelial Cells NONE, Urine Urobilinogen NORMAL, Urine WBC NONE, Urine Yeast LARGE, Urine pH 7 11/10/16 10:45: INR Comment 1.2, Prothrombin Time 14.4 11/10/16 11:05: Alanine Aminotransferase (ALT/SGPT) 30, Albumin 3.8, Alkaline Phosphatase 90, Ammonia 61, Anion Gap 9, Aspartate Amino Transf (AST/SGOT) 37, BUN/Creatinine Ratio 16, Basophils # (Auto) 0.1, Basophils (%) (Auto) 1, Blood Urea Nitrogen 42 , C-Reactive Protein High Sensitivity 1.08, Calcium Level 10.1, Carbon Dioxide Level 25, Chloride Level 100, Creatinine 2.65, Eosinophils # (Auto) 0.9, Eosinophils (%) (Auto) 11, Estimat Glomerular Filtration Rate 25, Glucose Level 92, Hematocrit 38, Hemoglobin 13.0, Lipase 16, Lymphocytes # (Auto) 1.6, Lymphocytes (%) (Auto) 20, Magnesium Level 1.9, Mean Corpuscular Hemoglobin 31, Mean Corpuscular Hemoglobin Concent 34, Mean Corpuscular Volume 90, Mean Platelet Volume 10.9, Monocytes # (Auto) 0.5, Monocytes (%) (Auto) 7, Neutrophils # (Auto) 4.7, Neutrophils (%) (Auto) 61, Platelet Count 153, Potassium Level 5.4, Red Blood Count 4.25, Red Cell Distribution Width 12.8, Sodium Level 134, Total Bilirubin 0.7, Total Protein 7.9, White Blood Count 7.8 11/10/16 12:36: Lactic Acid Level 1.28 11/11/16 05:05: Alanine Aminotransferase (ALT/SGPT) 26, Albumin 3.4, Alkaline Phosphatase 84, Ammonia 56, Anion Gap 10, Aspartate Amino Transf (AST/SGOT) 31, BUN/Creatinine Ratio 19, Basophils # (Auto) 0.1, Basophils (%) (Auto) 1, Blood Urea Nitrogen 38 , Calcium Level 9.5, Carbon Dioxide Level 21, Chloride Level 105, Creatinine 2.04, Eosinophils # (Auto) 1.0, Eosinophils (%) (Auto) 12, Estimat Glomerular Filtration Rate 34, Glucose Level 91, Hematocrit 35, Hemoglobin 11.9, Lymphocytes # (Auto) 2.0, Lymphocytes (%) (Auto) 27, Mean Corpuscular Hemoglobin 31, Mean Corpuscular Hemoglobin Concent 34, Mean Corpuscular Volume 91, Mean Platelet Volume 11.0, Monocytes # (Auto) 0.6, Monocytes (%) (Auto) 9, Neutrophils # (Auto) 3.8, Neutrophils (%) (Auto) 51, Platelet Count 137, Potassium Level 4.7, Red Blood Count 3.87, Red Cell Distribution Width 12.8, Sodium Level 136, Total Bilirubin 0.7, Total Protein 6.9, White Blood Count 7.5 11/12/16 05:20: Alanine Aminotransferase (ALT/SGPT) 24, Albumin 3.1, Alkaline Phosphatase 75, Ammonia 52, Anion Gap 8, Aspartate Amino Transf (AST/SGOT) 32, BUN/Creatinine Ratio 20, Basophils # (Auto) 0.0, Basophils (%) (Auto) 1, Blood Urea Nitrogen 30 , Calcium Level 9.3, Carbon Dioxide Level 18, Chloride Level 110, Creatinine 1.52, Eosinophils # (Auto) 0.6, Eosinophils (%) (Auto) 12, Estimat Glomerular Filtration Rate 48, Glucose Level 94, Hematocrit 33, Hemoglobin 11.0, Lymphocytes # (Auto) 1.7, Lymphocytes (%) (Auto) 34, Mean Corpuscular Hemoglobin 31, Mean Corpuscular Hemoglobin Concent 34, Mean Corpuscular Volume 91, Mean Platelet Volume 11.5, Monocytes # (Auto) 0.5, Monocytes (%) (Auto) 9, Neutrophils # (Auto) 2.2, Neutrophils (%) (Auto) 45, Platelet Count 97, Potassium Level 5.1, Red Blood Count 3.60, Red Cell Distribution Width 12.8, Sodium Level 136, Total Bilirubin 0.6, Total Protein 6.3, White Blood Count 5.0 11/13/16 07:53: Alanine Aminotransferase (ALT/SGPT) 23, Albumin 3.4, Alkaline Phosphatase 77, Ammonia 37, Anion Gap 8, Aspartate Amino Transf (AST/SGOT) 31, BUN/Creatinine Ratio 16, Basophils # (Auto) 0.0, Basophils (%) (Auto) 1, Blood Urea Nitrogen 24 , Calcium Level 9.7, Carbon Dioxide Level 19, Chloride Level 111, Creatinine 1.48, Eosinophils # (Auto) 0.4, Eosinophils (%) (Auto) 10, Estimat Glomerular Filtration Rate 49, Glucose Level 88, Hematocrit 32, Hemoglobin 10.8, Lymphocytes # (Auto) 1.3, Lymphocytes (%) (Auto) 29, Mean Corpuscular Hemoglobin 31, Mean Corpuscular Hemoglobin Concent 33, Mean Corpuscular Volume 92, Mean Platelet Volume 11.2, Monocytes # (Auto) 0.3, Monocytes (%) (Auto) 8, Neutrophils # (Auto) 2.3, Neutrophils (%) (Auto) 53, Platelet Count 81, Potassium Level 5.1, Red Blood Count 3.53, Red Cell Distribution Width 12.7, Sodium Level 138, Total Bilirubin 0.8, Total Protein 6.7, White Blood Count 4.3 Radiology Reviewed chest x-ray minimal residual infiltrate in right lung base Discharge Home Medications: Active Scripts Active Lactulose 10 Gm/15 Ml Solution 1 Oz PO TID 30 Days Reported Cyclobenzaprine HCl 10 Mg Tablet 10 Mg PO BID Atenolol 50 Mg Tablet 50 Mg PO DAILY Tramadol HCl 50 Mg Tablet 50 Mg PO BID Poly-Iron (Iron Polysaccharide Complex) 150 Mg Capsule 150 Mg PO BID Protonix (Pantoprazole Sodium) 40 Mg Tablet.dr 40 Mg PO DAILY Bumetanide 1 Mg Tablet 1 Mg PO DAILY Tamsulosin HCl 0.4 Mg Cap.er.24h 0.4 Mg PO HS Magnesium Oxide 400 Mg Tablet 400 Mg PO BID Levetiracetam 500 Mg Tablet 500 Mg PO BID Combivent Respimat Inhal Roxana (Albuterol/Ipratropium) 4 Gm Aero 1 Puff IH Q6H PRN Vitamin B-1 (Thiamine Mononitrate) 100 Mg Tablet 100 Mg PO DAILY Spironolactone 100 Mg Tablet 100 Mg PO DAILY Potassium Chloride 20 Meq Tablet.er 20 Meq PO BID Multiple Vitamin (Multivitamin with Minerals) 1 Each Tablet 1 Tab PO DAILY Guaifenesin 1,200 Mg Tab.er.12h 1,200 Mg PO Q12H PRN Folic Acid 1 Mg Tablet 1 Mg PO DAILY Instructions to patient/family Please see electonic discharge instructions given to patient. Clinical Quality Measures DVT/VTE Risk/Contraindication: Risk Factor Score Per Nursin RFS Level Per Nursing on Admit: 4+=Very High CHERI GARCIA DO Nov 17, 2016 06:21
== END 2016-11-13 12:20 | DRG 683 ==
LOC: EDUNIT# 09:54 → ER 09:57 → 4TH 12:20
PROVIDERS: ADMIT Family Medicine; ATTEND Family Medicine
DX: N17.9 Acute kidney failure, unspecified (principal); B19.10 Unspecified viral hepatitis B without hepatic coma; B37.49 Other urogenital candidiasis; E86.0 Dehydration; B19.20 Unspecified viral hepatitis C without hepatic coma; K74.60 Unspecified cirrhosis of liver; J44.9 Chronic obstructive pulmonary disease, unspecified; I11.0 Hypertensive heart disease with heart failure; I50.9 Heart failure, unspecified; E11.9 Type 2 diabetes mellitus without complications; F32.9 Major depressive disorder, single episode, unspecified
CPT/HCPCS: 36415; 71010; 80053; 81000; 82140; 83605; 83690; 83735; 85025; 85610; 86141; 87040; 96360

== ENCOUNTER 2016-11-17 10:20 | Inpatient (IN) | payer MEDICAID ==
[~2016-11-17] VITALS: Ht 172.7 cm; Wt 85.2 kg
[~2016-11-17 10:20] MED LIST changes: +LACT10SO PO
--- NOTE | 2016-11-17 11:00 | Diagnostic Imaging Report ---
CLINICAL INDICATION: Patient confused, speaking with word salad. TECHNIQUE: An axial CT scan of the brain was performed without IV contrast. High-resolution axial CT brain images with coronal reformations were also created. COMPARISON: Head CT without IV contrast dated 10/19/2016. FINDINGS: There is no CT evidence of acute cerebral infarct, intracranial hemorrhage, or gross mass effect. There is no significant change to the patchy and focal areas of low-attenuation white matter changes throughout both cerebral hemispheres. There is stable advanced diffuse brain parenchymal volume loss. There is normal leonard/white matter distinction. There is no significant midline shift or herniation. There is no evidence of hydrocephalus. The basal cisterns are unremarkable. Stable chronic bony defect involving the medial right orbital wall with medial concave deformity. Otherwise, the skull, extracranial soft tissue, and orbits are unremarkable. The paranasal sinuses are unremarkable. IMPRESSION: Stable CT scan of the brain with no definite CT evidence of interval acute cerebral infarction, intracranial hemorrhage, or mass seen. Given the low attenuation changes throughout the brain parenchyma which can obscure more subtle findings, if there is clinical concern for acute cerebral infarction, MRI of the brain would better evaluate. 2: Stable advanced brain parenchymal findings with chronic small vessel ischemic disease and diffuse brain parenchymal volume loss. Dictated by: Dictated on workstation # [id number]
[2016-11-17 11:18] LABS: BASOPHILS # (AUTO) 0.1 10^3/uL (0.0-0.1); BASOPHILS % (AUTO) 1 % (0-10); EOSINOPHILS % (AUTO) 11 % (0-10); LYMPHOCYTES # (AUTO) 1.5 X 10^3 (1.0-4.0); LYMPHOCYTES % (AUTO) 17 % (12-44); MEAN CORPUSCULAR HEMOGLOBIN 30 PG (25-34); MEAN CORPUSCULAR HGB CONC 34 G/DL (32-36); MEAN CORPUSCULAR VOLUME 90 FL (80-99); MONOCYTES # (AUTO) 0.5 X 10^3 (0.0-1.0); MONOCYTES % (AUTO) 6 % (0-12); NEUTROPHILS # (AUTO) 5.7 X 10^3 (1.8-7.8); NEUTROPHILS % (AUTO) 65 % (42-75); PLATELET COUNT 120 10^3/uL (130-400); RED BLOOD COUNT 3.75 10^6/uL (4.35-5.85); RED CELL DISTRIBUTION WIDTH 12.9 % (10.0-14.5); WHITE BLOOD COUNT 8.7 10^3/uL (4.3-11.0)
[2016-11-17 11:35] LABS: ALANINE AMINOTRANSFERASE 24 U/L (0-55); ALBUMIN 3.6 G/DL (3.2-4.5); AMMONIA 38 UMOL/L (11-32); ANION GAP 9 MMOL/L (5-14); ASPARTATE AMINO TRANSFERASE 30 U/L (5-34); BILIRUBIN,TOTAL 0.7 MG/DL (0.1-1.0); BLOOD UREA NITROGEN 25 MG/DL (7-18); BUN/CREATININE RATIO 12; CALCIUM 9.5 MG/DL (8.5-10.1); CARBON DIOXIDE 21 MMOL/L (21-32); CHLORIDE 104 MMOL/L (98-107); CREATININE SERUM 2.06 MG/DL (0.60-1.30); GFR ESTIMATED 34; GLUCOSE 104 MG/DL (70-105); POTASSIUM 6.1 MMOL/L (3.6-5.0); SODIUM 134 MMOL/L (135-145); TOTAL PROTEIN 7.1 G/DL (6.4-8.2)
[2016-11-17 11:38] LABS: BILIRUBIN,URINE NEGATIVE (NEGATIVE); KETONES,URINE NEGATIVE (NEGATIVE); LEUKOCYTE ESTERASE ,URINE NEGATIVE (NEGATIVE); NITRITE,URINE NEGATIVE (NEGATIVE); PH,URINE 7 (5-9); PROTEIN,URINE NEGATIVE (NEGATIVE); UROBILINOGEN,URINE NORMAL (NORMAL)
[2016-11-17 11:41] LABS: TROPONIN I < 0.30 NG/ML (<0.30)
[2016-11-17 11:46] LABS: INR 1.3 (0.8-1.4); PROTHROMBIN TIME PATIENT 16.3 SEC (12.2-14.7)
[2016-11-17 11:51] LABS: SQUAMOUS EPITHELIAL CELL,UR RARE /HPF; WBC,URINE RARE /HPF; YEAST,URINE FEW /HPF
--- NOTE | 2016-11-17 11:54 | Diagnostic Imaging Report ---
INDICATION: Chest pain. Comparison with 11/10/2016. FINDINGS: The lungs are well-aerated and clear. Heart is not enlarged. No hilar adenopathy. No pulmonary edema. No pneumothorax or pleural effusion. IMPRESSION: Normal portable chest. Dictated by: Dictated on workstation # [id number]
[2016-11-17] MEDS ORDERED: NS IV 1000 ML 1,000 ML IV ONE (11:57)
[2016-11-17] MEDS ORDERED: SOD POLYSTERENE 15 GM/60 ML (KAYEXALATE) UNIT DOSE PO ONE (12:00)
--- NOTE | 2016-11-17 12:30 | ED Neurological Problem ---
General Chief Complaint: Neuro-Stroke Like Symptoms Stated Complaint: CONFUSION Nursing Triage Note: ACCORDING TO NURSING NOTES FROM [facility] - "NOTED RESIDENT SITTING IN CLOSET LOOKING THROUGH CLOTHING AND OPENING CLOTHING AND STATING "IS THERE ANYONE IN THERE". SPEECH SLURRED AND DIFFICULTY TO UNDERSTAND. nOTED MELTED ICE CREAM SANDWICHES ON COUNTER AND SMASHED POTATOE CHIPS. PT WALKED INTO ROOM WITH WALKER AND ABLE TO GET INTO BED WITHOUT DIFFICULTY. A/O X2. SPEECH IS SLURRED AND DIFFICULT TO UNDERSTAND. Nursing Sepsis Screen: No Definite Risk Source: patient, correction records, old records Exam Limitations: clinical condition History of Present Illness Time seen by provider: 10:37 Initial Comments See history from nursing triage above. Patient comes in with altered mental status. Stroke activation was paged out. Nursing staff did not present with the patient. There were contacted by phone and stated he sometimes has altered mental status when ammonia levels are high secondary to cirrhosis. Patient's NIH stroke score was 2. He has dysarthria but actually does not have significant aphasia. He is ambulatory with his walker. Review of chart reveals that he was recently admitted for acute renal failure and hepatic failure. Atrial fibrillation with controlled rate was noted on the EKG. Patient was taken to CT after initial assessment. Allergies and Home Medications Allergies Coded Allergies: No Known Drug Allergies (Unverified , 09/02/16) Home Medications Albuterol/Ipratropium 4 Gm Aero 1 PUFF IH Q6H PRN PRN SHORTNESS OF BREATH ( Reported) Atenolol 50 Mg Tablet 50 MG PO DAILY (Reported) Bumetanide 1 Mg Tablet 1 MG PO DAILY (Reported) Cyclobenzaprine HCl 10 Mg Tablet 10 MG PO BID (Reported) Folic Acid 1 Mg Tablet 1 MG PO DAILY (Reported) Guaifenesin 1,200 Mg Tab.er.12h 1,200 MG PO Q12H PRN PRN COUGH (Reported) Iron Polysaccharide Complex 150 Mg Capsule 150 MG PO BID (Reported) Lactulose 10 Gm/15 Ml Solution 30Days 1 OZ PO TID Prescribed by: HUI HAYNES on 11/13/16 1153 Levetiracetam 500 Mg Tablet 500 MG PO BID (Reported) Magnesium Oxide 400 Mg Tablet 400 MG PO BID (Reported) Multivitamin with Minerals 1 Each Tablet 1 TAB PO DAILY (Reported) Pantoprazole Sodium 40 Mg Tablet.dr 40 MG PO DAILY (Reported) Potassium Chloride 20 Meq Tablet.er 20 MEQ PO BID (Reported) Spironolactone 100 Mg Tablet 100 MG PO DAILY (Reported) Tamsulosin HCl 0.4 Mg Cap.er.24h 0.4 MG PO HS (Reported) Thiamine Mononitrate 100 Mg Tablet 100 MG PO DAILY (Reported) Tramadol HCl 50 Mg Tablet 50 MG PO BID (Reported) Constitutional: no symptoms reported Eyes: No Symptoms Reported Ears, Nose, Mouth, Throat: no symptoms reported Respiratory: no symptoms reported Cardiovascular: see HPI Gastrointestinal: see HPI Genitourinary: no symptoms reported Musculoskeletal: no symptoms reported Skin: no symptoms reported Psychiatric/Neurological: See HPI Endocrine: No Symptoms Reported Hematologic/Lymphatic: No Symptoms Reported Past [id number] Hx Patient Social History Recent Foreign Travel: No Contact w/Someone Who Travel: No Recent Infectious Disease Expo: No Recent Hopitalizations: Yes (FLUID ON LUNGS) Immunizations Up To Date Tetanus Booster (TDap): Unknown PED Vaccines UTD: Yes Date of Pneumonia Vaccine: May 07, 2016 Date of Influenza Vaccine: Apr 06, 2016 Seasonal Allergies Seasonal Allergies: No Surgeries HX Surgeries: No Respiratory Hx Respiratory Disorders: Yes (INHALER AT HOME, MRSA PNEUMONIA, PULM EDEMA) Respiratory Disorders: Pneumonia, COPD Cardiovascular Hx Cardiac Disorders: Yes (CHF) Cardiac Disorders: Atrial Fibrillation, Hypertension Neurological Hx Neurological Disorders: Yes (METABOLIC ENCEPHALOPATHY, ONDINA) Reproductive System Hx Reproductive Disorders: No HIV/AIDS: No Genitourinary Hx Genitourinary Disorders: Yes Genitourinary Disorders: Kidney Infection, Prostate Problems, Renal Failure Gastrointestinal Hx Gastrointestinal Disorders: Yes (HEP B/HEPC, CHRONIC LIVER CIRRHOSIS, ANEMIA ) Gastrointestinal Disorders: Liver Disease/Jaundice, Gastrointestinal Bleed, Chronic Constipation, Chronic Diarrhea, Cirrhosis Musculoskeletal Hx Musculoskeletal Disorders: Yes Musculoskeletal Disorders: Arthritis Endocrine Hx Endocrine Disorders: Yes Endocrine Disorders: Diabetes, Non-Insulin dep HEENT HX ENT Disorders: No Loss of Vision: Denies Hearing Impairment: Denies Cancer Hx Cancer: No Psychosocial Hx Psychiatric Problems: Yes Behavioral Health Disorders: Depression Integumentary HX Skin/Integumentary Disorder: No (DENIES ) Blood Transfusions Hx Blood Disorders: No Adverse Reaction to a Blood Tr: No Family Medical History Significant Family History: No Pertinent Family Hx Family Medial History: Patient reports no known family medical history. Physical Exam Vital Signs Vital Sign - Last 12Hours 11/17/16 10:36 Temp 98.4 Pulse 86 Resp 16 B/P 117/89 Pulse Ox 98 Capillary Refill : Less Than 3 Seconds General Appearance: WD/WN no apparent distress HEENT: PERRL/EOMI normal ENT inspection pharynx normal Neck: normal inspection Respiratory: lungs clear normal breath sounds no respiratory distress no accessory muscle use Cardiovascular: no edema no murmur irregularly irregular Gastrointestinal: normal bowel sounds non tender soft Extremities: normal inspection swelling (mild lower extremity edema) Neurologic/Psychiatric: no motor/sensory deficits alert normal mood/affect other (disoriented to month. Dysarthria without dysphasia) Crainal Nerves: normal hearing PERRL Coordination/Gait: other (walks with a walker) Motor/Sensory: no motor deficit no sensory deficit Skin: normal color warm/dry Stroke Onset of Symptoms Date of Onset of Symptoms: Nov 16, 2016 NIH Stroke Scale Assessment Level of Consciousness: 0=Alert Level of Consciousness-Questio: 1=Answers one question LOC Commands: 0=Performs both tasks Gaze: 0=Normal Visual Garcia: 0=No visual loss Facial Movement (Facial Paresi: 0=Normal symmetrical mnt Motor Function-Arms Right: 0=No drift Motor Function-Arms Left: 0=No drift Motor Function-Legs Right: 0=No drift Motor Function-Legs Left: 0=No drift Limb Ataxia: 0=Absent Sensory: 0=Normal:no loss Best Language: 0=No aphasia Dysarthria: 1=Mild to moderate loss Extinction & Inattention: 0=No abnormality NIH Stroke Scale Score: 2 Stroke Thrombolytic Exclusion Age 18 or Over: Yes Focused Exam Lactic Acid Level Laboratory Tests Test 11/17/16 11:06 Alanine Aminotransferase (ALT/SGPT) 24U/L (0-55) Albumin 3.6G/DL (3.2-4.5) Alkaline Phosphatase 91U/L (40-136) Ammonia 38UMOL/L (11-32) H Anion Gap 9MMOL/L (5-14) Aspartate Amino Transf (AST/SGOT) 30U/L (5-34) BUN/Creatinine Ratio 12 Blood Urea Nitrogen 25MG/DL (7-18) H Calcium Level 9.5MG/DL (8.5-10.1) Carbon Dioxide Level 21MMOL/L (21-32) Chloride Level 104MMOL/L (98-107) Creatinine 2.06MG/DL (0.60-1.30) H Estimat Glomerular Filtration Rate 34 Glucometer 104MG/DL (70-110) Glucose Level 104MG/DL (70-105) Magnesium Level 1.5MG/DL (1.8-2.4) L Potassium Level 6.1MMOL/L (3.6-5.0) H Sodium Level 134MMOL/L (135-145) L Total Bilirubin 0.7MG/DL (0.1-1.0) Total Protein 7.1G/DL (6.4-8.2) Troponin I < 0.30NG/ML (<0.30) Progress/Results/Core Measures Results/Orders Lab Results Laboratory Tests Test 11/17/16 11:06 11/17/16 11:19 Range/Units Alanine Aminotransferase (ALT/SGPT) 24 0-55 U/L Albumin 3.6 3.2-4.5 G/DL Alkaline Phosphatase 91 40-136 U/L Ammonia 38 H 11-32 UMOL/L Anion Gap 9 5-14 MMOL/L Aspartate Amino Transf (AST/SGOT) 30 5-34 U/L BUN/Creatinine Ratio 12 Basophils # (Auto) 0.1 0.0-0.1 10^3/uL Basophils (%) (Auto) 1 0-10 % Blood Urea Nitrogen 25 H 7-18 MG/DL Calcium Level 9.5 8.5-10.1 MG/DL Carbon Dioxide Level 21 21-32 MMOL/L Chloride Level 104 98-107 MMOL/L Creatinine 2.06 H 0.60-1.30 MG/DL Eosinophils # (Auto) 1.0 H 0.0-0.3 10^3/uL Eosinophils (%) (Auto) 11 H 0-10 % Estimat Glomerular Filtration Rate 34 Glucometer 104 70-110 MG/DL Glucose Level 104 70-105 MG/DL Hematocrit 34 L 40-54 % Hemoglobin 11.4 L 13.3-17.7 G/DL Lymphocytes # (Auto) 1.5 1.0-4.0 X 10^3 Lymphocytes (%) (Auto) 17 12-44 % Magnesium Level 1.5 L 1.8-2.4 MG/DL Mean Corpuscular Hemoglobin 30 25-34 PG Mean Corpuscular Hemoglobin Concent 34 32-36 G/DL Mean Corpuscular Volume 90 80-99 FL Mean Platelet Volume 11.0 H 7.4-10.4 FL Monocytes # (Auto) 0.5 0.0-1.0 X 10^3 Monocytes (%) (Auto) 6 0-12 % Neutrophils # (Auto) 5.7 1.8-7.8 X 10^3 Neutrophils (%) (Auto) 65 42-75 % Platelet Count 120 L 130-400 10^3/uL Potassium Level 6.1 H 3.6-5.0 MMOL/L Red Blood Count 3.75 L 4.35-5.85 10^6/uL Red Cell Distribution Width 12.9 10.0-14.5 % Sodium Level 134 L 135-145 MMOL/L Total Bilirubin 0.7 0.1-1.0 MG/DL Total Protein 7.1 6.4-8.2 G/DL Troponin I < 0.30 <0.30 NG/ML Urine Bacteria NEGATIVE /HPF Urine Bilirubin NEGATIVE NEGATIVE Urine Casts NONE /LPF Urine Clarity CLEAR Urine Color YELLOW Urine Crystals NONE /LPF Urine Culture Indicated NO Urine Glucose (UA) NEGATIVE NEGATIVE Urine Ketones NEGATIVE NEGATIVE Urine Leukocyte Esterase NEGATIVE NEGATIVE Urine Mucus NEGATIVE /LPF Urine Nitrite NEGATIVE NEGATIVE Urine Protein NEGATIVE NEGATIVE Urine RBC NONE /HPF Urine RBC (Auto) NEGATIVE NEGATIVE Urine Specific [place] 1.005 L 1.016-1.022 Urine Squamous Epithelial Cells RARE /HPF Urine Urobilinogen NORMAL NORMAL MG/DL Urine WBC RARE /HPF Urine Yeast FEW H /HPF Urine pH 7 5-9 White Blood Count 8.7 4.3-11.0 10^3/uL Activated Partial Thromboplast Time 29 24-35 SEC D-Dimer 0.34 0.00-0.49 UG/ML INR Comment 1.3 0.8-1.4 Prothrombin Time 16.3 H 12.2-14.7 SEC My Orders Orders-JEROMY JOHNSON MD Cbc With Automated Diff (11/17/16 10:37) Comprehensive Metabolic Panel (11/17/16 10:37) Ua Culture If Indicated (11/17/16 10:37) Saline Lock/Iv-Start (11/17/16 10:37) Protime With Inr (11/17/16 10:42) Partial Thromboplastin Time (11/17/16 10:42) Fibrin Degradation Products (11/17/16 10:42) Troponin I (11/17/16 10:42) Chest 1 View, Ap/Pa Only (11/17/16 10:42) Ekg Tracing (11/17/16 10:42) Nothing By Mouth (11/17/16 Dinner) Accucheck Stat ONCE (11/17/16 10:42) Saline Lock/Iv-Start (11/17/16 10:42) Vital Signs-Stroke Q1H (11/17/16 10:42) Ct Head Wo-R/O Stroke (11/17/16 10:42) O2 (11/17/16 10:42) Intake & Output 06,14,22 (11/17/16 10:42) Monitor-Rhythm Ecg Trace Only (11/17/16 10:42) Dysphagia Screening Tool (11/17/16 10:42) Ammonia (11/17/16 10:46) Ns Iv 1000 Ml (Sodium Chloride 0.9%) (11/17/16 11:57) Sodium Polystyrene Sulfonate (Kayexalate (11/17/16 12:00) Magnesium (11/17/16 12:12) Medications Given in ED Current Medications Medications Dose Ordered Sig/Geovany Route Start Time Stop Time Status Last Admin Dose Admin Sodium Polystyrene Sulfonate 15 gm ONCE ONCE PO 11/17/16 12:00 11/17/16 12:01 DC 11/17/16 12:16 15 GM Sodium Chloride 1,000 ml @ 0 mls/hr Q0M ONCE IV 11/17/16 11:57 11/17/16 11:59 DC 11/17/16 12:16 1,000 MLS/HR Vital Signs/I&O Vital Sign - Last 12Hours 11/17/16 10:36 Temp 98.4 Pulse 86 Resp 16 B/P 117/89 Pulse Ox 98 Blood Pressure Mean: 98 Point of Care Testing Finger Stick Blood Glucose: 104 Blood Glucose Action Taken: NOTIFIED Progress Note : Progress Note Stroke activation was paged out before entire history was available from the correction staff. Apparently patient has a history of hepatic encephalopathy with similar behaviors. He was recently admitted to the hospital for hepatic encephalopathy and acute renal failure. He preferred to be in acute on chronic renal failure again. Ammonia levels were mildly elevated. CT showed chronic changes with no acute abnormalities. Patient was found to have hyperkalemia and a liter of normal saline was ordered along with a dose of Kayexalate. Atrial fibrillation was noted on EKG which was not previously known to Dr. Garcia. No documentation of this could be found except for mention in the past medical history on patient's rehabilitation visit. Dr. Garcia requested a cardiology consultation. Patient remains off of anticoagulation at this time because he is high risk with altered mental status and low platelets. ECG Initial ECG Impression Date: Nov 17, 2016 Initial ECG Impression Time: 11:01 Initial ECG Rate: 101 Initial ECG Rhythm: A Fib/Flutter Initial ECG Impression: Atrial Fibrillation Comment Atrial fibrillation with rate of 101. No significant abnormal intervals. Left axis deviation by automated read. No acute ST elevation or depression. Diagnostic Imaging Diagonstic Imaging: CT Plain Films/CT/US/NM/MRI: head Comments NAME: TESS LANDA [facility] REC#: [id number] PT STATUS: REG ER : 1960 PHYSICIAN: JEROMY JOHNSON MD ADMIT DATE: 11/17/16/ER Draft Date of Exam:11/17/16 CT HEAD WO-R/O STROKE CLINICAL INDICATION: Patient confused, speaking with word salad. TECHNIQUE: An axial CT scan of the brain was performed without IV contrast. High-resolution axial CT brain images with coronal reformations were also created. COMPARISON: Head CT without IV contrast dated 10/19/2016. FINDINGS: There is no CT evidence of acute cerebral infarct, intracranial hemorrhage, or gross mass effect. There is no significant change to the patchy and focal areas of low-attenuation white matter changes throughout both cerebral hemispheres. There is stable advanced diffuse brain parenchymal volume loss. There is normal leonard/white matter distinction. There is no significant midline shift or herniation. There is no evidence of hydrocephalus. The basal cisterns are unremarkable. Stable chronic bony defect involving the medial right orbital wall with medial concave deformity. Otherwise, the skull, extracranial soft tissue, and orbits are unremarkable. The paranasal sinuses are unremarkable. IMPRESSION: Stable CT scan of the brain with no definite CT evidence of interval acute cerebral infarction, intracranial hemorrhage, or mass seen. Given the low attenuation changes throughout the brain parenchyma which can obscure more subtle findings, if there is clinical concern for acute cerebral infarction, MRI of the brain would better evaluate. 2: Stable advanced brain parenchymal findings with chronic small vessel ischemic disease and diffuse brain parenchymal volume loss. Dictated on workstation # [id number] Dict: 11/17/16 1051 Trans: 11/17/16 1100 [id number] Interpreted by: MICHELLE GAMEZ MD Electronically signed by: Bhakti Imaging: Xray Plain Films/CT/US/NM/MRI: chest Comments NAME: TESS LANDA REC#: [id number] PT STATUS: REG ER : 1960 PHYSICIAN: JEROMY JOHNSON MD ADMIT DATE: 11/17/16/ER Draft Date of Exam:11/17/16 CHEST 1 VIEW, AP/PA ONLY INDICATION: Chest pain. Comparison with 11/10/2016. FINDINGS: The lungs are well-aerated and clear. Heart is not enlarged. No hilar adenopathy. No pulmonary edema. No pneumothorax or pleural effusion. IMPRESSION: Normal portable chest. Dictated on workstation # [id number] Dict: 11/17/16 1148 Trans: 11/17/16 1153 [facility] [id number] Interpreted by: CHAVA TRAN MD Departure Communication Communication Dr. Garcia was contacted and case was reviewed. He requested patient be started on rifaximin. He also requested a repeat chemistry be drawn 6 hours after the initial. He also request cardiac consultation to render an opinion on management of the atrial fibrillation. Patient is likely a high risk candidate for anticoagulation given fall risk and low platelets with liver failure. Communication/Consulting Dr. Romero was consulted and agrees to evaluate the patient. Impression Impression: Primary Impression: Altered mental status Qualified Code: R41.82 - Altered mental status, unspecified Additional Impressions: Dysarthria Acute on chronic renal failure Hyperkalemia Atrial fibrillation Qualified Code: I48.2 - Chronic atrial fibrillation Disposition: ADMITTED INPATIENT Condition: Improved Decision to Admit Reason: Admit from ER (General) Decision to Admit/Date: Nov 17, 2016 Time/Decision to Admit Time: 12:00 Departure-Patient Inst. Referrals: CHERI GARCIA DO (PCP/Family) Primary Care Physician JEROMY JOHNSON MD Nov 17, 2016 12:30
[2016-11-17] MEDS: NS IV 1000 ML 1,000 ML IV SCH ×2 (14:04→22:53)
[2016-11-17 16:00] VITALS: BP 143/89
[2016-11-17 17:29] LABS: CALCIUM 9.5 MG/DL (8.5-10.1); CREATININE SERUM 1.91 MG/DL (0.60-1.30); POTASSIUM 6.2 MMOL/L (3.6-5.0)
[2016-11-17] MEDS: LEVETIRACETAM 500 MG (KEPPRA) TAB PO SCH (17:36)
--- NOTE | 2016-11-17 19:40 | History & Physicial ---
History of Present Illness History of Present Illness Reason for visit/HPI Patient is a resident of [facility] [place]. Patient was found closet sitting on the floor and confused and having slurry speech. Patient has a history of cirrhosis. Patient's potassium elevated. Patient has renal insufficiency acute in nature. Patient admitted. Patient does not know the date. 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 Patient unsteady on gait not to give blood thinner and also has cirrhosis Date of Admission Nov 17, 2016 at 12:47 I consulted on this patient on 11/17/16 19:37 Attending Physician Sam Dickens DO Admitting Physician Sam Dickens DO Consult Allergies and Home Medications Allergies Coded Allergies: No Known Drug Allergies (Unverified , 09/02/16) Home Medications Albuterol/Ipratropium 4 Gm Aero 1 PUFF IH Q6H PRN PRN SHORTNESS OF BREATH ( Reported) Atenolol 50 Mg Tablet 50 MG PO DAILY (Reported) Bumetanide 1 Mg Tablet 1 MG PO DAILY (Reported) Cyclobenzaprine HCl 10 Mg Tablet 10 MG PO BID (Reported) Folic Acid 1 Mg Tablet 1 MG PO DAILY (Reported) Guaifenesin 1,200 Mg Tab.er.12h 1,200 MG PO Q12H PRN PRN COUGH (Reported) Iron Polysaccharide Complex 150 Mg Capsule 150 MG PO BID (Reported) Lactulose 10 Gm/15 Ml Solution 30Days 1 OZ PO TID Prescribed by: HUI HAYNES on 11/13/16 1153 Levetiracetam 500 Mg Tablet 500 MG PO 0800,1700 (Reported) Magnesium Oxide 400 Mg Tablet 400 MG PO BID (Reported) Multivitamin with Minerals 1 Each Tablet 1 TAB PO DAILY (Reported) Pantoprazole Sodium 40 Mg Tablet.dr 40 MG PO DAILY (Reported) Potassium Chloride 20 Meq Tablet.er 20 MEQ PO BID (Reported) Spironolactone 100 Mg Tablet 100 MG PO DAILY (Reported) Tamsulosin HCl 0.4 Mg Cap.er.24h 0.4 MG PO HS (Reported) Thiamine Mononitrate 100 Mg Tablet 100 MG PO DAILY (Reported) Tramadol HCl 50 Mg Tablet 50 MG PO BID (Reported) Past Tjytvty-Kbzmll-Trruhf Hx Patient Social History Alcohol Use: Denies Use Recreational Drug Use: No Smoking Status: Never a Smoker Physical Abuse Screen: No Sexual Abuse: No Recent Foreign Travel: No Contact w/other who traveled: No Recent Hopitalizations: Yes (FLUID ON LUNGS) Recent Infectious Disease Expo: No Immunizations Up To Date Tetanus Booster (TDap): Unknown Date of Pneumonia Vaccine: May 07, 2016 Date of Influenza Vaccine: Apr 06, 2016 Seasonal Allergies Seasonal Allergies: No Surgeries HX Surgeries: No Respiratory Hx Respiratory Disorders: Yes (INHALER AT HOME, MRSA PNEUMONIA, PULM EDEMA) Respiratory Disorders: Pneumonia Cardiovascular Hx Cardiovascular Disorders: Yes (CHF) Cardiac Disorders: Atrial Fibrillation, Hypertension Neurological Hx Neurological Disorders: Yes (METABOLIC ENCEPHALOPATHY, ONDINA) Reproductive System Hx Reproductive Disorders: No HIV/AIDS: No Genitourinary Hx Genitourinary Disorders: Yes Genitourinary Disorders: Kidney Infection, Prostate Problems, Renal Failure Gastrointestinal Hx Gastrointestinal Disorders: Yes (HEP B/HEPC, CHRONIC LIVER CIRRHOSIS, ANEMIA ) Gastrointestinal Disorders: Liver Disease/Jaundice, Gastrointestinal Bleed, Chronic Constipation, Chronic Diarrhea, Cirrhosis Musculoskeletal Hx Musculoskeletal Disorders: Yes Musculoskeletal Disorders: Arthritis Endocrine Hx Endocrine Disorders: Yes Endocrine Disorders: Diabetes, Non-Insulin dep HEENT HX ENT Disorders: No Loss of Vision: Denies Hearing Impairment: Denies Cancer Hx Cancer: No Psychosocial Hx Psychiatric Problems: Yes Behavioral Health Disorders: Depression Integumentary HX Skin/Integumentary Disorder: No (DENIES ) Blood Transfusions Hx Blood Disorders: No Adverse Reaction to a Blood Tr: No Family Medical History Significant Family History: No Pertinent Family Hx Family Hx: Patient reports no known family medical history. Constitutional: weakness other (Unsteady gait) EENTM: no symptoms reported Respiratory: no symptoms reported Cardiovascular: other (Atrial fibrillation) Gastrointestinal: no symptoms reported Genitourinary: no symptoms reported Physical Exam Vital Signs Vital Sign - Last 12Hours 11/17/16 11/17/16 10:36 13:15 Temp 98.4 Pulse 86 Resp 16 B/P 117/89 Pulse Ox 98 O2 Delivery Room Air Capillary Refill : Less Than 3 Seconds General Appearance: No Apparent Distress WD/WN Eyes: Bilateral Eye Normal Inspection HEENT: Normal ENT Inspection Neck: Normal Inspection Non Tender Respiratory: Chest Non Tender Lungs Clear Normal Breath Sounds No Accessory Muscle Use No Respiratory Distress Cardiovascular: Irregularly Irregular Gastrointestinal: Non Tender Soft Assessment/Plan Assessment and Plan Acute mental status change. Slurred speech. Acute on chronic renal failure. Cirrhosis. History of hepatic encephalopathy Problems: Clinical Quality Measures DVT/VTE Risk/Contraindication: Risk Factor Score Per Nursin RFS Level Per Nursing on Admit: 4+=Very High Stroke: Date of last known well: Nov 16, 2016 SAM DICKENS DO Nov 17, 2016 19:40
[2016-11-17 20:00] VITALS: BP 129/79
[2016-11-17] MEDS: MAGNESIUM OXIDE (MAG-OX)400 MG TAB PO SCH (22:07)
[2016-11-17] MEDS: RIFAXIMIN 550 MG TABLET (XIFAXAN) PO SCH (22:07)
[2016-11-17] MEDS: ALFUZOSIN HCL 10 MG TAB (UROXATRAL) PO SCH (22:07)
[2016-11-17] MEDS: LACTULOSE SYRUP 10GM/15ML (ENULOSE) 30ML UDC PO SCH (22:07)
[2016-11-17] MEDS: IRON POLYSAC 150 MG CAP (NIFEREX) PO SCH (22:07)
[2016-11-18] VITALS: BP 121/66
[2016-11-18 04:00] VITALS: BP 121/79
[2016-11-18 06:02] LABS: BASOPHILS % (AUTO) 1 % (0-10); EOSINOPHILS # (AUTO) 0.7 10^3/uL (0.0-0.3); EOSINOPHILS % (AUTO) 10 % (0-10); LYMPHOCYTES # (AUTO) 1.4 X 10^3 (1.0-4.0); LYMPHOCYTES % (AUTO) 22 % (12-44); MEAN CORPUSCULAR HEMOGLOBIN 30 PG (25-34); MEAN CORPUSCULAR HGB CONC 33 G/DL (32-36); MEAN CORPUSCULAR VOLUME 91 FL (80-99); MEAN PLATELET VOLUME 11.5 FL (7.4-10.4); MONOCYTES # (AUTO) 0.4 X 10^3 (0.0-1.0); MONOCYTES % (AUTO) 6 % (0-12); NEUTROPHILS # (AUTO) 4.1 X 10^3 (1.8-7.8); NEUTROPHILS % (AUTO) 62 % (42-75); PLATELET COUNT 105 10^3/uL (130-400); RED BLOOD COUNT 3.72 10^6/uL (4.35-5.85); WHITE BLOOD COUNT 6.6 10^3/uL (4.3-11.0)
[2016-11-18 06:28] LABS: INR 1.4 (0.8-1.4); PROTHROMBIN TIME PATIENT 16.9 SEC (12.2-14.7)
[2016-11-18] MEDS: NS IV 1000 ML 1,000 ML IV SCH ×2 (06:31→14:57)
[2016-11-18] MEDS: THIAMINE 100 MG (VITAMIN B-1) TAB PO SCH (06:33)
[2016-11-18] MEDS: MULTIVIT W/MINERALS TAB (THERAGRAN M) PO SCH (06:33)
[2016-11-18 06:56] LABS: ALBUMIN 3.4 G/DL (3.2-4.5); BILIRUBIN,TOTAL 0.7 MG/DL (0.1-1.0); CALCIUM 9.2 MG/DL (8.5-10.1); CREATININE SERUM 1.64 MG/DL (0.60-1.30); POTASSIUM 5.2 MMOL/L (3.6-5.0); TOTAL PROTEIN 6.7 G/DL (6.4-8.2)
[2016-11-18 08:00] VITALS: BP 109/76
--- NOTE | 2016-11-18 08:03 | Progress Note (SOAP) ---
Subjective Subjective/Events-last exam patient's feeling better today. Patient does not have slurred speech. Patient's kidney function has improved. Patient knows where he is at. Patient not confused today. Patient again heading in the right direction Objective Exam Vital Signs Date Time Temp Pulse Resp B/P Pulse Ox O2 Delivery O2 Flow Rate FiO2 11/18/16 04:00 97.4 90 16 121/79 97 Room Air 11/18/16 00:00 97.9 91 20 121/66 94 Room Air 11/17/16 20:00 98.4 96 22 129/79 98 Room Air 11/17/16 16:00 97.8 90 18 143/89 98 Room Air 11/17/16 13:16 77 16 98 11/17/16 13:15 98 Room Air 11/17/16 10:36 98.4 86 16 117/89 98 I & O 11/18/16 07:00 Intake Total 4045 ml Output Total 400 ml Balance 3645 ml Capillary Refill : Less Than 3 Seconds General Appearance: No Apparent Distress WD/WN HEENT: Normal ENT Inspection Neck: Full Range of Motion Normal Inspection Respiratory: Chest Non Tender Lungs Clear Normal Breath Sounds No Accessory Muscle Use No Respiratory Distress Cardiovascular: Regular Rate, Rhythm No Murmur Gastrointestinal: soft Results Lab Laboratory Tests 11/17/16 11:06 11/17/16 17:05 11/18/16 05:18 Laboratory Tests 11/17/16 11:06: Alanine Aminotransferase (ALT/SGPT) 24, Albumin 3.6, Alkaline Phosphatase 91, Ammonia 38H, Anion Gap 9, Aspartate Amino Transf (AST/SGOT) 30, BUN/Creatinine Ratio 12, Basophils # (Auto) 0.1, Basophils (%) (Auto) 1, Blood Urea Nitrogen 25H, Calcium Level 9.5, Carbon Dioxide Level 21, Chloride Level 104, Creatinine 2.06H, Eosinophils # (Auto) 1.0H, Eosinophils (%) (Auto) 11H, Estimat Glomerular Filtration Rate 34, Glucometer 104, Glucose Level 104, Hematocrit 34L , Hemoglobin 11.4L, Lymphocytes # (Auto) 1.5, Lymphocytes (%) (Auto) 17, Magnesium Level 1.5L, Mean Corpuscular Hemoglobin 30, Mean Corpuscular Hemoglobin Concent 34, Mean Corpuscular Volume 90, Mean Platelet Volume 11.0H, Monocytes # (Auto) 0.5, Monocytes (%) (Auto) 6, Neutrophils # (Auto) 5.7, Neutrophils (%) (Auto) 65, Platelet Count 120L, Potassium Level 6.1H, Red Blood Count 3.75L, Red Cell Distribution Width 12.9, Sodium Level 134L, Total Bilirubin 0.7, Total Protein 7.1, Troponin I < 0.30, Urine Bacteria NEGATIVE, Urine Bilirubin NEGATIVE, Urine Casts NONE, Urine Clarity CLEAR, Urine Color YELLOW, Urine Crystals NONE, Urine Culture Indicated NO, Urine Glucose (UA) NEGATIVE, Urine Ketones NEGATIVE, Urine Leukocyte Esterase NEGATIVE, Urine Mucus NEGATIVE, Urine Nitrite NEGATIVE, Urine Protein NEGATIVE, Urine RBC NONE, Urine RBC (Auto) NEGATIVE, Urine Specific [place] 1.005L, Urine Squamous Epithelial Cells RARE, Urine Urobilinogen NORMAL, Urine WBC RARE, Urine Yeast FEWH, Urine pH 7, White Blood Count 8.7 11/17/16 11:19: Activated Partial Thromboplast Time 29, D-Dimer 0.34, INR Comment 1.3, Prothrombin Time 16.3H 11/17/16 17:05: Anion Gap 9, BUN/Creatinine Ratio 13, Blood Urea Nitrogen 24H, Calcium Level 9.5 , Carbon Dioxide Level 19L, Chloride Level 108H, Creatinine 1.91H, Estimat Glomerular Filtration Rate 37, Glucose Level 77, Potassium Level 6.2H, Sodium Level 136 11/18/16 05:18: Alanine Aminotransferase (ALT/SGPT) 23, Albumin 3.4, Alkaline Phosphatase 83, Anion Gap 9, Aspartate Amino Transf (AST/SGOT) 28, BUN/Creatinine Ratio 12, Basophils # (Auto) 0.0, Basophils (%) (Auto) 1, Blood Urea Nitrogen 20H, Calcium Level 9.2, Carbon Dioxide Level 17L, Chloride Level 113H, Creatinine 1.64H, Eosinophils # (Auto) 0.7H, Eosinophils (%) (Auto) 10, Estimat Glomerular Filtration Rate 44, Glucose Level 96, Hematocrit 34L, Hemoglobin 11.2L, Lymphocytes # (Auto) 1.4, Lymphocytes (%) (Auto) 22, Mean Corpuscular Hemoglobin 30, Mean Corpuscular Hemoglobin Concent 33, Mean Corpuscular Volume 91, Mean Platelet Volume 11.5H, Monocytes # (Auto) 0.4, Monocytes (%) (Auto) 6, Neutrophils # (Auto) 4.1, Neutrophils (%) (Auto) 62, Platelet Count 105L, Potassium Level 5.2H, Red Blood Count 3.72L, Red Cell Distribution Width 13.0, Sodium Level 139, Total Bilirubin 0.7, Total Protein 6.7, White Blood Count 6.6 , INR Comment 1.4, Prothrombin Time 16.9H Assessment/Plan Assessment/Plan Assess & Plan/Chief Complaint slurred speech better. Kidney function improving. Patient talking better. Patient not confused. Cirrhosis. Renal insufficiency better. Hyperkalemia better. Clinical Quality Measures DVT/VTE Risk/Contraindication: Risk Factor Score Per Nursin RFS Level Per Nursing on Admit: 4+=Very High Contraindications-Pharm: Other *list below* Stroke: Date of last known well: Nov 16, 2016 CHERI GARCIA DO Nov 18, 2016 08:03
[2016-11-18] MEDS ORDERED: CATHETER FLUSH 10 ML SYR IV PRN (08:15)
[2016-11-18] MEDS: RIFAXIMIN 550 MG TABLET (XIFAXAN) PO SCH ×2 (08:43→22:21)
[2016-11-18] MEDS: LEVETIRACETAM 500 MG (KEPPRA) TAB PO SCH ×2 (08:43→17:22)
[2016-11-18] MEDS: SPIRONOLACTONE 100 MG (ALDACTONE) TABLET PO SCH (08:43)
[2016-11-18] MEDS: ATENOLOL 50 MG (TENORMIN) TAB PO SCH (08:43)
[2016-11-18] MEDS: FOLIC ACID 1 MG TAB PO SCH (08:43)
[2016-11-18] MEDS: PANTOPRAZOLE 40 MG (PROTONIX) TAB PO SCH (08:43)
[2016-11-18] MEDS: LACTULOSE SYRUP 10GM/15ML (ENULOSE) 30ML UDC PO SCH ×3 (08:44→22:21)
[2016-11-18] MEDS: MAGNESIUM OXIDE (MAG-OX)400 MG TAB PO SCH ×2 (08:44→22:21)
[2016-11-18] MEDS: IRON POLYSAC 150 MG CAP (NIFEREX) PO SCH ×2 (08:44→22:21)
[2016-11-18] MEDS: BUMETANIDE 1 MG (BUMEX) TAB PO SCH (08:44)
[2016-11-18 12:00] VITALS: BP 127/88
[2016-11-18 16:43] VITALS: BP 118/84
[2016-11-18] MEDS: ALFUZOSIN HCL 10 MG TAB (UROXATRAL) PO SCH (17:22)
[2016-11-18 20:23] VITALS: BP 109/76
[2016-11-19] VITALS: BP 111/77
[2016-11-19 04:00] VITALS: BP 115/84
[2016-11-19] MEDS: THIAMINE 100 MG (VITAMIN B-1) TAB PO SCH (06:18)
[2016-11-19] MEDS: MULTIVIT W/MINERALS TAB (THERAGRAN M) PO SCH (06:18)
[2016-11-19 06:49] LABS: MEAN PLATELET VOLUME 10.9 FL (7.4-10.4); RED BLOOD COUNT 3.42 10^6/uL (4.35-5.85); RED CELL DISTRIBUTION WIDTH 12.7 % (10.0-14.5); WHITE BLOOD COUNT 5.3 10^3/uL (4.3-11.0)
[2016-11-19 07:16] LABS: ALBUMIN 3.3 G/DL (3.2-4.5); BILIRUBIN,TOTAL 0.6 MG/DL (0.1-1.0); CALCIUM 9.1 MG/DL (8.5-10.1); CREATININE SERUM 1.58 MG/DL (0.60-1.30); POTASSIUM 4.6 MMOL/L (3.6-5.0); TOTAL PROTEIN 6.3 G/DL (6.4-8.2)
--- NOTE | 2016-11-19 07:38 | Progress Note (SOAP) ---
Subjective Subjective/Events-last exam patient was confused last night. Patient confused this morning . Patient thinks he is at his sister's house this morning. Patient does not know where he lives. Patient's blood tests look good. GFR 46 from 34. Patient have a CAT scan of the head this morning Objective Exam Vital Signs Date Time Temp Pulse Resp B/P Pulse Ox O2 Delivery O2 Flow Rate FiO2 11/19/16 00:00 98.4 100 19 111/77 96 Room Air 11/18/16 20:23 97.7 96 20 109/76 97 Room Air 11/18/16 16:43 97.0 88 18 118/84 95 Room Air 11/18/16 12:00 98.3 89 20 127/88 98 Room Air 11/18/16 08:00 98.3 87 16 109/76 98 Room Air I & O 11/19/16 07:00 Intake Total 3050 ml Output Total 1430 ml Balance 1620 ml Capillary Refill : Less Than 3 Seconds General Appearance: No Apparent Distress WD/WN HEENT: Normal ENT Inspection Neck: Full Range of Motion Normal Inspection Respiratory: Chest Non Tender Lungs Clear No Accessory Muscle Use Cardiovascular: Irregularly Irregular Gastrointestinal: soft Results Lab Laboratory Tests 11/19/16 06:36 Laboratory Tests 11/19/16 06:36: Alanine Aminotransferase (ALT/SGPT) 23, Albumin 3.3, Alkaline Phosphatase 76, Ammonia 35H, Anion Gap 8, Aspartate Amino Transf (AST/SGOT) 27, BUN/Creatinine Ratio 11, Blood Urea Nitrogen 18, Calcium Level 9.1, Carbon Dioxide Level 19L, Chloride Level 110H, Creatinine 1.58H, Estimat Glomerular Filtration Rate 46, Glucose Level 88, Hematocrit 31L, Hemoglobin 10.4L, Mean Corpuscular Hemoglobin 30, Mean Corpuscular Hemoglobin Concent 33, Mean Corpuscular Volume 91, Mean Platelet Volume 10.9H, Platelet Count 86L, Potassium Level 4.6, Red Blood Count 3.42L, Red Cell Distribution Width 12.7, Sodium Level 137, Total Bilirubin 0.6, Total Protein 6.3L, White Blood Count 5.3 Assessment/Plan Assessment/Plan Assess & Plan/Chief Complaint slurred speech better. Kidney function improving. Patient talking better. Patient not confused. Cirrhosis. Renal insufficiency better. Hyperkalemia better.. . 3/16/17 patient confused. Slurred speech better. Kidney function better now 46 from admission 34 . To do CAT scan of the head today Clinical Quality Measures DVT/VTE Risk/Contraindication: Risk Factor Score Per Nursin RFS Level Per Nursing on Admit: 4+=Very High Contraindications-Pharm: Other *list below* Stroke: Date of last known well: Nov 16, 2016 CHERI GARCIA DO Nov 19, 2016 07:38
[2016-11-19 08:00] VITALS: BP 122/86
[2016-11-19] MEDS: LACTULOSE SYRUP 10GM/15ML (ENULOSE) 30ML UDC PO SCH ×3 (08:15→21:03)
[2016-11-19] MEDS: MAGNESIUM OXIDE (MAG-OX)400 MG TAB PO SCH ×2 (08:15→21:03)
[2016-11-19] MEDS: LEVETIRACETAM 500 MG (KEPPRA) TAB PO SCH ×2 (08:15→16:57)
[2016-11-19] MEDS: ATENOLOL 50 MG (TENORMIN) TAB PO SCH (08:16)
[2016-11-19] MEDS: PANTOPRAZOLE 40 MG (PROTONIX) TAB PO SCH (08:16)
[2016-11-19] MEDS: IRON POLYSAC 150 MG CAP (NIFEREX) PO SCH ×2 (08:16→21:03)
[2016-11-19] MEDS: BUMETANIDE 1 MG (BUMEX) TAB PO SCH (08:16)
[2016-11-19] MEDS: FOLIC ACID 1 MG TAB PO SCH (08:16)
[2016-11-19] MEDS: SPIRONOLACTONE 100 MG (ALDACTONE) TABLET PO SCH (08:16)
[2016-11-19] MEDS: RIFAXIMIN 550 MG TABLET (XIFAXAN) PO SCH ×2 (08:24→21:16)
[2016-11-19] MEDS: NS IV 1000 ML 1,000 ML IV SCH (09:18)
--- NOTE | 2016-11-19 11:59 | Diagnostic Imaging Report ---
PROCEDURE: CT head without contrast. TECHNIQUE: Multiple contiguous axial images were obtained through the brain without the use of intravenous contrast. INDICATION: Altered mental status. FINDINGS: There is no intracranial hemorrhage, edema, or mass effect. The brain parenchyma and leonard-white matter differentiation is preserved. There is no hydrocephalus. No extra-axial fluid collection is seen. There is mild brain atrophy more than expected for the patient's age. This also involves the cerebellum to slightly more prominent degree compared to the cerebrum. There is periventricular and deep white hypodensities compatible with chronic microvascular ischemic changes. The calvarium appears grossly unremarkable. 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 There is also an old right orbital medial compression fracture. IMPRESSION: Mild brain atrophy. Dictated by: Dictated on workstation # [id number]
[2016-11-19 12:00] VITALS: BP 162/95
[2016-11-19] MEDS ORDERED: CATHETER FLUSH 10 ML SYR IV PRN (16:00)
[2016-11-19 16:26] VITALS: BP 133/81
[2016-11-19] MEDS: ALFUZOSIN HCL 10 MG TAB (UROXATRAL) PO SCH (16:57)
[2016-11-19 19:52] VITALS: BP 113/80
[2016-11-19] MEDS ORDERED: risperiDONE 1 MG (RisperDAL) TAB PO SCH (21:00)
[2016-11-19] MEDS: CATHETER FLUSH 10 ML SYR IV SCH (22:00)
[2016-11-20] VITALS: BP 117/84
[2016-11-20 04:00] VITALS: BP 128/87
[2016-11-20 05:13] LABS: BASOPHILS % (AUTO) 1 % (0-10); EOSINOPHILS # (AUTO) 0.5 10^3/uL (0.0-0.3); EOSINOPHILS % (AUTO) 8 % (0-10); LYMPHOCYTES # (AUTO) 1.6 X 10^3 (1.0-4.0); LYMPHOCYTES % (AUTO) 28 % (12-44); MEAN CORPUSCULAR HEMOGLOBIN 31 PG (25-34); MEAN CORPUSCULAR HGB CONC 34 G/DL (32-36); MEAN CORPUSCULAR VOLUME 91 FL (80-99); MEAN PLATELET VOLUME 11.3 FL (7.4-10.4); MONOCYTES # (AUTO) 0.4 X 10^3 (0.0-1.0); MONOCYTES % (AUTO) 6 % (0-12); NEUTROPHILS # (AUTO) 3.2 X 10^3 (1.8-7.8); NEUTROPHILS % (AUTO) 57 % (42-75); PLATELET COUNT 85 10^3/uL (130-400); RED BLOOD COUNT 3.38 10^6/uL (4.35-5.85); RED CELL DISTRIBUTION WIDTH 12.7 % (10.0-14.5); WHITE BLOOD COUNT 5.6 10^3/uL (4.3-11.0)
[2016-11-20 05:35] LABS: ALBUMIN 3.2 G/DL (3.2-4.5); BILIRUBIN,TOTAL 0.7 MG/DL (0.1-1.0); CREATININE SERUM 1.55 MG/DL (0.60-1.30); POTASSIUM 4.3 MMOL/L (3.6-5.0); TOTAL PROTEIN 6.2 G/DL (6.4-8.2)
[2016-11-20] MEDS: CATHETER FLUSH 10 ML SYR IV SCH ×2 (06:32→14:00)
[2016-11-20] MEDS: THIAMINE 100 MG (VITAMIN B-1) TAB PO SCH (06:32)
[2016-11-20] MEDS: MULTIVIT W/MINERALS TAB (THERAGRAN M) PO SCH (06:32)
--- NOTE | 2016-11-20 07:27 | Progress Note (SOAP) ---
Subjective Subjective/Events-last exam patient is doing good today. Patient knows with 2+ to is and what 10-2 equals. Patient is good as can be expected. Plan to discharge patient today. Confusion better. Cirrhosis. UTI. Objective Exam Vital Signs Date Time Temp Pulse Resp B/P Pulse Ox O2 Delivery O2 Flow Rate FiO2 11/20/16 04:00 98.1 98 22 128/87 96 Room Air 11/20/16 00:00 98.4 55 26 117/84 100 Room Air 11/19/16 19:52 98.5 90 18 113/80 98 Room Air 11/19/16 16:26 98.9 89 20 133/81 97 Room Air 11/19/16 12:00 98.6 90 20 162/95 97 Room Air 11/19/16 09:00 97.6 11/19/16 08:00 97.6 104 20 122/86 99 Room Air I & O 11/20/16 07:00 Intake Total 2710 ml Balance 2710 ml Capillary Refill : Less Than 3 Seconds General Appearance: No Apparent Distress WD/WN HEENT: Normal ENT Inspection Neck: Normal Inspection Respiratory: Chest Non Tender Lungs Clear Normal Breath Sounds No Accessory Muscle Use No Respiratory Distress Cardiovascular: Regular Rate, Rhythm No Edema Results Lab Laboratory Tests 11/20/16 04:45 11/20/16 04:55 Laboratory Tests 11/20/16 04:45: Alanine Aminotransferase (ALT/SGPT) 22, Albumin 3.2, Alkaline Phosphatase 78, Anion Gap 10, Aspartate Amino Transf (AST/SGOT) 28, BUN/Creatinine Ratio 12, Blood Urea Nitrogen 19H, Calcium Level 9.0, Carbon Dioxide Level 18L, Chloride Level 110H, Creatinine 1.55H, Estimat Glomerular Filtration Rate 47, Glucose Level 87, Potassium Level 4.3, Sodium Level 138, Total Bilirubin 0.7, Total Protein 6.2L 11/20/16 04:55: Basophils # (Auto) 0.0, Basophils (%) (Auto) 1, Eosinophils # (Auto) 0.5H, Eosinophils (%) (Auto) 8, Hematocrit 31L, Hemoglobin 10.3L, Lymphocytes # (Auto ) 1.6, Lymphocytes (%) (Auto) 28, Mean Corpuscular Hemoglobin 31, Mean Corpuscular Hemoglobin Concent 34, Mean Corpuscular Volume 91, Mean Platelet Volume 11.3H, Monocytes # (Auto) 0.4, Monocytes (%) (Auto) 6, Neutrophils # ( Auto) 3.2, Neutrophils (%) (Auto) 57, Platelet Count 85L, Red Blood Count 3.38L , Red Cell Distribution Width 12.7, White Blood Count 5.6 Assessment/Plan Assessment/Plan Assess & Plan/Chief Complaint slurred speech better. Kidney function improving. Patient talking better. Patient not confused. Cirrhosis. Renal insufficiency better. Hyperkalemia better.. . 11/19/16 patient confused. Slurred speech better. Kidney function better now 46 from admission 34 . To do CAT scan of the head today . 11/20/16. Patient speaking better. Patient has no sludge speech. GFR 47 better. CAT scan of the head negative. Patient is doing as good as can be expected. Plan to discharge today Clinical Quality Measures DVT/VTE Risk/Contraindication: Risk Factor Score Per Nursin RFS Level Per Nursing on Admit: 4+=Very High Contraindications-Pharm: Other *list below* Stroke: Date of last known well: Nov 16, 2016 CHERI GARCIA DO Nov 20, 2016 07:27
[2016-11-20 08:00] VITALS: BP 126/87
[2016-11-20] MEDS: SPIRONOLACTONE 100 MG (ALDACTONE) TABLET PO SCH (08:32)
[2016-11-20] MEDS: RIFAXIMIN 550 MG TABLET (XIFAXAN) PO SCH (08:32)
[2016-11-20] MEDS: FOLIC ACID 1 MG TAB PO SCH (08:32)
[2016-11-20] MEDS: ATENOLOL 50 MG (TENORMIN) TAB PO SCH (08:32)
[2016-11-20] MEDS: BUMETANIDE 1 MG (BUMEX) TAB PO SCH (08:33)
[2016-11-20] MEDS: PANTOPRAZOLE 40 MG (PROTONIX) TAB PO SCH (08:33)
[2016-11-20] MEDS: LACTULOSE SYRUP 10GM/15ML (ENULOSE) 30ML UDC PO SCH ×2 (08:33→12:18)
[2016-11-20] MEDS: MAGNESIUM OXIDE (MAG-OX)400 MG TAB PO SCH (08:33)
[2016-11-20] MEDS: IRON POLYSAC 150 MG CAP (NIFEREX) PO SCH (08:33)
[2016-11-20] MEDS: LEVETIRACETAM 500 MG (KEPPRA) TAB PO SCH (08:33)
[2016-11-20] MEDS ORDERED: RIFA550T PO (10:53)
[2016-11-20 12:00] VITALS: BP 135/94
--- NOTE | 2016-11-28 08:26 | Discharge Summary ---
Diagnosis/Chief Complaint Date of Admission Nov 17, 2016 at 12:47 Date of Discharge Nov 20, 2016 at 14:10 Discharge Date: Nov 20, 2016 Discharge Time: 1200 Admission Diagnosis Admission Diagnosis Acute mental status change. Slurred speech. Acute on chronic renal failure. Cirrhosis. History of hepatic encephalopathy Discharge Diagnosis acute kidney failure. Altered mental status. Chronic atrial fibrillation. Chronic kidney disease. Hypertension. Hyperkalemia. Slurred speech. Type II diabetes. Cirrhosis of the liver. UTI Reason Hospital Visit Patient is a resident of [facility] living [place]. Patient was found closet sitting on the floor and confused and having slurry speech. Patient has a history of cirrhosis. Patient's potassium elevated. Patient has renal insufficiency acute in nature. Patient admitted. Patient does not know the date. 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 Patient unsteady on gait not to give blood thinner and also has cirrhosis Discharge Summary Discharge Physical Examination Allergies: Coded Allergies: No Known Drug Allergies (Unverified , 09/02/16) Hospital Course patient hospital did improve. Potassium came down. Patient discharged on is confused . Patient speech better Labs (last 24 hrs) Laboratory Tests 11/17/16 11:06: White Blood Count 8.7, Red Blood Count 3.75L, Hemoglobin 11.4L, Hematocrit 34L, Mean Corpuscular Volume 90, Mean Corpuscular Hemoglobin 30, Mean Corpuscular Hemoglobin Concent 34, Red Cell Distribution Width 12.9, Platelet Count 120L, Mean Platelet Volume 11.0H, Neutrophils (%) (Auto) 65, Lymphocytes (%) (Auto) 17 , Monocytes (%) (Auto) 6, Eosinophils (%) (Auto) 11H, Basophils (%) (Auto) 1, Neutrophils # (Auto) 5.7, Lymphocytes # (Auto) 1.5, Monocytes # (Auto) 0.5, Eosinophils # (Auto) 1.0H, Basophils # (Auto) 0.1, Urine Color YELLOW, Urine Clarity CLEAR, Urine pH 7, Urine Specific [place] 1.005L, Urine Protein NEGATIVE , Urine Glucose (UA) NEGATIVE, Urine Ketones NEGATIVE, Urine Nitrite NEGATIVE, Urine Bilirubin NEGATIVE, Urine Urobilinogen NORMAL, Urine Leukocyte Esterase NEGATIVE, Urine RBC (Auto) NEGATIVE, Urine RBC NONE, Urine WBC RARE, Urine Squamous Epithelial Cells RARE, Urine Crystals NONE, Urine Bacteria NEGATIVE, Urine Casts NONE, Urine Mucus NEGATIVE, Urine Yeast FEWH, Urine Culture Indicated NO, Sodium Level 134L, Potassium Level 6.1H, Chloride Level 104, Carbon Dioxide Level 21, Anion Gap 9, Blood Urea Nitrogen 25H, Creatinine 2.06H , Estimat Glomerular Filtration Rate 34, BUN/Creatinine Ratio 12, Glucose Level 104, Glucometer 104, Calcium Level 9.5, Magnesium Level 1.5L, Total Bilirubin 0.7, Aspartate Amino Transf (AST/SGOT) 30, Alanine Aminotransferase (ALT/SGPT) 24, Alkaline Phosphatase 91, Ammonia 38H, Troponin I < 0.30, Total Protein 7.1, Albumin 3.6 11/17/16 11:19: Prothrombin Time 16.3H, INR Comment 1.3, Activated Partial Thromboplast Time 29 , D-Dimer 0.34 11/17/16 17:05: Sodium Level 136, Potassium Level 6.2H, Chloride Level 108H, Carbon Dioxide Level 19L, Anion Gap 9, Blood Urea Nitrogen 24H, Creatinine 1.91H, Estimat Glomerular Filtration Rate 37, BUN/Creatinine Ratio 13, Glucose Level 77, Calcium Level 9.5 11/18/16 05:18: White Blood Count 6.6, Red Blood Count 3.72L, Hemoglobin 11.2L, Hematocrit 34L, Mean Corpuscular Volume 91, Mean Corpuscular Hemoglobin 30, Mean Corpuscular Hemoglobin Concent 33, Red Cell Distribution Width 13.0, Platelet Count 105L, Mean Platelet Volume 11.5H, Neutrophils (%) (Auto) 62, Lymphocytes (%) (Auto) 22 , Monocytes (%) (Auto) 6, Eosinophils (%) (Auto) 10, Basophils (%) (Auto) 1, Neutrophils # (Auto) 4.1, Lymphocytes # (Auto) 1.4, Monocytes # (Auto) 0.4, Eosinophils # (Auto) 0.7H, Basophils # (Auto) 0.0, Sodium Level 139, Potassium Level 5.2H, Chloride Level 113H, Carbon Dioxide Level 17L, Anion Gap 9, Blood Urea Nitrogen 20H, Creatinine 1.64H, Estimat Glomerular Filtration Rate 44, BUN/ Creatinine Ratio 12, Glucose Level 96, Calcium Level 9.2, Total Bilirubin 0.7, Aspartate Amino Transf (AST/SGOT) 28, Alanine Aminotransferase (ALT/SGPT) 23, Alkaline Phosphatase 83, Total Protein 6.7, Albumin 3.4, Prothrombin Time 16.9H , INR Comment 1.4 11/19/16 06:36: White Blood Count 5.3, Red Blood Count 3.42L, Hemoglobin 10.4L, Hematocrit 31L, Mean Corpuscular Volume 91, Mean Corpuscular Hemoglobin 30, Mean Corpuscular Hemoglobin Concent 33, Red Cell Distribution Width 12.7, Platelet Count 86L, Mean Platelet Volume 10.9H, Sodium Level 137, Potassium Level 4.6, Chloride Level 110H, Carbon Dioxide Level 19L, Anion Gap 8, Blood Urea Nitrogen 18, Creatinine 1.58H, Estimat Glomerular Filtration Rate 46, BUN/Creatinine Ratio 11 , Glucose Level 88, Calcium Level 9.1, Total Bilirubin 0.6, Aspartate Amino Transf (AST/SGOT) 27, Alanine Aminotransferase (ALT/SGPT) 23, Alkaline Phosphatase 76, Ammonia 35H, Total Protein 6.3L, Albumin 3.3 11/20/16 04:45: Sodium Level 138, Potassium Level 4.3, Chloride Level 110H, Carbon Dioxide Level 18L, Anion Gap 10, Blood Urea Nitrogen 19H, Creatinine 1.55H, Estimat Glomerular Filtration Rate 47, BUN/Creatinine Ratio 12, Glucose Level 87, Calcium Level 9.0, Total Bilirubin 0.7, Aspartate Amino Transf (AST/SGOT) 28, Alanine Aminotransferase (ALT/SGPT) 22, Alkaline Phosphatase 78, Total Protein 6.2L, Albumin 3.2 11/20/16 04:55: White Blood Count 5.6, Red Blood Count 3.38L, Hemoglobin 10.3L, Hematocrit 31L, Mean Corpuscular Volume 91, Mean Corpuscular Hemoglobin 31, Mean Corpuscular Hemoglobin Concent 34, Red Cell Distribution Width 12.7, Platelet Count 85L, Mean Platelet Volume 11.3H, Neutrophils (%) (Auto) 57, Lymphocytes (%) (Auto) 28 , Monocytes (%) (Auto) 6, Eosinophils (%) (Auto) 8, Basophils (%) (Auto) 1, Neutrophils # (Auto) 3.2, Lymphocytes # (Auto) 1.6, Monocytes # (Auto) 0.4, Eosinophils # (Auto) 0.5H, Basophils # (Auto) 0.0 Pending Labs Laboratory Tests 11/17/16 11:06: White Blood Count 8.7, Red Blood Count 3.75, Hemoglobin 11.4, Hematocrit 34, Mean Corpuscular Volume 90, Mean Corpuscular Hemoglobin 30, Mean Corpuscular Hemoglobin Concent 34, Red Cell Distribution Width 12.9, Platelet Count 120, Mean Platelet Volume 11.0, Neutrophils (%) (Auto) 65, Lymphocytes (%) (Auto) 17 , Monocytes (%) (Auto) 6, Eosinophils (%) (Auto) 11, Basophils (%) (Auto) 1, Neutrophils # (Auto) 5.7, Lymphocytes # (Auto) 1.5, Monocytes # (Auto) 0.5, Eosinophils # (Auto) 1.0, Basophils # (Auto) 0.1, Urine Color YELLOW, Urine Clarity CLEAR, Urine pH 7, Urine Specific [place] 1.005, Urine Protein NEGATIVE , Urine Glucose (UA) NEGATIVE, Urine Ketones NEGATIVE, Urine Nitrite NEGATIVE, Urine Bilirubin NEGATIVE, Urine Urobilinogen NORMAL, Urine Leukocyte Esterase NEGATIVE, Urine RBC (Auto) NEGATIVE, Urine RBC NONE, Urine WBC RARE, Urine Squamous Epithelial Cells RARE, Urine Crystals NONE, Urine Bacteria NEGATIVE, Urine Casts NONE, Urine Mucus NEGATIVE, Urine Yeast FEW, Urine Culture Indicated NO, Sodium Level 134, Potassium Level 6.1, Chloride Level 104, Carbon Dioxide Level 21, Anion Gap 9, Blood Urea Nitrogen 25, Creatinine 2.06, Estimat Glomerular Filtration Rate 34, BUN/Creatinine Ratio 12, Glucose Level 104, Glucometer 104, Calcium Level 9.5, Magnesium Level 1.5, Total Bilirubin 0.7, Aspartate Amino Transf (AST/SGOT) 30, Alanine Aminotransferase (ALT/SGPT) 24, Alkaline Phosphatase 91, Ammonia 38, Troponin I < 0.30, Total Protein 7.1, Albumin 3.6 11/17/16 11:19: Prothrombin Time 16.3, INR Comment 1.3, Activated Partial Thromboplast Time 29, D-Dimer 0.34 11/17/16 17:05: Sodium Level 136, Potassium Level 6.2, Chloride Level 108, Carbon Dioxide Level 19, Anion Gap 9, Blood Urea Nitrogen 24, Creatinine 1.91, Estimat Glomerular Filtration Rate 37, BUN/Creatinine Ratio 13, Glucose Level 77, Calcium Level 9.5 11/18/16 05:18: White Blood Count 6.6, Red Blood Count 3.72, Hemoglobin 11.2, Hematocrit 34, Mean Corpuscular Volume 91, Mean Corpuscular Hemoglobin 30, Mean Corpuscular Hemoglobin Concent 33, Red Cell Distribution Width 13.0, Platelet Count 105, Mean Platelet Volume 11.5, Neutrophils (%) (Auto) 62, Lymphocytes (%) (Auto) 22 , Monocytes (%) (Auto) 6, Eosinophils (%) (Auto) 10, Basophils (%) (Auto) 1, Neutrophils # (Auto) 4.1, Lymphocytes # (Auto) 1.4, Monocytes # (Auto) 0.4, Eosinophils # (Auto) 0.7, Basophils # (Auto) 0.0, Sodium Level 139, Potassium Level 5.2, Chloride Level 113, Carbon Dioxide Level 17, Anion Gap 9, Blood Urea Nitrogen 20, Creatinine 1.64, Estimat Glomerular Filtration Rate 44, BUN/ Creatinine Ratio 12, Glucose Level 96, Calcium Level 9.2, Total Bilirubin 0.7, Aspartate Amino Transf (AST/SGOT) 28, Alanine Aminotransferase (ALT/SGPT) 23, Alkaline Phosphatase 83, Total Protein 6.7, Albumin 3.4, Prothrombin Time 16.9, INR Comment 1.4 11/19/16 06:36: White Blood Count 5.3, Red Blood Count 3.42, Hemoglobin 10.4, Hematocrit 31, Mean Corpuscular Volume 91, Mean Corpuscular Hemoglobin 30, Mean Corpuscular Hemoglobin Concent 33, Red Cell Distribution Width 12.7, Platelet Count 86, Mean Platelet Volume 10.9, Sodium Level 137, Potassium Level 4.6, Chloride Level 110, Carbon Dioxide Level 19, Anion Gap 8, Blood Urea Nitrogen 18, Creatinine 1.58, Estimat Glomerular Filtration Rate 46, BUN/Creatinine Ratio 11 , Glucose Level 88, Calcium Level 9.1, Total Bilirubin 0.6, Aspartate Amino Transf (AST/SGOT) 27, Alanine Aminotransferase (ALT/SGPT) 23, Alkaline Phosphatase 76, Ammonia 35, Total Protein 6.3, Albumin 3.3 11/20/16 04:45: Sodium Level 138, Potassium Level 4.3, Chloride Level 110, Carbon Dioxide Level 18, Anion Gap 10, Blood Urea Nitrogen 19, Creatinine 1.55, Estimat Glomerular Filtration Rate 47, BUN/Creatinine Ratio 12, Glucose Level 87, Calcium Level 9.0 , Total Bilirubin 0.7, Aspartate Amino Transf (AST/SGOT) 28, Alanine Aminotransferase (ALT/SGPT) 22, Alkaline Phosphatase 78, Total Protein 6.2, Albumin 3.2 11/20/16 04:55: White Blood Count 5.6, Red Blood Count 3.38, Hemoglobin 10.3, Hematocrit 31, Mean Corpuscular Volume 91, Mean Corpuscular Hemoglobin 31, Mean Corpuscular Hemoglobin Concent 34, Red Cell Distribution Width 12.7, Platelet Count 85, Mean Platelet Volume 11.3, Neutrophils (%) (Auto) 57, Lymphocytes (%) (Auto) 28 , Monocytes (%) (Auto) 6, Eosinophils (%) (Auto) 8, Basophils (%) (Auto) 1, Neutrophils # (Auto) 3.2, Lymphocytes # (Auto) 1.6, Monocytes # (Auto) 0.4, Eosinophils # (Auto) 0.5, Basophils # (Auto) 0.0 Radiology Reviewed CAT scan of the head no acute process. Chest x-ray negative Discharge Home Medications: Active Scripts Active Risperdal (Risperidone) 0.25 Mg Tablet 0.25 Mg PO HS 30 Days Xifaxan (Rifaximin) 550 Mg Tablet 550 Mg PO BID 30 Days Lactulose 10 Gm/15 Ml Solution 1 Oz PO TID 30 Days Reported Atenolol 50 Mg Tablet 50 Mg PO DAILY Tramadol HCl 50 Mg Tablet 50 Mg PO BID Poly-Iron (Iron Polysaccharide Complex) 150 Mg Capsule 150 Mg PO BID Protonix (Pantoprazole Sodium) 40 Mg Tablet.dr 40 Mg PO DAILY Bumetanide 1 Mg Tablet 1 Mg PO DAILY Tamsulosin HCl 0.4 Mg Cap.er.24h 0.4 Mg PO HS Magnesium Oxide 400 Mg Tablet 400 Mg PO BID Levetiracetam 500 Mg Tablet 500 Mg PO 0800,1700 Combivent Respimat Inhal [place] (Albuterol/Ipratropium) 4 Gm Aero 1 Puff IH Q6H PRN Vitamin B-1 (Thiamine Mononitrate) 100 Mg Tablet 100 Mg PO DAILY Spironolactone 100 Mg Tablet 100 Mg PO DAILY Multiple Vitamin (Multivitamin with Minerals) 1 Each Tablet 1 Tab PO DAILY Guaifenesin 1,200 Mg Tab.er.12h 1,200 Mg PO Q12H PRN Folic Acid 1 Mg Tablet 1 Mg PO DAILY Instructions to patient/family Please see electonic discharge instructions given to patient. Clinical Quality Measures DVT/VTE Risk/Contraindication: Risk Factor Score Per Nursin RFS Level Per Nursing on Admit: 4+=Very High Contraindications-Pharm: Other *list below* Stroke: Date of last known well: Nov 16, 2016 CHERI GARCIA DO Nov 28, 2016 08:26
== END 2016-11-20 14:10 | DRG 683 ==
LOC: EDUNIT# 10:20 → ER 10:21 → OBSVTOIN 12:47 → 4TH 12:47
PROVIDERS: ADMIT Family Medicine; ATTEND Family Medicine
DX: N17.9 Acute kidney failure, unspecified (principal); N39.0 Urinary tract infection, site not specified; N18.9 Chronic kidney disease, unspecified; K74.60 Unspecified cirrhosis of liver; R47.81 Slurred speech; E87.5 Hyperkalemia; I48.2 Chronic atrial fibrillation; I10 Essential (primary) hypertension; K59.09 Other constipation; E11.9 Type 2 diabetes mellitus without complications; R41.82 Altered mental status, unspecified
CPT/HCPCS: 36415; 70450; 71010; 80048; 80053; 81000; 82140; 82962; 83735; 84484; 85025; 85027; 85379; 85610; 85730; 93005; 93041; 96360

== ENCOUNTER 2016-11-22 09:44 | Observation (INO) | payer MEDICAID ==
[~2016-11-22] VITALS: Ht 177.8 cm; Wt 84.5 kg
[~2016-11-22 09:44] MED LIST changes: +NALOXONE 0.4 MG/ML 1 ML (NARCAN) VIAL ONE; +NALOXONE 2 MG/2 ML (NARCAN) SYR ONE; +RIFA550T PO
[2016-11-22 10:05] LABS: BILIRUBIN,URINE NEGATIVE (NEGATIVE); KETONES,URINE NEGATIVE (NEGATIVE); LEUKOCYTE ESTERASE ,URINE 3+ (NEGATIVE); NITRITE,URINE NEGATIVE (NEGATIVE); PH,URINE 7 (5-9); PROTEIN,URINE NEGATIVE (NEGATIVE); UROBILINOGEN,URINE NORMAL (NORMAL)
[2016-11-22 10:07] LABS: BASOPHILS # (AUTO) 0.1 10^3/uL (0.0-0.1); BASOPHILS % (AUTO) 1 % (0-10); EOSINOPHILS # (AUTO) 0.6 10^3/uL (0.0-0.3); EOSINOPHILS % (AUTO) 9 % (0-10); LYMPHOCYTES # (AUTO) 1.4 X 10^3 (1.0-4.0); LYMPHOCYTES % (AUTO) 20 % (12-44); MEAN CORPUSCULAR HEMOGLOBIN 31 PG (25-34); MEAN CORPUSCULAR HGB CONC 34 G/DL (32-36); MEAN CORPUSCULAR VOLUME 89 FL (80-99); MONOCYTES # (AUTO) 0.5 X 10^3 (0.0-1.0); MONOCYTES % (AUTO) 8 % (0-12); NEUTROPHILS # (AUTO) 4.3 X 10^3 (1.8-7.8); NEUTROPHILS % (AUTO) 63 % (42-75); PLATELET COUNT 111 10^3/uL (130-400); RED BLOOD COUNT 3.38 10^6/uL (4.35-5.85); RED CELL DISTRIBUTION WIDTH 12.6 % (10.0-14.5); WHITE BLOOD COUNT 6.9 10^3/uL (4.3-11.0)
[2016-11-22 10:11] LABS: INR 1.5 (0.8-1.4); PROTHROMBIN TIME PATIENT 17.5 SEC (12.2-14.7)
[2016-11-22 10:15] LABS: WBC,URINE 25-50 /HPF
[2016-11-22 10:16] LABS: YEAST,URINE LARGE /HPF
[2016-11-22 10:17] LABS: ALBUMIN 3.6 G/DL (3.2-4.5); BILIRUBIN,TOTAL 0.9 MG/DL (0.1-1.0); CALCIUM 9.4 MG/DL (8.5-10.1); CREATININE SERUM 2.17 MG/DL (0.60-1.30); POTASSIUM 4.3 MMOL/L (3.6-5.0); TOTAL PROTEIN 6.9 G/DL (6.4-8.2)
--- NOTE | 2016-11-22 10:48 | ED Neurological Problem ---
General Chief Complaint: Unresponsive Stated Complaint: AFIB Nursing Triage Note: PT ARRIVED PER EMS, PT IS UNRESPONSIVE, [place] PT RESPONDS TO PAINFUL STIMULI, PT IS TWITCHING AT TIMES. PT HAS SL IN R FA #18 BY EMS. PT HAS HX LIVER FAILURE. Nursing Sepsis Screen: No Definite Risk Source: patient Exam Limitations: no limitations History of Present Illness Time seen by provider: 10:45 Initial Comments To ER from [facility] with reports of unresponsiveness. Staff found him responsive to painful stimuli and "twitching at times". This will be the patient's fourth presentation to the emergency room as August with history of hepatorenal syndrome, hepatitis B and C, cirrhosis, hepatic encephalopathy. Timing/Duration: unknown Associated Symptoms: confusion fatigueNo fever/chills, No insomnia, No nausea/ vomiting, No seizures Allergies and Home Medications Allergies Coded Allergies: No Known Drug Allergies (Unverified , 09/02/16) Home Medications Albuterol/Ipratropium 4 Gm Aero 1 PUFF IH Q6H PRN PRN SHORTNESS OF BREATH ( Reported) Atenolol 50 Mg Tablet 50 MG PO DAILY (Reported) Bumetanide 1 Mg Tablet 1 MG PO DAILY (Reported) Folic Acid 1 Mg Tablet 1 MG PO DAILY (Reported) Guaifenesin 1,200 Mg Tab.er.12h 1,200 MG PO Q12H PRN PRN COUGH (Reported) Iron Polysaccharide Complex 150 Mg Capsule 150 MG PO BID (Reported) Lactulose 10 Gm/15 Ml Solution 30Days 1 OZ PO TID Prescribed by: HUI HAYNES on 11/13/16 1153 Levetiracetam 500 Mg Tablet 500 MG PO 0800,1700 (Reported) Magnesium Oxide 400 Mg Tablet 400 MG PO BID (Reported) Multivitamin with Minerals 1 Each Tablet 1 TAB PO DAILY (Reported) Pantoprazole Sodium 40 Mg Tablet.dr 40 MG PO DAILY (Reported) Rifaximin 550 Mg Tablet 30Days 550 MG PO BID Prescribed by: JERROD GALVEZ on 11/20/16 1053 Spironolactone 100 Mg Tablet 100 MG PO DAILY (Reported) Tamsulosin HCl 0.4 Mg Cap.er.24h 0.4 MG PO HS (Reported) Thiamine Mononitrate 100 Mg Tablet 100 MG PO DAILY (Reported) Tramadol HCl 50 Mg Tablet 50 MG PO BID (Reported) Constitutional: see HPI Eyes: No Symptoms Reported Ears, Nose, Mouth, Throat: no symptoms reported Respiratory: no symptoms reportedNo cough Cardiovascular: no symptoms reported Gastrointestinal: No nausea, No vomiting Genitourinary: no symptoms reported Musculoskeletal: no symptoms reported Skin: no symptoms reported Psychiatric/Neurological: No Symptoms Reported Endocrine: No Symptoms Reported Hematologic/Lymphatic: No Symptoms Reported Past Kmddzgo-Fvahim-Efqcjx Hx Patient Social History Alcohol Use: Past History Recreational Drug Use: No Smoking Status: Unknown if Ever Smoked Recent Foreign Travel: No Contact w/Someone Who Travel: No Recent Infectious Disease Expo: No Recent Hopitalizations: Yes (FLUID ON LUNGS) Immunizations Up To Date Tetanus Booster (TDap): Unknown PED Vaccines UTD: Yes Date of Pneumonia Vaccine: May 07, 2016 Date of Influenza Vaccine: Apr 06, 2016 Seasonal Allergies Seasonal Allergies: No Surgeries HX Surgeries: No Respiratory Hx Respiratory Disorders: Yes (INHALER AT HOME, MRSA PNEUMONIA, PULM EDEMA) Respiratory Disorders: Pneumonia, COPD Cardiovascular Hx Cardiac Disorders: Yes (CHF) Cardiac Disorders: Atrial Fibrillation, Hypertension Neurological Hx Neurological Disorders: Yes (METABOLIC ENCEPHALOPATHY, ONDINA) Reproductive System Hx Reproductive Disorders: No HIV/AIDS: No Genitourinary Hx Genitourinary Disorders: Yes Genitourinary Disorders: Kidney Infection, Prostate Problems, Renal Failure Gastrointestinal Hx Gastrointestinal Disorders: Yes (HEP B/HEPC, CHRONIC LIVER CIRRHOSIS, ANEMIA ) Gastrointestinal Disorders: Liver Disease/Jaundice, Gastrointestinal Bleed, Chronic Constipation, Chronic Diarrhea, Cirrhosis Musculoskeletal Hx Musculoskeletal Disorders: Yes Musculoskeletal Disorders: Arthritis Endocrine Hx Endocrine Disorders: Yes Endocrine Disorders: Diabetes, Non-Insulin dep HEENT HX ENT Disorders: No Loss of Vision: Denies Hearing Impairment: Denies Cancer Hx Cancer: No Psychosocial Hx Psychiatric Problems: Yes Behavioral Health Disorders: Depression Integumentary HX Skin/Integumentary Disorder: No (DENIES ) Blood Transfusions Hx Blood Disorders: No Adverse Reaction to a Blood Tr: No Family Medical History Significant Family History: No Pertinent Family Hx Family Medial History: Patient reports no known family medical history. Physical Exam Vital Signs Vital Sign - Last 12Hours 11/22/16 09:45 Temp 97.6 Pulse 91 Resp 18 B/P 133/89 Pulse Ox 95 O2 Delivery Room Air Capillary Refill : Less Than 3 Seconds General Appearance: WD/WN no apparent distress HEENT: PERRL/EOMI normal ENT inspection Neck: non-tender full range of motion Respiratory: no respiratory distress no accessory muscle use Cardiovascular: regular rate, rhythm no murmur Gastrointestinal: normal bowel sounds non tender soft Extremities: normal range of motion non-tender Neurologic/Psychiatric: other (lethargic, keeps eyes closed and resists forced eye opening, unresponsive to verbal stimuli. However when I twist his left nipple he draws up his hand in a fist and attempts to punch me) Crainal Nerves: PERRL Skin: normal color warm/dry Stroke Stroke Thrombolytic Exclusion Age 18 or Over: Yes Focused Exam Lactic Acid Level Laboratory Tests Test 11/22/16 09:57 Alanine Aminotransferase (ALT/SGPT) 23U/L (0-55) Albumin 3.6G/DL (3.2-4.5) Alkaline Phosphatase 82U/L (40-136) Ammonia 34UMOL/L (11-32) H Anion Gap 11MMOL/L (5-14) Aspartate Amino Transf (AST/SGOT) 30U/L (5-34) BUN/Creatinine Ratio 15 Blood Urea Nitrogen 32MG/DL (7-18) H Calcium Level 9.4MG/DL (8.5-10.1) Carbon Dioxide Level 21MMOL/L (21-32) Chloride Level 104MMOL/L (98-107) Creatinine 2.17MG/DL (0.60-1.30) H Estimat Glomerular Filtration Rate 32 Glucose Level 91MG/DL (70-105) Potassium Level 4.3MMOL/L (3.6-5.0) Sodium Level 136MMOL/L (135-145) Total Bilirubin 0.9MG/DL (0.1-1.0) Total Protein 6.9G/DL (6.4-8.2) Progress/Results/Core Measures Results/Orders Lab Results Laboratory Tests Test 11/22/16 09:57 Range/Units Alanine Aminotransferase (ALT/SGPT) 23 0-55 U/L Albumin 3.6 3.2-4.5 G/DL Alkaline Phosphatase 82 40-136 U/L Ammonia 34 H 11-32 UMOL/L Anion Gap 11 5-14 MMOL/L Aspartate Amino Transf (AST/SGOT) 30 5-34 U/L BUN/Creatinine Ratio 15 Basophils # (Auto) 0.1 0.0-0.1 10^3/uL Basophils (%) (Auto) 1 0-10 % Blood Urea Nitrogen 32 H 7-18 MG/DL Calcium Level 9.4 8.5-10.1 MG/DL Carbon Dioxide Level 21 21-32 MMOL/L Chloride Level 104 98-107 MMOL/L Creatinine 2.17 H 0.60-1.30 MG/DL Eosinophils # (Auto) 0.6 H 0.0-0.3 10^3/uL Eosinophils (%) (Auto) 9 0-10 % Estimat Glomerular Filtration Rate 32 Glucose Level 91 70-105 MG/DL Hematocrit 30 L 40-54 % Hemoglobin 10.3 L 13.3-17.7 G/DL INR Comment 1.5 H 0.8-1.4 Lymphocytes # (Auto) 1.4 1.0-4.0 X 10^3 Lymphocytes (%) (Auto) 20 12-44 % Mean Corpuscular Hemoglobin 31 25-34 PG Mean Corpuscular Hemoglobin Concent 34 32-36 G/DL Mean Corpuscular Volume 89 80-99 FL Mean Platelet Volume 11.0 H 7.4-10.4 FL Monocytes # (Auto) 0.5 0.0-1.0 X 10^3 Monocytes (%) (Auto) 8 0-12 % Neutrophils # (Auto) 4.3 1.8-7.8 X 10^3 Neutrophils (%) (Auto) 63 42-75 % Platelet Count 111 L 130-400 10^3/uL Potassium Level 4.3 3.6-5.0 MMOL/L Prothrombin Time 17.5 H 12.2-14.7 SEC Red Blood Count 3.38 L 4.35-5.85 10^6/uL Red Cell Distribution Width 12.6 10.0-14.5 % Sodium Level 136 135-145 MMOL/L Total Bilirubin 0.9 0.1-1.0 MG/DL Total Protein 6.9 6.4-8.2 G/DL Urine Bacteria MODERATE H /HPF Urine Bilirubin NEGATIVE NEGATIVE Urine Casts NONE /LPF Urine Clarity CLEAR Urine Color YELLOW Urine Crystals NONE /LPF Urine Culture Indicated YES Urine Glucose (UA) NEGATIVE NEGATIVE Urine Ketones NEGATIVE NEGATIVE Urine Leukocyte Esterase 3+ H NEGATIVE Urine Mucus NEGATIVE /LPF Urine Nitrite NEGATIVE NEGATIVE Urine Protein NEGATIVE NEGATIVE Urine RBC NONE /HPF Urine RBC (Auto) NEGATIVE NEGATIVE Urine Specific [place] 1.010 L 1.016-1.022 Urine Squamous Epithelial Cells NONE /HPF Urine Urobilinogen NORMAL NORMAL MG/DL Urine WBC 25-50 H /HPF Urine Yeast LARGE H /HPF Urine pH 7 5-9 White Blood Count 6.9 4.3-11.0 10^3/uL My Orders Orders-CHANTEL PATE APRN Chest 1 View, Ap/Pa Only (11/22/16 10:48) Vital Signs/I&O Vital Sign - Last 12Hours 11/22/16 09:45 Temp 97.6 Pulse 91 Resp 18 B/P 133/89 Pulse Ox 95 O2 Delivery Room Air Blood Pressure Mean: 104 Departure Communication Time/Spoke to Admitting Phy: 11:12 Communication I discussed the case with Dr. Watts who agrees to admit Progress Notes We will admit the patient with a social work therapist consult in an attempt to get the patient placed into a shelter as assisted living at [facility] and will continue to be unable to provide level of care required by this patient. During his hospital stay and will increase his lactulose from 10 g 3 times a day to 30 g 3 times a day until mental status clears. Impression Impression: Primary Impression: Hepatic encephalopathy Additional Impression: chronic renal failure Disposition: ADMITTED INPATIENT Condition: Stable Decision to Admit Reason: Admit from ER (General) Decision to Admit/Date: Nov 22, 2016 Time/Decision to Admit Time: 10:48 Departure-Patient Inst. Referrals: CHERI GARCIA DO (PCP/Family) Primary Care Physician CHANTEL PATE APRN Nov 22, 2016 10:48
--- NOTE | 2016-11-22 11:13 | Diagnostic Imaging Report ---
INDICATION: Unresponsive. EXAMINATION: Chest 11/22/2016. COMPARISON: Comparison made to 11/17/2016. FINDINGS: The heart is enlarged. Pulmonary vasculature is mildly congested. There is mild atelectasis or infiltrate at the left lung base with remaining lungs clear. No significant effusions are seen. IMPRESSION: 1. Cardiomegaly and pulmonary vascular congestion. 2. Minimal left base atelectasis or infiltrate. Correlate with symptoms. Dictated by: Dictated on workstation # [id number]
[2016-11-22 12:00] VITALS: BP 122/85
[2016-11-22] MEDS: NS IV 1000 ML 1,000 ML IV SCH ×2 (13:50→23:38)
[2016-11-22] MEDS: cefTRIAXone 1 GM/NS 50 ML IVPB IV SCH ×2 (14:05)
[2016-11-22] MEDS: LACTULOSE SYRUP 10GM/15ML (ENULOSE) 30ML UDC PO SCH ×2 (14:47→22:10)
[2016-11-22 16:02] VITALS: BP 103/63
[2016-11-22] MEDS ORDERED: CYCL10TA9 PO (16:33)
[2016-11-22] MEDS ORDERED: POTA20PA28 PO (16:33)
[2016-11-22 19:35] VITALS: BP 110/85
[2016-11-23] VITALS (7 sets, daily range): BP systolic 98–145; BP diastolic 72–92
[2016-11-23] MEDS: LACTULOSE SYRUP 10GM/15ML (ENULOSE) 30ML UDC PO SCH ×4 (05:38→20:29)
--- NOTE | 2016-11-23 07:48 | History & Physicial ---
History of Present Illness History of Present Illness Reason for visit/HPI patient sent back to assisted living. Patient brought to the emergency room by ambulance. Patient nonresponsive. Patient has history of hepatic encephalopathy. Patient states she's 46 years old. Patient states she lives in [place]. Patient is awake this morning . Plan to send patient to a senior living. Date of Admission Nov 22, 2016 at 11:13 I consulted on this patient on 11/23/16 07:42 Attending Physician Cheri Dickens DO Admitting Physician Cheri Dickens DO Consult Allergies and Home Medications Allergies Coded Allergies: No Known Drug Allergies (Unverified , 09/02/16) Home Medications Albuterol/Ipratropium 4 Gm Aero 1 PUFF IH Q6H PRN PRN SHORTNESS OF BREATH ( Reported) Atenolol 50 Mg Tablet 50 MG PO DAILY (Reported) Bumetanide 1 Mg Tablet 1 MG PO DAILY (Reported) Cyclobenzaprine HCl 10 Mg Tablet 10 MG PO BID (Reported) Folic Acid 1 Mg Tablet 1 MG PO DAILY (Reported) Guaifenesin 1,200 Mg Tab.er.12h 1,200 MG PO Q12H PRN PRN COUGH (Reported) Iron Polysaccharide Complex 150 Mg Capsule 150 MG PO BID (Reported) Lactulose 10 Gm/15 Ml Solution 30Days 1 OZ PO TID Prescribed by: HUI HAYNES on 11/13/16 1153 Levetiracetam 500 Mg Tablet 500 MG PO 0800,1700 (Reported) Magnesium Oxide 400 Mg Tablet 400 MG PO BID (Reported) Multivitamin with Minerals 1 Each Tablet 1 TAB PO DAILY (Reported) Pantoprazole Sodium 40 Mg Tablet.dr 40 MG PO DAILY (Reported) Potassium Chloride 20 Meq Packet 20 MEQ PO BID (Reported) Rifaximin 550 Mg Tablet 30Days 550 MG PO BID Prescribed by: JERROD GALVEZ on 11/20/16 1053 Spironolactone 100 Mg Tablet 100 MG PO DAILY (Reported) Tamsulosin HCl 0.4 Mg Cap.er.24h 0.4 MG PO HS (Reported) Thiamine Mononitrate 100 Mg Tablet 100 MG PO DAILY (Reported) Tramadol HCl 50 Mg Tablet 50 MG PO BID (Reported) Past Ysgyksa-Jadswt-Hewbav Hx Patient Social History Alcohol Use: Past History Recreational Drug Use: No Smoking Status: Never a Smoker Physical Abuse Screen: No Sexual Abuse: No Recent Foreign Travel: No Contact w/other who traveled: No Recent Hopitalizations: Yes (FLUID ON LUNGS) Recent Infectious Disease Expo: No Immunizations Up To Date Tetanus Booster (TDap): Unknown Date of Pneumonia Vaccine: May 07, 2016 Date of Influenza Vaccine: Apr 06, 2016 Seasonal Allergies Seasonal Allergies: No Surgeries HX Surgeries: No Respiratory Hx Respiratory Disorders: Yes (INHALER AT HOME, MRSA PNEUMONIA, PULM EDEMA) Respiratory Disorders: Pneumonia Cardiovascular Hx Cardiovascular Disorders: Yes (CHF) Cardiac Disorders: Atrial Fibrillation, Hypertension Neurological Hx Neurological Disorders: Yes (METABOLIC ENCEPHALOPATHY, ONDINA) Reproductive System Hx Reproductive Disorders: No HIV/AIDS: No Genitourinary Hx Genitourinary Disorders: Yes Genitourinary Disorders: Kidney Infection, Prostate Problems, Renal Failure Gastrointestinal Hx Gastrointestinal Disorders: Yes (HEP B/HEPC, CHRONIC LIVER CIRRHOSIS, ANEMIA ) Gastrointestinal Disorders: Liver Disease/Jaundice, Gastrointestinal Bleed, Chronic Constipation, Chronic Diarrhea, Cirrhosis Musculoskeletal Hx Musculoskeletal Disorders: Yes Musculoskeletal Disorders: Arthritis Endocrine Hx Endocrine Disorders: Yes Endocrine Disorders: Diabetes, Non-Insulin dep HEENT HX ENT Disorders: No Loss of Vision: Denies Hearing Impairment: Denies Cancer Hx Cancer: No Psychosocial Hx Psychiatric Problems: Yes Behavioral Health Disorders: Depression Integumentary HX Skin/Integumentary Disorder: No (DENIES ) Blood Transfusions Hx Blood Disorders: No Adverse Reaction to a Blood Tr: No Family Medical History Significant Family History: No Pertinent Family Hx Family Hx: Patient reports no known family medical history. Constitutional: weakness other (responsive) EENTM: no symptoms reported Respiratory: no symptoms reported Cardiovascular: other (atrial fibrillation) Gastrointestinal: no symptoms reported Genitourinary: no symptoms reported Physical Exam Vital Signs Vital Sign - Last 12Hours 11/22/16 09:45 Temp 97.6 Pulse 91 Resp 18 B/P 133/89 Pulse Ox 95 O2 Delivery Room Air Capillary Refill : Less Than 3 Seconds General Appearance: No Apparent Distress Other (confusion) Eyes: Bilateral Eye Normal Inspection HEENT: Normal ENT Inspection Neck: Normal Inspection Respiratory: Chest Non Tender No Accessory Muscle Use No Respiratory Distress Cardiovascular: Irregularly Irregular Gastrointestinal: Non Tender Soft Assessment/Plan Assessment and Plan decreased level of consciousness. Hepatic encephalopathy. Confusion. Nonresponsive. Acute mental status change Problems: Clinical Quality Measures DVT/VTE Risk/Contraindication: Risk Factor Score Per Nursin RFS Level Per Nursing on Admit: 1=Low/No VTE PPX CHERI DICKENS DO Nov 23, 2016 07:48
[2016-11-23] MEDS ORDERED: KCL 20 MEQ POWDER FOR ORAL SOLUTION PO SCH (09:00)
[2016-11-23] MEDS ORDERED: CYCLOBENZAPRINE 10 MG (FLEXERIL) TAB PO SCH (09:00)
[2016-11-23] MEDS: NS IV 1000 ML 1,000 ML IV SCH (09:36)
[2016-11-23] MEDS: cefTRIAXone 1 GM/NS 50 ML IVPB IV SCH ×2 (09:48)
[2016-11-23] MEDS: IRON POLYSAC 150 MG CAP (NIFEREX) PO SCH ×2 (09:52→18:45)
[2016-11-23] MEDS: ATENOLOL 50 MG (TENORMIN) TAB PO SCH (09:52)
[2016-11-23] MEDS: BUMETANIDE 1 MG (BUMEX) TAB PO SCH (09:52)
[2016-11-23] MEDS: LEVETIRACETAM 500 MG (KEPPRA) TAB PO SCH ×2 (09:52→16:43)
[2016-11-23] MEDS: THIAMINE 100 MG (VITAMIN B-1) TAB PO SCH (09:53)
[2016-11-23] MEDS: PANTOPRAZOLE 40 MG (PROTONIX) TAB PO SCH (09:53)
[2016-11-23] MEDS: MAGNESIUM OXIDE (MAG-OX)400 MG TAB PO SCH ×2 (09:53→16:45)
[2016-11-23] MEDS: FOLIC ACID 1 MG TAB PO SCH (09:53)
[2016-11-23] MEDS: SPIRONOLACTONE 100 MG (ALDACTONE) TABLET PO SCH (09:53)
[2016-11-23] MEDS: RIFAXIMIN 550 MG TABLET (XIFAXAN) PO SCH ×2 (09:53→20:29)
[2016-11-23] MEDS ORDERED: CATHETER FLUSH 10 ML SYR IV PRN (13:30)
[2016-11-23] MEDS: CATHETER FLUSH 10 ML SYR IV SCH ×2 (13:47→22:00)
[2016-11-23] MEDS: ALFUZOSIN HCL 10 MG TAB (UROXATRAL) PO SCH (20:29)
[2016-11-24 04:00] VITALS: BP 129/85
[2016-11-24 05:15] LABS: MEAN PLATELET VOLUME 11.5 FL (7.4-10.4); RED BLOOD COUNT 3.46 10^6/uL (4.35-5.85); RED CELL DISTRIBUTION WIDTH 12.9 % (10.0-14.5); WHITE BLOOD COUNT 6.6 10^3/uL (4.3-11.0)
[2016-11-24 05:40] LABS: INR 1.4 (0.8-1.4); PROTHROMBIN TIME PATIENT 16.7 SEC (12.2-14.7)
[2016-11-24 05:44] LABS: ALBUMIN 3.3 G/DL (3.2-4.5); BILIRUBIN,TOTAL 0.6 MG/DL (0.1-1.0); CALCIUM 9.2 MG/DL (8.5-10.1); CREATININE SERUM 1.51 MG/DL (0.60-1.30); TOTAL PROTEIN 6.6 G/DL (6.4-8.2)
[2016-11-24] MEDS: FOLIC ACID 1 MG TAB PO SCH (06:00)
[2016-11-24] MEDS: THIAMINE 100 MG (VITAMIN B-1) TAB PO SCH (06:00)
[2016-11-24] MEDS: PANTOPRAZOLE 40 MG (PROTONIX) TAB PO SCH (06:00)
[2016-11-24] MEDS: MAGNESIUM OXIDE (MAG-OX)400 MG TAB PO SCH ×2 (06:00→17:32)
[2016-11-24] MEDS: IRON POLYSAC 150 MG CAP (NIFEREX) PO SCH ×2 (06:00→17:32)
[2016-11-24] MEDS: CATHETER FLUSH 10 ML SYR IV SCH ×3 (06:01→22:28)
[2016-11-24] MEDS ORDERED: LORazepam INJ 2 MG/ML (ATIVAN) VIAL ONE (08:10)
--- NOTE | 2016-11-24 08:12 | Progress Note (SOAP) ---
Subjective Subjective/Events-last exam patient yesterday was agitated. Patient is morning is not talking to make patient has history of seizure patient is shaking this morning. Patient appears to be having a seizure. Lorazepam ordered Objective Exam Vital Signs Date Time Temp Pulse Resp B/P Pulse Ox O2 Delivery O2 Flow Rate FiO2 11/24/16 04:00 96.2 88 22 129/85 97 Room Air 11/23/16 23:40 97.4 86 20 145/92 96 Room Air 11/23/16 19:38 97.0 82 22 125/83 96 Room Air 11/23/16 16:04 98.2 88 18 125/88 99 Room Air 11/23/16 12:00 97.9 93 24 98/72 98 Room Air 11/23/16 10:30 97.8 I & O 11/24/16 07:00 Intake Total 1882 ml Output Total 1600 ml Balance 282 ml Capillary Refill : Less Than 3 Seconds General Appearance: No Apparent Distress Other (not communicating this morning and shaking) Results Lab Laboratory Tests 11/24/16 04:30 11/24/16 04:35 Laboratory Tests 11/23/16 08:13: Ammonia 39H 11/24/16 04:30: Alanine Aminotransferase (ALT/SGPT) 22, Albumin 3.3, Alkaline Phosphatase 76, Anion Gap 12, Aspartate Amino Transf (AST/SGOT) 28, BUN/Creatinine Ratio 13, Blood Urea Nitrogen 19H, Calcium Level 9.2, Carbon Dioxide Level 20L, Chloride Level 108H, Creatinine 1.51H, Estimat Glomerular Filtration Rate 48, Glucose Level 95, INR Comment 1.4, Potassium Level 4.0, Prothrombin Time 16.7H, Sodium Level 140, Total Bilirubin 0.6, Total Protein 6.6 11/24/16 04:35: Hematocrit 31L, Hemoglobin 10.4L, Mean Corpuscular Hemoglobin 30, Mean Corpuscular Hemoglobin Concent 33, Mean Corpuscular Volume 91, Mean Platelet Volume 11.5H, Platelet Count 103L, Red Blood Count 3.46L, Red Cell Distribution Width 12.9, White Blood Count 6.6 Microbiology 11/22/16 Urine Culture - Final, Complete Assessment/Plan Assessment/Plan Assess & Plan/Chief Complaint hepatic encephalopathy. Seizure. Renal insufficiency improving. To give lorazepam Clinical Quality Measures DVT/VTE Risk/Contraindication: Risk Factor Score Per Nursin RFS Level Per Nursing on Admit: 1=Low/No VTE PPX CHERI GARCIA DO Nov 24, 2016 08:12
[2016-11-24 08:15] VITALS: BP 97/73
[2016-11-24] MEDS: cefTRIAXone 1 GM/NS 50 ML IVPB IV SCH ×2 (09:57)
[2016-11-24] MEDS: ATENOLOL 50 MG (TENORMIN) TAB PO SCH (09:59)
[2016-11-24] MEDS: BUMETANIDE 1 MG (BUMEX) TAB PO SCH (09:59)
[2016-11-24] MEDS: SPIRONOLACTONE 100 MG (ALDACTONE) TABLET PO SCH (10:00)
[2016-11-24] MEDS: LEVETIRACETAM 500 MG (KEPPRA) TAB PO SCH ×2 (10:00→17:32)
[2016-11-24] MEDS: LACTULOSE SYRUP 10GM/15ML (ENULOSE) 30ML UDC PO SCH ×3 (10:01→20:50)
[2016-11-24] MEDS: RIFAXIMIN 550 MG TABLET (XIFAXAN) PO SCH ×3 (10:20→20:50)
[2016-11-24 12:45] VITALS: BP 110/76
[2016-11-24 15:58] VITALS: BP 104/71
[2016-11-24 20:30] VITALS: BP 114/77
[2016-11-24] MEDS: ALFUZOSIN HCL 10 MG TAB (UROXATRAL) PO SCH (20:50)
[2016-11-24 23:20] VITALS: BP 102/53
[2016-11-25 05:33] LABS: BASOPHILS # (AUTO) 0.1 10^3/uL (0.0-0.1); BASOPHILS % (AUTO) 1 % (0-10); EOSINOPHILS # (AUTO) 0.7 10^3/uL (0.0-0.3); EOSINOPHILS % (AUTO) 9 % (0-10); LYMPHOCYTES % (AUTO) 27 % (12-44); MEAN CORPUSCULAR HEMOGLOBIN 30 PG (25-34); MEAN CORPUSCULAR HGB CONC 34 G/DL (32-36); MEAN CORPUSCULAR VOLUME 90 FL (80-99); MEAN PLATELET VOLUME 11.9 FL (7.4-10.4); MONOCYTES # (AUTO) 0.5 X 10^3 (0.0-1.0); MONOCYTES % (AUTO) 7 % (0-12); NEUTROPHILS % (AUTO) 56 % (42-75); PLATELET COUNT 103 10^3/uL (130-400); RED BLOOD COUNT 3.82 10^6/uL (4.35-5.85); RED CELL DISTRIBUTION WIDTH 12.9 % (10.0-14.5); WHITE BLOOD COUNT 7.2 10^3/uL (4.3-11.0)
[2016-11-25 05:55] LABS: CALCIUM 9.2 MG/DL (8.5-10.1); CREATININE SERUM 1.7 MG/DL (0.60-1.30); POTASSIUM 4.1 MMOL/L (3.6-5.0)
[2016-11-25] MEDS: CATHETER FLUSH 10 ML SYR IV SCH ×2 (06:00→14:00)
[2016-11-25] MEDS: THIAMINE 100 MG (VITAMIN B-1) TAB PO SCH (06:53)
[2016-11-25] MEDS: FOLIC ACID 1 MG TAB PO SCH (06:53)
[2016-11-25] MEDS: MAGNESIUM OXIDE (MAG-OX)400 MG TAB PO SCH (06:53)
[2016-11-25] MEDS: PANTOPRAZOLE 40 MG (PROTONIX) TAB PO SCH (06:53)
[2016-11-25] MEDS: IRON POLYSAC 150 MG CAP (NIFEREX) PO SCH (06:53)
[2016-11-25 08:00] VITALS: BP 108/72
--- NOTE | 2016-11-25 08:18 | Progress Note (SOAP) ---
Subjective Subjective/Events-last exam patient is doing as good as can be expected. Patient alert today. Patient still has confusion which is had for a while. To put patient on Risperdal. Blood tests better. Plan to discharge today Objective Exam Vital Signs Date Time Temp Pulse Resp B/P (MAP) Pulse Ox O2 Delivery O2 Flow Rate FiO2 11/24/16 23:20 96.3 85 19 102/53 95 Room Air 11/24/16 20:30 96.2 82 20 114/77 99 Room Air 11/24/16 15:58 97.0 84 18 104/71 99 Room Air 11/24/16 12:45 97.8 86 18 110/76 98 Room Air 11/24/16 08:15 98.7 80 18 97/73 96 Room Air I & O 11/25/16 07:00 Intake Total 960 ml Balance 960 ml Capillary Refill : Less Than 3 Seconds General Appearance: No Apparent Distress, WD/WN HEENT: Normal ENT Inspection Neck: Normal Inspection Respiratory: Chest Non Tender, Normal Breath Sounds, No Accessory Muscle Use, No Respiratory Distress Results Lab Laboratory Tests 11/25/16 04:25 Laboratory Tests 11/25/16 04:25: White Blood Count 7.2, Red Blood Count 3.82L, Hemoglobin 11.5L, Hematocrit 34L, Mean Corpuscular Volume 90, Mean Corpuscular Hemoglobin 30, Mean Corpuscular Hemoglobin Concent 34, Red Cell Distribution Width 12.9, Platelet Count 103L, Mean Platelet Volume 11.9H, Neutrophils (%) (Auto) 56, Lymphocytes (%) (Auto) 27 , Monocytes (%) (Auto) 7, Eosinophils (%) (Auto) 9, Basophils (%) (Auto) 1, Neutrophils # (Auto) 4.0, Lymphocytes # (Auto) 2.0, Monocytes # (Auto) 0.5, Eosinophils # (Auto) 0.7H, Basophils # (Auto) 0.1, Sodium Level 137, Potassium Level 4.1, Chloride Level 104, Carbon Dioxide Level 21, Anion Gap 12, Blood Urea Nitrogen 22H, Creatinine 1.70H, Estimat Glomerular Filtration Rate 42, BUN/ Creatinine Ratio 13, Glucose Level 84, Calcium Level 9.2 Microbiology 11/22/16 Urine Culture - Final, Complete Assessment/Plan Assessment/Plan Assess & Plan/Chief Complaint hepatic encephalopathy. Seizure. Renal insufficiency improving. To give lorazepam. . 11/25/16. Patient awake today. Hepatic encephalopathy better. Patient still has confusion which he always had.. Patient put on respirdol. Plan to discharge today Urine culture only yeast Clinical Quality Measures DVT/VTE Risk/Contraindication: Risk Factor Score Per Nursin RFS Level Per Nursing on Admit: 1=Low/No VTE PPX CHERI GARCIA DO Nov 25, 2016 08:18
[2016-11-25] MEDS ORDERED: risperiDONE 0.25 MG (RisperDAL) TAB PO SCH (09:00)
[2016-11-25] MEDS: BUMETANIDE 1 MG (BUMEX) TAB PO SCH (09:24)
[2016-11-25] MEDS: RIFAXIMIN 550 MG TABLET (XIFAXAN) PO SCH (09:24)
[2016-11-25] MEDS: SPIRONOLACTONE 100 MG (ALDACTONE) TABLET PO SCH (09:24)
[2016-11-25] MEDS: LACTULOSE SYRUP 10GM/15ML (ENULOSE) 30ML UDC PO SCH ×2 (09:24→14:25)
[2016-11-25] MEDS: LEVETIRACETAM 500 MG (KEPPRA) TAB PO SCH (09:24)
[2016-11-25] MEDS: ATENOLOL 50 MG (TENORMIN) TAB PO SCH (09:24)
[2016-11-25] MEDS ORDERED: RISP0.2517 PO (12:15)
--- NOTE | 2016-11-28 08:30 | Clinic Account Progress/Dx ---
Clinic Account Progress/Dx DIAGNOSIS: Diagnosis chronic kidney disease. COPD. Hepatic failure unspecified without coma. Hypertension chronic kidney disease. Diabetes type II. Atrial fib. Viral hepatitis B without hepatic coma. Viral hepatis C without hepatitis coma CHERI GARCIA DO Nov 28, 2016 08:30
== END 2016-11-25 08:18 ==
LOC: DELPENDDIS → EDUNIT# 09:44 → ER 09:44 → 4TH 11:13 → UNDOADMOB 11:13 → 4TH 12:00
PROVIDERS: ADMIT Family Medicine; ATTEND Family Medicine
DX: K72.90 Hepatic failure, unspecified without coma (principal); R56.9 Unspecified convulsions; I12.9 Hypertensive chronic kidney disease with stage 1 through stage 4 chronic kidney disease, or unspecified chronic kidney disease; N18.9 Chronic kidney disease, unspecified; J44.9 Chronic obstructive pulmonary disease, unspecified; I48.91 Unspecified atrial fibrillation; B19.10 Unspecified viral hepatitis B without hepatic coma; B19.20 Unspecified viral hepatitis C without hepatic coma; E11.9 Type 2 diabetes mellitus without complications
CPT/HCPCS: 36415; 51702; 71010; 80048; 80053; 81000; 82140; 85025; 85027; 85610; 87088; G0378

== ENCOUNTER → 2017-01-26 | Outpatient (CLI) | payer MEDICAID ==
[~2017-01-26] MED LIST changes: +ACET1TAB43 PO; -NALOXONE 0.4 MG/ML 1 ML (NARCAN) VIAL ONE; -NALOXONE 2 MG/2 ML (NARCAN) SYR ONE; +POTA20PA28 PO; +PRD20T PO; +RISP0.2517 PO
--- NOTE | 2017-01-26 14:01 | Diagnostic Imaging Report ---
INDICATION: Dizziness. Lightheadedness. COMPARISON: 11/22/2016. FINDINGS: The lungs are clear. The heart size and vascularity are within normal limits. There is no effusion or pneumothorax. IMPRESSION: No acute appearing abnormality. Dictated by: Dictated on workstation # [id number]
== END ==
LOC: RAD 11:42
PROVIDERS: ATTEND Family Medicine
DX: R05 Cough (principal); R09.89 Other specified symptoms and signs involving the circulatory and respiratory systems
CPT/HCPCS: 71020

== ENCOUNTER 2017-01-29 09:13 | Emergency (ER) | payer MEDICAID ==
[~2017-01-29] VITALS: Ht 177.8 cm; Wt 83.9 kg
[~2017-01-29 09:13] MED LIST changes: -ACET1TAB43 PO; -PRD20T PO
[2017-01-29 10:16] LABS: BASOPHILS % (AUTO) 0 % (0-10); EOSINOPHILS # (AUTO) 0.4 10^3/uL (0.0-0.3); EOSINOPHILS % (AUTO) 5 % (0-10); LYMPHOCYTES # (AUTO) 1.2 X 10^3 (1.0-4.0); LYMPHOCYTES % (AUTO) 15 % (12-44); MEAN CORPUSCULAR HEMOGLOBIN 31 PG (25-34); MEAN CORPUSCULAR HGB CONC 33 G/DL (32-36); MEAN CORPUSCULAR VOLUME 93 FL (80-99); MEAN PLATELET VOLUME 11.3 FL (7.4-10.4); MONOCYTES # (AUTO) 0.7 X 10^3 (0.0-1.0); MONOCYTES % (AUTO) 8 % (0-12); NEUTROPHILS # (AUTO) 6.2 X 10^3 (1.8-7.8); NEUTROPHILS % (AUTO) 73 % (42-75); RED BLOOD COUNT 3.77 10^6/uL (4.35-5.85); RED CELL DISTRIBUTION WIDTH 14.2 % (10.0-14.5); WHITE BLOOD COUNT 8.6 10^3/uL (4.3-11.0)
[2017-01-29 10:18] LABS: PLATELET COUNT 96 10^3/uL (130-400)
[2017-01-29 10:36] LABS: ALBUMIN 4.2 G/DL (3.2-4.5); BILIRUBIN,TOTAL 0.7 MG/DL (0.1-1.0); CALCIUM 9.9 MG/DL (8.5-10.1); CREATININE SERUM 1.81 MG/DL (0.60-1.30); POTASSIUM 3.8 MMOL/L (3.6-5.0); TOTAL PROTEIN 8.2 G/DL (6.4-8.2)
--- NOTE | 2017-01-29 11:05 | Diagnostic Imaging Report ---
INDICATION: Chest pain. EXAMINATION: PA and lateral chest. FINDINGS: The heart size and pulmonary vascularity are normal. The lungs are clear. There are no effusions or pneumothoraces. IMPRESSION: Negative chest. Dictated by: Dictated on workstation # [id number]
[2017-01-29] MEDS ORDERED: PRD20T PO (11:24)
[2017-01-29] MEDS ORDERED: ACET1TAB43 PO (11:24)
--- NOTE | 2017-01-29 11:24 | ED Cough/URI ---
General Chief Complaint: Cough/Cold/Flu Symptoms Stated Complaint: DIZZINESS COUGH CHEST CONGESTION Nursing Triage Note: c/o cough x 1 month with dizzy spells. Reports chest discomfort upon coughing. Yellow productive cough. Started z-pack and had CXR on 01-26-17. Source: patient Exam Limitations: no limitations History of Present Illness Time seen by provider: 11:21 Initial Comments To ER with a one-month history of productive cough with dizzy spells. Productive of yellow sputum. Started on azithromycin 3 days ago but denies improvement. No fevers or chills. Is worried about pneumonia. Severity/Quality: moderate Associated Symptoms: cough Allergies and Home Medications Allergies Coded Allergies: No Known Drug Allergies (Unverified , 09/02/16) Home Medications Albuterol/Ipratropium 4 Gm Aero, 1 PUFF IH Q6H PRN for SHORTNESS OF BREATH, ( Reported) Atenolol 50 Mg Tablet, 50 MG PO DAILY, (Reported) Bumetanide 1 Mg Tablet, 1 MG PO DAILY, (Reported) Folic Acid 1 Mg Tablet, 1 MG PO DAILY, (Reported) Guaifenesin 1,200 Mg Tab.er.12h, 1,200 MG PO Q12H PRN for COUGH, (Reported) Iron Polysaccharide Complex 150 Mg Capsule, 150 MG PO BID, (Reported) Lactulose 10 Gm/15 Ml Solution, 1 OZ PO TID for 30 Days Prescribed by: HUI HAYNES on 11/13/16 1153 Levetiracetam 500 Mg Tablet, 500 MG PO 0800,1700, (Reported) Magnesium Oxide 400 Mg Tablet, 400 MG PO BID, (Reported) Multivitamin with Minerals 1 Each Tablet, 1 TAB PO DAILY, (Reported) Pantoprazole Sodium 40 Mg Tablet.dr, 40 MG PO DAILY, (Reported) Rifaximin 550 Mg Tablet, 550 MG PO BID for 30 Days, Ref 0 Prescribed by: JERROD GALVEZ on 11/20/16 1053 Risperidone 0.25 Mg Tablet, 0.25 MG PO HS for 30 Days Prescribed by: IQRA SALINAS on 11/25/16 1215 Spironolactone 100 Mg Tablet, 100 MG PO DAILY, (Reported) Tamsulosin HCl 0.4 Mg Cap.er.24h, 0.4 MG PO HS, (Reported) Thiamine Mononitrate 100 Mg Tablet, 100 MG PO DAILY, (Reported) Tramadol HCl 50 Mg Tablet, 50 MG PO BID, (Reported) Constitutional: see HPI, No chills, No fever EENTM: see HPI Respiratory: see HPI, cough Cardiovascular: no symptoms reported Genitourinary: no symptoms reported Musculoskeletal: no symptoms reported Skin: no symptoms reported Psychiatric/Neurological: No Symptoms Reported Hematologic/Lymphatic: No Symptoms Reported Past Zvsrctc-Eubyat-Qiqcet Hx Patient Social History Alcohol Use: Denies Use Recreational Drug Use: No Smoking Status: Never a Smoker Recent Foreign Travel: No Contact w/Someone Who Travel: No Recent Infectious Disease Expo: No Recent Hopitalizations: Yes (FLUID ON LUNGS) Immunizations Up To Date Tetanus Booster (TDap): Unknown PED Vaccines UTD: Yes Date of Pneumonia Vaccine: May 07, 2016 Date of Influenza Vaccine: Apr 06, 2016 Seasonal Allergies Seasonal Allergies: No Surgeries HX Surgeries: No Respiratory Hx Respiratory Disorders: Yes (INHALER AT HOME, MRSA PNEUMONIA, PULM EDEMA) Respiratory Disorders: Pneumonia, COPD Cardiovascular Hx Cardiac Disorders: Yes (CHF) Cardiac Disorders: Atrial Fibrillation, Hypertension Neurological Hx Neurological Disorders: Yes (METABOLIC ENCEPHALOPATHY, ONDINA) Reproductive System Hx Reproductive Disorders: No HIV/AIDS: No Genitourinary Hx Genitourinary Disorders: Yes Genitourinary Disorders: Kidney Infection, Prostate Problems, Renal Failure Gastrointestinal Hx Gastrointestinal Disorders: Yes (HEP B/HEPC, CHRONIC LIVER CIRRHOSIS, ANEMIA ) Gastrointestinal Disorders: Liver Disease/Jaundice, Gastrointestinal Bleed, Chronic Constipation, Chronic Diarrhea, Cirrhosis Musculoskeletal Hx Musculoskeletal Disorders: Yes Musculoskeletal Disorders: Arthritis Endocrine Hx Endocrine Disorders: Yes Endocrine Disorders: Diabetes, Non-Insulin dep HEENT HX ENT Disorders: No Loss of Vision: Denies Hearing Impairment: Denies Cancer Hx Cancer: No Psychosocial Hx Psychiatric Problems: Yes Behavioral Health Disorders: Depression Integumentary HX Skin/Integumentary Disorder: No (DENIES ) Blood Transfusions Hx Blood Disorders: No Adverse Reaction to a Blood Tr: No Family Medical History Significant Family History: No Pertinent Family Hx Family Medial History: Patient reports no known family medical history. Physical Exam Vital Signs Vital Sign - Last 12Hours 01/29/17 09:32 Temp 97.3 Pulse 105 Resp 18 B/P (MAP) 137/94 Pulse Ox 100 O2 Delivery Room Air Capillary Refill : Less Than 3 Seconds General Appearance: WD/WN, no apparent distress Eyes: Bilateral Eye EOMI, Bilateral Eye Normal Inspection, Bilateral Eye PERRL HEENT: PERRL/EOMI, normal ENT inspection Neck: non-tender, full range of motion Respiratory: normal breath sounds, no respiratory distress, no accessory muscle use Cardiovascular: regular rate, rhythm, no murmur Gastrointestinal: normal bowel sounds, non tender, soft Neurologic/Psychiatric: alert, normal mood/affect, oriented x 3 Skin: normal color, warm/dry He is a ambulatory with a walker Progress/Results/Core Measures Results/Orders Lab Results Laboratory Tests Test 01/29/17 10:11 Range/Units White Blood Count 8.6 4.3-11.0 10^3/uL Red Blood Count 3.77 L 4.35-5.85 10^6/uL Hemoglobin 11.6 L 13.3-17.7 G/DL Hematocrit 35 L 40-54 % Mean Corpuscular Volume 93 80-99 FL Mean Corpuscular Hemoglobin 31 25-34 PG Mean Corpuscular Hemoglobin Concent 33 32-36 G/DL Red Cell Distribution Width 14.2 10.0-14.5 % Platelet Count 96 L 130-400 10^3/uL Mean Platelet Volume 11.3 H 7.4-10.4 FL Neutrophils (%) (Auto) 73 42-75 % Lymphocytes (%) (Auto) 15 12-44 % Monocytes (%) (Auto) 8 0-12 % Eosinophils (%) (Auto) 5 0-10 % Basophils (%) (Auto) 0 0-10 % Neutrophils # (Auto) 6.2 1.8-7.8 X 10^3 Lymphocytes # (Auto) 1.2 1.0-4.0 X 10^3 Monocytes # (Auto) 0.7 0.0-1.0 X 10^3 Eosinophils # (Auto) 0.4 H 0.0-0.3 10^3/uL Basophils # (Auto) 0.0 0.0-0.1 10^3/uL Sodium Level 137 135-145 MMOL/L Potassium Level 3.8 3.6-5.0 MMOL/L Chloride Level 103 98-107 MMOL/L Carbon Dioxide Level 22 21-32 MMOL/L Anion Gap 12 5-14 MMOL/L Blood Urea Nitrogen 29 H 7-18 MG/DL Creatinine 1.81 H 0.60-1.30 MG/DL Estimat Glomerular Filtration Rate 39 BUN/Creatinine Ratio 16 Glucose Level 92 70-105 MG/DL Calcium Level 9.9 8.5-10.1 MG/DL Total Bilirubin 0.7 0.1-1.0 MG/DL Aspartate Amino Transf (AST/SGOT) 29 5-34 U/L Alanine Aminotransferase (ALT/SGPT) 31 0-55 U/L Alkaline Phosphatase 94 40-136 U/L Total Protein 8.2 6.4-8.2 G/DL Albumin 4.2 3.2-4.5 G/DL My Orders Orders - CHANTEL PATE APRN Chest Pa/Lat (2 View) (01/29/17 10:43) Sputum Culture (01/29/17 11:21) Vital Signs/I&O Vital Sign - Last 12Hours 01/29/17 09:32 Temp 97.3 Pulse 105 Resp 18 B/P (MAP) 137/94 Pulse Ox 100 O2 Delivery Room Air Blood Pressure Mean: 108 Departure Impression Impression: Primary Impression: Bronchitis Disposition: 01 HOME, SELF-CARE Condition: Stable Departure-Patient Inst. Decision time for Depature: 11:22 Referrals: CHERI GARCIA DO (PCP/Family) Primary Care Physician Patient Instructions: Acute Bronchitis, Adult (DC) Add. Discharge Instructions: 1. Medication as directed 2. Return to ER for any concerns 3. All discharge instructions reviewed with patient and/or family. Voiced understanding. Scripts Acetaminophen with Codeine (Acetaminophen-Cod #3 Tablet) 1 Each Tablet 1 EACH PO Q8H Y for COUGH, #10 TAB Prov: CHANTEL PATE APRN 01/29/17 Prednisone (Prednisone) 20 Mg Tab 40 MG PO DAILY for 3 Days, TAB Prov: CHANTEL PATE APRN 01/29/17 CHANTEL PATE APRN January 29, 2017 11:24
[2017-01-29 11:30] VITALS: BP 132/90
== END 2017-01-29 11:30 | disposition home or self-care (01) ==
LOC: EDUNIT# 09:13 → ER 09:15
DX: J40 Bronchitis, not specified as acute or chronic (principal); I10 Essential (primary) hypertension; J44.9 Chronic obstructive pulmonary disease, unspecified; I48.2 Chronic atrial fibrillation; Z79.899 Other long term (current) drug therapy
CPT/HCPCS: 36415; 71020; 80053; 85025; 87070; 87205